=== PATIENT | female | born 1940 | race Caucasian/White ===

== ENCOUNTER 2020-03-31 13:12 | Outpatient (CLI) | payer MEDICARE, OTHER, SELFPAY ==
--- NOTE | 2020-03-31 17:21 | ONC CON_ITS ---
Dr. Benito New Patient Note Patient: Millicent Angel Unit #: [id number]: 1940 Dicatated By: Maynor Benito M.D.Date of Visit: Mar 31, 2020 Onc MED New Patient/Consult Referring Physician: Dr. Dedrick Person M.D. Chief Complaint: Paget's disease of perianal skin. History of Present Illness: This is an 80-year-old woman who is known to have Paget's disease of the perianal skin. She is followed by Dr. Hook in [place]. She had initially been diagnosed with the Paget's disease in April 2017. Her colonoscopy at that time showed a rectal polyp (tubular adenoma), but there was no evidence of colorectal cancer. She underwent wide excision of the Paget's disease and en bloc resection of the rectal polyp on 06/29/2017. Pathology was consistent with Paget's disease of the perianal skin with involved anterior, posterior, and rectal margins. She was then followed expectantly. She required excision for local recurrence of the Paget's disease in July 2018. By June 2019 she again had evidence of local recurrence. Her repeat colonoscopy on 08/29/2019 showed no evidence for polyps, tumors, or inflammatory changes. She then underwent wide excision of the Paget's disease on 09/12/2019. Pathology on excisions from the left posterior perianal area and left anterior perianal area both showed extramammary Paget's disease with positive margins, including the dentate margin. An additional anterior midline biopsy also was positive for extramammary Paget's disease with positive peripheral margins. As of her follow-up visit with Dr. Hook in November 2019 there was no evidence for further recurrence. She has been feeling pretty good generally. Her main complaint is that she has peripheral neuropathy affecting her lower extremities. Her neuropathy pain has been well controlled on Lyrica. However, following her surgery in August her pain has worsened, mainly in the left posterior hip area radiating down the back of the left leg. The pain also radiates somewhat to the perineal/rectal area. She has had to have her Lyrica dosage increased. She has had pretty good energy, though she sometimes feels worn out. Her ECOG score is 1. She has good appetite. She has no fever or night sweats. She always has sinus drainage. She had been having chest pain and syncope prior to her pacemaker procedure, but since then she has had just occasional palpitations. She sometimes has acid reflux. She also complains that she has to strain to have bowel movements, though she is having them daily. She has not been aware of any blood in the stool. She says her bladder has dropped and she has urinary frequency with urgency and incontinence. She has arthritis pain, tickly had in her hands, and she also has fibromyalgia and trigeminal neuralgia. She has headaches. She is known to have a meningioma involving the right sphenoid wing. She has some numbness in her feet. She is sleeping okay with clonazepam. Past Medical History: Her medical history includes degenerative arthritis, fibromyalgia, hyperlipidemia, hypertension, peripheral neuropathy, and trigeminal neuralgia. She has a history of 3rd degree heart block, and she has known meningioma involving the right sphenoid wing. Past Surgical History: She underwent excision of perianal Paget's disease in May 2017, in July 2018, and in August 2019, and she underwent colonoscopy in 2016 and in 2019. Her other surgical/procedural history includes bilateral cataract excisions, breast biopsy x 3 for benign disease, hysterectomy without oophorectomy, and pacemaker placement. Medications: Cetirizine HCl 1 Tablet (of 10 mg) Oral daily, clonazePAM 1 Tablet (of 0.5 mg) Oral at bedtime, Flonase 1 Mansfield(s) (of 50 mcg/act) Suspension Nasal PRN, FLUoxetine HCl 1 Capsule (of 20 mg) Oral daily, Indomethacin 1 Capsule (of 20 mg) Oral b.i.d., Losartan Potassium 1 Tablet (of 50 mg) Oral daily, Multivitamin 1 Tablet Oral daily, Pregabalin 1 Capsule (of 150 mg) Oral daily, Simvastatin 1 Tablet (of 10 mg) Oral daily Allergies: Sulfa Antibiotics Social History: Ms. Angel is and she is retired. She had smoked for 15 years, but not heavy, and she quit in 1984. She does not drink alcohol. Family History: Father with heart disease at age 90. Mother with congestive heart failure at age 83. She has 1 living sister. One sister of diphtheria at age 7 and another sister shortly after . Review Of Symptoms: Constitutional - She has generally been feeling okay. Her energy is low and she feels worn out. She is able to do all her housework. Her appetite is good and weight is stable. No fever, night sweats, or hot flashes. ECOG score is 1, Eyes - She wears glasses. She had had bilateral cataract surgery, ENMT - No hearing loss. She has some tinnitus. She has chronic sinus congestion/drainage. No mouth sores. No sore throat or difficulty swallowing. She has chronic hoarseness, Hematologic/Lymphatic - She bruises easily, Respiratory - No shortness of breath. No cough. No pleuritic pain or hemoptysis, Cardiovascular - She was having chest pain prior to her pacemaker. She still has occasional palpitations, Gastrointestinal - No nausea or vomiting. She has occasional acid reflux depending on what she eats. No diarrhea. She has some constipation. She is taking Metamucil daily. No blood in the stool or black stools, Genitourinary (F) - No dysuria or hematuria. She has urinary frequency both day and night. She has urgency and occasional incontinence, Musculoskeletal - She has joint pain in her fingers. She is taking indomethacin, Integumentary - She has Paget's disease. No other skin issues, Neurologic - No headache or dizziness. She has neuropathy in her legs and feet, which has worsened since her last surgery. She complains of a new pain in her left hip near the sciatic area that is similar to neuropathy pain. She is taking Lyrica which had been working well. She has had the dosage increased. She also has trigeminal neuralgia and she has fibromyalgia, Psychiatric - No anxiety or depression. She takes clonazepam for sleep. Vital Signs: Performed on Mar 31, 2020 14:02: 5, 26.52, 1.67 sq.m, 62.00 in, 98 %, 73 /min, 18 /min, 120/92 mm(hg), 98.3 F (LOW), and 145.0 lbs (HIGH). Physical Examination: Constitutional - She appears to be in good general health., Eyes - Sclerae nonicteric. Conjunctivae clear, ENMT - No lesions noted in the oral cavity, Hematologic/Lymphatic - No cervical, clavicular, or axillary adenopathy, Respiratory - Lungs are clear with good air movement bilaterally, Cardiovascular - Heart rhythm is regular. There is no murmur, gallop, or rub noted. There is no carotid bruit noted, Abdomen - Soft and non-tender. Liver and spleen are not enlarged. There is no abdominal mass or ascites noted and there is no inguinal adenopathy, Genitalia/Groin/Buttock (F) - There is currently no visible evidence for local recurrence of Paget's disease in the perianal area, Back/Spine - No spine or CVA tenderness noted, Extremities - No edema. Pedal pulses are palpable bilaterally, Integumentary - No rashes. No suspicious skin lesions noted, Neurologic - No focal neurologic deficits noted. Impression: 1. Patient with Paget's disease involving the perianal skin, for which she initially underwent excision in May 2017. 2. She had subsequent excisions for recurrences in July 2018 and August 2019. Her pathology showed involved peripheral margins, including the dentate margin. 3. She has had no evidence of associated colorectal neoplasm by colonoscopy in April 2017 and in July 2019. Her other medical illnesses include: 4. Hypertension. 5. Hyperlipidemia. 6. Peripheral neuropathy. 7. Trigeminal neuralgia. 8. Fibromyalgia. 9. Degenerative arthritis. 10. She has known meningioma of the right sphenoid wing. 11. She underwent placement of permanent pacemaker for third-degree heart block. Plan: Patient currently has no evidence for further recurrence of the Paget's disease and she has had no evidence of underlying colorectal neoplasm. We discussed the fact that the best treatment option is to continue surgical resection as long as it is technically feasible. She potentially could be treated with radiation if or when it is no longer resectable. We discussed the fact that we do not have any other effective treatment options and that it is really best for her to continue her regular surveillance with Dr. Hook. I can see her again as needed. Signed By: Maynor Benito M.D. <<Signature on File>>
== END 2020-03-31 13:13 | disposition home or self-care (01) ==
LOC: ONCMED 13:16
PROVIDERS: PCP Family Medicine; Referring Provider Family Medicine; Visit Provider Internal Medicine Medical Oncology
DX: C21.0 Malignant neoplasm of anus, unspecified (principal); I10 Essential (primary) hypertension; E78.5 Hyperlipidemia, unspecified; G62.9 Polyneuropathy, unspecified; G50.0 Trigeminal neuralgia; M79.7 Fibromyalgia; M19.90 Unspecified osteoarthritis, unspecified site; D32.9 Benign neoplasm of meninges, unspecified; I44.2 Atrioventricular block, complete; Z95.0 Presence of cardiac pacemaker
CPT/HCPCS: 99203

== ENCOUNTER 2020-04-21 12:09 | Outpatient (CLI) | payer MEDICARE, OTHER, SELFPAY ==
--- NOTE | 2020-04-21 12:18 | XRR_ITS ---
PROCEDURE INFORMATION: Exam: XR Left Hip with Pelvis when Performed Exam date and time: 04/21/2020 12:36 PM Age: 80 years old Clinical indication: Left hip pain TECHNIQUE: Imaging protocol: XR Left hip with pelvis when performed. Views: 2 or 3 views. COMPARISON: CT abdomen pelvis w con* [id number] 10/14/2013 2:59 PM FINDINGS: Bones/joints: No fracture. No dislocation. No joint space narrowing. Soft tissues: No acute soft tissue abnormality. XR/XR hip LT 2-3V wo/w pel* [id number] IMPRESSION: No acute osseous abnormality.
== END 2020-04-21 12:10 | disposition home or self-care (01) ==
LOC: RAD 12:14
PROVIDERS: PCP Family Medicine; Visit Provider Family Medicine
DX: M25.552 Pain in left hip (principal)
CPT/HCPCS: 73502

== ENCOUNTER → 2020-05-01 15:11 | Outpatient (BNVA) | payer MEDICARE, OTHER, SELFPAY | PROVIDERS: PCP Family Medicine; Visit Provider Family Medicine | DX: Z11.59 Encounter for screening for other viral diseases (principal) | CPT/HCPCS: 87635 ==

== ENCOUNTER 2020-06-04 12:12 | Outpatient (CLI) | payer MEDICARE, OTHER, SELFPAY ==
--- NOTE | 2020-06-04 12:20 | CT_ITS ---
WS: [id number] CT scan of the abdomen and pelvis with Oral and IV contrast. Additional two-dimensional coronal and s agittal reconstruction was performed. 06/04/2020 Clinical Data: ABDOMINAL PAIN, LEFT UPPER QUADRANT Comparison: CT abdomen and pelvis, 10/14/2013. DLP: 1128.[address] scans at [facility] use at least one of these dose optimization techniques: automat ed exposure control; mA and/or kV adjustment per patient size (includes targeted exams where dose is matched to clinical indication); or iterative reconstruction. Findings: The lower lungs show no nodules, masses or effusions. Pacemaker wires are in the heart. There is a sm all hiatal hernia. The liver, gallbladder, spleen, adrenal glands and pancreas are normal. There is a low-density cyst i n the dome of the liver unchanged. The kidneys show equal bilateral contrast excretion with no cyst or masses. No hydronephrosis or michelle l calculi are seen. The abdominal aorta is normal in size. No appendicitis or diverticulitis is seen. Extensive sigmoid diverticula are present. Oral contrast i s in the stomach, small bowel and colon and there is no bowel dilatation. No abscess, adenopathy, ascites, mass, obstruction or free air is seen. The bladder is unremarkable. The uterus is absent. No inguinal hernia is seen. Degenerative change of the lower thoracic and the lumbar vertebral bodies is seen. CT/CT abdomen pelvis w con* [id number] Impression: Negative for acute intra-abdominal or pelvic abnormalities.
[2020-06-04] MEDS: iohexol 300 mg/mL 50 mL Btl PO (12:42)
[2020-06-04 14:02] LABS: Blood Urea Nitrogen 13 mg/dL (8-23)
[2020-06-04] MEDS: iohexol 300 mg/mL 100 mL Btl IV (14:15)
== END 2020-06-04 12:13 | disposition home or self-care (01) ==
LOC: RADWPI 12:15
PROVIDERS: PCP Family Medicine; Visit Provider Family Medicine
DX: R10.12 Left upper quadrant pain (principal)
CPT/HCPCS: 74177; 82565; 84520; Q9967

== ENCOUNTER → 2020-07-22 09:23 | Outpatient (BNVA) | payer MEDICARE, OTHER, SELFPAY | PROVIDERS: PCP Family Medicine; Visit Provider Specialist | DX: M70.62 Trochanteric bursitis, left hip (principal); I10 Essential (primary) hypertension | CPT/HCPCS: 73502 ==

== ENCOUNTER 2020-08-03 12:28 | Outpatient (RCR) | payer MEDICARE, OTHER, SELFPAY | END 2020-08-30 23:59 | disposition home or self-care (01) | LOC: SPT 12:28 | PROVIDERS: PCP Family Medicine; Referring Provider Specialist; Visit Provider Specialist | DX: M70.62 Trochanteric bursitis, left hip (principal) | CPT/HCPCS: 97110; 97161 ==

== ENCOUNTER 2020-08-31 06:00 | Outpatient (RCR) | payer MEDICARE, OTHER, SELFPAY | END 2020-09-27 23:59 | disposition home or self-care (01) | LOC: SPT 06:00 | PROVIDERS: PCP Family Medicine; Referring Provider Specialist; Visit Provider Specialist | DX: M70.62 Trochanteric bursitis, left hip (principal) | CPT/HCPCS: 97110 ==

== ENCOUNTER → 2020-09-03 15:24 | Outpatient (BNVA) | payer MEDICARE, OTHER, SELFPAY | PROVIDERS: PCP Family Medicine; Visit Provider Orthopaedic Surgery | DX: M43.16 Spondylolisthesis, lumbar region (principal); M47.896 Other spondylosis, lumbar region; M47.897 Other spondylosis, lumbosacral region | CPT/HCPCS: 72110 ==

== ENCOUNTER 2020-09-28 06:00 | Outpatient (RCR) | payer MEDICARE, OTHER, SELFPAY | END 2020-10-21 11:07 | disposition home or self-care (01) | LOC: SPT 06:00 | PROVIDERS: PCP Family Medicine; Referring Provider Specialist; Visit Provider Specialist | DX: M70.62 Trochanteric bursitis, left hip (principal) | CPT/HCPCS: 97110 ==

== ENCOUNTER 2020-10-12 15:43 | Outpatient (CLI) | payer MEDICARE, OTHER, SELFPAY ==
--- NOTE | 2020-10-13 08:40 | N.ONRAD NP_ITS ---
Radiation Oncology Consultation Patient Name: Millicent Angel Date of : 1940 Date of Service: 10/12/2020 Attending Physician: Sky Caro M.D. Millicent Angel was seen in consultation this afternoon at the request of Maynor Benito M.D. for consideration of radiotherapy for the management of her recurrent extramammary Paget's disease of the perianal skin. She was initially diagnosed in March 2017 after presenting to her general practitioner with anal itching and discomfort. A biopsy demonstrated intraepidermal proliferation of atypical epithelioid cells with a prominent pagetoid growth pattern supporting the diagnosis of extramammary Paget's disease. In May 2017, a wide excision was performed by Jack Hook M.D. with pathology confirming Paget's disease with cephalad margins. Subsequently, disease recurrence has been noted with re-excisions (all pathology reports were requested from the outside hospital and personally reviewed) performed in July 2018 and July 2019. . The patient presents for evaluation regarding definitive radiotherapy in the management of recurrent extramammary (perianal) Paget's disease. I discussed the role of radiotherapy for the management of extramammary Paget???s disease. I also reviewed anecdotal reports utilizing Imiquimod with biopsy-proven complete response noted. The potential toxicities of perianal radiotherapy were discussed and concern was expressed regarding worsening of the patient's anal stricture from radiation treatment. The uniqueness of this patient's case was discussed with Jack Hook M.D. and Maynor Benito M.D. Signed by: Dr. Sky Caro 10/13/2020 8:38:55 AM
== END 2020-10-12 15:44 | disposition home or self-care (01) ==
LOC: ONCMED 15:45
PROVIDERS: PCP Family Medicine; Visit Provider Internal Medicine Medical Oncology
DX: C44.590 Other specified malignant neoplasm of anal skin (principal)
CPT/HCPCS: 99215

== ENCOUNTER 2020-11-18 08:38 | Outpatient (CLI) | payer MEDICARE, OTHER, SELFPAY ==
--- NOTE | 2020-11-18 08:51 | MM_ITS ---
WS: [id number] BILATERAL SCREENING DIGITAL MAMMOGRAM WITH CAD HISTORY: SCREENING COMPARISON: 04/26/2018, 02/10/2014, 04/21/2017 Bilateral CC and MLO views submitted. Computer aided detection analyzed. Breast composition: There are scattered areas of fibroglandular density. No suspicious masses, microc alcifications or architectural distortion. Asymmetry in the lateral posterior RIGHT breast stable sin ce 2013. There is an asymmetry in the posterior LEFT breast central to the nipple on the MLO projecti on. No change in appearance since 04/26/2018. Benign calcifications and vascular calcifications within each breast. MM/[place] [id number] IMPRESSION: BI-RADS: 2-Benign FOLLOW UP: 1 Year Follow-up
== END 2020-11-18 08:39 | disposition home or self-care (01) ==
LOC: RADSHAW 08:39
PROVIDERS: PCP Family Medicine; Visit Provider Family Medicine
DX: Z12.31 Encounter for screening mammogram for malignant neoplasm of breast (principal)
CPT/HCPCS: 77067

== ENCOUNTER 2021-07-07 12:47 | Outpatient (CLI) | payer MEDICARE, OTHER, SELFPAY ==
--- NOTE | 2021-07-07 12:58 | USCV_ITS ---
Millicent Angel Age: 81 Gender: F : 1940 Exam Date: 07/07/2021 13:09 Ordering Phys: Dedrick Person MD Technologist: ZACARIAS [place]am Location: [facility] [place] Indication: RIGHT LEG PAIN, EDEMA HISTORY: Lower extremity pain. Lower extremity edema. PROCEDURES: Venous duplex imaging was performed in only the right lower extremity. The following venous structures were evaluated: common femoral vein, profunda vein, proximal portion of the greater saphenous vein, superficial femoral vein, and the popliteal vein. In addition, the posterior tibial and peroneal trunk were evaluated. FINDINGS: Normal 2-D Doppler and augmentation and compressibility throughout the lower extremity venous structures. Additional imaging through the proximal calf veins also reveals no thrombus. Limited evaluation of the greater saphenous vein is patent with no thrombus. There appears to be a complex fluid collection on the right medial calf. Patient c/o pain in right calf after more excercise than normal. CONCLUSIONS No evidence of right lower extremity DVT. Complex oblong fluid collection Right medial calf measuring 7.5 x 4.5cm This may represent resolving hematoma or seroma. Prelim given to Dr. Awan nurse LON 07/07/21 Mike Valverde MD (Electronically Signed) Final Date: 07 July 2021 13:58 S
== END 2021-07-07 12:48 | disposition home or self-care (01) ==
LOC: RAD 12:52
PROVIDERS: PCP Family Medicine; Visit Provider Family Medicine
DX: M79.604 Pain in right leg (principal); R60.9 Edema, unspecified
CPT/HCPCS: 93971

== ENCOUNTER → 2022-02-10 09:59 | Outpatient (BNVA) | payer MEDICARE, OTHER, SELFPAY | PROVIDERS: PCP Family Medicine; Visit Provider Specialist | DX: M70.62 Trochanteric bursitis, left hip (principal); M25.552 Pain in left hip; Z71.89 Other specified counseling | CPT/HCPCS: 20610; 73502; 99213 ==

== ENCOUNTER → 2022-05-03 09:15 | Outpatient (BNVA) | payer MEDICARE, OTHER, SELFPAY | PROVIDERS: PCP Family Medicine; Visit Provider Family Medicine | DX: I48.91 Unspecified atrial fibrillation (principal); E78.00 Pure hypercholesterolemia, unspecified; I47.1 Supraventricular tachycardia; I10 Essential (primary) hypertension; Z00.00 Encounter for general adult medical examination without abnormal findings | CPT/HCPCS: 80053; 80061; 85025 ==

== ENCOUNTER → 2022-05-16 10:50 | Outpatient (BNVA) | payer MEDICARE, OTHER, SELFPAY | PROVIDERS: PCP Family Medicine; Visit Provider Internal Medicine Cardiovascular Disease | DX: R07.9 Chest pain, unspecified (principal); I10 Essential (primary) hypertension; I47.1 Supraventricular tachycardia; Z95.0 Presence of cardiac pacemaker; Z87.891 Personal history of nicotine dependence | CPT/HCPCS: 99214 ==

== ENCOUNTER → 2022-05-19 10:17 | Outpatient (BNVA) | payer MEDICARE, OTHER, SELFPAY | PROVIDERS: PCP Family Medicine; Visit Provider Specialist | DX: M70.62 Trochanteric bursitis, left hip (principal) | CPT/HCPCS: 20610; J1100; J2795; J3301 ==

== ENCOUNTER 2022-08-05 12:38 | Outpatient (CLI) | payer MEDICARE, OTHER, SELFPAY ==
--- NOTE | 2022-08-05 12:48 | MM_ITS ---
WS: [id number] BILATERAL 3D TOMOSYNTHESIS DIGITAL SCREENING MAMMOGRAPHY WITH CAD CLINICAL INFORMATION: Z12.39 - Encounter for other screening for malignant neop... HISTORY: Screening mammogram. No current complaints. COMPARISON: 2020 TECHNIQUE: Bilateral CC and MLO views. FINDINGS: Scattered fibroglandular densities bilaterally. No suspicious focal mass, asymmetry, calcifications, or architectural distortion. No evidence of malignancy. Punctate and lucent centered calcifications. Vascular calcification. MM/[place] [id number] IMPRESSION: BI-RADS: 2-Benign FOLLOW UP: 1 Year Follow-up Recommend return to annual screening mammography.
== END 2022-08-05 12:39 | disposition home or self-care (01) ==
LOC: RAD 12:39
PROVIDERS: PCP Family Medicine; Visit Provider Obstetrics & Gynecology
DX: Z12.31 Encounter for screening mammogram for malignant neoplasm of breast (principal)
CPT/HCPCS: 77063; 77067

== ENCOUNTER → 2022-08-22 14:58 | Outpatient (BNVA) | payer MEDICARE, OTHER, SELFPAY | PROVIDERS: PCP Family Medicine; Visit Provider Specialist | DX: M70.62 Trochanteric bursitis, left hip (principal) | CPT/HCPCS: 20610; J1100; J2795; J3301 ==

== ENCOUNTER → 2022-10-05 14:03 | Outpatient (BNVA) | payer MEDICARE, OTHER, SELFPAY | PROVIDERS: PCP Family Medicine; Visit Provider Specialist | DX: S89.91XA Unspecified injury of right lower leg, initial encounter (principal); W01.0XXA Fall on same level from slipping, tripping and stumbling without subsequent striking against object, initial encounter; R29.6 Repeated falls | CPT/HCPCS: 73560; 73565; 99213 ==

== ENCOUNTER → 2022-10-19 11:40 | Outpatient (BNVA) | payer MEDICARE, OTHER, SELFPAY | PROVIDERS: PCP Family Medicine; Visit Provider Family Medicine | DX: I48.91 Unspecified atrial fibrillation (principal); I10 Essential (primary) hypertension; E78.00 Pure hypercholesterolemia, unspecified | CPT/HCPCS: 80053; 80061; 84443; 85025 ==

== ENCOUNTER → 2022-11-24 09:17 | Outpatient (BNVA) | payer MEDICARE, OTHER, SELFPAY | PROVIDERS: PCP Family Medicine; Visit Provider Specialist | DX: M70.62 Trochanteric bursitis, left hip (principal) | CPT/HCPCS: 20610; J1100; J2795; J3301 ==

== ENCOUNTER 2022-12-09 18:32 | Emergency (ER) | payer MEDICARE, OTHER, SELFPAY ==
[2022-12-09 18:51] VITALS: BP 126/72; PULSE 85; RESP 18; TEMP 36.3; O2SAT 95
--- NOTE | 2022-12-09 18:55 | XRR_ITS ---
PROCEDURE INFORMATION: Exam: XR Chest Exam date and time: 12/09/2022 7:01 PM Age: 82 years old Clinical indication: Other: Tachycardia; Prior surgery; Surgery date: 6+ months; Surgery type: Pacer; Additional info: Cp TECHNIQUE: Imaging protocol: Radiologic exam of the chest. Views: 1 view. COMPARISON: CT chest abdpel w/*[id number] 06/07/2021 8:18 AM FINDINGS: Tubes, catheters and devices: Pacer device noted in the left chest wall. Lungs: Unremarkable. No consolidation. Pleural spaces: Unremarkable. No pleural effusion. No pneumothorax. Heart/Mediastinum: Unremarkable. No cardiomegaly. Bones/joints: Unremarkable. XR/XR chest 1V portable [id number] IMPRESSION: No acute findings.
--- NOTE | 2022-12-09 18:57 | ECG_ITS ---
[facility] Test Date: 2022-12-09 Pat Name: Millicent Angel Department: Room: Gender: Female [employer]: : 1940 Requested By: Bob Santiago Order Number: [id number] Garnica MD: Rakesh Tavares M.D. Measurements Intervals [place] Rate: 85 P: 45 OK: 219 QRS: -80 QRSD: 149 T: 85 QT: 403 QTc: 481 Interpretive Statements ELECTRONIC VENTRICULAR PACEMAKER Compared to ECG 05/05/2019 21:04:40 Sinus rhythm no longer present AV block, complete (third-degree) no longer present ST (T wave) deviation no longer present Electronically Signed On 12-09-2022 21:38:04 CDT by Rakesh Tavares M.D. [id number]
[2022-12-09 19:08] LABS: Basophils # 0.1 10^3/uL (0.0-0.1); Basophils % 0.6 %; Eosinophils # 0.1 10^3/uL (0.0-0.8); Eosinophils % 0.9 %; Hematocrit 35.6 % (37.0-47.0); Hemoglobin 11.8 g/dL (11.5-15.3); Lymphocytes # 2.3 10^3/uL (0.8-4.8); Lymphocytes % 23.4 %; Mean Corpuscular HGB Conc 33.1 g/dL (30.0-36.0); Mean Corpuscular Hemoglobin 30.6 pg (28.0-34.0); Mean Corpuscular Volume 92.5 fl (81-99); Mean Platelet Volume 9.5 fL (7.4-10.4); Monocytes # 0.9 10^3/uL (0.2-0.9); Monocytes % 9.4 %; Neutrophils # 6.47 10^3/uL (1.8-7.7); Neutrophils % 65.4 %; Nucleated Red Blood Cells % 0 %; Platelet Count 349 10^3/cmm (130-400); Red Blood Count 3.85 10^6/uL (4.1-5.3); Red Cell Distribution Width 12.8 % (12.1-15.1); White Blood Count 9.9 10^3/uL (4.0-10.0)
--- NOTE | 2022-12-09 19:18 | ED_ITS ---
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 She presents with chest pressure. She noted pressure after changing out some potted plants today. She is short of breath. She became dizzy, and says I would have passed out if I had not sat down . Pressures improved at this point. She still feels tired and short of breath. Heart rate was noted to be 120s by family and EMS. Had improved to 80s by the time EMS arrived here. No cough. No fever. No other new symptoms. The patient notes that she has not been taking her metoprolol, which she is prescribed twice daily due to potential side effects. Onset (ago): hour(s) Location: chest Radiation: non-radiation Severity: moderate Quality: other (Pressure) Pain Consistency: constant Relieving factors: none Exacerbating factors: none Associated symptoms: Reports chest pain, dyspnea, nausea, palpitations and short of breath; Deny confusion, cough, diaphoresis, fevers/chills, headache(s) or vomiting Treatments prior to arrival: none Review of Systems Const: Denies: fever(s) or diaphoresis Eyes: Denies: change in vision ENMT: Denies: throat pain Card: Reports: chest pain and palpitations Resp: Reports: dyspnea GI: Reports: nausea; Denies: vomiting Neuro: Denies: headache(s) or confusion PFS ED PFSH: Medical History Atrial fibrillation Elevated cholesterol Diagnosed in 2011 and has been on and off medication. Managed by PMD HTN (hypertension) SVT/high blood pressure diagnosed in 2019-has pacemaker and is on medication managed by primary care provider and cardiology-Dr. Swanson Meningioma Meningioma identified during evaluation for chronic headaches-followed with neurology Dr. De Los Santos in [place] and states it was stable. She has been cleared and has not seen a neurologist in over 4 years. No pertinent past medical history Denies diabetes, asthma, seizures, DVT/PE PCP: Dr. Person Paget's disease Status post excision surgery and radiation in 2020 done at [place]. SVT (supraventricular tachycardia) Surgical History History of rectal surgery X 3 Patient had perianal excision of Paget's disease done by Dr. Adamson and Dr. Goss in [place] first in May 2017 and then again in July 2018, 2020 S/P cardiac pacemaker procedure 2020 S/P hysterectomy Vaginal, done for prolapse in 1981. She was told there was no cancer. S/P tubal ligation Laparoscopic procedure performed in 1979 Family History Mother Heart disease Hypertension Father Heart disease Daughter Diabetes Sister Hyperlipidemia Other Colon cancer Denies family history of Ovarian cancer Breast cancer Uterine cancer Thyroid condition Stroke Social History Smoking and tobacco status: former smoker Alcohol intake: never Substance/Drug Use: never Physical Exam Const: GENERAL APPEARANCE: anxious (Mildly) and frail appearing (Mildly) HENMT: COMMON NORMALS: normocephalic, atraumatic and Normal external nose present HEAD & SCALP: normocephalic and atraumatic FACE & SINUS: normal facial exam and face symmetric NOSE: Normal external nose present Eye: COMMON NORMALS: Equal, round and reactive pupils present and EOMs intact bilaterally PUPIL: Yes Equal, round and reactive pupils present Neck/C-Spine: GENERAL: Yes trachea midline Chest: CHEST: Yes Symmetrical chest wall rise Resp: COMMON NORMALS: No retractions, No use of accessory muscles and clear to auscultation bilaterally EFFORT & INSPECTION: Yes tachypneic AUSCULTATION: clear to auscultation bilaterally Cardio: COMMON NORMALS: regular rate and regular rhythm RATE: regular rate RHYTHM: regular rhythm GI: COMMON NORMALS: Normal to inspection, nondistended, normoactive bowel sounds present Extremity: COMMON NORMALS: no pedal edema Neuro: JENNIFER COMA SCALE: document GCS findings Jennifer coma scale eye opening: Spontaneous [place] coma scale verbal response: Orientated [place] coma scale motor response: Obey commands [place] coma scale total score: 15 SENSORY EXAM: Yes extremities (intact) Psych: COMMON NORMALS: speech normal SPEECH: Yes normal speech Skin: COMMON NORMALS: no rashes or lesions noted GENERAL SKIN EXAM: no rashes or lesions noted Course Vital Signs: Vital signs: Vital Signs Temperature 97.3 F L 12/09/22 18:51 Pulse Rate 73 05/12/23 22:00 Respiratory Rate 20 H 12/09/22 22:00 Blood Pressure 167/83 12/09/22 22:00 Pulse Oximetry 100 12/09/22 22:00 Oxygen Delivery Me thod Room Air 12/09/22 21:00 MDM - General Adult Medical Decision Making 82-year-old female presenting with chest discomfort that is now resolved. She was tachycardic on EMS arrival. She has not been tachycardic here. Pacemaker is interrogated, and noted some atrial over sensing. [employer] is aware and will adjust at her next appointment on 12/20. No other malfunction as a cause of tachycardia. The patient had quit taking her metoprolol a couple of days prior. This is the most likely cause. Creatinine is 1.2. Bicarbonate is 17. Chest x-ray is negative. CTA of the chest performed due to elevated D-dimer is negative troponin did not elevated 2 hours. EKG does not show significant ST wave changes. With resolution of her pain, she will be allowed discharge. Close outpatient follow-up. She has an appointment on 12/20 with cardiology. She knows to return for any return of symptoms in the meantime. Lab Data 12/09/22 18:10 12/09/22 18:10 Radiology Impressions Chest X-Ray 12/09/22 18:55 IMPRESSION: No acute findings. Chest CTA 12/09/22 20:09 IMPRESSION: No acute infiltrate. No evidence for pulmonary embolism. Laboratory Results WBC 9.9 10^3/uL (4.0-10.0) 12/09/22 18:10 RBC 3.85 10^6/uL (4.1-5.3) L 12/09/22 18:10 Hgb 11.8 g/dL (11.5-15.3) 12/09/22 18:10 Hct 35.6 % (37.0-47.0) L 12/09/22 18:10 MCV 92.5 fl (81-99) 12/09/22 18:10 MCH 30.6 pg (28.0-34.0) 12/09/22 18:10 MCHC 33.1 g/dL (30.0-36.0) 12/09/22 18:10 RDW 12.8 % (12.1-15.1) 12/09/22 18:10 Plt Count 349 10^3/cmm (130-400) 12/09/22 18:10 MPV 9.5 fL (7.4-10.4) 12/09/22 18:10 Neut % (Auto) 65.4 % 12/09/22 18:10 Lymph % (Auto) 23.4 % 12/09/22 18:10 [place] % (Auto) 9.4 % 12/09/22 18:10 Eos % (Auto) 0.9 % 12/09/22 18:10 Baso % (Auto) 0.6 % 12/09/22 18:10 Neut # (Auto) 6.47 10^3/uL (1.8-7.7) 12/09/22 18:10 Lymph # (Auto) 2.3 10^3/uL (0.8-4.8) 12/09/22 18:10 [place] # (Auto) 0.9 10^3/uL (0.2-0.9) 12/09/22 18:10 Eos # (Auto) 0.1 10^3/uL (0.0-0.8) 12/09/22 18:10 Baso # (Auto) 0.1 10^3/uL (0.0-0.1) 12/09/22 18:10 Nucleated RBC % (auto) 0 % 12/09/22 18:10 Nucleated RBCs # 0.0 /100WBC 12/09/22 18:10 D-Dimer 1.24 ug/mIFEU (0-0.59) H 12/09/22 18:10 Sodium 132 mmol/L (136-145) L 12/09/22 18:10 Potassium 4.1 mmol/L (3.5-5.1) 12/09/22 18:10 Chloride 98 mmol/L (98-107) 12/09/22 18:10 Carbon Dioxide 17 mmol/L (22-29) L 12/09/22 18:10 Anion Gap 21.1 (5-19) H 12/09/22 18:10 BUN 22 mg/dL (8-23) 12/09/22 18:10 Creatinine 1.2 mg/dL (0.5-0.9) H 12/09/22 18:10 GFR Calculation Not Reportable 12/09/22 18:10 Glucose 107 mg/dL (65-115) 12/09/22 18:10 Calculated Osmolality 278 mOsm/kg (285-295) L 12/09/22 18:10 Calcium 9.2 mg/dL (8.5-10.5) 12/09/22 18:10 Phosphorus 2.7 mg/dL (2.5-4.5) 12/09/22 18:10 Magnesium 2.0 mg/dL (1.7-2.3) 12/09/22 18:10 Total Bilirubin 0.4 mg/dL (0.15-1.2) 12/09/22 18:10 AST 25 U/L (0-32) 12/09/22 18:10 ALT 24 U/L (0-33) 12/09/22 18:10 Alkaline Phosphatase 80 U/L (35-105) 12/09/22 18:10 Creatine Kinase 92 U/L (26-192) 12/09/22 18:10 Troponin T Baseline 16 ng/L (0-10) H 12/09/22 18:10 Troponin T 120 Minute 14.54 ng/L (0-10) H 12/09/22 20:20 Delta Troponin T -1.46 ABS# (0-10) L 12/09/22 20:20 NT-Pro-B Natriuret Pep 299 pg/mL (0-450) 12/09/22 18:10 Total Protein 6.9 g/dL (6.6-8.7) 12/09/22 18:10 Albumin 4.4 g/dL (3.5-5.2) 12/09/22 18:10 Globulin 2.5 g/dL (1.3-4.6) 12/09/22 18:10 Discharge Plan Discharge Patient Disposition: Home Clinical Impression: Chest pain Condition: Stable Prescriptions: No Action multivitamin Capsule 1 cap PO QAM acetaminophen [Tylenol Arthritis Pain] 650 mg tablet extended release 1,300 mg PO Q12H magnesium oxide 250 mg magnesium tablet 250 mg PO DAILY cetirizine [Zyrtec] 10 mg tablet 10 mg PO DAILY PRN fluticasone propionate [Flonase Allergy Relief] 50 mcg/actuation spray,suspension 2 spray intranasal DAILY Qty: 16 11RF Rx Instructions: administer into each nostril clonazepam 0.5 mg tablet 0.5 mg PO TID PRN (Reason: anxiety) Qty: 90 3RF valsartan 160 mg tablet 160 mg PO BID Qty: 180 4RF simvastatin 10 mg tablet 10 mg PO .HS Qty: 90 3RF metoprolol tartrate 25 mg tablet 25 mg PO BID Qty: 180 3RF indomethacin 25 mg capsule 25 mg PO BID PRN (Reason: pain) Qty: 180 3RF fluoxetine 20 mg capsule See Rx Instructions .ROUTE .COMPLEX Qty: 90 3RF Dose Instruction: TAKE 1 CAPSULE EVERY DAY Rx Instructions: TAKE 1 CAPSULE EVERY DAY omeprazole 20 mg capsule,delayed release(DR/EC) 20 mg PO DAILY Qty: 90 3RF Discharge Orders: Discharge ED (Routine); Ordered 12/09/22 Ordered By: Bob Beltran Referrals: Dedrick Person MD [Primary Care Provider] - Patient Instructions: Chest Pain (ED) Activity Restrictions/Additional Instructions: Return immediately for any return of discomfort, increasing shortness of breath, any other concerning symptoms. Restart your metoprolol at 1 twice a day until you see your concrete pointer. Call and let them know you are seen in the emergency department on Monday. Coding Level of Care Code ED Workforce Specialist for Nati Castillo
[2022-12-09] MEDS: sodium chloride 0.9% 500 ML IV (19:24)
[2022-12-09 19:25] LABS: D Dimer 1.24 ug/mIFEU (0-0.59)
[2022-12-09 19:27] VITALS: BP 135/76; PULSE 70; RESP 18; O2SAT 95
[2022-12-09 19:36] LABS: Troponin(5th) Baseline 16 ng/L (0-10)
[2022-12-09 19:44] LABS: Alanine Aminotransferase 24 U/L (0-33); Albumin Level 4.4 g/dL (3.5-5.2); Alkaline Phosphatase 80 U/L (35-105); Anion Gap 21.1 (5-19); Aspartate Amino Transferase 25 U/L (0-32); Blood Urea Nitrogen 22 mg/dL (8-23); Calcium 9.2 mg/dL (8.5-10.5); Carbon Dioxide 17 mmol/L (22-29); Chloride 98 mmol/L (98-107); Creatine Phosphokinase 92 U/L (26-192); Globulin 2.5 g/dL (1.3-4.6); Glucose 107 mg/dL (65-115); NT Pro B Type Natriuretic Pept 299 pg/mL (0-450); Osmolality Calculated 278 mOsm/kg (285-295); Phosphorus 2.7 mg/dL (2.5-4.5); Potassium 4.1 mmol/L (3.5-5.1); Sodium 132 mmol/L (136-145); Total Bilirubin 0.4 mg/dL (0.15-1.2); Total Protein 6.9 g/dL (6.6-8.7)
--- NOTE | 2022-12-09 20:09 | CTR_ITS ---
PROCEDURE INFORMATION: Exam: CTA Chest With Contrast Exam date and time: 12/09/2022 8:24 PM Age: 82 years old Clinical indication: Pain and abnormal findings; Abnormal diagnostic tests; Elevated d-dimer; Chest pressure; Prior surgery; Surgery date: 6+ months; Surgery type: Pacemaker; Patient HX: Chest discomfort with tachycardia. D dimer of 1.24; Additional info: Chest pain TECHNIQUE: Imaging protocol: Computed tomographic angiography of the chest with contrast. 3D rendering (Not supervised by radiologist): MIP and/or 3D reconstructed images were created by the technologist. Radiation optimization: All CT scans at this facility use at least one of these dose optimization techniques: automated exposure control; mA and/or kV adjustment per patient size (includes targeted exams where dose is matched to clinical indication); or iterative reconstruction. Contrast material: OMNI 350; Contrast volume: 65 ml; Contrast route: INTRAVENOUS (IV); REPORTING DATA: Count of CT and Cardiac NM exams in prior 12 months: This patient has received 0 known CTs and 0 known cardiac nuclear medicine studies in the 12 months prior to the current study. COMPARISON: CT angio chest PE protcl [id number] 11/02/2016 10:01 PM RADIATION DOSE METRICS: Total DLP (mGy-cm): 216.58 FINDINGS: Tubes, catheters and devices: A pacemaker device is present, and its leads are in appropriate position. Pulmonary arteries: There is no evidence of filling defects within the pulmonary arterial circulation to suggest pulmonary embolism. There is no evidence of filling defects within the pulmonary arterial circulation to suggest pulmonary embolism. Aorta: There is no thoracic aortic aneurysm or dissection. Lungs: There is small area of focal scarring and bronchiectasis in the posterior right lung base. There are calcified granulomas in both lungs. No acute infiltrate is identified. Pleural spaces: Unremarkable. No pneumothorax. No pleural effusion. Heart: Unremarkable. No cardiomegaly. No pericardial effusion. Coronary arteries: There is mild atherosclerotic calcification of the coronary arteries. Lymph nodes: There are calcified hilar and mediastinal lymph nodes in keeping with old granulomatous disease. There is no evidence of lymphadenopathy. Diaphragm: There is a small hiatal hernia. Bones/joints: Unremarkable. No acute fracture. Soft tissues: Unremarkable. CT/CT angio chest PE protcl [id number] IMPRESSION: No acute infiltrate. No evidence for pulmonary embolism.
[2022-12-09] MEDS: iohexol 350 mg/mL 500 mL Btl (per mL) IV (20:29)
--- NOTE | 2022-12-09 20:57 | ECG_ITS ---
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 Measurements Intervals [place] Rate: 73 P: 58 VA: 211 QRS: -74 QRSD: 149 T: 83 QT: 453 QTc: 500 Interpretive Statements ELECTRONIC VENTRICULAR PACEMAKER ABNORMAL RHYTHM ECG Compared to ECG 05/05/2019 21:04:40 Sinus rhythm no longer present AV block, complete (third-degree) no longer present ST (T wave) deviation no longer present Electronically Signed On 12-09-2022 21:37:51 CDT by Rakesh Tavares M.D. [id number]
[2022-12-09 21:00] VITALS: BP 140/76; PULSE 74; RESP 19; O2SAT 97
[2022-12-09 21:01] LABS: Troponin 5 2HR 14.54 ng/L (0-10)
[2022-12-09 21:04] LABS: Troponin 5 2HR Delta -1.46 ABS# (0-10)
[2022-12-09 22:00] VITALS: BP 167/83; PULSE 73; RESP 20; O2SAT 100
== END 2022-12-09 22:42 | disposition home or self-care (01) ==
PROVIDERS: Emergency Provider Emergency Medicine; PCP Family Medicine
DX: R07.9 Chest pain, unspecified (principal); Z87.891 Personal history of nicotine dependence; I10 Essential (primary) hypertension; Z95.0 Presence of cardiac pacemaker; I25.2 Old myocardial infarction
CPT/HCPCS: 71045; 71275; 80053; 82550; 83735; 83880; 84100; 84484; 85025; 85378; 93005; 96360; 99285; J7040; Q9967

== ENCOUNTER → 2022-12-27 13:42 | Outpatient (BNVA) | payer MEDICARE, OTHER, SELFPAY | PROVIDERS: PCP Family Medicine; Visit Provider Internal Medicine Cardiovascular Disease | DX: R07.9 Chest pain, unspecified (principal); I47.1 Supraventricular tachycardia; I10 Essential (primary) hypertension; Z95.0 Presence of cardiac pacemaker; Z87.891 Personal history of nicotine dependence | CPT/HCPCS: 99214 ==

== ENCOUNTER 2023-01-12 06:38 | Outpatient (CLI) | payer MEDICARE, OTHER, SELFPAY ==
--- NOTE | 2023-01-12 | ECG_ITS ---
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 Interpretive Statements NAME OF STUDY: LEXISCAN SESTAMIBI STRESS TEST INDICATION: [Chest Pain ] PROCEDURE: At the baseline, the blood pressure was [148/84 mmHg] with a heart rate of [83 bpm]. The electrocardiogram showed [AV paced rhythm. The Lexiscan was infused over a period of 20 seconds. A total of 0.4 milligrams of Lexiscan was infused. The stress phase was continued for a total of 5 minutes. Heart rate at the end of the stress phase was [75 bpm] with a blood pressure [of 128/74 mm Hg]. The EKG at the peak infusion revealed [no changes]. Sestamibi was injected 20 seconds after the Lexiscan infusion. Blood pressure at the end of the recovery phase was [124/72 mm Hg] with a heart rate of [67 beats] per minute. CONCLUSION: 1. Non diagnostic EKG changes with the LexiScan infusion given baseline paced rhythm. 2. No LexiScan induced chest pain or cardiac arrhythmia. 3. Normal blood pressure and heart rate response. 4. Sestamibi/sestamibi perfusion scan pending; see separate report. Electronically Signed On 01-18-2023 15:21:01 CDT by Tri Blanco M.D. [id number]
--- NOTE | 2023-01-12 06:56 | NMCV_ITS ---
NM valentina perf SPECT r/s* [id number] Millicent Angel Age: 82 Gender: F : 1940 Exam Date: 01/12/2023 07:40 Ordering Phys: Dedrick Person MD Technologist: MARTHA Galaviz Exam Location: [facility] Indications: CHEST PAIN STRESS TEST Please see separate stress test report in [facility] for full findings IMAGE PROTOCOL Rest/Stress 1 Lexiscan Day Radiopharmaceutical Dose (mCi) Administration Site Administered by Rest: Tc-99m 10.7 IV MARTHA Coles Sestamibi Stress:Tc-99m 32.6 IV MARTHA Coles Sestamibi Rest: 12-Jan-2023 60 Discovery 630 Stress: 12-Jan-2023 30 Discovery 630 0.4mg Lexiscan. Images obtained in supine and prone position. SPECT RESULTS Technical Quality: Excellent Raw Data Analysis: Normal Image Corrections: No attenuation or motion correction applied Summed Stress Score: 10 Summed Rest Score: 16 Summed Difference Score: 0 PERFUSION FINDINGS There is a large in size, fixed perfusion defect noted in inferior wall. It improves on stress imaging. 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 No area of ischemia seen. FUNCTIONAL RESULTS (calculated via Gated SPECT) Stress Image LV EF (%): 79 Stress EDV (mL):61 TID: 1.03 Stress ESV (mL):13 FUNCTIONAL FINDINGS: There is normal left ventricular systolic function. IMPRESSIONS 1. Large area of decreased radiotracer uptake is seen in inferior wall. This is likely secondary to attenuation artifact versus prior infarct in the RCA territory. No area of ischemia seen. 2. LV systolic function is normal. Rakesh Tavares MD (Electronically Signed) Final Date: 12 January 2023 12:58 S
[2023-01-12 07:15] VITALS: BMI 24.7
[2023-01-12] MEDS: regadenoson 0.4 Mg/5 ml Syringe IVP (08:23)
[2023-01-12 08:50] VITALS: BP 124/72; PULSE 82
== END 2023-01-12 06:39 | disposition home or self-care (01) ==
LOC: CDL 06:39
PROVIDERS: PCP Family Medicine; Visit Provider Internal Medicine Cardiovascular Disease
DX: R07.9 Chest pain, unspecified (principal)
CPT/HCPCS: 36415; 78452; 93017; 96374; A9500; J2785

== ENCOUNTER → 2023-02-23 14:48 | Outpatient (BNVA) | payer MEDICARE, OTHER, SELFPAY | PROVIDERS: PCP Family Medicine; Visit Provider Specialist | DX: M70.62 Trochanteric bursitis, left hip; Z71.89 Other specified counseling | CPT/HCPCS: 20610; J1100; J2795; J3301 ==

== ENCOUNTER → 2023-04-26 16:22 | Outpatient (BNVA) | payer MEDICARE, OTHER, SELFPAY | PROVIDERS: PCP Family Medicine; Visit Provider Internal Medicine Cardiovascular Disease | DX: Z45.010 Encounter for checking and testing of cardiac pacemaker pulse generator [battery] (principal) | CPT/HCPCS: 93296 ==

== ENCOUNTER → 2023-05-09 11:59 | Outpatient (BNVA) | payer MEDICARE, OTHER, SELFPAY | PROVIDERS: PCP Family Medicine; Visit Provider Family Medicine | DX: I48.91 Unspecified atrial fibrillation (principal); I10 Essential (primary) hypertension; R53.83 Other fatigue; E78.00 Pure hypercholesterolemia, unspecified | CPT/HCPCS: 80053; 80061; 84443; 85025; 86140 ==

== ENCOUNTER → 2023-06-29 10:37 | Outpatient (BNVA) | payer MEDICARE, OTHER, SELFPAY | PROVIDERS: PCP Family Medicine; Visit Provider Nurse Practitioner | DX: M70.62 Trochanteric bursitis, left hip (principal); Z71.89 Other specified counseling | CPT/HCPCS: 20610; J1100; J2795; J3301 ==

== ENCOUNTER → 2023-07-06 10:15 | Outpatient (BNVA) | payer MEDICARE, OTHER, SELFPAY | PROVIDERS: PCP Family Medicine; Visit Provider Internal Medicine Cardiovascular Disease | DX: R07.9 Chest pain, unspecified (principal); I10 Essential (primary) hypertension; Z95.0 Presence of cardiac pacemaker; I47.10 Supraventricular tachycardia, unspecified; Z87.891 Personal history of nicotine dependence | CPT/HCPCS: 99214 ==

== ENCOUNTER → 2023-08-10 15:03 | Outpatient (BNVA) | payer MEDICARE, OTHER, SELFPAY | PROVIDERS: PCP Family Medicine; Visit Provider Family Medicine | DX: E87.1 Hypo-osmolality and hyponatremia (principal); I48.91 Unspecified atrial fibrillation; I10 Essential (primary) hypertension | CPT/HCPCS: 80048 ==

== ENCOUNTER → 2023-08-17 15:09 | Outpatient (BNVA) | payer MEDICARE, OTHER, SELFPAY | PROVIDERS: PCP Family Medicine; Visit Provider Family Medicine | DX: E87.1 Hypo-osmolality and hyponatremia (principal) | CPT/HCPCS: 80048 ==

== ENCOUNTER → 2023-08-22 14:11 | Outpatient (BNVA) | payer MEDICARE, OTHER, SELFPAY | PROVIDERS: PCP Family Medicine; Visit Provider Family Medicine | DX: E87.1 Hypo-osmolality and hyponatremia (principal); M70.62 Trochanteric bursitis, left hip | CPT/HCPCS: 80048 ==

== ENCOUNTER → 2023-09-07 12:49 | Outpatient (BNVA) | payer MEDICARE, OTHER, SELFPAY | PROVIDERS: PCP Family Medicine; Visit Provider Family Medicine | DX: E87.1 Hypo-osmolality and hyponatremia (principal); M70.62 Trochanteric bursitis, left hip | CPT/HCPCS: 80048 ==

== ENCOUNTER → 2023-09-25 11:09 | Outpatient (BNVA) | payer MEDICARE, OTHER, SELFPAY | PROVIDERS: PCP Family Medicine; Visit Provider Nurse Practitioner | DX: M70.62 Trochanteric bursitis, left hip; Z71.89 Other specified counseling | CPT/HCPCS: 20610; J1100; J2795; J3301 ==

== ENCOUNTER → 2023-10-05 12:03 | Outpatient (BNVA) | payer MEDICARE, OTHER, SELFPAY | PROVIDERS: PCP Family Medicine; Visit Provider Family Medicine | DX: I10 Essential (primary) hypertension (principal); I48.91 Unspecified atrial fibrillation; E87.1 Hypo-osmolality and hyponatremia | CPT/HCPCS: 80053; 85025 ==

== ENCOUNTER 2023-11-02 12:15 | Outpatient (CLI) | payer MEDICARE, OTHER, SELFPAY ==
--- NOTE | 2023-11-02 12:22 | XR_ITS ---
WS: [id number] Examination: XR lumbar spine 2-3V* [id number] Reason for Exam: back pain Date: November 02, 2023 Comparison: September 03, 2020 Findings: The bone density is diminished. The pedicles are intact There is again noted curvature of the spine with convexity to the left. [place] is at L2. There is limited superior endplate compression of L3. There is grade 1 anterolisthesis at L4-5 again noted. Dominant L5-S1 disc narrowing and degenerative changes present. Mild diffuse anterior lipping is present with prominent lower thoracic degenerative disc disease. Facet arthropathy is identified posteriorly. Impression: There is osteopenia. There is mild superior endplate compression of L3 There is mild scoliosis with degenerative changes dominant at L5-S1 as well as the lower thoracic spi ne..
--- NOTE | 2023-11-02 12:22 | XR_ITS ---
WS: [id number] Examination: XR hip LT 2-3V wo/w pel* [id number] Reason for Exam: hip pain Date: November 02, 2023 Comparison: February 10, 2022 Findings: The bone density is diminished. There is no destruction. There is no displaced fracture or dislocation The joint space is maintained. There are mild hypertrophic changes again noted involving the greater trochanter. Impression: No acute bony abnormalities identified involving the left hip.
== END 2023-11-02 12:16 | disposition home or self-care (01) ==
LOC: RAD 12:16
PROVIDERS: PCP Family Medicine; Visit Provider Family Medicine
DX: M48.062 Spinal stenosis, lumbar region with neurogenic claudication (principal); M25.552 Pain in left hip; M51.37 Other intervertebral disc degeneration, lumbosacral region; M85.88 Other specified disorders of bone density and structure, other site; M41.9 Scoliosis, unspecified
CPT/HCPCS: 72100; 73502

== ENCOUNTER → 2023-11-17 09:54 | Outpatient (BNVA) | payer MEDICARE, OTHER, SELFPAY | PROVIDERS: PCP Family Medicine; Visit Provider Internal Medicine Cardiovascular Disease | DX: I10 Essential (primary) hypertension (principal); Z95.0 Presence of cardiac pacemaker; E78.00 Pure hypercholesterolemia, unspecified; R07.9 Chest pain, unspecified; F41.1 Generalized anxiety disorder; Z87.891 Personal history of nicotine dependence | CPT/HCPCS: 99213 ==

== ENCOUNTER 2023-11-20 13:51 | Emergency (ER) | payer MEDICARE, OTHER, SELFPAY ==
[2023-11-20 13:54] VITALS: BP 153/88; PULSE 70; RESP 18; TEMP 36.4; O2SAT 99; BMI 23.4
--- NOTE | 2023-11-20 14:15 | ECG_ITS ---
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 Measurements Intervals [place] Rate: 64 P: 185 AR: 183 QRS: -74 QRSD: 137 T: 72 QT: 411 QTc: 425 Interpretive Statements ELECTRONIC ATRIAL PACEMAKER ELECTRONIC VENTRICULAR PACEMAKER ABNORMAL RHYTHM ECG Compared to ECG 12/09/2022 20:56:27 No significant changes Electronically Signed On 11-20-2023 15:05:14 CDT by Nash Smith M.D. [id number]
--- NOTE | 2023-11-20 14:23 | ED_ITS ---
HPI - Syncope 2 General: Chief Complaint: Syncope Stated Complaint: syncope Time Seen by Provider: 11/20/23 14:19 Source: patient Mode of arrival: ambulatory History of Present Illness: 83-year-old female presents emergency ro om via EMS after near syncopal episode at the vet after she reserved bad news about her pet. She had just gotten up and walked to the counter to pay a bill she got lightheaded dizzy and passed out, she did not strike her head. MD complaint: loss of consciousness Associated symptoms: Deny abdominal pain, chest pain, fever(s), headache(s), lightheadedness, nausea, short of breath, vertigo or weakness Treatments prior to arrival: none Review of Systems 2 Const: Denies: fever(s) or chills Card: Denies: chest pain or lightheadedness Resp: Denies: dyspnea GI: Denies: abdominal pain or nausea : Denies: dysuria, urinary frequency or urinary urgency Musc: Denies: neck pain or back pain Skin/Breast: Denies: rash Neuro: Denies: headache(s) or vertigo PFSH ED 2 PFSH: Medical History Atrial fibrillation Meningioma Meningioma identified during evaluation for chronic headaches-followed with neurology Dr. De Los Santos in [place] and states it was stable. She has been cleared and has not seen a neurologist in over 4 years. Elevated cholesterol Diagnosed in 2011 and has been on and off medication. Managed by PMD Paget's disease Status post excision surgery and radiation in 2020 done at [facility]. No pertinent past medical history Denies diabetes, asthma, seizures, DVT/PE PCP: Dr. Person SVT (supraventricular tachycardia) HTN (hypertension) SVT/high blood pressure diagnosed in 2019-has pacemaker and is on medication managed by primary care provider and cardiology-Dr. Swanson Surgical History S/P cardiac pacemaker procedure 2019 History of rectal surgery X 3 Patient had perianal excision of Paget's disease done by Dr. Adamson and Dr. Goss in [place] first in May 2017 and then again in July 2018, 2020 S/P hysterectomy Vaginal, done for prolapse in 1981. She was told there was no cancer. S/P tubal ligation Laparoscopic procedure performed in 1979 Family History Mother Heart disease Hypertension Father Heart disease Daughter Diabetes Sister Hyperlipidemia Other Colon cancer Denies family history of Ovarian cancer Breast cancer Uterine cancer Thyroid disease Stroke Social History Smoking and tobacco/nicotine status: former use of tobacco/nicotine Alcohol intake: never Substance/Drug Use: never Physical Exam 2 Const: COMMON NORMALS: no acute distress GENERAL APPEARANCE: cooperative and comfortable ORIENTATION/CONSCIOUSNESS: Yes awake, Yes oriented to person, Yes oriented to place and Yes oriented to time HENMT: COMMON NORMALS: normocephalic, atraumatic and hearing grossly normal bilaterally HEAD & SCALP: normocephalic and atraumatic Resp: COMMON NORMALS: normal respiratory effort, No retractions, No use of accessory muscles and clear to auscultation bilaterally AUSCULTATION: clear to auscultation bilaterally Cardio: COMMON NORMALS: regular rate, regular rhythm and No murmurs present (Cardio) RATE: regular rate RHYTHM: regular rhythm GI: COMMON NORMALS: Soft to palpation and No hepatosplenomegaly present A USCULTATION: Yes normoactive bowel sounds PALPATION: Yes Soft to palpation, No Tenderness to palpation present (GI), No Guarding due to palpation present (GI) and Yes No hepatosplenomegaly present Extremity: COMMON NORMALS: normal to inspection, capillary refill normal, no clubbing, cyanosis or edema, no calf tenderness and no pedal edema Neuro: SENSORIUM/ORIENTATION: Yes oriented to person, Yes oriented to place and Yes oriented to time Skin: COMMON NORMALS: no rashes or lesions noted GENERAL SKIN EXAM: no rashes or lesions noted Course 2 Vital Signs: Vital signs: Vital Signs Temperature 97.6 F 11/20/23 13:54 Pulse Rate 76 11/20/23 18:18 Respiratory Rate 15 11/20/23 18:00 Blood Pressure 150/101 11/20/23 18:18 Pulse Oximetry 100 11/20/23 18:00 Oxygen Delivery Me thod Room Air 11/20/23 13:54 MDM - Syncope Medical Decision Making EKG did not show any acute changes. Cardiac enzymes trending normal. Incidental finding of a cystitis. Patient did have mild hyperkalemia and hyponatremia she tells me she chronically has this. Both improved slightly on when they are rechecked along with her second troponin. She generally feels well would like to go home. She tells me she has had extensive workup for these episodes in the past and have not found anything. Will discharge the patient home start her on cefdinir for her cystitis. Encouraged her to follow-up with her primary care doctor recheck potassium and sodium within the next week. She is not on any potassium supplement. She is on magnesium oxide supplement. Return if she has further problems. Medical Records I reviewed the patient's medical records. Lab Data I reviewed the patient's lab results. 11/20/23 13:37 11/20/23 15:50 Radiology Impressions Chest X-Ray 11/20/23 14:39 IMPRESSION: No acute findings. Laboratory Results WBC 8.15 10^3/uL (3.29-11.43) 11/20/23 13:37 RBC 3.94 10^6/uL (3.85-5.65) 11/20/23 13:37 Hgb 12.60 g/dL (11.27-16.99) 11/20/23 13:37 Hct 36.1 % (36-47) 11/20/23 13:37 MCV 91.6 fl (85-98) 11/20/23 13:37 MCH 32.0 pg (27-33) 11/20/23 13:37 MCHC 34.9 g/dL (30-55) 11/20/23 13:37 RDW 13.1 % (12.1-15.1) 11/20/23 13:37 Plt Count 339 10^3/cmm (157-399) 11/20/23 13:37 MPV 9.1 fL (7.4-10.4) 11/20/23 13:37 Neut % (Auto) 49.4 % 11/20/23 13:37 Lymph % (Auto) 37.4 % 11/20/23 13:37 Williamson % (Auto) 9.6 % 11/20/23 13:37 Eos % (Auto) 2.5 % 11/20/23 13:37 Baso % (Auto) 0.9 % 11/20/23 13:37 Neut # (Auto) 4.03 10^3/uL (1.8-7.7) 11/20/23 13:37 Lymph # (Auto) 3.1 10^3/uL (0.8-4.8) 11/20/23 13:37 Williamson # (Auto) 0.8 10^3/uL (0.2-0.9) 11/20/23 13:37 Eos # (Auto) 0.2 10^3/uL (0.0-0.8) 11/20/23 13:37 Baso # (Auto) 0.1 10^3/uL (0.0-0.1) 11/20/23 13:37 Nucleated RBC % (auto) 0 % 11/20/23 13:37 Nucleated RBCs # 0.0 /100WBC 11/20/23 13:37 Sodium 131 mmol/L (136-145) L 11/20/23 15:50 Potassium 5.2 mmol/L (3.5-5.1) H 11/20/23 15:50 Chloride 102 mmol/L (98-107) 11/20/23 15:50 Carbon Dioxide 21 mmol/L (22-29) L 11/20/23 15:50 Anion Gap 13.2 (5-19) 11/20/23 15:50 BUN 18 mg/dL (8-23) 11/20/23 15:50 Creatinine 0.9 mg/dL (0.5-0.9) 11/20/23 15:50 GFR Calculation Not Reportable 11/20/23 15:50 Glucose 96 mg/dL (65-115) 11/20/23 15:50 Calculated Osmolality 274 mOsm/kg (285-295) L 11/20/23 15:50 Calcium 8.7 mg/dL (8.5-10.5) 11/20/23 15:50 Total Bilirubin 0.3 mg/dL (0.15-1.2) 11/20/23 13:37 AST 32 U/L (0-32) 11/20/23 13:37 ALT 28 U/L (0-33) 11/20/23 13:37 Alkaline Phosphatase 99 U/L (35-105) 11/20/23 13:37 Troponin T Baseline 13 ng/L (0-10) H 11/20/23 13:37 Troponin T 120 Minute 11.15 ng/L (0-10) H 11/20/23 15:50 Delta Troponin T -1.85 ABS# (0-10) L 11/20/23 15:50 Total Protein 7.0 g/dL (6.6-8.7) 11/20/23 13:37 Albumin 4.3 g/dL (3.5-5.2) 11/20/23 13:37 Globulin 2.7 g/dL (1.3-4.6) 11/20/23 13:37 Urine Color Yellow (Yellow) 11/20/23 17:56 Urine Appearance Hazy (CLEAR) A 11/20/23 17:56 Urine pH 6 (5-7) 11/20/23 17:56 Ur Specific Marion 1.005 (1.005-1.030) 11/20/23 17:56 Urine Protein Neg (Negative) 11/20/23 17:56 Urine Glucose (UA) Norm (Normal) 11/20/23 17:56 Urine Ketones Negative (Negative) 11/20/23 17:56 Urine Blood Neg (Negative) 11/20/23 17:56 Urine Nitrate Positive (Negative) H 11/20/23 17:56 Urine Bilirubin Neg (Negative) 11/20/23 17:56 Urine Urobilinogen Norm mg/dL (Negative) 11/20/23 17:56 Ur Leukocyte Esterase 1+ (Negative) H 11/20/23 17:56 Urine RBC None /hpf (0-2) 11/20/23 17:56 Urine WBC 25-40 /hpf (0-5) H 11/20/23 17:56 Ur Squamous Epith Cells 0-4 /hpf (0-5) H 11/20/23 17:56 Amorphous Sediment Not Reportable 11/20/23 17:56 Urine Bacteria 2+ /hpf (NONE) H 11/20/23 17:56 All radiology interpretation(s) finalized by discharge Discharge Plan Discharge Patient Disposition: Home Clinical Impression: Syncope, Cystitis Condition: Stable Prescriptions: New cefdinir 300 mg capsule 300 mg PO BID Qty: 14 0RF No Action multivitamin Capsule 1 cap PO QAM acetaminophen [Tylenol Arthritis Pain] 650 mg tablet extended release 1,300 mg PO Q12H magnesium oxide 250 mg magnesium tablet 250 mg PO BID cetirizine [Zyrtec] 10 mg tablet 10 mg PO DAILY nitroglycerin [Nitrostat] 0.4 mg tablet, sublingual 0.4 mg sublingual Q5M PRN (Reason: chest pain) Qty: 25 1RF Rx Instructions: do not exceed 3 doses per episode indomethacin 25 mg capsule 25 mg PO BID PRN (Reason: pain) Qty: 180 3RF clonazepam 0.5 mg tablet 0.5 mg PO TID PRN (Reason: anxiety) Qty: 90 3RF simvastatin 10 mg tablet 10 mg PO .HS Qty: 90 3RF valsartan 160 mg tablet 160 mg PO BID Qty: 180 4RF fluticasone propionate 50 mcg/actuation spray,suspension See Rx Instructions .ROUTE .COMPLEX Qty: 48 3RF Dose Instruction: USE 2 SPRAYS IN EACH NOSTRIL EVERY DAY Rx Instructions: USE 2 SPRAYS IN EACH NOSTRIL EVERY DAY fluoxetine 20 mg capsule See Rx Instructions .ROUTE .COMPLEX Qty: 90 3RF Dose Instruction: TAKE 1 CAPSULE EVERY DAY Rx Instructions: TAKE 1 CAPSULE EVERY DAY hydrocodone-acetaminophen 5-325 mg tablet 1 tab PO Q8H PRN (Reason: pain) 28 Days Qty: 60 0RF isosorbide mononitrate 30 mg tablet extended release 24 hr 30 mg PO DAILY Qty: 90 11RF famotidine 40 mg tablet 40 mg PO DAILY Qty: 90 3RF Discharge Orders: Discharge ED (Routine); Ordered 11/20/23 Ordered By: Piotr Velasquez Referrals: Dedrick Person MD [Primary Care Provider] - Discharge Diet: Usual diet Discharge Activity: Resume usual activity Patient Instructions: Syncope (ED), Opioid Safety, Pain Management Activity Restrictions/Additional Instructions: Thank you for choosing [facility] for your healthcare needs today. Please realize this is an emergency room and that we are providing you with a medical screening exam and this may not be complete and all inclusive of all the testing and or work up that you may need to determine your ailment or severity of your illness. It is very important that you follow up as instructed or that you return to the Emergency Department should you have concerns or if your condition changes or worsens in any way. Recommend you follow-up with your primary care doctor to recheck your sodium and your potassium later this week. Return if you have any further problems. Coding Level of Care Code ED Certified [employer] for Nati Castillo
[2023-11-20 14:27] LABS: Basophils # 0.1 10^3/uL (0.0-0.1); Basophils % 0.9 %; Eosinophils # 0.2 10^3/uL (0.0-0.8); Eosinophils % 2.5 %; Hematocrit 36.1 % (36-47); Lymphocytes # 3.1 10^3/uL (0.8-4.8); Lymphocytes % 37.4 %; Mean Corpuscular HGB Conc 34.9 g/dL (30-55); Mean Corpuscular Volume 91.6 fl (85-98); Mean Platelet Volume 9.1 fL (7.4-10.4); Monocytes # 0.8 10^3/uL (0.2-0.9); Monocytes % 9.6 %; Neutrophils # 4.03 10^3/uL (1.8-7.7); Neutrophils % 49.4 %; Nucleated Red Blood Cells % 0 %; Platelet Count 339 10^3/cmm (157-399); Red Blood Count 3.94 10^6/uL (3.85-5.65); Red Cell Distribution Width 13.1 % (12.1-15.1); White Blood Count 8.15 10^3/uL (3.29-11.43)
[2023-11-20 14:34] VITALS: BP 148/92; PULSE 61; RESP 22; O2SAT 100
--- NOTE | 2023-11-20 14:39 | CT_ITS ---
WS: [id number] CT HEAD NONCONTRAST HISTORY: Syncope loss consciousness, fall TECHNIQUE: Contiguous axial imaging performed through the brain in 2.5 mm imaging. Bone and soft tiss ue windows. Sagittal and coronal reformats reviewed. All CT scans at [facility] use at least one of these dose optimization techniques: automated exposure control; mA and/or kV adjustment per pa tient size (includes targeted exams where dose is matched to clinical indication); or iterative recon struction. DLP: 1024.28 mGy.cm COMPARISON: 02/17/2018 No acute intracranial hemorrhage, midline shift or mass effect. Moderate symmetric atrophy and small vessel ischemic disease. Mild progression of small vessel ischem ic disease since the prior study. Ventricles: Normal size with no hydrocephalus. No inferior displacement of the cerebellar tonsils. Paranasal sinuses: As visualized are clear. Mastoid air cells: Well pneumatized. Calvarium and scalp: Skull is intact with no soft tissue edema or swelling. IMPRESSION: 1. No acute intracranial hemorrhage or edema. 2. Moderate atrophy and small vessel ischemic disease. Mild progression of atrophy and ischemic dise ase since 02/17/2018.
--- NOTE | 2023-11-20 14:39 | XRR_ITS ---
PROCEDURE INFORMATION: Exam: XR Chest Exam date and time: 11/20/2023 2:42 PM Age: 83 years old Clinical indication: Cough and dyspnea; Prior surgery; Surgery date: 6+ months; Surgery type: Pacer; Patient HX: HX of pagets disease; Additional info: Dyspnea/cough TECHNIQUE: Imaging protocol: Radiologic exam of the chest. Views: 1 view. COMPARISON: CT angio chest PE protcl [id number] 12/09/2022 8:24 PM FINDINGS: Tubes, catheters and devices: Two lead pacer device noted in the left chest wall. Lungs: Unremarkable. No consolidation. Pleural spaces: Unremarkable. No pleural effusion. No pneumothorax. Heart/Mediastinum: Unremarkable. No cardiomegaly. Bones/joints: Unremarkable. XR/XR chest 1V portable [id number] IMPRESSION: No acute findings.
[2023-11-20 14:42] LABS: Alanine Aminotransferase 28 U/L (0-33); Albumin Level 4.3 g/dL (3.5-5.2); Alkaline Phosphatase 99 U/L (35-105); Anion Gap 18.3 (5-19); Aspartate Amino Transferase 32 U/L (0-32); Blood Urea Nitrogen 18 mg/dL (8-23); Carbon Dioxide 20 mmol/L (22-29); Chloride 96 mmol/L (98-107); Creatinine Clr Calc Pharmacy 31.3078; Globulin 2.7 g/dL (1.3-4.6); Glucose 111 mg/dL (65-115); Osmolality Calculated 271 mOsm/kg (285-295); Potassium 5.3 mmol/L (3.5-5.1); Sodium 129 mmol/L (136-145); Total Bilirubin 0.3 mg/dL (0.15-1.2)
[2023-11-20 14:46] LABS: Troponin(5th) Baseline 13 ng/L (0-10)
[2023-11-20] MEDS: sodium chloride 0.9% 1,000 ML 999 ML IV (15:07)
[2023-11-20 16:23] LABS: Anion Gap 13.2 (5-19); Blood Urea Nitrogen 18 mg/dL (8-23); Calcium 8.7 mg/dL (8.5-10.5); Carbon Dioxide 21 mmol/L (22-29); Chloride 102 mmol/L (98-107); Glucose 96 mg/dL (65-115); Osmolality Calculated 274 mOsm/kg (285-295); Potassium 5.2 mmol/L (3.5-5.1); Sodium 131 mmol/L (136-145)
[2023-11-20 16:24] LABS: Troponin 5 2HR 11.15 ng/L (0-10)
[2023-11-20 16:26] LABS: Troponin 5 2HR Delta -1.85 ABS# (0-10)
--- NOTE | 2023-11-20 16:47 | ECG_ITS ---
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 Measurements Intervals [place] Rate: 66 P: 61 AR: 195 QRS: -75 QRSD: 153 T: 83 QT: 463 QTc: 485 Interpretive Statements ELECTRONIC VENTRICULAR PACEMAKER ABNORMAL RHYTHM ECG Compared to ECG 11/20/2023 14:01:03 Atrial-paced complex(es) or rhythm no longer present Electronically Signed On 11-21-2023 21:44:17 CDT by Ricky Marshall M.D. [id number]
[2023-11-20 17:00] VITALS: BP 149/87; PULSE 86; RESP 15; O2SAT 96
[2023-11-20 18:00] VITALS: BP 155/90; PULSE 86; RESP 15; O2SAT 100
[2023-11-20 18:18] VITALS: BP 137/104; BP 150/101; BP 179/100; PULSE 76; PULSE 78; PULSE 79
[2023-11-20 18:21] LABS: Add Urine Culture? Yes; Bacteria Urine 2+ /hpf; Bilirubin Urine Neg (Negative); Blood Urine Neg (Negative); Glucose Urine UA Norm (Normal); Ketones Urine Negative (Negative); Leukocyte Esterase Urine 1+ (Negative); Nitrate Urine Positive (Negative); Protein Urine Neg (Negative); Specific Gravity, Urine 1.005 (1.005-1.030); Squamous Epithelial Cell Urine 0-4 /hpf (0-5); Urine Appearance Hazy (CLEAR); Urine Color Yellow (Yellow); Urobilinogen Urine Norm (Negative); WBC Urine 25-40 /hpf (0-5); pH Urine 6 (5-7)
== END 2023-11-20 18:37 | disposition home or self-care (01) ==
PROVIDERS: Emergency Medicine; Emergency Provider Family Medicine; PCP Family Medicine
DX: R55 Syncope and collapse (principal); N30.90 Cystitis, unspecified without hematuria; Z87.891 Personal history of nicotine dependence; Z95.0 Presence of cardiac pacemaker; I10 Essential (primary) hypertension
CPT/HCPCS: 36415; 70450; 71045; 80048; 80053; 81001; 84484; 85025; 87077; 87086; 87186; 93005; 96360; 96361; 99285; J7030

== ENCOUNTER → 2023-12-04 12:50 | Outpatient (BNVA) | payer MEDICARE, OTHER, SELFPAY | PROVIDERS: PCP Family Medicine; Visit Provider Family Medicine | DX: N39.0 Urinary tract infection, site not specified (principal) | CPT/HCPCS: 81000; 87086 ==

== ENCOUNTER → 2023-12-07 14:46 | Outpatient (BNVA) | payer MEDICARE, OTHER, SELFPAY | PROVIDERS: PCP Family Medicine; Visit Provider Nurse Practitioner Family | DX: I10 Essential (primary) hypertension (principal); R55 Syncope and collapse; Z95.0 Presence of cardiac pacemaker; Z87.891 Personal history of nicotine dependence; I47.10 Supraventricular tachycardia, unspecified | CPT/HCPCS: 99214 ==

== ENCOUNTER 2023-12-20 12:38 | Outpatient (CLI) | payer MEDICARE, OTHER, SELFPAY ==
--- NOTE | 2023-12-20 13:30 | USCV_ITS ---
Millicent Angel Age: 83 Gender: F : 1940 Exam Date: 12/20/2023 13:28 Ordering Phys: Aurea Langley Technologist: CT Exam Location: [facility] [place]_ Indication: syncope BP: 136 / 75 HR: 70 Rhythm: Sinus Technical Quality: Adequate MEASUREMENTS (Male / Female) Normal Values 2D ECHO LVOT Diameter 2.0 cm LV Ejection Fraction MOD 2C 66.6 % LV Ejection Fraction 2C AL 65.7 % LA Diameter 3.4 cm RA Systolic Volume 4C AL 21.6 ml RA Systolic Volume 4C MOD 20.5 ml LA Sys Volume AL 25.2 cm cubed LA Sys Volume Index AL 16.3 cm cubed/m squared Aorta at Sinotubular Diameter 2.7 cm IVC Diameter 1.1 cm M-MODE LA Ao Ratio MM 1.3 AV Cusp Separation MM 1.4 cm DOPPLER AV Peak Velocity 167.0 cm/s LVOT Peak Velocity 76.0 cm/s AV Area Cont Eq vti 1.8 cm squared AV Area Cont Eq pk 1.4 cm squared MV Peak Velocity 161.0 cm/s MV Area PHT 2.7 cm squared Mitral E to A Ratio 0.5 TR Peak Velocity 133.0 cm/s TR Peak Gradient 7.1 mmHg TV Peak E Velocity 53.0 cm/s Right Atrial Pressure 3.0 mmHg Pulmonary Artery Systolic Pressu 10.1 mmHg PV Peak Velocity 94.5 cm/s FINDINGS Left Ventricle Left ventricle is normal size. LV systolic function is normal with EF of 55-60%. No significant regional wall motion abnormalities are seen. Grade 1 diastolic dysfunction Right Ventricle Normal in size and function Right Atrium Normal in size. Echogenic structure seen in right atrium. Left Atrium Normal in size Mitral Valve Mild to moderate mitral annular calcification. Mild mitral regurgitation Aortic Valve Structurally normal aortic valve. Mild aortic regurgitation. No significant stenosis. Tricuspid Valve Mild tricuspid regurgitation. Insufficient TR jet to evaluate RVSP. Pulmonic Valve Not well-visualized Pericardium Normal Aorta Normal in size IVC Appears to be normal CONCLUSIONS LV systolic function is normal with EF 55-60 %. Grade 1 Diastolic Function. Echogenic Structure Seen in Right Atrium. It may represent eustachian valve. Further assessment with SEEMA Mild aortic regurgitation Mild tricuspid regurgitation. Rakesh Tavares MD (Electronically Signed) Final Date: 03 January 2024 19:42 S
== END 2023-12-20 12:39 | disposition home or self-care (01) ==
LOC: RAD 12:38
PROVIDERS: PCP Family Medicine; Visit Provider Nurse Practitioner Family
DX: I47.10 Supraventricular tachycardia, unspecified (principal); I10 Essential (primary) hypertension; R55 Syncope and collapse
CPT/HCPCS: 93306

== ENCOUNTER 2024-01-31 09:47 | Outpatient (CLI) | payer MEDICARE, OTHER, SELFPAY ==
--- NOTE | 2024-01-31 09:51 | XR_ITS ---
WS: [id number] XR foot LT 2V [id number] REASON FOR EXAM: foot fracture FINDINGS: Healing fracture in the proximal metadiaphysis of the third metatarsal. Additional healing since the previous examination. Fracture fragments remain in good position and alignment unchanged compared to 12/18/2023. XR/XR foot LT 2V [id number] IMPRESSION: Stable healing left foot fracture.
== END 2024-01-31 09:48 | disposition home or self-care (01) ==
LOC: RAD 09:50
PROVIDERS: PCP Family Medicine; Visit Provider Family Medicine
DX: S92.902A Unspecified fracture of left foot, initial encounter for closed fracture (principal); X58.XXXA Exposure to other specified factors, initial encounter
CPT/HCPCS: 73620

== ENCOUNTER 2024-02-18 09:42 | Inpatient (IN) | payer MEDICARE, OTHER, SELFPAY ==
[2024-02-18] VITALS (12 sets, daily range): BP systolic 100–125; BP diastolic 62–83; PULSE 64–85; RESP 15–18; TEMP 36.5–36.7; O2SAT 94–99
--- NOTE | 2024-02-18 09:46 | XRR_ITS ---
PROCEDURE INFORMATION: Exam: XR Left Hip Exam date and time: 02/18/2024 9:58 AM Age: 84 years old Clinical indication: Injury or trauma; Fall; Blunt trauma (contusions or hematomas); Left; Hip; Additional info: Fall, left hip pain. TECHNIQUE: Imaging protocol: Radiologic exam of the left hip. Views: 2 or 3 views hip with pelvis when performed. COMPARISON: CR XR hip LT 2-3V wo/w pel* [id number] 11/02/2023 12:26 PM FINDINGS: Bones/joints: There is a cortical irregularity along the superior edge of the left femoral neck concerning for an occult fracture. Further evaluation with cross-sectional imaging is recommended. Diffuse osteopenia. Left SI chronic degenerative changes. 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 Soft tissues: Unremarkable. XR/XR hip LT 2-3V wo/w pel* [id number] IMPRESSION: There is a cortical irregularity along the superior edge of the left femoral neck concerning for an occult fracture. Further evaluation with cross-sectional imaging is recommended.
--- NOTE | 2024-02-18 10:15 | ED_ITS ---
HPI - Extremity Problem 2 General: Chief complaint: Extremity Injury, Lower Stated complaint: LEFT HIP PAIN S/P FALL Time Seen by Provider: 02/18/24 09:43 History of Present Illness: 84-year-old female with a history of hyp ertension and pacemaker placement secondary to bradycardia who presents to the emergency room after having a fall last night. She says her dog knocked her over. She is having pain in her left hip. She did not hit her head. She is not on any blood thinners. No other injuries other than a skin tear on her left elbow. PFSH ED 2 PFSH: Medical History Atrial fibrillation Meningioma Meningioma identified during evaluation for chronic headaches-followed with neurology Dr. De Los Santos in [place] and states it was stable. She has been cleared and has not seen a neurologist in over 4 years. Elevated cholesterol Diagnosed in 2011 and has been on and off medication. Managed by PMD Paget's disease Status post excision surgery and radiation in 2020 done at [place]. No pertinent past medical history Denies diabetes, asthma, seizures, DVT/PE PCP: Dr. Person SVT (supraventricular tachycardia) HTN (hypertension) SVT/high blood pressure diagnosed in 2019-has pacemaker and is on medication managed by primary care provider and cardiology-Dr. Swanson Surgical History S/P cardiac pacemaker procedure 2019 History of rectal surgery X 3 Patient had perianal excision of Paget's disease done by Dr. Adamson and Dr. Goss in [place] first in May 2017 and then again in July 2018, 2020 S/P hysterectomy Vaginal, done for prolapse in 1981. She was told there was no cancer. S/P tubal ligation Laparoscopic procedure performed in 1979 Family History Mother Heart disease Hypertension Father Heart disease Daughter Diabetes Sister Hyperlipidemia Other Colon cancer Denies family history of Ovarian cancer Breast cancer Uterine cancer Thyroid disease Stroke Social History Smoking and tobacco/nicotine status: former use of tobacco/nicotine Alcohol intake: never Substance/Drug Use: never Physical Exam 2 Narrative: EXAM NARRATIVE: General: Alert, no acute distress. Skin: Warm, dry. Head: Normocephalic, atraumatic. Neck: Supple, trachea midline. Eye: Extraocular movements are intact. Ears, nose, mouth and throat: mucosa moist. Cardiovascular: Regular, Normal peripheral perfusion. Respiratory: Lungs are clear to auscultation, respirations are non-labored, breath sounds are equal, Symmetrical chest wall expansion. Gastrointestinal: Soft, Nontender, Non distended Musculoskeletal: No shortening or rotation of the left leg. However she does have considerable pain in her left hip area with movement of her left leg. Neurovascularly intact. Neurological: Alert and oriented, No focal neurological deficit observed. Psychiatric: Cooperative, appropriate mood & affect. Course 2 Vital Signs: Vital signs: Vital Signs Temperature 97.7 F 02/18/24 09:42 Pulse Rate 85 02/18/24 09:42 Respiratory Rate 18 02/18/24 10:09 Blood Pressure 119/67 02/18/24 10:09 Pulse Oximetry 99 02/18/24 09:42 Oxygen Delivery Me thod Room Air 02/18/24 09:42 MDM - Extremity (Nontraumatic) Medical Decision Making Medical decision making: Differential diagnosis including but not limited to and based on the above HPI, review of systems and physical exam: Concern for a hip fracture or pelvic fracture so a hip and pelvis x-ray were ordered. This appeared to have a fracture so a CT scan was ordered per orthopedics. Presurgical workup was initiated as well. Orders placed to evaluate differential diagnosis based on the above differential, HPI and physical exam X-ray of the left hip and pelvis: No obvious pelvic fractures. Cortical defect of the left femoral head which appears different than the previous x-ray and I believe is a fracture. This was reviewed and interpreted by myself the emergency room physician. I also reviewed the radiology report. Consultation: I discussed the patient with Dr. Shirley who reviewed the films and agrees this looks to be a fracture. He recommends a CT scan of the left pelvis for presurgical evaluation. And to confirm fracture. He recommends n.p.o. after midnight and he will consult on the patient. Lab Review: Laboratory results were reviewed and interpreted by myself the emergency room physician. No leukocytosis. No anemia. No renal failure. BUN/creatinine are 15 and 0.9. Sodium is slightly low at 130. Glucose is a little bit elevated at 160. EKG: Time: 10:47 AM. Rate 74. Normal sinus rhythm, No ST-T changes, no ectopy, paced rhythm, this was reviewed and interpreted by myself the emergency room physician at 10:[address] of the pelvis without contrast: Patient does have an acute femoral neck fracture. This was reviewed and interpreted by myself the emergency room physician. I also reviewed the radiology report. Chest x-ray: No acute process. Pacemaker in place. No cardiomegaly. No infiltrate. No pneumothorax. This was reviewed and interpreted by myself the ER physician. Consultation: I spoke with Dr. Cisneros with the hospitalist service who agrees to admission. I reviewed the patient's medical record. Reexamination: Patient remained stable. No increased work of breathing. No altered mental status. Continues to have pain in her left hip with any kind of movement. Assessment and plan: Acute fracture of the femoral neck of the left hip -I discussed the patient with the hospitalist on-call who is admitting the patient. - Discussed findings and plan with patient. Answered any questions. - All laboratory values were reviewed and interpreted personally by myself, the ER physician - All imaging was reviewed and interpreted personally by myself, the ER physician. - Evaluation and treatment of this problem were appropriate in the emergency setting Lab Data 02/18/24 10:31 02/18/24 10:31 Radiology Impressions Hip/Pelvis X-Ray 02/18/24 09:46 IMPRESSION: There is a cortical irregularity along the superior edge of the left femoral neck concerning for an occult fracture. Further evaluation with cross-sectional imaging is recommended. Chest X-Ray 02/18/24 10:21 IMPRESSION: No acute findings. Pelvis CT 02/18/24 10:21 IMPRESSION: Acute left femoral neck fracture Laboratory Results WBC 7.77 10^3/uL (3.29-11.43) 02/18/24 10:31 RBC 3.96 10^6/uL (3.85-5.65) 02/18/24 10:31 Hgb 12.20 g/dL (11.27-16.99) 02/18/24 10:31 Hct 37.2 % (36-47) 02/18/24 10:31 MCV 93.9 fl (85-98) 02/18/24 10:31 MCH 30.8 pg (27-33) 02/18/24 10:31 MCHC 32.8 g/dL (30-55) 02/18/24 10:31 RDW 12.7 % (12.1-15.1) 02/18/24 10:31 Plt Count 340 10^3/cmm (157-399) 02/18/24 10:31 MPV 8.5 fL (7.4-10.4) 02/18/24 10:31 Neut % (Auto) 79.4 % 02/18/24 10:31 Lymph % (Auto) 10.7 % 02/18/24 10:31 Lamar % (Auto) 6.8 % 02/18/24 10:31 Eos % (Auto) 2.3 % 02/18/24 10:31 Baso % (Auto) 0.5 % 02/18/24 10:31 Neut # (Auto) 6.17 10^3/uL (1.8-7.7) 02/18/24 10:31 Lymph # (Auto) 0.8 10^3/uL (0.8-4.8) 02/18/24 10:31 Lamar # (Auto) 0.5 10^3/uL (0.2-0.9) 02/18/24 10:31 Eos # (Auto) 0.2 10^3/uL (0.0-0.8) 02/18/24 10:31 Baso # (Auto) 0.0 10^3/uL (0.0-0.1) 02/18/24 10:31 Nucleated RBC % (auto) 0 % 02/18/24 10:31 Nucleated RBCs # 0.0 /100WBC 02/18/24 10:31 PT 12.70 SECONDS (12.1-14.9) 02/18/24 10:31 INR 0.93 (0.8-1.2) 02/18/24 10:31 APTT 31.5 SECONDS (23.9-36.7) 02/18/24 10:31 Sodium 130 mmol/L (136-145) L 02/18/24 10:31 Potassium 4.8 mmol/L (3.5-5.1) 02/18/24 10:31 Chloride 96 mmol/L (98-107) L 02/18/24 10:31 Carbon Dioxide 23 mmol/L (22-29) 02/18/24 10:31 Anion Gap 15.8 (5-19) 02/18/24 10:31 BUN 15 mg/dL (8-23) 02/18/24 10:31 Creatinine 0.9 mg/dL (0.5-0.9) 02/18/24 10:31 GFR Calculation Not Reportable 02/18/24 10:31 Glucose 160 mg/dL (65-115) H 02/18/24 10:31 Calculated Osmolality 274 mOsm/kg (285-295) L 02/18/24 10:31 Calcium 9.5 mg/dL (8.5-10.5) 02/18/24 10:31 Total Bilirubin 0.4 mg/dL (0.15-1.2) 02/18/24 10:31 AST 27 U/L (0-32) 02/18/24 10:31 ALT 23 U/L (0-33) 02/18/24 10:31 Alkaline Phosphatase 123 U/L (35-105) H 02/18/24 10:31 Total Protein 7.4 g/dL (6.6-8.7) 02/18/24 10:31 Albumin 4.3 g/dL (3.5-5.2) 02/18/24 10:31 Globulin 3.1 g/dL (1.3-4.6) 02/18/24 10:31 All radiology interpretation(s) finalized by discharge Discharge Plan Discharge Patient Disposition: Admitted As Inpatient Clinical Impression: Hip fracture Qualifiers: Encounter type: initial encounter Fracture type: closed Laterality: left Q ualified Code(s): S72.002A - Fracture of unspecified part of neck of left femur, initial encounter for closed fracture Condition: Stable Coding Level of Care Code ED Retail Agent for Nati Castillo
--- NOTE | 2024-02-18 10:21 | ECG_ITS ---
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 Measurements Intervals [place] Rate: 74 P: 58 WA: 200 QRS: -82 QRSD: 146 T: 83 QT: 422 QTc: 470 Interpretive Statements ELECTRONIC VENTRICULAR PACEMAKER ABNORMAL RHYTHM ECG Compared to ECG 11/20/2023 16:47:36 No significant changes Electronically Signed On 02-18-2024 15:28:40 CDT by Nash Smith M.D. [email or web address]
--- NOTE | 2024-02-18 10:21 | CTR_ITS ---
PROCEDURE INFORMATION: Exam: CT Pelvis Without Contrast; Skeletal Exam date and time: 02/18/2024 10:34 AM Age: 84 years old Clinical indication: Injury or trauma; Fall; Blunt trauma (contusions or hematomas); Left; Hip; Additional info: Left hip fracture. Eval for ortho TECHNIQUE: Imaging protocol: Computed tomography of the pelvis without contrast. Exam focused on the skeleton. Radiation optimization: All CT scans at this facility use at least one of these dose optimization techniques: automated exposure control; mA and/or kV adjustment per patient size (includes targeted exams where dose is matched to clinical indication); or iterative reconstruction. COMPARISON: CT chest abdpel w/*[id number] 06/07/2021 8:18 AM RADIATION DOSE METRICS: Total DLP (mGy-cm): 263.31 FINDINGS: Bones/joints: The bony structures demonstrate diffuse osteopenia. There is an acute transverse impacted fracture involving the proximal left femoral neck. There is minimal displacement. No other acute fracture noted. Soft tissues: Unremarkable. CT/CT pelvis con [id number] IMPRESSION: Acute left femoral neck fracture
--- NOTE | 2024-02-18 10:21 | XRR_ITS ---
PROCEDURE INFORMATION: Exam: XR Chest Exam date and time: 02/18/2024 10:38 AM Age: 84 years old Clinical indication: Injury or trauma; Fall; Blunt trauma (contusions or hematomas); Prior surgery; Surgery date: 6+ months; Surgery type: Pacer; Additional info: Presurgical workup TECHNIQUE: Imaging protocol: Radiologic exam of the chest. Views: 1 view. COMPARISON: CR XR chest 1V portable [id number] 11/20/2023 2:42 PM FINDINGS: Tubes, catheters and devices: Cardiac pacemaker on the left with leads in satisfactory position. Lungs: Unremarkable. No consolidation or mass. Pleural spaces: Unremarkable. No pleural effusion. No pneumothorax. Heart/Mediastinum: Unremarkable. No cardiomegaly. Bones/joints: Unremarkable. XR/XR chest 1V portable [id number] IMPRESSION: No acute findings.
[2024-02-18 10:37] LABS: Basophils % 0.5 %; Eosinophils # 0.2 10^3/uL (0.0-0.8); Eosinophils % 2.3 %; Hematocrit 37.2 % (36-47); Lymphocytes # 0.8 10^3/uL (0.8-4.8); Lymphocytes % 10.7 %; Mean Corpuscular HGB Conc 32.8 g/dL (30-55); Mean Corpuscular Hemoglobin 30.8 pg (27-33); Mean Corpuscular Volume 93.9 fl (85-98); Mean Platelet Volume 8.5 fL (7.4-10.4); Monocytes # 0.5 10^3/uL (0.2-0.9); Monocytes % 6.8 %; Neutrophils # 6.17 10^3/uL (1.8-7.7); Neutrophils % 79.4 %; Nucleated Red Blood Cells % 0 %; Platelet Count 340 10^3/cmm (157-399); Red Blood Count 3.96 10^6/uL (3.85-5.65); Red Cell Distribution Width 12.7 % (12.1-15.1); White Blood Count 7.77 10^3/uL (3.29-11.43)
[2024-02-18 10:48] LABS: INR 0.93 (0.8-1.2)
[2024-02-18 10:49] LABS: Partial Thromboplastin Time 31.5 SECONDS (23.9-36.7)
[2024-02-18 10:57] LABS: Alanine Aminotransferase 23 U/L (0-33); Albumin Level 4.3 g/dL (3.5-5.2); Alkaline Phosphatase 123 U/L (35-105); Anion Gap 15.8 (5-19); Aspartate Amino Transferase 27 U/L (0-32); Blood Urea Nitrogen 15 mg/dL (8-23); Calcium 9.5 mg/dL (8.5-10.5); Carbon Dioxide 23 mmol/L (22-29); Chloride 96 mmol/L (98-107); Globulin 3.1 g/dL (1.3-4.6); Glucose 160 mg/dL (65-115); Osmolality Calculated 274 mOsm/kg (285-295); Potassium 4.8 mmol/L (3.5-5.1); Sodium 130 mmol/L (136-145); Total Bilirubin 0.4 mg/dL (0.15-1.2); Total Protein 7.4 g/dL (6.6-8.7)
--- NOTE | 2024-02-18 11:23 | USR_ITS ---
PROCEDURE INFORMATION: Exam: US Duplex Bilateral Extracranial Arteries; Complete; Carotid Arteries Exam date and time: 02/18/2024 2:11 PM Age: 84 years old Clinical indication: Syncope and collapse TECHNIQUE: Imaging protocol: Real-time duplex ultrasound scan of the bilateral extracranial arteries combining castellanos scale, color Doppler and spectral waveform analysis with image documentation. Complete exam. Exam focused on the carotid arteries. COMPARISON: CT head wo con* [id number] 11/20/2023 3:10 PM FINDINGS: Right common carotid artery: Unremarkable. No occlusion or stenosis. Waveforms are normal. Right internal carotid artery: Unremarkable. No occlusion or stenosis. Waveforms are normal. Right ICA/CCA ratio: Within normal limits. Right external carotid artery: No stenosis in the origin. Right vertebral artery: Unremarkable. Antegrade flow. Left common carotid artery: Unremarkable. No occlusion or stenosis. Waveforms are normal. Left internal carotid artery: Unremarkable. No occlusion or stenosis. Waveforms are normal. Left ICA/CCA ratio: Within normal limits. Left external carotid artery: No stenosis in the origin. Left vertebral artery: Unremarkable. Antegrade flow. US/CV carotid duplex BI* [id number] IMPRESSION: No carotid arterial stenosis. REFERENCES: SRU CRITERIA. The degree of internal carotid artery stenosis is based on criteria defined by the Society of Radiologists in Ultrasound (SRU). Normal is no stenosis. Mild is less than 50% stenosis. Moderate is 50-69% stenosis. Severe is greater than 69% stenosis to near occlusion. Near occlusion is a markedly narrowed lumen. Total occlusion is no detectable patent lumen.
--- NOTE | 2024-02-18 11:23 | ECG_ITS ---
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 Measurements Intervals [place] Rate: 69 P: 51 MT: 200 QRS: -82 QRSD: 148 T: 80 QT: 439 QTc: 470 Interpretive Statements ELECTRONIC VENTRICULAR PACEMAKER ABNORMAL RHYTHM ECG Compared to ECG 02/18/2024 10:47:31 No significant changes Electronically Signed On 02-18-2024 15:28:54 CDT by Nash Smith M.D. [email or web address]
--- NOTE | 2024-02-18 11:23 | USCV_ITS ---
Millicent Angel Age: 84 Gender: F : 1940 Exam Date: 02/18/2024 13:52 Ordering Phys: Bruce Cisneros MD Technologist: Danny Almeida [place] [facility] [place]: syncope BP: 125 / 73 HR: Rhythm: Sinus Technical Quality: Suboptimal MEASUREMENTS (Male / Female) Normal Values 2D ECHO LV Diastolic Diameter PLAX 3.3 cm 4.2 - 5.9 / 3.9 - 5.3 cm IVS Diastolic Thickness 1.2 cm 0.6 - 1.0 / 0.6 - 0.9 cm IVS Systolic Thickness 1.8 cm LVPW Diastolic Thickness 1.7 cm 0.6 - 1.0 / 0.6 - 0.9 cm LVPW Systolic Thickness 1.5 cm LVOT Diameter 2.0 cm LV Ejection Fraction 2D Teich 70.7 % LV Ejection Fraction MOD 4C 63.7 % LV Ejection Fraction MOD 2C 67.5 % LV Ejection Fraction 2C AL 68.1 % Aorta at Sinotubular Diameter 2.7 cm IVC Diameter 1.1 cm M-MODE LA Ao Ratio MM 1.0 AV Cusp Separation MM 0.9 cm FINDINGS Left Ventricle Two-dimensional examination only. No M-mode or Doppler. Normal left ventricular size, systolic function and wall thickness, with no regional wall motion abnormalities. Right Ventricle Normal right ventricular size and systolic function. Right Atrium The right atrium is normal in size. Left Atrium The left atrium is normal in size. Mitral Valve Structurally normal mitral valve. Moderate mitral annular calcification. Aortic Valve Structurally normal trileaflet aortic valve. Moderate aortic valve calcification. Tricuspid Valve Structurally normal tricuspid valve. Pulmonic Valve Pulmonic valve not well visualized. Pericardium Normal pericardium without effusion. Aorta Aorta not well visualized. IVC Inferior vena cava not visualized. CONCLUSIONS Two-dimensional examination only. No M-mode or Doppler. Normal left ventricular size, systolic function and wall thickness, with no regional wall motion abnormalities. Structurally normal mitral valve. Moderate mitral annular calcification. Structurally normal trileaflet aortic valve. Moderate aortic valve calcification. Previous study was done 2 months ago. No change.[email or web address] Dr. Nash Smith MD (Electronically Signed) Final Date: 19 February 2024 07:42 S
--- NOTE | 2024-02-18 11:24 | PM.HP ---
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 Patient tells me that she has been having issues with passing out, she tells me that she has had extensive testing without any etiology identified. She tells me that she has fallen in the last month, she had a third metatarsal proximal fracture, placed in a boot, she just came out of the boot. This morning, she was sitting in a chair, when she had her let her dog out, she got out of the chair, walked a few feet, and fell,. Denies any preceding lightheadedness, dizziness, chest pain, palpitations, shortness of breath, strokelike symptoms no facial droop no slurring words no focal weakness. She is not sure if she passed out but tells me that this frequently happens. Currently has complaints in her left hip, found to have a left hip fracture, orthopedic service has been consulted by ER, hospitalist team was called for medical management, she denies being on any blood thinners Review of Systems Const: Denies: fever(s) Eyes: Denies: change in vision Card: Reports: syncope; Denies: chest pain Resp: Denies: dyspnea GI: Denies: abdominal pain : Denies: flank pain Musc: Reports: joint pain Neuro: Reports: weakness in extremities; Denies: headache(s), lack of coordination, dizziness, vertigo, confusion, Slurred speech present or difficulty communicating thoughts Medications/Allergies Home Medications Medication Instructions Recorded Confirmed Last Taken Type multivitamin 1 cap PO QAM 07/30/19 01/31/24 Unknown History acetaminophen 650 mg 1,300 mg PO Q12H 08/11/21 01/31/24 Unknown History tablet,extended release (Tylenol Arthritis Pain) cetirizine 10 mg tablet (Zyrtec) 10 mg PO DAILY 12/27/22 01/31/24 Unknown History magnesium oxide 250 mg PO BID 12/27/22 01/31/24 Unknown History nitroglycerin 0.4 mg sublingual 0.4 mg sublingual Q5M PRN chest 12/27/22 01/31/24 Unknown Rx tablet (Nitrostat) pain #25 tabs simvastatin 10 mg tablet 10 mg PO .HS #90 tabs 07/21/23 01/31/24 Unknown Rx valsartan 160 mg tablet 160 mg PO BID #180 tabs 08/08/23 01/31/24 Unknown Rx fluticasone propionate 50 See Rx Instructions .Route 08/10/23 01/31/24 Unknown Rx mcg/actuation nasal .COMPLEX #48 grams spray,suspension fluoxetine 20 mg capsule See Rx Instructions .Route 09/27/23 01/31/24 Unknown Rx .COMPLEX #90 caps famotidine 40 mg tablet 40 mg PO DAILY #90 tabs 11/15/23 01/31/24 Unknown Rx isosorbide mononitrate 30 mg 30 mg PO DAILY #90 tabs 11/15/23 01/31/24 Unknown Rx tablet,extended release 24 hr clonazepam 0.5 mg tablet 0.5 mg PO TID PRN anxiety #90 tabs 12/05/23 01/31/24 Unknown Rx hydrocodone 5 mg-acetaminophen 325 1 tab PO Q8H PRN pain 4 weeks #60 12/29/23 01/31/24 Unknown Rx mg tablet tabs indomethacin 25 mg capsule See Rx Instructions .Route 02/08/24 Unknown Rx .COMPLEX #180 caps Allergies Allergy/AdvReac Type Severity Reaction Status Date / Time gabapentin Allergy Intermediate diarrhea Verified 12/07/23 14:53 pregabalin [From Lyrica] Allergy Intermediate swelling Verified 12/07/23 14:53 metoprolol AdvReac Intermediate bitter Verified 12/07/23 14:53 taste promethazine [From Phenergan] AdvReac disoriented Verified 12/07/23 14:53 Sulfa (Sulfonamide AdvReac abdominal Verified 12/07/23 14:53 Antibiotics) pain PFSH Acute PFSH: Medical History Atrial fibrillation Meningioma Meningioma identified during evaluation for chronic headaches-followed with neurology Dr. De Los Santos in [place] and states it was stable. She has been cleared and has not seen a neurologist in over 4 years. Elevated cholesterol Diagnosed in 2011 and has been on and off medication. Managed by PMD Paget's disease Status post excision surgery and radiation in 2020 done at [place]. No pertinent past medical history Denies diabetes, asthma, seizures, DVT/PE PCP: Dr. Person SVT (supraventricular tachycardia) HTN (hypertension) SVT/high blood pressure diagnosed in 2019-has pacemaker and is on medication managed by primary care provider and cardiology-Dr. Swanson Surgical History S/P cardiac pacemaker procedure 2019 History of rectal surgery X 3 Patient had perianal excision of Paget's disease done by Dr. Adamson and Dr. Goss in [place] first in May 2017 and then again in July 2018, 2020 S/P hysterectomy Vaginal, done for prolapse in 1981. She was told there was no cancer. S/P tubal ligation Laparoscopic procedure performed in 1979 Family History Mother Heart disease Hypertension Father Heart disease Daughter Diabetes Sister Hyperlipidemia Other Colon cancer Denies family history of Ovarian cancer Breast cancer Uterine cancer Thyroid disease Stroke Social History Smoking and tobacco/nicotine status: former use of tobacco/nicotine Alcohol intake: never Substance/Drug Use: never Vitals/I&O/Wt Last Vital Signs Temp 97.7 F 02/18/24 09:42 Pulse 85 02/18/24 09:42 Resp 18 02/18/24 10:09 BP 119/67 02/18/24 10:09 Pulse Ox 99 02/18/24 09:42 O2 Del Method Room Air 02/18/24 09:42 Physical Exam Const: COMMON NORMALS: no acute distress and patient oriented x3 HENMT: COMMON NORMALS: normocephalic HEAD & SCALP: normocephalic Eye: COMMON NORMALS: Equal, round and reactive pupils present and EOMs intact bilaterally Neck/C-Spine: COMMON NORMALS: no JVD Resp: COMMON NORMALS: normal respiratory effort, No retractions, No use of accessory muscles and clear to auscultation bilaterally AUSCULTATION: clear to auscultation bilaterally Cardio: COMMON NORMALS: regular rate, regular rhythm, S1 normal heart sound present and S2 normal heart sound present RATE: regular rate RHYTHM: regular rhythm HEART SOUNDS: S1 normal heart sound present and S2 normal heart sound present GI: COMMON NORMALS: Normal to inspection, nondistended, normoactive bowel sounds present, Soft to palpation and non-tender Extremity: COMMON NORMALS: no calf tenderness and no pedal edema Neuro: COMMON NORMALS: patient oriented x3 and CN's II-XII intact bilaterally Psych: COMMON NORMALS: mental status grossly normal Data 02/18/24 10:31 02/18/24 10:31 A&P Assessment and plan (1) Syncope: Qualifiers: Syncope type: unspecified Qualified Code(s): R55 - Syncope and collapse (2) Hip fracture: Qualifiers: Encounter type: initial encounter Fracture type: closed Laterality: left Qualified Code(s): S72.002A - Fracture of unspecified part of neck of left femur, initial encounter for closed fracture Plan Syncopal episode ? Patient reports that she has had extensive workup for these recurrent syncopal episodes ? Her last fall was about a month ago in which she had a third metatarsal fracture requiring a walking boot ? Plan ? Has a pacemaker in place, will interrogate pacemaker ? Cardiac echo Carotid artery ultrasound ? CT head ? Serial troponins, serial EKGs, telemetry monitoring ? No chest pain complaints ? Obtain a urinalysis ? Once more stable, will do orthostatic vitals ? Continue to monitor closely Left hip fracture ? Cardiac diet, n.p.o. over midnight ? SCDs and Lovenox for DVT prophylaxis, morphine for pain control ? Orthopedic service has been consulted History of third-degree AV block, with pacemaker placement History of atrial fibrillation, not on anticoagulation, not on rate control therapy, telemetry monitoring, EKG Lovenox for DVT prophylaxis, SCDs, Protonix for GI prophylaxis CODE STATUS, patient does not want to be intubated, she is DNI, we also talked about intubation for even short period of time she does not want to be intubated, she is okay with CPR, okay with defibrillation, okay with drugs per ACLS, okay with ICU admission Looked at prior medical records, looked at prior transplant nurse practitioner note, looked at last pacemaker check, spoke to ER physician Attestations Medical Necessity Statement*: Patient requires hospitalization, inpatient, greater than 2 midnights, for syncope, fall Diagnoses Syncope, unspecified syncope type R55 Syncope type: unspecified Hip fracture S72.002A Encounter type: initial encounter Fracture type: closed Laterality: left
[2024-02-18 11:53] LABS: Lactic Sepsis W/Reflex 1.7 mmol/L (0.5-2.2)
[2024-02-18 11:54] LABS: Troponin(5th) Baseline 15 ng/L (0-10)
[2024-02-18 11:58] LABS: NT Pro B Type Natriuretic Pept 172 pg/mL (0-450)
[2024-02-18 12:09] LABS: C Reactive Protein 17.3 mg/L (0.0-4.9)
[2024-02-18 13:18] LABS: Chol HDL Ratio 2.76 mg/dL (0.0-4.40); Cholesterol 182 mg/dL (0-200); HDL Cholesterol 66 mg/dL (60-100); LDL Cholesterol Calculated 85 mg/dL (50-129); LDL HDL Ratio 1.29 RATIO (0.00-3.22); Thyroid Stimulating Hormone 1.64 uIU/mL (0.27-4.20); Triglycerides 157 mg/dL (0-150)
--- NOTE | 2024-02-18 13:20 | ECG_ITS ---
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 Measurements Intervals [place] Rate: 72 P: -40 VA: 177 QRS: -76 QRSD: 141 T: 84 QT: 414 QTc: 455 Interpretive Statements ELECTRONIC ATRIAL PACEMAKER ELECTRONIC VENTRICULAR PACEMAKER ABNORMAL RHYTHM ECG Compared to ECG 02/18/2024 11:38:53 No significant changes Electronically Signed On 02-18-2024 15:29:35 CDT by Nash Smith M.D. [id number]
[2024-02-18 13:22] LABS: Estmated Average Glucose 123; Hemoglobin A1C 5.9 % (4.0-6.0)
[2024-02-18] MEDS: sodium chloride 0.9% 1,000 ML 75 ML IV (13:54)
[2024-02-18] MEDS: enoxaparin 40 mg/0.4 mL Syringe SUBCUT (13:54)
[2024-02-18] MEDS: pantoprazole 40 mg SDV IVP (13:54)
[2024-02-18 13:55] LABS: Troponin 5 2HR 12.04 ng/L (0-10)
[2024-02-18 14:12] LABS: Troponin 5 2HR Delta -2.96 ABS# (0-10)
[2024-02-18 15:06] LABS: Add Urine Microscopic? NO; Charge for UA Resulting for Rev
[2024-02-18 15:12] LABS: Bilirubin Urine Neg (Negative); Blood Urine Neg (Negative); Glucose Urine UA Norm (Normal); Ketones Urine Negative (Negative); Leukocyte Esterase Urine Negative (Negative); Nitrate Urine Negative (Negative); Protein Urine Neg (Negative); Urine Appearance Clear (CLEAR); Urine Color Yellow (Yellow); Urobilinogen Urine Norm (Negative); pH Urine 6 (5-7)
[2024-02-18 17:19] LABS: Troponin 5 6HR 12.54 ng/L (0-10); Troponin 5 6HR Delta -2.46 ng/L (0-12)
[2024-02-18] MEDS: CLONazepam 0.5 mg Tablet PO ×2 (17:57→23:08)
[2024-02-18] MEDS: morphine 4 mg/mL SDV 1 mL 2 MG IVP (20:36)
[2024-02-18] MEDS: atorvastatin 40 mg Tablet 20 MG PO (20:37)
[2024-02-18] MEDS: HYDROmorphone 1 mg/mL INJ 1 mL 0.2 MG IVP (22:33)
[2024-02-19] VITALS (22 sets, daily range): BP systolic 108–142; BP diastolic 60–90; PULSE 61–102; RESP 12–20; TEMP 36.4–37.1; O2SAT 90–100
[2024-02-19] MEDS: sodium chloride 0.9% 1,000 ML 75 ML IV (04:18)
[2024-02-19 04:48] LABS: Basophils # 0.1 10^3/uL (0.0-0.1); Basophils % 0.7 %; Eosinophils # 0.3 10^3/uL (0.0-0.8); Eosinophils % 4.1 %; Hematocrit 33.1 % (36-47); Lymphocytes # 1.1 10^3/uL (0.8-4.8); Lymphocytes % 15.5 %; Mean Corpuscular HGB Conc 32.9 g/dL (30-55); Mean Corpuscular Hemoglobin 30.9 pg (27-33); Mean Corpuscular Volume 93.8 fl (85-98); Mean Platelet Volume 9.1 fL (7.4-10.4); Monocytes # 0.7 10^3/uL (0.2-0.9); Monocytes % 10.5 %; Neutrophils # 4.84 10^3/uL (1.8-7.7); Neutrophils % 68.9 %; Nucleated Red Blood Cells % 0 %; Platelet Count 273 10^3/cmm (157-399); Red Blood Count 3.53 10^6/uL (3.85-5.65); White Blood Count 7.03 10^3/uL (3.29-11.43)
[2024-02-19 05:07] LABS: Anion Gap 15.8 (5-19); Blood Urea Nitrogen 13 mg/dL (8-23); Calcium 8.7 mg/dL (8.5-10.5); Carbon Dioxide 22 mmol/L (22-29); Chloride 101 mmol/L (98-107); Creatinine Clr Calc Pharmacy 36.7942; Glucose 120 mg/dL (65-115); Osmolality Calculated 279 mOsm/kg (285-295); Potassium 4.8 mmol/L (3.5-5.1); Sodium 134 mmol/L (136-145)
--- NOTE | 2024-02-19 07:30 | P.CONIM_ITS ---
Providers/Reason For Consult 2 Consulting Physician/Specialty*: Taco Shirley DO/orthopedic surgery Reason for Consult*: Left valgus impacted femoral neck fracture Requesting Physician: Dr. Hobbs Attending Physician: Bruce Cisneros MD Primary Care Provider: Dedrick Person MD History of Present Illness History of Present Illness Millicent Angel is a 84 year old female sustained a ground-level fall yesterday while walking her dog she just recently had a boot removed as she was being treated for a foot fracture she was walking her dog and then had a ground-level fall landing onto her left hip. Brought to the emergency department found to have a left hip femoral neck fracture. Patient was admitted by hospitalist, orthopedics consulted patient denies being on any blood thinners denies any loss of consciousness chest pain or shortness of breath. Review of Systems 2 General: Reports: 10 or more systems reviewed and unremarkable except in HPI and below Medications/Allergies Home Medications Medication Instructions Recorded Confirmed Last Taken Type multivitamin 1 cap PO QAM 07/30/19 02/18/24 1 Day Ago History ~02/17/24 acetaminophen 650 mg 1,300 mg PO Q12H 08/11/21 02/18/24 Unknown History tablet,extended release (Tylenol Arthritis Pain) cetirizine 10 mg tablet (Zyrtec) 10 mg PO DAILY 12/27/22 02/18/24 1 Day Ago History ~02/17/24 magnesium oxide 250 mg PO BID 12/27/22 02/18/24 Unknown History nitroglycerin 0.4 mg sublingual 0.4 mg sublingual Q5M PRN chest 12/27/22 02/18/24 Unknown Rx tablet (Nitrostat) pain #25 tabs simvastatin 10 mg tablet 10 mg PO .HS #90 tabs 07/21/23 02/18/24 1 Day Ago Rx ~02/17/24 valsartan 160 mg tablet 160 mg PO BID #180 tabs 08/08/23 02/18/24 1 Day Ago Rx ~02/17/24 fluticasone propionate 50 See Rx Instructions .Route 08/10/23 02/18/24 1 Day Ago Rx mcg/actuation nasal .COMPLEX #48 grams ~02/17/24 spray,suspension fluoxetine 20 mg capsule See Rx Instructions .Route 09/27/23 02/18/24 Unknown Rx .COMPLEX #90 caps famotidine 40 mg tablet 40 mg PO DAILY #90 tabs 11/15/23 02/18/24 1 Day Ago Rx ~02/17/24 isosorbide mononitrate 30 mg 30 mg PO DAILY #90 tabs 11/15/23 02/18/24 1 Day Ago Rx tablet,extended release 24 hr ~02/17/24 clonazepam 0.5 mg tablet 0.5 mg PO TID PRN anxiety #90 tabs 12/05/23 02/18/24 1 Day Ago Rx ~02/17/24 hydrocodone 5 mg-acetaminophen 325 1 tab PO Q8H PRN pain 4 weeks #60 12/29/23 02/18/24 1 Week Ago Rx mg tablet tabs ~02/11/24 indomethacin 25 mg capsule See Rx Instructions .Route 02/08/24 02/18/24 1 Day Ago Rx .COMPLEX #180 caps ~02/17/24 Allergies Allergy/AdvReac Type Severity Reaction Status Date / Time gabapentin Allergy Intermediate diarrhea Verified 02/18/24 21:18 pregabalin [From Lyrica] Allergy Intermediate swelling Verified 02/18/24 21:18 metoprolol AdvReac Intermediate bitter Verified 02/18/24 21:18 taste promethazine [From Phenergan] AdvReac disoriented Verified 02/18/24 21:18 Sulfa (Sulfonamide AdvReac abdominal Verified 02/18/24 21:18 Antibiotics) pain Current Medications Generic Name Dose Route Start Last Admin Trade Name Freq PRN Reason Stop Dose Admin Atorvastatin Calcium 20 mg 02/18/24 21:00 02/18/24 20:37 Atorvastatin 40 Mg Tablet PO 20 mg BEDTIME REBECA Administration Clonazepam 0.5 mg 02/18/24 12:50 02/18/24 23:08 Clonazepam 0.5 Mg Tablet PO 0.5 mg TID PRN Administration anxiety Enoxaparin Sodium 40 mg 02/18/24 12:50 02/18/24 13:54 Enoxaparin 40 Mg/0.4 Ml Syringe SUBCUT 40 mg Q24H REBECA Administration Hydromorphone HCl 0.2 mg 02/18/24 22:09 02/18/24 22:33 Hydromorphone 1 Mg/Ml Inj 1 Ml IVP 0.2 mg Q4H PRN Administration SEVERE PAIN Sodium Chloride 1,000 mls @ 75 mls/hr 02/18/24 12:50 02/19/24 04:18 Sodium Chloride 0.9% IV 75 mls/hr .[id number] REBECA Administration Losartan Potassium 50 mg 02/18/24 18:00 02/18/24 17:07 Losartan 50 Mg Tablet PO Not Given BID REBECA Morphine Sulfate 2 mg 02/18/24 12:50 02/18/24 20:36 Morphine 4 Mg/Ml Sdv 1 Ml IVP 2 mg Q4H PRN Administration SEVERE PAIN Non-Formulary Medication 250 mg 02/18/24 18:00 02/18/24 17:07 Magnesium Oxide PO Not Given BID REBECA Pantoprazole Sodium 40 mg 02/18/24 12:50 02/18/24 13:54 Pantoprazole 40 Mg Sdv IVP 40 mg Q24H REBECA Administration PFSH Acute 2 PFSH: Medical History Atrial fibrillation Meningioma Meningioma identified during evaluation for chronic headaches-followed with neurology Dr. De Los Santos in [place] and states it was stable. She has been cleared and has not seen a neurologist in over 4 years. Elevated cholesterol Diagnosed in 2011 and has been on and off medication. 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 No pertinent past medical history Denies diabetes, asthma, seizures, DVT/PE PCP: Dr. Person SVT (supraventricular tachycardia) HTN (hypertension) SVT/high blood pressure diagnosed in 2019-has pacemaker and is on medication managed by primary care provider and cardiology-Dr. Swanson Surgical History S/P cardiac pacemaker procedure 2019 History of rectal surgery X 3 Patient had perianal excision of Paget's disease done by Dr. Adamson and Dr. Goss in [place] first in May 2017 and then again in July 2018, 2020 S/P hysterectomy Vaginal, done for prolapse in 1981. She was told there was no cancer. S/P tubal ligation Laparoscopic procedure performed in 1979 Family History Mother Heart disease Hypertension Father Heart disease Daughter Diabetes Sister Hyperlipidemia Other Colon cancer Denies family history of Ovarian cancer Breast cancer Uterine cancer Thyroid disease Stroke Social History Smoking and tobacco/nicotine status: former use of tobacco/nicotine Alcohol intake: never Substance/Drug Use: never Vitals/I&O/Wt Last Vital Signs Temp 98.7 F 02/19/24 04:00 Pulse 75 02/19/24 05:30 Resp 15 02/19/24 04:00 BP 136/71 02/19/24 04:00 Pulse Ox 92 02/19/24 04:00 O2 Del Method Room Air 02/19/24 04:00 02/18/24 02/19/24 02/19/24 22:59 06:59 14:59 Intake Total 720 / 720 1000 / 1720 Output Total 400 / 400 625 / 1025 Balance 320 / 320 375 / 695 Weight last 48 hrs Weight 118 lb Physical Exam 2 Narrative: Left hip examination: Examination of the left hip demonstrates patient left lower extremity is not shortened or externally rotated clinically appears to be in comparable alignment she does have pain on severe logroll for positive logroll examination but is able to wiggle the toes plantarflex and dorsiflex ankle sensations intact light touch distally to left lower extremity. She is able to slightly lift her heel off of the bed to perform a straight leg raise but pain Supracaine at the groin she is unable to perform a full [place] examination due to pain. She has negative pelvic compression test tenderness palpation at the left hip at the groin. Secondary survey examination unremarkable for any pain or tenderness to palpation to bilateral upper extremity joints as well as the right lower extremity joints. She does have a small abrasion over the lateral aspect of the left elbow which has been using was taken off inspected. She has no lumbar tenderness palpation (or secondary survey examinations unremarkable. Data 02/19/24 04:10 02/19/24 04:10 Xray Ortho: My impression: X-rays of the left hip reviewed and personally interpreted by myself demonstrating a left hip valgus impacted femoral neck fracture CT of the pelvis reviewed in person interpreted by myself demonstrating a nondisplaced valgus impacted left hip femoral neck fracture A&P Assessment and plan (1) Fracture of femoral neck, left: Plan N.p.o. since midnight Hospitalist is primary CT scan reviewed X-rays reviewed Labs reviewed Plan for OR today for left hip CRPP MDM: Patient is an 84-year-old female sustained a ground-level fall has a valgus impacted femoral neck fracture. She has no clinical deformity or malalignment, CT scan confirms aligned cortices that I feel that this patient could be a good candidate for a left hip CRPP we talked about treatment options detail as far as doing nothing and operative intervention either a CRPP versus left hip hemiarthroplasty. I talked about this with the patient as well as her daughter and through shared decision making we elected proceed with left hip CRPP for a less invasive treatment option as well as given her fracture pattern is amenable to this. We detailed the ins and outs procedure risk benefits complication alternatives with surgery risk of surgery include not limited to make a better make it worse injury to nerves vessels or tendons, malunion, nonunion, hardware failure and possible further surgery. Understanding risk of surgery should they elect to proceed with surgical intervention all questions have been answered at this time we will get her added on surgery schedule today for left hip femoral neck CRPP. All questions answered. Coding Level of Care Code Acute Code for Chg Fwd Diagnoses Fracture of femoral neck, left S72.002A Time Spent (min) 45
--- NOTE | 2024-02-19 07:41 | ANES.PREANE2 ---
Pre-Anesthetic Assessment Height/Weight: Height 1.55 m Weight 53.524 kg Temp Pulse Resp BP Pulse Ox O2 Del Method 98.7 F 75 15 136/71 92 Room Air 02/19/24 04:00 02/19/24 05:30 02/19/24 04:00 02/19/24 04:00 02/19/24 04:00 02/19/24 04:00 Operation Date: 02/19/24 09:35 Proposed Procedures p Hip Screw(Left) - Taco Fern, DO Familial anesthetic complications: none Was Beta Eber taken within 24 hours: N/A Was Clonidine taken within 24 hours: N/A Last intake: Intake Last Liquid Date 02/18/24 Last Liquid Time 23:59 Last Solid Date 02/18/24 Last Solid Time 18:00 Social No alcohol and No tobacco Exam alert, oriented x 3, clear to auscultation bilaterally and regular rate & rhythm Airway Mallampati: Class II CV/HEM Atrial Fibrillation, Arrythmia (SVT, a fib, 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 Grade 1 Diastolic Function. Echogenic Structure Seen in Right Atrium. It may represent eustachian valve. Further assessment with SEEMA Mild aortic regurgitation Mild tricuspid regurgitation. Musc/skel paget's disease Neuropsych meningioma Anesthetic Plan ASA status: 4 Anesthesia: General Risk of > 500 ml blood loss (7ml/kg in children): No Medications/Allergies Home Medications Medication Instructions Recorded Confirmed Last Taken Type multivitamin 1 cap PO QAM 07/30/19 02/18/24 1 Day Ago History ~02/17/24 acetaminophen 650 mg 1,300 mg PO Q12H 08/11/21 02/18/24 Unknown History tablet,extended release (Tylenol Arthritis Pain) cetirizine 10 mg tablet (Zyrtec) 10 mg PO DAILY 12/27/22 02/18/24 1 Day Ago History ~02/17/24 magnesium oxide 250 mg PO BID 12/27/22 02/18/24 Unknown History nitroglycerin 0.4 mg sublingual 0.4 mg sublingual Q5M PRN chest 12/27/22 02/18/24 Unknown Rx tablet (Nitrostat) pain #25 tabs simvastatin 10 mg tablet 10 mg PO .HS #90 tabs 07/21/23 02/18/24 1 Day Ago Rx ~02/17/24 valsartan 160 mg tablet 160 mg PO BID #180 tabs 08/08/23 02/18/24 1 Day Ago Rx ~02/17/24 fluticasone propionate 50 See Rx Instructions .Route 08/10/23 02/18/24 1 Day Ago Rx mcg/actuation nasal .COMPLEX #48 grams ~02/17/24 spray,suspension fluoxetine 20 mg capsule See Rx Instructions .Route 09/27/23 02/18/24 Unknown Rx .COMPLEX #90 caps famotidine 40 mg tablet 40 mg PO DAILY #90 tabs 11/15/23 02/18/24 1 Day Ago Rx ~02/17/24 isosorbide mononitrate 30 mg 30 mg PO DAILY #90 tabs 11/15/23 02/18/24 1 Day Ago Rx tablet,extended release 24 hr ~02/17/24 clonazepam 0.5 mg tablet 0.5 mg PO TID PRN anxiety #90 tabs 12/05/23 02/18/24 1 Day Ago Rx ~02/17/24 hydrocodone 5 mg-acetaminophen 325 1 tab PO Q8H PRN pain 4 weeks #60 12/29/23 02/18/24 1 Week Ago Rx mg tablet tabs ~02/11/24 indomethacin 25 mg capsule See Rx Instructions .Route 02/08/24 02/18/24 1 Day Ago Rx .COMPLEX #180 caps ~02/17/24 Allergies Allergy/AdvReac Type Severity Reaction Status Date / Time gabapentin Allergy Intermediate diarrhea Verified 02/18/24 21:18 pregabalin [From Lyrica] Allergy Intermediate swelling Verified 02/18/24 21:18 metoprolol AdvReac Intermediate bitter Verified 02/18/24 21:18 taste promethazine [From Phenergan] AdvReac disoriented Verified 02/18/24 21:18 Sulfa (Sulfonamide AdvReac abdominal Verified 02/18/24 21:18 Antibiotics) pain Current Medications Generic Name Dose Route Start Last Admin Trade Name Freq PRN Reason Stop Dose Admin Atorvastatin Calcium 20 mg 02/18/24 21:00 02/18/24 20:37 Atorvastatin 40 Mg Tablet PO 20 mg BEDTIME REBECA Administration Clonazepam 0.5 mg 02/18/24 12:50 02/18/24 23:08 Clonazepam 0.5 Mg Tablet PO 0.5 mg TID PRN Administration anxiety Enoxaparin Sodium 40 mg 02/18/24 12:50 02/18/24 13:54 Enoxaparin 40 Mg/0.4 Ml Syringe SUBCUT 40 mg Q24H REBECA Administration Hydromorphone HCl 0.2 mg 02/18/24 22:09 02/18/24 22:33 Hydromorphone 1 Mg/Ml Inj 1 Ml IVP 0.2 mg Q4H PRN Administration SEVERE PAIN Sodium Chloride 1,000 mls @ 75 mls/hr 02/18/24 12:50 02/19/24 04:18 Sodium Chloride 0.9% IV 75 mls/hr .[id number] REBECA Administration Losartan Potassium 50 mg 02/18/24 18:00 02/18/24 17:07 Losartan 50 Mg Tablet PO Not Given BID REBECA Morphine Sulfate 2 mg 02/18/24 12:50 02/18/24 20:36 Morphine 4 Mg/Ml Sdv 1 Ml IVP 2 mg Q4H PRN Administration SEVERE PAIN Non-Formulary Medication 250 mg 02/18/24 18:00 02/18/24 17:07 Magnesium Oxide PO Not Given BID REBECA Pantoprazole Sodium 40 mg 02/18/24 12:50 02/18/24 13:54 Pantoprazole 40 Mg Sdv IVP 40 mg Q24H REBECA Administration PFSH Anesthesia Medical History Atrial fibrillation Meningioma Meningioma identified during evaluation for chronic headaches-followed with neurology Dr. De Los Santos in [place] and states it was stable. She has been cleared and has not seen a neurologist in over 4 years. Elevated cholesterol Diagnosed in 2011 and has been on and off medication. 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 No pertinent past medical history Denies diabetes, asthma, seizures, DVT/PE PCP: Dr. Person SVT (supraventricular tachycardia) HTN (hypertension) SVT/high blood pressure diagnosed in 2019-has pacemaker and is on medication managed by primary care provider and cardiology-Dr. Swanson Surgical History S/P cardiac pacemaker procedure 2019 History of rectal surgery X 3 Patient had perianal excision of Paget's disease done by Dr. Adamson and Dr. Goss in [place] first in May 2017 and then again in July 2018, 2020 S/P hysterectomy Vaginal, done for prolapse in 1981. She was told there was no cancer. S/P tubal ligation Laparoscopic procedure performed in 1979 Family History Mother Heart disease Hypertension Father Heart disease Daughter Diabetes Sister Hyperlipidemia Other Colon cancer Denies family history of Ovarian cancer Breast cancer Uterine cancer Thyroid disease Stroke Social History Smoking and tobacco/nicotine status: former use of tobacco/nicotine Alcohol intake: never Substance/Drug Use: never Data Anesthesia 02/19/24 04:10 02/19/24 04:10 Short CBC 02/18/24 02/19/24 Range/Units 10:31 04:10 WBC 7.77 7.03 (3.29-11.43) 10^3/uL Hgb 12.20 10.90 L (11.27-16.99) g/dL Hct 37.2 33.1 L (36-47) % MCV 93.9 93.8 (85-98) fl Plt Count 340 273 (157-399) 10^3/cmm Neut % (Auto) 79.4 68.9 % Neut # (Auto) 6.17 4.84 (1.8-7.7) 10^3/uL BMP 02/18/24 02/19/24 10:31 04:10 Sodium 130 L 134 L Potassium 4.8 4.8 Chloride 96 L 101 Carbon Dioxide 23 22 BUN 15 13 Creatinine 0.9 0.9 Glucose 160 H 120 H Calcium 9.5 8.7 Cardiac Enzymes 02/18/24 02/18/24 02/18/24 Range/Units 10:31 13:10 16:45 Troponin T Baseline 15 H (0-10) ng/L Troponin T 120 Minute 12.04 H (0-10) ng/L Delta Troponin T -2.96 L (0-10) ABS# Troponin T Hi Sens 6Hr 12.54 H (0-10) ng/L Troponin T Hi Sens 6Hr Delta -2.46 L (0-12) ng/L NT-Pro-B Natriuret Pep 172 (0-450) pg/mL Liver Function 02/18/24 Range/Units 10:31 Total Bilirubin 0.4 (0.15-1.2) mg/dL AST 27 (0-32) U/L ALT 23 (0-33) U/L Alkaline Phosphatase 123 H (35-105) U/L Albumin 4.3 (3.5-5.2) g/dL Urine 02/18/24 Range/Units 14:54 Urine Color Yellow (Yellow) Urine Appearance Clear (CLEAR) Urine pH 6 (5-7) Ur Specific [place] 1.010 (1.005-1.030) Urine Protein Neg (Negative) Urine Glucose (UA) Norm (Normal) Urine Ketones Negative (Negative) Urine Nitrate Negative (Negative) Urine Bilirubin Neg (Negative) Ur Leukocyte Esterase Negative (Negative) Coags 02/18/24 10:31 PT 12.70 INR 0.93 APTT 31.5 C-Reactive Protein 17.3 H Cardiac Studies: Echocardiogram 12/20/23 Sestamibi Stress Test (Cardiology) 01/12/23
--- NOTE | 2024-02-19 07:44 | W.PM.OPSUD ---
Surgery/Procedure H&P Update DATE OF PROCEDURE: February 19, 2024 DATE H&P PERFORMED: 02/19/24 H&P UPDATE INFORMATION: I have reviewed H&P completed within last 30 days, I have examined patient prior to procedure and No changes to prior documentation PREOP DIAGNOSIS: Left hip valgus impacted femoral neck fracture PRIMARY INDICATION FOR PROCEDURE: Left hip valgus impacted femoral neck fracture PLANNED PROCEDURE: Operation Date: 02/19/24 09:35 Proposed Procedures p Hip Screw(Left) - Taco Shirley DO
[2024-02-19] MEDS: lactated ringers 500 ML IV (07:56)
[2024-02-19] MEDS: acetaminophen 1,000 MG/100 ML PIGGYBACK 400 MG IV (08:03)
[2024-02-19] MEDS: ketorolac 30 mg/mL INJ IVP (08:08)
[2024-02-19] MEDS: sodium chloride 0.9% 1,000 ML 30 ML IV ×2 (09:13→11:51)
[2024-02-19] MEDS: ceFAZolin 2,000 MG in sodium chloride 0.9% (plus) 50 ML 100 MG IV ×2 (09:29→17:21)
[2024-02-19] MEDS: tranexamic acid 1,000 MG/100 ML PREMIX 600 MG IV ×2 (10:11→17:21)
--- NOTE | 2024-02-19 10:28 | PM.OP ---
Operative Report Date of procedure: February 19, 2024 Surgeon: Taco Shirley DO [employer] Person: Jack Shirley PA-C: PA was necessary for assistance in this case with leg positioning as well as assistance in implantation wound closure and dressing application. Procedure: Preoperative diagnosis: Left hip valgus impacted femoral neck fracture post-op diagnosis: Same Procedure done: [Left ]?femoral neck closed reduction and percutaneous pinning Implants: 6.5 mm x [80?]?mm ?fully threaded?cannulated screw with 2 washers 6.5 mm x [80 ]?mm partially-threaded cannulated screw 6.5 mm x [75 ]?mm partially-threaded cannulated screw with washer [ 3]?washers Surgeon: Taco Shirley DO Anesthesia: General Estimated blood loss: [20 ] mL IV fluids: [see anesthesia record ] mL Urine output: [see anesthesia record ]? Complications: None Findings: See operative report narrative Condition: stable Disposition: floor Brief History: Patient is a [84 ]-year-old [ female]who sustained a ground-level fall had a valgus impaced left femoral neck in?emergency department. Patient?admitted by hospitalist team medically optimized, orthopedics was consulted For treatment recommendations.?Patient has been medically optimized.? We talked about treatment options given this after CT scan demonstrated an intact anterior cortex in good alignment I feel this would be amendable for closed reduction and percutaneous pinning fixation.? We talked about this in detail as far as risk benefits complication alternatives of surgery understands even potential for possible hardware failure and further surgery.? Understand risk of surgery pt and family agree to proceed with surgical intervention all questions answered. Procedure: Patient seen and evaluated?in the preoperative holding area.? Consent was reviewed and signed with patient.? Operative extremity was marked.? Patient was then seen evaluated by anesthesia once cleared for surgery patient was taken back to the operative suite.? Patient was transported onto the Allen bed after undergoing general anesthetic.? Once properly anesthetized she was then placed onto the Allen bed placed in traction boots.? All bony prominences well-padded patient was appropriate secured to the bed.? Final timeout was performed.? Patient received appropriate preoperative antibiotics as well as preoperative TXA. Prior to prepping and draping, the fractured?hip?was then inspected this was found to be on the traction table to be in excellent alignment position amenable for close reduction percutaneous pinning.? At this point time the [ ]hip?was then prepped and draped in standard orthopedic fashion. I started off with small percutaneous incision after marking the center center position of the femoral neck I started with my inferior and central calcar wire.? Guidepin was then advanced along the inferior border of the neck and advanced to appropriate position into the femoral head across the fracture site.? This was confirmed in multiple orthogonal images to be in appropriate position.? Next I plan for a inverted triangle configuration as result I then subsequently placed next my superior and anterior guidepin in appropriate position and then in parallel fashion placed my posterior and superior guidepin in appropriate position.? This was confirmed to have an excellent inverted triangle positioning on AP and lateral.? I then advanced the wires to appropriate length and then subsequently measured.? I then utilized the cannulated drill bit, Drilled, measured and then subsequently advanced the fully-threaded 6.5 mm x [80 ]?mm cannulated screw with 2 washers and advanced this with excellent fixation on the inferior and central calcar screw. ? Next attention turned to the?superior and anterior?pin,?I then subsequently used the cannulated drill bit And subsequently drilled,?measured and placed a partially-threaded 6.5 mm x [80 ]?mm partially-threaded cannulated screw and had excellent fixation.?? Lastly we did the?Superior and posterior pin,?utilized the cannulated drill bit and subsequently drilled, measured and placed a partially-threaded 6.5 mm x [75 ]?mm partially-threaded cannulated screw with washer.? All 3 screws had excellent fixation and were advanced appropriate depth. At the end the procedure I backed the wires out to have appropriate visualization of the tips of the screws.? I then unlocked the traction boot and took the?hip?through range of motion with live fluoroscopic imaging utilizing approach and withdrawal technique and no screws penetrated the joint and fracture site was stable.? This completed the procedure. Guidepins were then subsequently removed wound was then thoroughly irrigated and closed with brandi for the small percutaneous sites.? This was then covered with Silverlon dressing.? Patient was then awake from anesthesia and taken to PACU in stable condition.? Patient tolerated procedure without any issues Disposition: Patient taken to PACU in stable condition recovering well.? Will be weightbearing as tolerated?postoperatively.? Dressing on in place will be changed as needed.? DVT prophylaxis.? Pain control.? PT/OT.? Postoperative TXA. Postoperative antibiotics.?Patient will return to the floor.? Internal medicine on board as primary.?
[2024-02-19] MEDS: lidocaine 2% INJ 20 mL INJECTION (10:31)
[2024-02-19] MEDS: ROPivacaine 0.5% SDV 30 mL 150 MG INJECTION (10:31)
--- NOTE | 2024-02-19 10:31 | XR_ITS ---
WS: [id number] HIP WITH PELVIS LEFT TECHNIQUE: 3 views of the left hip with pelvis CLINICAL INFORMATION: left hip crpp FINDINGS: Recent postoperative changes cannulated screw fixation across the LEFT femur. 3 fixation screws. Oste openia. Pelvic phleboliths. Hardware appears in good position. XR/XR hip LT 2-3V wo/w pel* [id number] IMPRESSION: Unremarkable for postoperative purposes
--- NOTE | 2024-02-19 10:46 | W.PM.BPON ---
Date of Procedure: [February 19, 2024] Surgeon: [Dr. Shirley DO] Blunger Machine Operator(s): [Jack Shirley PA-C] Procedure(s) performed: [Left hip closed reduction percutaneous pinning] Findings of the procedure(s): [Left hip femoral neck fracture] Estimated blood loss: [20 mL] Specimen(s) removed: [n/a] Post-operative diagnosis: [Left hip femoral neck fracture]
--- NOTE | 2024-02-19 10:48 | PM.PACU ---
PACU note Narrative: Patient is a 84-year-old female that just underwent a left hip CRPP. Pt transferred to PACU in stable condition. Dressing is dry. Patient is awake and alert. Patient is able to wiggle toes and can plantarflex and dorsiflex foot. Patient is able to perform straight leg raise but does have some pain with movement. Sensation to foot intact. Distal pulses are palpable toes are warm and well-perfused. Cap refill is normal and under 2 seconds. Pain is controlled. Exam: awake Disposition: admitted
--- NOTE | 2024-02-19 11:10 | ANE.PACU2 ---
Inpatient post-anesthesia follow up: Airway intact: Yes Vital signs: Temperature 97.5 F Pulse Rate 95 Respiratory Rate 18 Blood Pressure 121/71 Pulse Oximetry 94 Oxygen Delivery Me thod Room Air Oxygen Flow Rate 6 Fraction of Inspir ed Oxygen Hydration adequate: Yes Nausea and vomiting: No Pain level: 1 Mental status: Baseline
[2024-02-19] MEDS: HYDROmorphone 1 mg/mL INJ 1 mL 0.2 MG IVP (11:49)
[2024-02-19] MEDS: enoxaparin 40 mg/0.4 mL Syringe SUBCUT (13:40)
[2024-02-19] MEDS: chlorhexidine gluconate 0.12% Btl 473 mL 30 ML MUCOUS MEM ×3 (13:40→21:24)
[2024-02-19] MEDS: pantoprazole 40 mg SDV IVP (13:40)
--- NOTE | 2024-02-19 14:36 | P.PN_ITS ---
Subjective 2 Subjective: patient was seen postoperatively, denies fever, denies chest pain, denies shortness of breath Vitals/I&O/Wt Last Vital Signs Temp 97.5 F L 02/19/24 12:30 Pulse 89 02/19/24 13:52 Resp 18 02/19/24 13:52 BP 121/71 02/19/24 12:30 Pulse Ox 94 02/19/24 13:52 O2 Del Method Room Air 02/19/24 13:52 O2 Flow Rate 6 02/19/24 10:55 02/18/24 02/19/24 02/19/24 22:59 06:59 14:59 Intake Total 720 / 720 1000 / 1720 1989 Output Total 400 / 400 625 / 1025 1020 / 1020 Balance 320 / 320 375 / 695 970 / 970 Weight last 48 hrs Weight 53.524 kg Physical Exam 2 Const: COMMON NORMALS: no acute distress and patient oriented x3 Resp: COMMON NORMALS: normal respiratory effort, No retractions, No use of accessory muscles and clear to auscultation bilaterally AUSCULTATION: clear to auscultation bilaterally Cardio: COMMON NORMALS: regular rate, regular rhythm, S1 normal heart sound present and S2 normal heart sound present RATE: regular rate RHYTHM: r egular rhythm HEART SOUNDS: S1 normal heart sound present and S2 normal heart sound present GI: COMMON NORMALS: Normal to inspection, nondistended, normoactive bowel sounds present and non-tender Extremity: COMMON NORMALS: no pedal edema Neuro: COMMON NORMALS: patient oriented x3 Psych: COMMON NORMALS: mental status grossly normal Data 02/19/24 04:10 02/19/24 04:10 A&P Assessment and plan (1) Syncope: Qualifiers: Syncope type: unspecified Qualified Code(s): R55 - Syncope and collapse (2) Hip fracture: Qualifiers: Encounter type: initial encounter Fracture type: closed Laterality: l eft Qualified Code(s): S72.002A - Fracture of unspecified part of neck of left femur, initial encounter for closed fracture Plan Syncopal episode ? Patient reports that she has had extensive workup for these recurrent syncopal episodes ? Her last fall was about a month ago in which she had a third metatarsal fracture requiring a walking boot ? Plan ? Has a pacemaker in place, will interrogate pacemaker ? Cardiac echo WNL Carotid artery ultrasound WNL ? CT head patient refuses ct head ? Serial troponins, serial EKGs, telemetry monitoring ? No chest pain complaints ? Obtain a urinalysis, WNL ? Once more stable, will do orthostatic vitals ? Continue to monitor closely Left hip fracture -s/p surgical intervention ? Cardiac diet, n.p.o. over midnight ? SCDs and Lovenox for DVT prophylaxis, morphine for pain control ? Orthopedic service has been consulted History of third-degree AV block, with pacemaker placement History of atrial fibrillation, not on anticoagulation, not on rate control therapy, telemetry monitoring, EKG Lovenox for DVT prophylaxis, SCDs, Protonix for GI prophylaxis CODE STATUS, patient does not want to be intubated, she is DNI, we also talked about intubation for even short period of time she does not want to be intubated, she is okay with CPR, okay with defibrillation, okay with drugs per ACLS, okay with ICU admission Attestations 2 Medical Necessity Statement*: patient requires hospitalization for syncopal episode, L hip fracture Diagnoses Syncope, unspecified syncope type R55 Syncope type: unspecified Hip fracture S72.002A Encounter type: initial encounter Fracture type: closed Laterality: left
[2024-02-19] MEDS: sennosides-docusate Tablet 2 TAB PO (17:17)
[2024-02-19] MEDS: calcium carb-vit d 600mg/400unit 1 Tablet 1 EACH PO (17:17)
[2024-02-19] MEDS: losartan 50 mg Tablet PO (17:18)
[2024-02-19] MEDS: iron polysaccharide complex 150 mg Capsule PO (17:18)
[2024-02-19] MEDS: acetaminophen 500 mg Tablet 1000 MG PO (17:19)
[2024-02-19] MEDS: mupirocin oint 22 gm 1 APPLIC NASAL (17:28)
--- NOTE | 2024-02-19 18:23 | PC.NURSE ---
notified surgery department this am of transexamic acid remaining on the SEP. At this time of this note this has not been administered in the SEP so I will non-admin the medication.
[2024-02-19] MEDS: atorvastatin 40 mg Tablet 20 MG PO (21:23)
[2024-02-19] MEDS: oxyCODONE 5 mg IR Tab/Cap PO (21:24)
[2024-02-19] MEDS: CLONazepam 0.5 mg Tablet PO (21:24)
[2024-02-20] VITALS (16 sets, daily range): BP systolic 146–208; BP diastolic 76–94; PULSE 64–99; RESP 16–20; TEMP 36.3–36.9; O2SAT 94–97
[2024-02-20] MEDS: acetaminophen 500 mg Tablet 1000 MG PO ×3 (00:33→15:05)
[2024-02-20] MEDS: ceFAZolin 2,000 MG in sodium chloride 0.9% (plus) 50 ML 100 MG IV ×2 (00:34→08:53)
[2024-02-20 06:04] LABS: Basophils % 0.1 %; Eosinophils % 0.1 %; Hematocrit 32.8 % (36-47); Lymphocytes % 10.5 %; Mean Corpuscular HGB Conc 33.2 g/dL (30-55); Mean Corpuscular Hemoglobin 30.9 pg (27-33); Mean Corpuscular Volume 92.9 fl (85-98); Mean Platelet Volume 9.2 fL (7.4-10.4); Monocytes # 0.8 10^3/uL (0.2-0.9); Monocytes % 8.2 %; Neutrophils # 7.83 10^3/uL (1.8-7.7); Neutrophils % 80.3 %; Nucleated Red Blood Cells % 0 %; Platelet Count 292 10^3/cmm (157-399); Red Blood Count 3.53 10^6/uL (3.85-5.65); Red Cell Distribution Width 12.7 % (12.1-15.1); White Blood Count 9.75 10^3/uL (3.29-11.43)
[2024-02-20 06:24] LABS: Anion Gap 14.9 (5-19); Blood Urea Nitrogen 12 mg/dL (8-23); Calcium 8.6 mg/dL (8.5-10.5); Carbon Dioxide 20 mmol/L (22-29); Chloride 99 mmol/L (98-107); Creatinine Clr Calc Pharmacy 41.3935; Glucose 125 mg/dL (65-115); Osmolality Calculated 269 mOsm/kg (285-295); Potassium 4.9 mmol/L (3.5-5.1); Sodium 129 mmol/L (136-145)
[2024-02-20] MEDS: oxyCODONE 5 mg IR Tab/Cap PO ×2 (08:54→15:12)
[2024-02-20] MEDS: multivitamin therapeutic Tablet 1 TAB PO (08:56)
[2024-02-20] MEDS: iron polysaccharide complex 150 mg Capsule PO ×2 (08:56→17:12)
[2024-02-20] MEDS: sennosides-docusate Tablet 2 TAB PO ×2 (08:57→17:12)
[2024-02-20] MEDS: calcium carb-vit d 600mg/400unit 1 Tablet 1 EACH PO ×2 (08:57→17:12)
[2024-02-20] MEDS: ketorolac 30 mg/mL INJ 15 MG IVP (08:57)
[2024-02-20] MEDS: losartan 50 mg Tablet PO ×2 (08:58→17:12)
[2024-02-20] MEDS: mupirocin oint 22 gm 1 APPLIC NASAL ×2 (08:58→17:13)
[2024-02-20] MEDS: chlorhexidine gluconate 0.12% Btl 473 mL 30 ML MUCOUS MEM ×3 (08:58→17:13)
--- NOTE | 2024-02-20 09:09 | PC.CHAP ---
Pastoral Care Encounter/Spiritual Assessment Type of Contact [] Declined terrazzo helper visit [] Patient/Family/Request visit [] Outpatient visit [] Follow-up visit [] Physician referral [] Code/Alert [x] Routine visit [] Staff referral [] Actively dying [] Patient sleeping [] Family support [] [] Out of room [] Palliative care [] [] Receiving care in room [] Pre-surgical visit [] Trauma [] Long length of stay [] ICU visit [] Other: Relational/Emotional Strength [x] Patient feels connected with others/family/visitors/staff [] Distress [] Loneliness/isolation [] Abandonment Spirituality of Patient [x] Person of Ida [] Attends Temple of their Ida [x] Believes in Prayer [] Reads Bible or Mormon materials [] There are Spiritual issues to be addressed Irrigator Gravity Flow Interventions [x] Prayer [x] Active listening [] Non-anxious presence [x] Spiritual/emotional support [] Crisis/trauma care [] Spiritual counseling [] Bereavement support [] Provided bereavement packet [] Provided Bible/devotional materials [] Provided toy/stuffed animal, coloring book to patient or family member [] Provided Communion [] Anointing/[place] [] Salvation [x] Completed spiritual assessment [] Other: Impact on Illness or Injury [] Angry [] Fearful [] Anxious [] Often cries [] Exhaustion [] Unable to work [] Unable to attend druze [] Unable to walk/stand [] Unable to read [] Unable to drive [] Unable to eat/drink [] Unable to sleep [] Unable to be with family [] Patient intubated [] Other: Summary Time spent with patient 5 min
--- NOTE | 2024-02-20 11:59 | PM.PN ---
Subjective Subjective: Patient seen and examined this morning she is up in her chair at bedside. Pain controlled medications. Will work with therapy today. Vitals/I&O/Wt Last Vital Signs Temp 97.5 F L 02/20/24 11:49 Pulse 99 02/20/24 11:49 Resp 20 H 02/20/24 11:49 BP 148/81 02/20/24 11:49 Pulse Ox 96 02/20/24 11:49 O2 Del Method Room Air 02/20/24 08:48 O2 Flow Rate 6 02/19/24 10:55 02/19/24 02/20/24 02/20/24 22:59 06:59 14:59 Intake Total 1510 / 3500 50 / 3550 50 / 50 Output Total 450 / 2170 700 / 2870 Balance 1060 / 1330 -650 / 680 50 / 50 Weight last 48 hrs Weight 118 lb Physical Exam Narrative: Patient seen and examined examination of the left hip demonstrates dressings on in place clean dry and intact. She is able to tolerate smooth hip range of motion with no pain or discomfort. She is able to wiggle toes plantarflex and dorsiflex ankle sensations intact to light touch distally. Distal pulses palpable. Data 02/21/24 05:30 02/21/24 05:30 Xray Ortho: Radiologist's impression: Patient: Millicent Angel Unit #: [id number] : 1940 Age/Sex: 84 / F ADM Date: 02/18/24 Loc: [facility] Room/Bed: [facility] Attending Dr: Bruce Cisneros MD Ordering Provider/Ordering MD: Taco Shirley Date of Service: 02/19/24 Procedure(s): XR hip LT 2-3V wo/w pel* [id number] Accession Number(s): [id number] Report Number: [id number] WS: [id number] HIP WITH PELVIS LEFT TECHNIQUE: 3 views of the left hip with pelvis CLINICAL INFORMATION: left hip crpp FINDINGS: Recent postoperative changes cannulated screw fixation across the LEFT femur. 3 fixation screws. Osteopenia. Pelvic phleboliths. Hardware appears in good position. XR/XR hip LT 2-3V wo/w pel* [id number] IMPRESSION: Unremarkable for postoperative purposes A&P Assessment and plan (1) Fracture of femoral neck, left: Qualifiers: Encounter type: subsequent encounter Fracture type: closed Fracture healing: with routine healing Qualified Code(s): S72.002D - Fracture of unspecified part of neck of left femur, subsequent encounter for closed fracture with routine healing Plan Resume regular diet Partial weightbearing 30 to 50% PT/OT Pain control DVT prophylaxis Internal medicine on board as primary Postoperative antibiotics and TXA X-rays reviewed Labs reviewed Orthopedics will continue to follow Dressing change as needed Attestations Medical Necessity Statement*: Ongoing care status post left hip closed reduction percutaneous pinning Coding Level of Care Code Acute Code for Chg Fwd Diagnoses Closed fracture of neck of left femur with routine healing, subsequent encounter S72.002D Encounter type: subsequent encounter Fracture type: closed Fracture healing: with routine healing Time Spent (min) 15
[2024-02-20] MEDS: enoxaparin 40 mg/0.4 mL Syringe SUBCUT (12:09)
[2024-02-20] MEDS: pantoprazole 40 mg SDV IVP (12:10)
[2024-02-20 12:43] LABS: Anion Gap 16.1 (5-19); Blood Urea Nitrogen 14 mg/dL (8-23); Carbon Dioxide 21 mmol/L (22-29); Chloride 101 mmol/L (98-107); Chol HDL Ratio 2.48 mg/dL (0.0-4.40); Cholesterol 151 mg/dL (0-200); Creatinine Clr Calc Pharmacy 41.3935; Glucose 154 mg/dL (65-115); HDL Cholesterol 61 mg/dL (60-100); LDL Cholesterol Calculated 69 mg/dL (50-129); LDL HDL Ratio 1.13 RATIO (0.00-3.22); Osmolality Calculated 282 mOsm/kg (285-295); Potassium 4.1 mmol/L (3.5-5.1); Sodium 134 mmol/L (136-145); Triglycerides 106 mg/dL (0-150)
[2024-02-20 14:03] LABS: Cortisol Random 0.87 ug/dL (2.47-19.5)
--- NOTE | 2024-02-20 14:25 | P.PN_ITS ---
Subjective 2 Subjective: - Patient was seen this morning she is a lert to person, to place, not to time she follows commands, nursing staff report intermittent episodes of confusion ? We discussed potentially patient is acute on chronic hyponatremia as a cause of her recurrent falls, sodium is 129, she tells me that she has had it for many years, she has had hyponatremia since she had a colonoscopy, denies any diarrhea ? Potentially fluoxetine could be playing a role, will do a further workup for her hyponatremia Vitals/I&O/Wt Last Vital Signs Temp 97.5 F L 02/20/24 11:49 Pulse 99 02/20/24 11:49 Resp 20 H 02/20/24 11:49 BP 148/81 02/20/24 11:49 Pulse Ox 96 02/20/24 11:49 O2 Del Method Room Air 02/20/24 08:48 O2 Flow Rate 6 02/19/24 10:55 02/19/24 02/20/24 02/20/24 22:59 06:59 14:59 Intake Total 1510 / 3500 50 / 3550 170 / 170 Output Total 450 / 2170 700 / 2870 Balance 1060 / 1330 -650 / 680 170 / 170 Physical Exam 2 Const: COMMON NORMALS: no acute distress and patient oriented x3 Resp: COMMON NORMALS: normal respiratory effort, No retractions, No use of accessory muscles and clear to auscultation bilaterally AUSCULTATION: clear to auscultation bilaterally Cardio: COMMON NORMALS: regular rate, regular rhythm, S1 normal heart sound present and S2 normal heart sound present RATE: regular rate RHYTHM: r egular rhythm HEART SOUNDS: S1 normal heart sound present and S2 normal heart sound present GI: COMMON NORMALS: Normal to inspection, nondistended, normoactive bowel sounds present and non-tender Extremity: COMMON NORMALS: no calf tenderness and no pedal edema Neuro: COMMON NORMALS: patient oriented x3 Data 02/20/24 05:19 02/20/24 11:38 A&P Assessment and plan (1) Syncope: Qualifiers: Syncope type: unspecified Qualified Code(s): R55 - Syncope and collapse (2) Hip fracture: Qualifiers: Encounter type: initial encounter Fracture type: closed Laterality: l eft Qualified Code(s): S72.002A - Fracture of unspecified part of neck of left femur, initial encounter for closed fracture Plan Syncopal episode ? Potentially related to acute on chronic hyponatremia ? Her last fall was about a month ago in which she had a third metatarsal fracture requiring a walking boot ? Plan ? Has a pacemaker in place, will interrogate pacemaker ? Cardiac echo WNL Carotid artery ultrasound WNL ? CT head patient refuses ct head ? Serial troponins, serial EKGs, telemetry monitoring ? No chest pain complaints ? Obtain a urinalysis, WNL ? will do orthostatic vitals ? Continue to monitor closely Acute on chronic hyponatremia, 129, stop fluoxetine, check TSH, cortisol level, cosyntropin stimulation test Left hip fracture -s/p surgical intervention ? Cardiac diet, ? SCDs and Lovenox for DVT prophylaxis, morphine for pain control ? Orthopedic service has been consulted History of third-degree AV block, with pacemaker placement History of atrial fibrillation, not on anticoagulation, not on rate control therapy, telemetry monitoring, EKG Lovenox for DVT prophylaxis, SCDs, Protonix for GI prophylaxis CODE STATUS, patient does not want to be intubated, she is DNI, we also talked about intubation for even short period of time she does not want to be intubated, she is okay with CPR, okay with defibrillation, okay with drugs per ACLS, okay with ICU admission Plan for today, hyponatremia, serum sodium 129 hold fluoxetine, recheck serum sodium in the afternoon, check TSH, cortisol, cosyntropin stimulation test orthostatic vitals Attestations 2 Medical Necessity Statement*: Patient requires hospitalization for hyponatremia Diagnoses Syncope, unspecified syncope type R55 Syncope type: unspecified Hip fracture S72.002A Encounter type: initial encounter Fracture type: closed Laterality: left
[2024-02-20 14:54] LABS: Cosyntropin Baseline 0.87 mcg/dL
[2024-02-20] MEDS: polyethylene glycol 3350 Pkt 17 gm PO (15:05)
[2024-02-20] MEDS: cosyntropin 0.25 mg SDV IVP (16:04)
--- NOTE | 2024-02-20 20:19 | ECG_ITS ---
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 Measurements Intervals [place] Rate: 66 P: 39 HI: 160 QRS: -71 QRSD: 151 T: 62 QT: 419 QTc: 439 Interpretive Statements ELECTRONIC VENTRICULAR PACEMAKER Compared to ECG 02/18/2024 14:53:01 Atrial-paced complex(es) or rhythm no longer present Electronically Signed On 02-21-2024 10:34:23 CDT by Rakesh Tavares M.D. [id number]
--- NOTE | 2024-02-20 20:20 | CTR_ITS ---
PROCEDURE INFORMATION: Exam: CT Abdomen And Pelvis Without Contrast Exam date and time: 02/20/2024 9:34 PM Age: 84 years old Clinical indication: Vomiting; Additional info: New chest/abd pain TECHNIQUE: Imaging protocol: Computed tomography of the abdomen and pelvis without contrast. Radiation optimization: All CT scans at this facility use at least one of these dose optimization techniques: automated exposure control; mA and/or kV adjustment per patient size (includes targeted exams where dose is matched to clinical indication); or iterative reconstruction. COMPARISON: CT pelvis wo con [id number] 02/18/2024 10:34 AM RADIATION DOSE METRICS: Total DLP (mGy-cm): 640 FINDINGS: Tubes, catheters and devices: Pacemaker leads within the right atrium and right ventricle. Coronary arteries: Severe coronary artery calcifications. Diaphragm: Small hiatal hernia. Liver: Normal. No mass. Gallbladder and biliary ducts: Normal. No calcified stones. No ductal dilation. Pancreas: Normal. No ductal dilation. Spleen: Small calcified granulomas. Adrenal glands: Normal. No mass. Kidneys and ureters: Normal. No hydronephrosis. Stomach and bowel: Severe diverticulosis of the sigmoid colon. There is surrounding wall thickening and pericolonic inflammatory changes, concerning for diverticulitis. There are also pericolonic inflammatory changes involving the transverse and descending colon. Large colonic stool burden. Appendix: No evidence of appendicitis. Intraperitoneal space: Unremarkable. No free air. No significant fluid collection. Vasculature: Moderate atherosclerotic calcifications. Lymph nodes: Calcified mediastinal lymph node inferiorly adjacent to left atrium. Otherwise no lymphadenopathy. Urinary bladder: Unremarkable as visualized. Reproductive: Unremarkable as visualized. Bones/joints: Hardware within the proximal left femur without evidence of hardware failure. Severe degenerative changes of the lumbar spine with intervertebral disc space narrowing most pronounced at L1-L2 and L5-S1. Endplate irregularity of L2-L3 with vacuum disc phenomenon and endplate sclerosis. 3 mm anterolisthesis of L4 on L5. Soft tissues: Small amount of gas within the soft tissues of the left abdominal wall and left buttocks. CT/CT abdomen pelvis wo con [id number] IMPRESSION: 1. Severe diverticulosis of the sigmoid colon. There is surrounding wall thickening and pericolonic inflammatory changes, concerning for diverticulitis. There are also pericolonic inflammatory changes involving the transverse and descending colon concerning for colitis. Large colonic stool burden. 2. Small amount of gas within the soft tissues of the left abdominal wall and left buttocks. Clinical correlation recommended. 3. Small hiatal hernia.
[2024-02-20] MEDS: ondansetron 2 mg/ML SDV 2 mL 4 MG IVP (20:29)
[2024-02-20] MEDS: lidocaine 2% viscous 15 ML, aluminum-mag hydrox-simethicon 30 ML, sucralfate oral liq 1 GM PO (21:18)
[2024-02-20] MEDS: hyDRALAzine 20 mg/mL INJ 1 mL 5 MG IVP (21:20)
[2024-02-20 21:21] LABS: Troponin T (5th) Once 25 ng/L (0-10)
[2024-02-20] MEDS: morphine 4 mg/mL SDV 1 mL 2 MG IVP (21:49)
[2024-02-20 22:03] LABS: Glucose Point of Care 228 mg/dL (70-110)
[2024-02-20 22:36] LABS: Cosyntropin 1 Hour 19.22 mcg/dL
[2024-02-20] MEDS: lactulose oral liq 20 gm/30 mL UDC 10 GM PO (22:43)
[2024-02-20] MEDS: piperacillin-tazobactam 3.375 GM in sodium chloride 0.9% (plus) 50 ML IV (22:44)
[2024-02-21] VITALS (10 sets, daily range): BP systolic 97–137; BP diastolic 59–82; PULSE 62–94; RESP 16–20; TEMP 36.3–37.2; O2SAT 92–99
[2024-02-21] MEDS: acetaminophen 500 mg Tablet 1000 MG PO ×2 (00:37→08:20)
[2024-02-21] MEDS: ondansetron 2 mg/ML SDV 2 mL 4 MG IVP (03:07)
[2024-02-21 05:45] LABS: Basophils % 0.3 %; Lymphocytes # 0.4 10^3/uL (0.8-4.8); Mean Corpuscular HGB Conc 31.3 g/dL (30-55); Mean Corpuscular Hemoglobin 31.7 pg (27-33); Mean Corpuscular Volume 101.5 fl (85-98); Mean Platelet Volume 9.9 fL (7.4-10.4); Monocytes # 1.6 10^3/uL (0.2-0.9); Monocytes % 10.7 %; Neutrophils # 12.41 10^3/uL (1.8-7.7); Neutrophils % 85.5 %; Nucleated Red Blood Cells % 0 %; Platelet Count 215 10^3/cmm (157-399); Red Blood Count 3.94 10^6/uL (3.85-5.65); Red Cell Distribution Width 13.2 % (12.1-15.1)
[2024-02-21 06:02] LABS: Blood Urea Nitrogen 21 mg/dL (8-23); Calcium 9.3 mg/dL (8.5-10.5); Carbon Dioxide 17 mmol/L (22-29); Chloride 101 mmol/L (98-107); Creatinine Clr Calc Pharmacy 36.3943; Glucose 127 mg/dL (65-115); Osmolality Calculated 279 mOsm/kg (285-295); Sodium 132 mmol/L (136-145)
[2024-02-21 06:09] LABS: Anion Gap 18.8 (5-19); Potassium 4.8 mmol/L (3.5-5.1)
[2024-02-21] MEDS: piperacillin-tazobactam 3.375 GM in sodium chloride 0.9% (plus) 50 ML IV ×2 (06:19→16:52)
[2024-02-21 07:09] LABS: Troponin T (5th) Once 435 ng/L (0-10)
--- NOTE | 2024-02-21 08:14 | P.CONIM_ITS ---
Providers/Reason For Consult 2 Consulting Physician/Specialty*: EDWARD Marshall MD/cardiology Reason for Consult*: Patient with chest pain and elevated troponin T Requesting Physician: Dr. Cisneros Attending Physician: Bruce Cisneros MD Primary Care Provider: Dedrick Person MD History of Present Illness History of Present Illness Millicent Angel is a 84 year old female who was admitted to the hospital initially with left hip femoral neck fracture, sustained after a fall. She underwent close reduction and percutaneous pinning on the . She was having symptoms of possible diverticulitis and was getting colon prep yesterday. Last night, she started having heaviness/tightness in the chest. She had a moderately severe pain radiating across the chest. She had associated nausea and diaphoresis. Her symptoms gradually started subsiding with medication for nausea. She had a baseline troponin T of 25. Apparently 2-hour troponin was not performed. Repeat troponin this morning was found to be in the 400 range. She has some chest heaviness/tightness intermittently. She also has a pleuritic type of pain-getting worse with a deep inspiration. She has no fever or chills. Her temperature is around 99 this morning. Her white cell count was found to be elevated at 14.5 thousand. This patient has history of recurrent episodes of passing out spells/syncope. She had a permanent pacemaker plantation for complete heart block. Her pacemaker function was found to be appropriate. She also is noted to have SVT. She also has a history of chronic chest pains. She had a at least 2 stress tests in the past, the most recent one was in December of last year. She was found to have some areas of fixed defect in the distribution of the right coronary artery. No significant reversible defects were noted. She has been having episodes of chest pains. However she never had the pain that bad as last night. She had a recent fracture of the metatarsal bone of the left foot for which she was placed on a cast and was taken off recently. She has no previous history of coronary coronary disease, myocardial infarction or congestive heart failure. Patient has a history of Paget's disease. History of high blood pressure and? History of dyslipidemia. History of SVT and questionable history of atrial fibrillation. Neurology following CVA. Remote history of smoking abuse. No alcohol abuse or any substance abuse. Review of Systems 2 Narrative: CONSTITUTIONAL: No fever or chills. EYES: No blurring of vision or other visual disturbances lately. ENT: No hoarseness of voice, auditory disturbances or sore throat. CARDIOVASCULAR: As mentioned above. RESPIRATORY: No significant cough. GASTROINTESTINAL: History of diverticulitis and rectal surgery GENITOURINARY: No dysuria or hematuria. INTEGUMENTARY: No skin rashes or history of skin cancer. NEURO: No transient ischemic attacks or amaurosis. PSYCHIATRIC: No history of psychosis or major depression. HEMATOLOGIC: No bleeding disorders or significant anemia. ENDOCRINE: No history of polyuria or polydipsia. MUSCULOSKELETAL: Multiple bone fractures as mentioned above ALLERGY/IMMUNOLOGY: As mentioned above. Medications/Allergies Home Medications Medication Instructions Recorded Confirmed Last Taken Type multivitamin 1 cap PO QAM 07/30/19 02/18/24 1 Day Ago History ~02/17/24 acetaminophen 650 mg 1,300 mg PO Q12H 08/11/21 02/18/24 Unknown History tablet,extended release (Tylenol Arthritis Pain) cetirizine 10 mg tablet (Zyrtec) 10 mg PO DAILY 12/27/22 02/18/24 1 Day Ago History ~02/17/24 magnesium oxide 250 mg PO BID 12/27/22 02/18/24 Unknown History nitroglycerin 0.4 mg sublingual 0.4 mg sublingual Q5M PRN chest 12/27/22 02/18/24 Unknown Rx tablet (Nitrostat) pain #25 tabs simvastatin 10 mg tablet 10 mg PO .HS #90 tabs 07/21/23 02/18/24 1 Day Ago Rx ~02/17/24 valsartan 160 mg tablet 160 mg PO BID #180 tabs 08/08/23 02/18/24 1 Day Ago Rx ~02/17/24 fluticasone propionate 50 See Rx Instructions .Route 08/10/23 02/18/24 1 Day Ago Rx mcg/actuation nasal .COMPLEX #48 grams ~02/17/24 spray,suspension fluoxetine 20 mg capsule See Rx Instructions .Route 09/27/23 02/18/24 Unknown Rx .COMPLEX #90 caps famotidine 40 mg tablet 40 mg PO DAILY #90 tabs 11/15/23 02/18/24 1 Day Ago Rx ~02/17/24 isosorbide mononitrate 30 mg 30 mg PO DAILY #90 tabs 11/15/23 02/18/24 1 Day Ago Rx tablet,extended release 24 hr ~02/17/24 clonazepam 0.5 mg tablet 0.5 mg PO TID PRN anxiety #90 tabs 12/05/23 02/18/24 1 Day Ago Rx ~02/17/24 hydrocodone 5 mg-acetaminophen 325 1 tab PO Q8H PRN pain 4 weeks #60 12/29/23 02/18/24 1 Week Ago Rx mg tablet tabs ~02/11/24 indomethacin 25 mg capsule See Rx Instructions .Route 02/08/24 02/18/24 1 Day Ago Rx .COMPLEX #180 caps ~02/17/24 Allergies Allergy/AdvReac Type Severity Reaction Status Date / Time gabapentin Allergy Intermediate diarrhea Verified 02/18/24 21:18 pregabalin [From Lyrica] Allergy Intermediate swelling Verified 02/18/24 21:18 metoprolol AdvReac Intermediate bitter Verified 02/18/24 21:18 taste promethazine [From Phenergan] AdvReac disoriented Verified 02/18/24 21:18 Sulfa (Sulfonamide AdvReac abdominal Verified 02/18/24 21:18 Antibiotics) pain Current Medications Generic Name Dose Route Start Last Admin Trade Name Freq PRN Reason Stop Dose Admin Acetaminophen 1,000 mg 02/19/24 16:00 02/21/24 00:37 Acetaminophen 500 Mg Tablet PO 1,000 mg Q8H REBECA Administration Atorvastatin Calcium 20 mg 02/18/24 21:00 02/20/24 20:29 Atorvastatin 40 Mg Tablet PO Not Given BEDTIME REBECA Calcium Carbonate 1 each 02/19/24 18:00 02/20/24 17:12 Calcium Carb-Vit D 600mg/400unit 1 Tablet PO 1 each BID REBECA Administration Chlorhexidine Gluconate 30 ml 02/19/24 13:00 02/20/24 20:29 Chlorhexidine Gluconate 0.12% Btl 473 Ml MUCOUS MEM Not Given QID REBECA Clonazepam 0.5 mg 02/18/24 12:50 02/19/24 21:24 Clonazepam 0.5 Mg Tablet PO 0.5 mg TID PRN Administration anxiety Piperacillin Sod/Tazobactam 50 mls @ 12.5 mls/hr 02/20/24 23:00 02/21/24 06:19 Sod 3.375 gm/ Sodium Chloride IV 12.5 mls/hr Q8H REBECA Administration Losartan Potassium 50 mg 02/18/24 18:00 02/20/24 17:12 Losartan 50 Mg Tablet PO 50 mg BID REBECA Administration Morphine Sulfate 2 mg 02/18/24 12:50 02/20/24 21:49 Morphine 4 Mg/Ml Sdv 1 Ml IVP 2 mg Q4H PRN Administration SEVERE PAIN Multivitamins Therapeutic 1 tab 02/20/24 09:00 02/20/24 08:56 Multivitamin Therapeutic Tablet PO 1 tab DAILY REBECA Administration Mupirocin 1 applic 02/19/24 18:00 02/20/24 17:13 Mupirocin Oint 22 Gm NASAL 02/24/24 17:59 1 applic BID REBECA Administration Protocol Non-Formulary Medication 250 mg 02/18/24 18:00 02/20/24 17:13 Magnesium Oxide PO Not Given BID REBECA Ondansetron HCl 4 mg 02/18/24 12:50 02/21/24 03:07 Ondansetron 2 Mg/Ml Sdv 2 Ml IVP 4 mg Q8H PRN Administration vomiting, or N/V if npo Oxycodone HCl 5 mg 02/19/24 11:30 02/20/24 15:12 Oxycodone 5 Mg Ir Tab/Cap PO 5 mg Q6H PRN Administration Mod to severe pain , 2nd line Pantoprazole Sodium 40 mg 02/18/24 12:50 02/20/24 12:10 Pantoprazole 40 Mg Sdv IVP 40 mg Q24H REBECA Administration Polysaccharide Iron Complex 150 mg 02/19/24 18:00 02/20/24 17:12 Iron Polysaccharide Complex 150 Mg Capsule PO 150 mg BIDWM REBECA Administration Senna/Docusate Sodium 2 tab 02/19/24 18:00 02/20/24 17:12 Sennosides-Docusate Tablet PO 2 tab BID REBECA Administration PFSH Acute 2 PFSH: Medical History Atrial fibrillation Meningioma Meningioma identified during evaluation for chronic headaches-followed with neurology Dr. De Los Santos in [place] and states it was stable. She has been cleared and has not seen a neurologist in over 4 years. Elevated cholesterol Diagnosed in 2011 and has been on and off medication. Managed by PMD Paget's disease Status post excision surgery and radiation in 2020 done at [facility]. No pertinent past medical history Denies diabetes, asthma, seizures, DVT/PE PCP: Dr. Person SVT (supraventricular tachycardia) HTN (hypertension) SVT/high blood pressure diagnosed in 2019-has pacemaker and is on medication managed by primary care provider and cardiology-Dr. Swanson Surgical History S/P cardiac pacemaker procedure 2019 History of rectal surgery X 3 Patient had perianal excision of Paget's disease done by Dr. Adamson and Dr. Goss in [place] first in May 2017 and then again in July 2018, 2020 S/P hysterectomy Vaginal, done for prolapse in 1981. She was told there was no cancer. S/P tubal ligation Laparoscopic procedure performed in 1979 Family History Mother Heart disease Hypertension Father Heart disease Daughter Diabetes Sister Hyperlipidemia Other Colon cancer Denies family history of Ovarian cancer Breast cancer Uterine cancer Thyroid disease Stroke Social History Smoking and tobacco/nicotine status: unknown if used tobacco/nicotine Alcohol intake: never Substance/Drug Use: never Vitals/I&O/Wt Last Vital Signs Temp 99 F 02/21/24 08:00 Pulse 91 02/21/24 08:00 Resp 16 02/21/24 08:00 BP 112/59 02/21/24 08:00 Pulse Ox 92 02/21/24 08:00 O2 Del Method Room Air 02/20/24 19:29 O2 Flow Rate 6 02/19/24 10:55 02/20/24 02/21/24 02/21/24 22:59 06:59 14:59 Intake Total 1022.5 / 1192.5 250 / 1442.5 Output Total 300 / 300 Balance 722.5 / 892.5 250 / 1142.5 Weight last 48 hrs Weight 115 lb Physical Exam 2 Narrative: GENERAL: The patient is alert and oriented times three. Not in any acute distress. HEENT: No significant pallor, icterus or lymphadenopathy.Oral cavity: There are no mucous membrane lesions. NECK: Trachea appears to be central. No masses noted. No JVD or thyromegaly appreciated. RESPIRATORY: Chest is symmetrical. No intercostals muscle retraction or any accessory muscle activation. There is no chest wall tenderness. Breath sounds are heard bilaterally. No rales or rhonchi heard. No evidence of any consolidation. BREASTS: Deferred. HEART: The heart sounds are normal. No S3 or S4. Short systolic murmur in the left renal border. No diastolic murmurs. No pericardial rub ABDOMEN: No vessel pulsations or distention. No tenderness. No organomegaly appreciated. Bowel sounds are normally heard. : Deferred. RECTAL: Deferred. LYMPHATIC: No lymphadenopathy noted in the neck. EXTREMITIES: No edema or cyanosis. No clubbing. MUSCULOSKELETAL: No acute joint deformities or swelling SKIN: There are no significant rashes or ecchymosis NEUROPSYCHIATRIC: The patient is alert and oriented x3. Appears to be in a good mood. No tremors or rigidity noted. Data 02/21/24 05:30 02/21/24 05:30 Other Labs: Laboratory Last Values WBC 14.50 10^3/uL (3.29-11.43) H 02/21/24 05:30 RBC 3.94 10^6/uL (3.85-5.65) 02/21/24 05:30 Hgb 12.50 g/dL (11.27-16.99) 02/21/24 05:30 Hct 40.0 % (36-47) 02/21/24 05:30 MCV 101.5 fl (85-98) H 02/21/24 05:30 MCH 31.7 pg (27-33) 02/21/24 05:30 MCHC 31.3 g/dL (30-55) D 02/21/24 05:30 RDW 13.2 % (12.1-15.1) 02/21/24 05:30 Plt Count 215 10^3/cmm (157-399) 02/21/24 05:30 MPV 9.9 fL (7.4-10.4) 02/21/24 05:30 Neut % (Auto) 85.5 % 02/21/24 05:30 Lymph % (Auto) 3.0 % 02/21/24 05:30 [place] % (Auto) 10.7 % 02/21/24 05:30 Eos % (Auto) 0.0 % 02/21/24 05:30 Baso % (Auto) 0.3 % 02/21/24 05:30 Neut # (Auto) 12.41 10^3/uL (1.8-7.7) H 02/21/24 05:30 Lymph # (Auto) 0.4 10^3/uL (0.8-4.8) L 02/21/24 05:30 [place] # (Auto) 1.6 10^3/uL (0.2-0.9) H 02/21/24 05:30 Eos # (Auto) 0.0 10^3/uL (0.0-0.8) 02/21/24 05:30 Baso # (Auto) 0.0 10^3/uL (0.0-0.1) 02/21/24 05:30 Nucleated RBC % (auto) 0 % 02/21/24 05:30 Nucleated RBCs # 0.0 /100WBC 02/21/24 05:30 PT 12.70 SECONDS (12.1-14.9) 02/18/24 10:31 INR 0.93 (0.8-1.2) 02/18/24 10:31 APTT 31.5 SECONDS (23.9-36.7) 02/18/24 10:31 Sodium 132 mmol/L (136-145) L 02/21/24 05:30 Potassium 4.8 mmol/L (3.5-5.1) 02/21/24 05:30 Chloride 101 mmol/L (98-107) 02/21/24 05:30 Carbon Dioxide 17 mmol/L (22-29) L 02/21/24 05:30 Anion Gap 18.8 (5-19) 02/21/24 05:30 BUN 21 mg/dL (8-23) 02/21/24 05:30 Creatinine 0.9 mg/dL (0.5-0.9) 02/21/24 05:30 GFR Calculation Not Reportable 02/21/24 05:30 Glucose 127 mg/dL (65-115) H 02/21/24 05:30 POC Glucose 228 mg/dL (70-110) H 02/20/24 21:50 Estimat Average Glucose 123 02/18/24 10:31 Hemoglobin A1c 5.9 % (4.0-6.0) 02/18/24 10:31 Calculated Osmolality 279 mOsm/kg (285-295) L 02/21/24 05:30 Lactic Acid 1.7 mmol/L (0.5-2.2) 02/18/24 10:31 Calcium 9.3 mg/dL (8.5-10.5) 02/21/24 05:30 Magnesium 2.0 mg/dL (1.7-2.3) 02/18/24 10:31 Total Bilirubin 0.4 mg/dL (0.15-1.2) 02/18/24 10:31 AST 27 U/L (0-32) 02/18/24 10:31 ALT 23 U/L (0-33) 02/18/24 10:31 Alkaline Phosphatase 123 U/L (35-105) H 02/18/24 10:31 Troponin T 5th Gen ng/L 435 ng/L (0-10) H* 02/21/24 05:30 Troponin T Baseline 15 ng/L (0-10) H 02/18/24 10:31 Troponin T 120 Minute 12.04 ng/L (0-10) H 02/18/24 13:10 Delta Troponin T -2.96 ABS# (0-10) L 02/18/24 13:10 Troponin T Hi Sens 6Hr 12.54 ng/L (0-10) H 02/18/24 16:45 Troponin T Hi Sens 6Hr Delta -2.46 ng/L (0-12) L 02/18/24 16:45 C-Reactive Protein 17.3 mg/L (0.0-4.9) H 02/18/24 10:31 NT-Pro-B Natriuret Pep 172 pg/mL (0-450) 02/18/24 10:31 Total Protein 7.4 g/dL (6.6-8.7) 02/18/24 10:31 Albumin 4.3 g/dL (3.5-5.2) 02/18/24 10:31 Globulin 3.1 g/dL (1.3-4.6) 02/18/24 10:31 Triglycerides 106 mg/dL (0-150) 02/20/24 11:38 Cholesterol 151 mg/dL (0-200) 02/20/24 11:38 LDL Cholesterol, Calc 69 mg/dL (50-129) 02/20/24 11:38 HDL Cholesterol 61 mg/dL (60-100) 02/20/24 11:38 LDL/HDL Ratio 1.13 RATIO (0.00-3.22) 02/20/24 11:38 Cholesterol/HDL Ratio 2.48 mg/dL (0.0-4.40) 02/20/24 11:38 Procalcitonin 0.10 ng/mL (0-0.5) 02/18/24 10:31 TSH 1.64 uIU/mL (0.27-4.20) 02/18/24 10:31 Random Cortisol 0.87 ug/dL (2.47-19.5) L 02/20/24 11:38 Cortisol Response 02/20/24 11:38 Urine Color Yellow (Yellow) 02/18/24 14:54 Urine Appearance Clear (CLEAR) 02/18/24 14:54 Urine pH 6 (5-7) 02/18/24 14:54 Ur Specific [place] 1.010 (1.005-1.030) 02/18/24 14:54 Urine Protein Neg (Negative) 02/18/24 14:54 Urine Glucose (UA) Norm (Normal) 02/18/24 14:54 Urine Ketones Negative (Negative) 02/18/24 14:54 Urine Blood Neg (Negative) 02/18/24 14:54 Urine Nitrate Negative (Negative) 02/18/24 14:54 Urine Bilirubin Neg (Negative) 02/18/24 14:54 Urine Urobilinogen Norm mg/dL (Negative) 02/18/24 14:54 Ur Leukocyte Esterase Negative (Negative) 02/18/24 14:54 Blood Type O Positive 02/19/24 07:55 Rho(D) Type Rh positive 02/19/24 07:55 Antibody Screen Negative 02/19/24 07:55 Other data: EKG from today A sensed, V paced rhythm ST elevation and T inversions in leads V3 to V6. Nonspecific ST-T changes in the other leads. Compared to the previous EKG from 02/18/2024, the ST elevation in T inversion appear to be new 01/12/23 Procedure(s) NM val[place] perf SPECT r/s* [id number] CONCLUSION:: 1. Non diagnostic EKG changes with the LexiScan infusion given baseline paced rhythm. 2. No LexiScan induced chest pain or cardiac arrhythmia. 3. Normal blood pressure and heart rate response. 4. Sestamibi/sestamibi perfusion scan pending; see separate report. Imaging: IMPRESSIONS 1. Large area of decreased radiotracer uptake is seen in inferior wall. This is likely secondary to attenuation artifact versus prior infarct in the RCA territory. No area of ischemia seen. 2. LV systolic function is normal. 12/09/22 EKG Interpretive Statements ELECTRONIC VENTRICULAR PACEMAKER ABNORMAL RHYTHM ECG Compared to ECG 05/05/2019 21:04:40 Sinus rhythm no longer present AV block, complete (third-degree) no longer present ST (T wave) deviation no longer present Date of Service: 12/09/22 Procedure(s): CT angio chest PE protcl [id number] IMPRESSION: No acute infiltrate. No evidence for pulmonary embolism. 05/06/19 - US Echocardiogram* [id number] CONCLUSIONS 1. Normal left ventricular cavity size. Normal left ventricular systolic function. Left ventricular ejection fraction is estimated at 65 %. No regional wall motion abnormalities. 2. Normal right ventricular size and systolic function. 3. Mildly increased left atrial size. 4. Trace to mild tricuspid valve regurgitation. 5. Pulmonary artery pressure estimated at 21 mmHg. Tri Blanco MD (Electronically Signed) A&P Assessment and plan (1) Acute myocardial infarction: The EKG changes is suggesting a recent anterior wall NM. Is very possible that she had the myocardial event last evening. Patient was started on heparin. I may start her on Plavix, beta-boris, aspirin and nitrates. A limited 2D echocardiogram will be helpful to evaluate LV function and rule out renal pathology. Patient may require an early cardiac catheterization to further evaluate her coronary status and decide on further management Qualifiers: Myocardial infarction type: ST elevation myocardial infarction Involved coronary artery: LAD coronary artery Qualified Code(s): I21.02 - ST elevation (STEMI) myocardial infarction involving left anterior descending coronary artery (2) HTN (hypertension): Currently normotensive. May continue on the current measures. Qualifiers: Hypertension type: essential hypertension Qualified Code(s): I10 - Essential (primary) hypertension (3) Pacemaker: Patient had deep pulmonary implantation for complete heart block. Pacemaker function was found to be appropriate. (4) SVT (supraventricular tachycardia): Has not had a recurrence of his SVT recently. (5) Elevated cholesterol: I may start her on Lipitor 40 mg p.o. now and daily (6) Fracture of femoral neck, left: Status post closed reduction and percutaneous pinning. Qualifiers: Fracture type: closed Fracture healing: with routine healing Encounter type: subsequent encounter Qualified Code(s): S72.002D - Fracture of unspecified part of neck of left femur, subsequent encounter for closed fracture with routine healing (7) Elevated white blood cell count: Possibly an acute phase reactant. No signs of infection otherwise. Qualifiers: Leukocytosis type: unspecified Qualified Code(s): D72.829 - Elevated white blood cell count, unspecified Plan Patient requires an early cardiac catheterization. Limited 2D echocardiogram as soon as possible. Plavix 300 mg p.o. now followed by 75 mg p.o. daily Metoprolol 12.5 mg p.o. twice daily Lipitor 40 mg p.o. daily Continue other medications Based on the clinical progress, further recommendations will be made Thank for the opportunity to evaluate this patient and make these recommendations Patient's current status was discussed with the family Consult Attestations 2 Medical Necessity Statement: Patient requires continued hospital stay for close monitoring and further management Coding Level of Care Code [address] elevation myocardial infarction (STEMI) involving left anterior descending (LAD) coronary artery I21.02 Myocardial infarction type: ST elevation myocardial infarction Involved coronary artery: LAD coronary artery Essential hypertension I10 Hypertension type: essential hypertension Pacemaker Z95.0 SVT (supraventricular tachycardia) I47.1 Elevated cholesterol E78.00 Closed fracture of neck of left femur with routine healing, subsequent encounter S72.002D Fracture type: closed Fracture healing: with routine healing Encounter type: subsequent encounter Leukocytosis, unspecified type D72.829 Leukocytosis type: unspecified
[2024-02-21] MEDS: heparin 5,000 unit/mL INJ 1 mL IV (08:15)
[2024-02-21] MEDS: heparin drip 25,000 UNIT/500 ML PREMIX 15 UNIT IV (08:15)
[2024-02-21] MEDS: aspirin 81 mg Chew Tablet PO (08:19)
[2024-02-21] MEDS: sennosides-docusate Tablet 2 TAB PO (08:20)
[2024-02-21] MEDS: iron polysaccharide complex 150 mg Capsule PO (08:20)
[2024-02-21] MEDS: multivitamin therapeutic Tablet 1 TAB PO (08:22)
[2024-02-21] MEDS: calcium carb-vit d 600mg/400unit 1 Tablet 1 EACH PO ×2 (08:22→16:52)
[2024-02-21] MEDS: losartan 50 mg Tablet PO ×2 (08:22→16:52)
[2024-02-21] MEDS: mupirocin oint 22 gm 1 APPLIC NASAL (08:23)
[2024-02-21] MEDS: chlorhexidine gluconate 0.12% Btl 473 mL 30 ML MUCOUS MEM ×2 (08:23→21:15)
--- NOTE | 2024-02-21 08:43 | ECG_ITS ---
[facility] Test Date: 2024-02-21 Pat Name: Millicent Angel Department: Room: 262 Gender: Female Change Over: : 1940 Requested By: Bruce Cisneros Order Number: [id number] Nahun MD: Rakesh Tavares M.D. Measurements Intervals [place] Rate: 89 P: 49 NH: 195 QRS: -76 QRSD: 149 T: 59 QT: 444 QTc: 543 Interpretive Statements ELECTRONIC VENTRICULAR PACEMAKER Compared to ECG 02/20/2024 20:25:37 No significant changes Electronically Signed On 02-21-2024 10:33:17 CDT by Rakesh Tavares M.D. [id number]
--- NOTE | 2024-02-21 09:15 | PC.SOCIAL ---
IMM Update pg 2 of IMM Updated and reviewed w/ patient and family. Copy provided and copy dated, initialed and placed in chart.
[2024-02-21] MEDS: carvedilol 3.125 mg Tablet PO ×2 (09:40→16:52)
[2024-02-21] MEDS: sodium chloride 0.9% 1,000 ML 75 ML IV ×2 (09:41→23:38)
--- NOTE | 2024-02-21 09:42 | USCV_ITS ---
Millicent Angel Age: 84 Gender: F : 1940 Exam Date: 02/21/2024 10:12 Ordering Phys: Ricky Marshall MD ([email or web address]) Technologist: Exam Location: [facility] [place] Indication: nstemi BP: / HR: Rhythm: Sinus Technical Quality: Adequate MEASUREMENTS (Male / Female) Normal Values 2D ECHO LV Diastolic Diameter PLAX 4.2 cm 4.2 - 5.9 / 3.9 - 5.3 cm IVS Diastolic Thickness 0.9 cm 0.6 - 1.0 / 0.6 - 0.9 cm IVS Systolic Thickness 1.7 cm LVPW Diastolic Thickness 1.0 cm 0.6 - 1.0 / 0.6 - 0.9 cm LVPW Systolic Thickness 1.4 cm LVOT Diameter 2.0 cm LV Ejection Fraction 2D Teich 65.0 % LV Ejection Fraction MOD 4C 56.6 % LV Ejection Fraction MOD 2C 35.5 % LV Ejection Fraction 2C AL 36.0 % LA Diameter 3.1 cm Aorta at Sinotubular Diameter 2.9 cm M-MODE LA Ao Ratio MM 1.1 AV Cusp Separation MM 1.6 cm FINDINGS Left Ventricle Right Ventricle Right Atrium Left Atrium Mitral Valve Aortic Valve Tricuspid Valve Pulmonic Valve Pericardium Aorta IVC CONCLUSIONS This is a limited echocardiogram performed to assess LV systolic function. LV systolic function is moderately reduced with EF of 35 to 40%. Severe hypokinesis of apical, mid to apical anterolateral, anterior and inferolateral torrez Compared to prior echocardiogram from 02/18/2024, LV systolic function has decreased significantly. Rakesh Tavares MD (Electronically Signed) Final Date: 21 February 2024 17:58 S
[2024-02-21 10:09] LABS: SARS Covid-2 Antigen negative (Negative)
--- NOTE | 2024-02-21 10:09 | PC.OT ---
HOLD PER NURSING DUE TO CARDIAC ISSUES/ CATH TODAY AND TRANSFER TO CSU; HOLD OT TREATMENT TODAY.
[2024-02-21] MEDS: clopidogrel 300 mg Tablet PO (10:19)
[2024-02-21] MEDS: atorvastatin 40 mg Tablet 80 MG PO (10:19)
--- NOTE | 2024-02-21 10:26 | W.PM.OPSUD ---
Surgery/Procedure H&P Update DATE OF PROCEDURE: February 21, 2024 DATE H&P PERFORMED: 02/21/24 H&P UPDATE INFORMATION: I have reviewed H&P completed within last 30 days, I have examined patient prior to procedure and No changes to prior documentation PREOP DIAGNOSIS: NSTEMI PRIMARY INDICATION FOR PROCEDURE: NSTEMI PLANNED PROCEDURE: Left heart cath with possible percutaneous coronary intervention PATIENT REASSESSED PRIOR TO SEDATION, WITH NO CHANGE NOTED: Yes PHYSICAL EXAM: alert, oriented x 3, clear to auscultation bilaterally and regular rate & rhythm OTHER PERTINENT EXAM FINDINGS: Moderate sedation AIRWAY EVAL/ANESTHESIA PLAN: normal airway, ASA III, Local Anesthesia, Risks, benefits & alternatives of sedation and/or procedure discussed and Patient agrees to continue as planned ADDITIONAL INFORMATION: Moderate sedation
--- NOTE | 2024-02-21 10:30 | XACV_ITS ---
Exam Room: [facility] Ht: 155 cm Wt: 52 kg BSA: 1.50 m2 Gender: Female : 1940 Any Known Allergies: Other Exam Priority: Routine Indication(s): - Non-ST elevation WI Procedure(s): Procedure Description: Diagnostic procedure Procedure Description: PCI procedure Procedure Description: Coronary IVUS Procedure Description: Drug Eluting Coronary Stent Procedure Description: Miscellaneous Procedure Description: ACT Procedure Description: Coronary Angiography Rolando KATZ; Diagnostic Cath Status: Urgent Diagnostic Findings * Left Main has mild to moderate luminal irregularities. * Left Anterior Descending has no significant disease. * Circumflex has no significant disease. * Mid Right Coronary Artery: Severe 80% stenosis, ZULEYKA: 3 flow. * Proximal Right Coronary Artery: obstructive 70% stenosis, ZULEYKA: 3 flow. * Coronary angiography shows right dominance. PCI Status: Urgent PCI Indication: NSTE - ACS Interventional Findings * Mid Right Coronary Artery: 80% stenosis treated with a AB TREK 2.50X15 RX BALLOON, and MARCIANO Wallace NICOLE 3.0X26 IFRAH. 0% residual stenosis, ZULEYKA: 3 flow. * Procedure detail: We engaged RCA with JR4 guide catheter. IV heparin was administered to maintain anticoagulation. 0.014 run-through guidewire was used to cross the stenosis and was placed in the distal vessel. We predilated the mid RCA stenosis with 2.5 x 15 mm semicompliant balloon. This was followed by placement of 3.0 x 26 mm resolute Nicole drug-eluting stent. At this time proximal section of the vessel showed significant stenosis. We placed an overlapping stent from proximal to mid RCA. This was 3.0 x 38 mm resolute Ludell drug-eluting stent. We postdilated the stents after IVUS with 3.5 x 20 mm NC balloon. At this time final angiogram was performed that showed excellent stent expansion, no residual stenosis and ZULEYKA-3 flow. Guidewire and guide catheter were removed. Patient left the Roller Maker in a stable condition.. * Proximal Right Coronary Artery: 70% stenosis treated with a MDT R NICOLE 3.0X38 IFRAH, and MDT NC EUPHORA RX 3.03I53SW BALLOON. 0% residual stenosis, ZULEYKA: 3 flow. Conclusions 1. Severe proximal/mid RCA stenosis s/p PCI with 2 stents. 2. Proximal Right Coronary Artery was treated with a Drug Eluting Stent, and Balloon. 3. Mid Right Coronary Artery was treated with a Balloon, and Drug Eluting Stent. Recommendations * Dual antiplatelet therapy with aspirin and plavix for atleast 1 year. * High intensity statin therapy. * Outpatient cardiology follow up in 4 weeks. Interventional RX Recommendation: PCI w/o planned CABG Diagnostic RX Recommendation: PCI w/o planned CABG Anticoagulation: Heparin Pressures Phase:Rest AO : 92 / 58 ( 70 ) @ 12:17:00 PM 82 / 65 ( 74 ) @ 12:19:00 PM 77 / 46 ( 61 ) @ 12:56:00 PM 93 / 69 ( 82 ) @ 12:57:00 PM 66 / 43 ( 54 ) @ 1:00:00 PM Clinical Evaluation EBL: 5mL-10mL Procedural Details Procedure Consent Obtained. Admit Source: In Patient. Current Diagnosis : NSTEMI. Pre-Procedure Time Out. Identified patient by full name and date of as verbalized by the patient/guarantor. Does the consent match the physician's order: Yes. Accurate & Complete Informed Consent: Yes. Inpatient/Outpatient History & Physical on Chart: Yes. If H&P is completed, is and addenduem needed: No; If yes, is the addendum complete: N/A. Visualize and Verify Site with Patient/Guarantor: N/A. Relevant Radiology Images available: N/A. The risks, benefits, and alternatives of sedation and/or procedure were discussed by physician. The patient agrees to continue. Procedure started. [facility] Clinical Fraility Score: 5: Mildly Frail. Roller Maker Indications: NONSTEMI. Chest Pain Symptom Assessment: Typical Angina Symptoms. Cardiovascular Instability: No. Correct patient, site and procedure confirmed by cath team. Current diagnosis: NSTEMI. PERRLA. Strong, equal hand aircraft life support fitter bilaterally. Lungs clear x 5 lobes. IV Site on Arrival: 20 gauge in the right anticubital. IV Site on Arrival: 20 gauge in the left anticubital. IV Fluids: 0.9% NaCl at KVO. 0 mL infused prior to medical laboratory technical officer. Pre Procedural Pulses: bilateral dorsalis pedis was Doppled. Pre Procedural Pulses: bilateral posterior tibial was Doppled. Pre Procedural Pulses: bilateral radial was 2+. Oxygen started at 3liters/min via nasal canula. Critical Troponin I results called. Result 372. Read back to Dr Tavares. No new orders. right groin was prepped with chloroprep then draped in the usual sterile fashion. right radial was prepped with chloroprep then draped in the usual sterile fashion. Physician notified. Baseline sample Acquired. HR: 78 BPM. Baseline sample Acquired. HR: 76 BPM. Family updated by MD prior to the start of the procedure. Equipment: 5F - Radial. Cardiac Cath Pack. ACIST Manifold Kit Model BT 2000. Heparinized Saline (2 units/mL), 1000 mL bag. Physician arrived. Physician scrubbed in. Immediate Pre-Procedure Time Out. Correct Patient: Yes; Correct Procedure: Yes; Correct Site: Yes; Correct Patient Position: Yes; Correct Supplies: Yes; Dried Flammable Prep: Yes; Blood Products Available: N/A;. Lidocaine 1% infiltrated to the right radial. Arterial access obtained. Patient received Plavix 300 mg by floor staff just prior to arrival. Heparin drip was shut off prior to arrival at 1050. A 5 armenian TIG catheter in over wire. Multiple views taken of left coronary artery. Catheter redirected to the RCA. Multiple views taken of right coronary artery. Catheter removed over the wire. 6 armenian JR 4 SH guide catheter was inserted over the wire. ACT drawn. Results 249 seconds. Therapeutic limits - pre-heparin administration 90-150 seconds and monitoring heparin during a vascular procedure >250 seconds. Guide seated in the RCA. Runthrough guidewire was advanced through the guide catheter to lesion in the mid RCA. Guidewire advanced across lesion. Inflation number : 1 A AB TREK 2.50X15 RX BALLOON was prepped and advanced across the Mid RCA , then inflated to 8 SYLVIA for 0:16 seconds. Inflation number: 2 The AB TREK 2.50X15 RX BALLOON was reinflated across the Mid RCA, to 8 SYLVIA for 0:17 seconds. Balloon out. Results checked. Inflation Number : 3 A MDT R NICOLE 3.0X26 IFRAH -Lot Number# [id number] was prepped and advanced across the Mid RCA. The stent was deployed at 12 SYLVIA for 0:25 seconds. Exp: 11/24/25. Results checked. Stent balloon out over wire. Inflation Number : 1 A MDT R NICOLE 3.0X38 IFRAH -Lot Number# [id number] was prepped and advanced across the Prox RCA. The stent was deployed at 12 SYLVIA for 0:32 seconds. EXP 04-26-26. Results checked. Stent balloon out over wire. IVUS catheter inserted. IVUS performed of the RCA. IVUS catheter out. Results checked. Inflation number : 2 A MDT NC EUPHORA RX 3.39E17XA BALLOON was prepped and advanced across the Prox RCA , then inflated to 12 SYLVIA for 0:14 seconds. Inflation number: 3 The MDT NC EUPHORA RX 3.99I95KW BALLOON was reinflated across the Prox RCA, to 16 SYLVIA for 0:21 seconds. Inflation number: 4 The MDT NC EUPHORA RX 3.90D84AO BALLOON was reinflated across the Prox RCA, to 14 SYLVIA for 0:10 seconds. Results checked. Inflation number: 5 The MDT NC EUPHORA RX 3.26H13KJ BALLOON was reinflated across the Prox RCA, to 14 SYLVIA for 0:10 seconds. Balloon out. Results checked. Wire out. ACT drawn. Results 354 seconds. Therapeutic limits - pre-heparin administration 90-150 seconds and monitoring heparin during a vascular procedure >250 seconds. Guide Catheter out. Physician review of films. Physician scrubbed out. Vital chart was stopped. TR band placed. Hemostasis obtained. Post Procedure: Pulses reassessed and unchanged. PERRLA. Strong, equal hand aircraft life support fitter bilaterally. No VTE prophylaxis required. Medication waste: Lidocaine 18 ml Nitro 49.5 mg Heparin 1500 units Fentanyl- 75 mcg. Total IV fluids: 310 mL. Fluoro: 13:05. Contrast type used: Omnipaque 300 mgI/mL, 500 mL bottle. [id number]. Post-op diagnosis: Severe Mid RCA stenosis; Status post ifrah x2. Complications: None. Estimated blood loss: 5mL-10mL. Responsiveness - Normal response to verbal stimuli; alert and oriented, PERRLA. Airway - Unaffected, no intervention required; spontaneous ventilation. Circulation: W/N/L, pulses unchanged. Nausea/Vomiting: No. Procedure completed. Patient transferred by bed to 1st floor. Access Site Site: Right Radial artery Sheath Size: 6 Fr Hemostasis Success: Unsuccessful Procedure Medications Start: 11:10 AM Stop: 11:10 AM Medication: Versed 1 mg and Fentanyl 25 mcg Amount: 1 Route: I.V. Start: 11:15 AM Stop: 11:15 AM Medication: Nitrogylcerin Amount: 200 mcg Route: I.A. Start: 11:16 AM Stop: 11:16 AM Medication: Heparin Amount: 2500 units Route: I.V. Start: 11:22 AM Stop: 11: AM Medication: 0.9% Saline Amount: 250 ml Route: I.V. bolus Start: 11:31 AM Stop: 11:31 AM Medication: Heparin Amount: 1000 units Route: I.V. Start: 11:32 AM Stop: 11:32 AM Medication: Versed Amount: 0.5 mg Route: I.V. Start: 11:40 AM Stop: 11:40 AM Medication: Nitrogylcerin Amount: 100 mcg Route: I.A. Start: 11:43 AM Stop: 11:43 AM Medication: Heparin Amount: 1000 units Route: I.V. Start: 11:44 AM Stop: 11:44 AM Medication: Versed Amount: 0.5 mg Route: I.V. Start: 11:45 AM Stop: 11:45 AM Medication: Zofran (ondansetron) Amount: 4 mg Route: I.V. Start: 11:59 AM Stop: 11:59 AM Medication: Nitrogylcerin Amount: 200 mcg Route: I.A. Start: 12:09 PM Stop: 12:09 PM Medication: Plavix Amount: 300 mg Route: P.O. I, the attending physician, have reviewed and verified all procedure medications. Yes, all medications given per verbal order History/Risk Factors Hypertension: Yes Dyslipidemia: Yes Peripheral Arterial Disease (PAD): No Obesity: No Renal Disease: No Tobacco Use: Former Prior Interventions PCI: No CABG: No Valve Surgery: No Report Signatures Finalized by Rakesh Tavares MD on 03/04/2024 01:56 PM
[2024-02-21 11:02] LABS: Troponin(5th) Baseline 372 ng/L (0-10)
--- NOTE | 2024-02-21 12:40 | PC.NURSE ---
Patient arrived to CSU from chemistry laboratory technician at 1230.
--- NOTE | 2024-02-21 12:49 | P.PN_ITS ---
Subjective 2 Subjective: Patient was seen and examined afternoon. Overnight she had chest pain and elevated troponins cardiology was consulted. Patient was found to have anterior wall AR and was taken to the Senior Accounting Clerk today. She is now recovering and in CSU. She is alert and responsive and daughters at bedside. Currently complaining of pain in the hip. Vitals/I&O/Wt Last Vital Signs Temp 99 F 02/21/24 08:00 Pulse 74 02/21/24 12:38 Resp 16 02/21/24 12:38 BP 124/67 02/21/24 12:38 Pulse Ox 92 02/21/24 08:00 O2 Del Method Room Air 02/21/24 12:38 O2 Flow Rate 6 02/19/24 10:55 02/20/24 02/21/24 02/21/24 22:59 06:59 14:59 Intake Total 1022.5 / 1192.5 250 / 1442.5 50 / 50 Output Total 300 / 300 Balance 722.5 / 892.5 250 / 1142.5 50 / 50 Weight last 48 hrs Weight 115 lb Physical Exam 2 Narrative: Patient seen and examined examination of the left hip demonstrates dressings on in place clean dry and intact. She is able to tolerate smooth hip range of motion with no pain or discomfort. She is able to wiggle toes plantarflex and dorsiflex ankle sensations intact to light touch distally. Distal pulses palpable. Data 02/21/24 05:30 02/21/24 05:30 A&P Assessment and plan (1) Fracture of femoral neck, left: Qualifiers: Encounter type: subsequent encounter Fracture type: closed Fracture healing: with routine healing Qualified Code(s): S72.002D - Fracture of unspecified part of neck of left femur, subsequent encounter for closed fracture with routine healing Plan Resume regular diet Partial weightbearing 30 to 50% PT/OT Pain control DVT prophylaxis Internal medicine on board as primary Labs reviewed Dressing change as needed Cardiology had been consulted and patient underwent cardiac catheterization due to acute AR overnight Orthopedics will continue to follow Attestations 2 Medical Necessity Statement*: Status post right hip CRPP and patient required cardiac catheterization due to acute anterior wall AR overnight and had catheterization this morning Coding Level of Care Code Acute Code for Chg Fwd Diagnoses Closed fracture of neck of left femur with routine healing, subsequent encounter S72.002D Encounter type: subsequent encounter Fracture type: closed Fracture healing: with routine healing Time Spent (min) 20
--- NOTE | 2024-02-21 12:56 | PC.NURSE ---
Dr. Tavares is notified that patient is still having 7/10 chest pain. He ordered sublingual nitro and EKG.
[2024-02-21] MEDS: nitroglycerin 0.4 mg sublingual Tablet (13:04)
--- NOTE | 2024-02-21 13:07 | ECG_ITS ---
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 Measurements Intervals [place] Rate: 77 P: 39 DE: 168 QRS: -75 QRSD: 140 T: -73 QT: 494 QTc: 560 Interpretive Statements ELECTRONIC VENTRICULAR PACEMAKER Compared to ECG 02/21/2024 08:43:20 No significant changes Electronically Signed On 02-21-2024 15:58:09 CDT by Rakesh Tavares M.D. https://[email or web address] Materialsscott regional hospitalPhonethics Mobile Mediaohio[email or web address]/store/NU/[id number] f
[2024-02-21] MEDS: pantoprazole 40 mg SDV IVP ×2 (13:12→16:51)
[2024-02-21 14:11] LABS: Troponin 5 2HR Delta -100.4 ABS# (0-10)
[2024-02-21 14:13] LABS: Troponin 5 2HR 271.6 ng/L (0-10)
[2024-02-21 14:50] LABS: Basophils % 0.3 %; Hematocrit 32.7 % (36-47); Lymphocytes # 1.5 10^3/uL (0.8-4.8); Lymphocytes % 9.5 %; Mean Corpuscular HGB Conc 34.6 g/dL (30-55); Mean Corpuscular Hemoglobin 31.9 pg (27-33); Mean Corpuscular Volume 92.4 fl (85-98); Mean Platelet Volume 9.7 fL (7.4-10.4); Monocytes # 1.9 10^3/uL (0.2-0.9); Monocytes % 12.5 %; Neutrophils # 11.85 10^3/uL (1.8-7.7); Neutrophils % 77.2 %; Nucleated Red Blood Cells % 0 %; Platelet Count 306 10^3/cmm (157-399); Red Blood Count 3.54 10^6/uL (3.85-5.65); Red Cell Distribution Width 13.2 % (12.1-15.1); White Blood Count 15.32 10^3/uL (3.29-11.43)
--- NOTE | 2024-02-21 15:06 | ECG_ITS ---
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 Measurements Intervals [place] Rate: 76 P: 58 NC: 193 QRS: -77 QRSD: 147 T: 245 QT: 486 QTc: 547 Interpretive Statements ELECTRONIC VENTRICULAR PACEMAKER Compared to ECG 02/21/2024 13:07:23 No significant changes Electronically Signed On 02-21-2024 17:18:34 CDT by Rakesh Tavares M.D. [id number]
--- NOTE | 2024-02-21 15:26 | P.PN_ITS ---
Subjective 2 Subjective: - Patient was examined multiple times th roughout the morning -I was paged by nurses or in the morning about patient's elevated troponin, I instructed nursing staff to get an EKG, started on aspirin 81 mg, started on a heparin drip, and keep her n.p.o. -Early in the morning she was seen, she currently denies any chest pain, does report indigestion, no nausea, no vomiting, no lightheadedness, dizziness -Family members are at bedside ? Went over her CODE STATUS again without members at bedside she does not want to be intubated, however is okay with CPR, okay with resuscitation efforts such as defibrillation, drugs per ACLS, advise family that currently her status is critical, prognosis guarded She tells me that last night about 10 PM she developed chest pain with epigastric discomfort with nausea -Her initial troponin was 25, now at ove r 400, EKG this morning showing subtle ST elevations in inferior leads, however difficult to interpret as she has a paced rhythm, -Spoke to cardiology, plan on cardiac ca theterization she was loaded with 300 mg of Plavix, 80 of atorvastatin, Coreg, plan on coronary intervention ? I had a detailed discussion with patient's family, her CT of her abdomen does show diverticulitis on clinical examination however she had a large bowel movement this morning, no bloody or black stools reported, and on examination she has good bowel sounds in all 4 quadrants no guarding, no rebound, rigidity, no significant tenderness on both left lower and right lower quadrant. And her abdominal pain seems more in the epigastrium than in the left lower quadrant. Nonetheless she is on Zosyn, will keep her n.p.o., IV fluids. ? Spoke to nursing staff, will move her down to CSU I spoke to Dr. Tavares, she is going for cardiac cath, echocardiogram showed hypokinesia at the apex of the heart, diminished ejection fraction ? After her cardiac catheterization procedure, she is seen in the room with her family members, she was complaining of chest pain, after cardiac cath she had 2 stents placed, EKG seen by cardiology no acute interventions, will continue to monitor in CsU closely ? Patient had a complaint of black tarry stool, monitor, repeat CBC, Hemoccult stool, Protonix, Carafate, hemoglobin stable 11.3 Vitals/I&O/Wt Last Vital Signs Temp 99 F 02/21/24 08:00 Pulse 74 02/21/24 12:38 Resp 16 02/21/24 12:38 BP 124/67 02/21/24 12:38 Pulse Ox 92 02/21/24 08:00 O2 Del Method Room Air 02/21/24 12:38 O2 Flow Rate 6 02/19/24 10:55 02/21/24 02/21/24 02/21/24 06:59 14:59 22:59 Intake Total 250 / 1442.5 50 / 50 Balance 250 / 1142.5 50 / 50 Weight last 48 hrs Weight 52.163 kg Physical Exam 2 Const: COMMON NORMALS: no acute distress ORIENTATION/CONSCIOUSNESS: Yes awake, Yes oriented to person and Yes oriented to place HENMT: COMMON NORMALS: normocephalic HEAD & SCALP: normocephalic Neck/C-Spine: COMMON NORMALS: no JVD Resp: COMMON NORMALS: normal respiratory effort, No retractions, No use of accessory muscles and clear to auscultation bilaterally AUSCULTATION: clear to auscultation bilaterally Cardio: COMMON NORMALS: no JVD, regular rate, regular rhythm, S1 normal heart sound present and S2 normal heart sound present RATE: regular rate RHYTHM: regular rhythm HEART SOUNDS: S1 normal heart sound present and S2 normal heart sound present GI: COMMON NORMALS: Normal to inspection, nondistended, normoactive bowel sounds present and non-tender Extremity: COMMON NORMALS: no pedal edema Neuro: SENSORIUM/ORIENTATION: Yes oriented to person and Yes oriented to place Psych: COMMON NORMALS: mental status grossly normal Data 02/21/24 05:30 02/21/24 05:30 Micro: Microbiology 02/21/24 13:00 Occult Blood (FIT) - Final Stool A&P Assessment and plan (1) Syncope: Qualifiers: Syncope type: unspecified Qualified Code(s): R55 - Syncope and collapse (2) Hip fracture: Qualifiers: Encounter type: initial encounter Fracture type: closed Laterality: l eft Qualified Code(s): S72.002A - Fracture of unspecified part of neck of left femur, initial encounter for closed fracture (3) Hyponatremia: (4) Chest pain: (5) Anemia: (6) Diverticulitis: Plan Syncopal episode ? Potentially related to acute on chronic hyponatremia ? Her last fall was about a month ago in which she had a third metatarsal fracture requiring a walking boot ? Plan ? Has a pacemaker in place, will interrogate pacemaker ? Cardiac echo WNL Carotid artery ultrasound WNL ? CT head patient refuses ct head ? Serial troponins, serial EKGs, telemetry monitoring ? No chest pain complaints ? Obtain a urinalysis, WNL ? will do orthostatic vitals ? Continue to monitor closely Acute on chronic hyponatremia, 134, stop fluoxetine, Left hip fracture -s/p surgical intervention ? Cardiac diet, ? SCDs and Lovenox for DVT prophylaxis, morphine for pain control ? Orthopedic service has been consulted History of third-degree AV block, with pacemaker placement History of atrial fibrillation, not on anticoagulation, not on rate control therapy, telemetry monitoring, EKG Chest pain -Status post cardiac stenting x 2 ? Aspirin 81 mg -Plavix 75 mg -Coreg 3.125 twice daily -80 mg atorvastatin ? Monitor for chest pain ? Cardiac echo Hemoccult positive stools His anemia His Protonix 40 mg IV twice daily His Carafate 1 g every 6 hours Monitor hemoglobin every 6 hours ? Monitor for concerns for GI bleed Diverticulitis ? Continue IV fluids -Continue Zosyn -Clear liquids Lovenox for DVT prophylaxis, SCDs, Protonix for GI prophylaxis CODE STATUS, patient does not want to be intubated, she is DNI, we also talked about intubation for even short period of time she does not want to be intubated, she is okay with CPR, okay with defibrillation, okay with drugs per ACLS, okay with ICU admission. - Patient was examined multiple times throughout the morning -I was paged by nurses or in the morning about patient's elevated troponin, I instructed nursing staff to get an EKG, started on aspirin 81 mg, started on a heparin drip, and keep her n.p.o. -Early in the morning she was seen, she currently denies any chest pain, does report indigestion, no nausea, no vomiting, no lightheadedness, dizziness -Family members are at bedside ? Went over her CODE STATUS again without members at bedside she does not want to be intubated, however is okay with CPR, okay with resuscitation efforts such as defibrillation, drugs per ACLS, advise family that currently her status is critical, prognosis guarded She tells me that last night about 10 PM she developed chest pain with epigastric discomfort with nausea -Her initial troponin was 25, now at over 400, EKG this morning showing subtle ST elevations in inferior leads, however difficult to interpret as she has a paced rhythm, -Spoke to cardiology, plan on cardiac catheterization she was loaded with 300 mg of Plavix, 80 of atorvastatin, Coreg, plan on coronary intervention ? I had a detailed discussion with patient's family, her CT of her abdomen does show diverticulitis on clinical examination however she had a large bowel movement this morning, no bloody or black stools reported, and on examination she has good bowel sounds in all 4 quadrants no guarding, no rebound, rigidity, no significant tenderness on both left lower and right lower quadrant. And her abdominal pain seems more in the epigastrium than in the left lower quadrant. Nonetheless she is on Zosyn, will keep her n.p.o., IV fluids. ? Spoke to nursing staff, will move her down to CSU I spoke to Dr. Tavares, she is going for cardiac cath, echocardiogram showed hypokinesia at the apex of the heart, diminished ejection fraction ? After her cardiac catheterization procedure, she is seen in the room with her family members, she was complaining of chest pain, after cardiac cath she had 2 stents placed, EKG seen by cardiology no acute interventions, will continue to monitor in CsU closely ? Patient had a complaint of black tarry stool, monitor, repeat CBC, Hemoccult stool, Protonix, Carafate, hemoglobin stable 11.3 Attestations 2 Medical Necessity Statement*: Patient requires hospitalization for chest pain requiring cardiac stenting, concerns for Hemoccult positive stool, GI bleed, diverticulitis Coding Level of Care Code Critical Care >/= 30 minutes Critical care time (in minutes): 45 The high probability of a clinically significant, sudden or life threatening deterioration, as referenced in this documentation, required my full and direct attention, intervention and personal management. The critical care time shown is in addition to time spent performing any reported separately billable procedures and includes the following: [x] Data and vital sign review and interpretation [x ] Patient assessment, examination and intervention [x] Medication orders and management [x] Patient/Family updates as able [x] Care Coordination and Documentation. Diagnoses Syncope, unspecified syncope type R55 Syncope type: unspecified Hip fracture S72.002A Encounter type: initial encounter Fracture type: closed Laterality: left Hyponatremia E87.1 Chest pain R07.9 Anemia D64.9 Diverticulitis K57.92
[2024-02-21 15:30] LABS: Partial Thromboplastin Time 93.2 SECONDS (23.9-36.7); Troponin 5 6HR Delta -104.2 ng/L (0-12)
[2024-02-21 15:31] LABS: Troponin 5 6HR 267.8 ng/L (0-10)
[2024-02-21 16:14] LABS: Osmolality Serum 277 mOsm/kg (278-305)
[2024-02-21] MEDS: sucralfate 1 gm/10 mL Oral Liq UDC PO ×2 (16:51→23:40)
--- NOTE | 2024-02-21 17:22 | PM.MISC ---
Miscellaneous Note Purpose of Documentation: Brief procedure note Note: Patient has severe mid RCA stenosis s/p PCI with 2 stents Continue aspirin and plavix for atleast 1 year
--- NOTE | 2024-02-21 19:10 | PC.NURSE ---
Right wrist site benign, no hematoma noted. TR band has been removed and bandaide in place which is dry and intact. Patient has no complaints at this time.
[2024-02-21 20:16] LABS: Hematocrit 30.8 % (36-47)
[2024-02-22] VITALS (13 sets, daily range): BP systolic 109–135; BP diastolic 60–90; PULSE 74–96; RESP 12–24; TEMP 36.4–36.9; O2SAT 91–97
[2024-02-22] MEDS: piperacillin-tazobactam 3.375 GM in sodium chloride 0.9% (plus) 50 ML IV ×4 (01:32→17:27)
[2024-02-22] MEDS: acetaminophen 325 mg Tablet 650 MG PO (01:32)
[2024-02-22 04:16] LABS: Basophils % 0.4 %; Eosinophils # 0.1 10^3/uL (0.0-0.8); Eosinophils % 1.2 %; Hematocrit 29.5 % (36-47); Lymphocytes # 1.7 10^3/uL (0.8-4.8); Lymphocytes % 15.4 %; Mean Corpuscular HGB Conc 33.9 g/dL (30-55); Mean Corpuscular Hemoglobin 31.3 pg (27-33); Mean Corpuscular Volume 92.5 fl (85-98); Mean Platelet Volume 9.4 fL (7.4-10.4); Monocytes # 1.4 10^3/uL (0.2-0.9); Monocytes % 12.8 %; Neutrophils % 69.9 %; Nucleated Red Blood Cells % 0 %; Platelet Count 269 10^3/cmm (157-399); Red Blood Count 3.19 10^6/uL (3.85-5.65); Red Cell Distribution Width 13.3 % (12.1-15.1); White Blood Count 11.15 10^3/uL (3.29-11.43)
[2024-02-22 04:31] LABS: Anion Gap 14.8 (5-19); Blood Urea Nitrogen 15 mg/dL (8-23); Calcium 7.9 mg/dL (8.5-10.5); Carbon Dioxide 19 mmol/L (22-29); Chloride 98 mmol/L (98-107); Creatinine Clr Calc Pharmacy 40.9436; Glucose 113 mg/dL (65-115); Osmolality Calculated 268 mOsm/kg (285-295); Potassium 3.8 mmol/L (3.5-5.1); Sodium 128 mmol/L (136-145)
[2024-02-22] MEDS: sucralfate 1 gm/10 mL Oral Liq UDC PO ×3 (05:17→17:26)
[2024-02-22] MEDS: pantoprazole 40 mg SDV IVP ×2 (05:17→17:25)
[2024-02-22 08:08] LABS: Hematocrit 31.9 % (36-47)
[2024-02-22 08:34] LABS: Osmolality Urine 342 mOsm/kg (50-1200)
--- NOTE | 2024-02-22 09:41 | PM.PN ---
Subjective Subjective: Patient is s/p cardiac catheterization. Status post PCI of the RCA lesion. Currently seems to be stable. Medications: Medication Review Details: Current Medications Acetaminophen (Acetaminophen 325 Mg Tablet) 650 mg PO Q6H PRN PRN Reason: Mild/Mod Pain Or Temp >/= 101 Last Admin: 02/22/24 01:32 Dose: 650 mg Aspirin (Aspirin 81 Mg Ec Tablet) 81 mg PO DAILY [facility] Atorvastatin Calcium (Atorvastatin 40 Mg Tablet) 80 mg PO BEDTIME [facility] Calcium Carbonate (Calcium Carb-Vit D 600mg/400unit 1 Tablet) 1 each PO BID [facility] Last Admin: 02/21/24 16:52 Dose: 1 each Carvedilol (Carvedilol 3.125 Mg Tablet) 3.125 mg PO BID [facility] Last Admin: 02/21/24 16:52 Dose: 3.125 mg Chlorhexidine Gluconate (Chlorhexidine Gluconate 0.12% Btl 473 Ml) 30 ml MUCOUS MEM QID [facility] Last Admin: 02/21/24 21:15 Dose: 30 ml Clonazepam (Clonazepam 0.5 Mg Tablet) 0.5 mg PO TID PRN PRN Reason: anxiety Last Admin: 02/19/24 21:24 Dose: 0.5 mg Clopidogrel Bisulfate (Clopidogrel 75 Mg Tablet) 75 mg PO DAILY [facility] Piperacillin Sod/Tazobactam (Sod 3.375 gm/ Sodium Chloride) 50 mls @ 12.5 mls/hr IV Q8H [facility] Last Infusion: 02/22/24 05:44 Dose: Infused Losartan Potassium (Losartan 50 Mg Tablet) 50 mg PO BID [facility] Last Admin: 02/21/24 16:52 Dose: 50 mg Morphine Sulfate (Morphine 4 Mg/Ml Sdv 1 Ml) 2 mg IVP Q4H PRN PRN Reason: SEVERE PAIN Last Admin: 02/20/24 21:49 Dose: 2 mg Multivitamins Therapeutic (Multivitamin Therapeutic Tablet) 1 tab PO DAILY [facility] Last Admin: 02/21/24 08:22 Dose: 1 tab Mupirocin (Mupirocin Oint 22 Gm) 1 applic NASAL BID [facility]; Protocol Stop: 02/24/24 17:59 Last Admin: 02/21/24 16:28 Dose: Not Given Naloxone HCl (Naloxone 0.4 Mg/Ml Sdv) 0.1 mg IVP Q2M PRN PRN Reason: OPIATERV Nitroglycerin (Nitroglycerin 0.4 Mg Sublingual Tablet) 0.4 mg SUBLINGUAL Q5M PRN PRN Reason: CHEST PAIN Non-Formulary Medication (Magnesium Oxide) 250 mg PO BID [facility] Last Admin: 02/21/24 16:28 Dose: Not Given Ondansetron HCl (Ondansetron 2 Mg/Ml Sdv 2 Ml) 4 mg IVP Q8H PRN PRN Reason: vomiting, or N/V if npo Last Admin: 02/21/24 03:07 Dose: 4 mg Oxycodone HCl (Oxycodone 5 Mg Ir Tab/Cap) 5 mg PO Q6H PRN PRN Reason: Mod to severe pain , 2nd line Last Admin: 02/20/24 15:12 Dose: 5 mg Pantoprazole Sodium (Pantoprazole 40 Mg Sdv) 40 mg IVP Q12H [facility] Last Admin: 02/22/24 05:17 Dose: 40 mg Polysaccharide Iron Complex (Iron Polysaccharide Complex 150 Mg Capsule) 150 mg PO BIDWM [facility] Last Admin: 02/21/24 08:20 Dose: 150 mg Senna/Docusate Sodium (Sennosides-Docusate Tablet) 2 tab PO BID [facility] Last Admin: 02/22/24 07:03 Dose: Not Given Sucralfate (Sucralfate 1 Gm/10 Ml Oral Liq Udc) 1 gm PO Q6H [facility] Last Admin: 02/22/24 05:17 Dose: 1 gm Vitals/I&O/Wt Last Vital Signs Temp 97.8 F 02/22/24 07:31 Pulse 74 02/22/24 07:31 Resp 18 02/22/24 07:31 BP 130/69 02/22/24 07:31 Pulse Ox 96 02/22/24 07:31 O2 Del Method Room Air 02/22/24 07:31 O2 Flow Rate 6 02/19/24 10:55 02/21/24 02/22/24 02/22/24 22:59 06:59 14:59 Intake Total 460.5 / 510.5 1170 / 1680.5 Output Total 200 / 200 Balance 460.5 / 510.5 970 / 1480.5 Weight last 48 hrs Weight 97 lb 1.6 oz Weight 115 lb Physical Exam Narrative: GENERAL: The patient is alert and oriented times three. Not in any acute distress. HEENT: No significant pallor, icterus or lymphadenopathy.Oral cavity: There are no mucous membrane lesions. NECK: Trachea appears to be central. No masses noted. No JVD or thyromegaly appreciated. RESPIRATORY: Chest is symmetrical. No intercostals muscle retraction or any accessory muscle activation. There is no chest wall tenderness. Breath sounds are heard bilaterally. No rales or rhonchi heard. No evidence of any consolidation. BREASTS: Deferred. HEART: The heart sounds are normal. No S3 or S4. Short systolic murmur in the left renal border. No diastolic murmurs. No pericardial rub ABDOMEN: No vessel pulsations or distention. No tenderness. No organomegaly appreciated. Bowel sounds are normally heard. : Deferred. RECTAL: Deferred. LYMPHATIC: No lymphadenopathy noted in the neck. EXTREMITIES: No edema or cyanosis. No clubbing. MUSCULOSKELETAL: No acute joint deformities or swelling SKIN: There are no significant rashes or ecchymosis NEUROPSYCHIATRIC: The patient is alert and oriented x3. Appears to be in a good mood. No tremors or rigidity noted. Data 02/22/24 20:56 02/22/24 12:45 Other Labs: Laboratory Last Values WBC 11.15 10^3/uL (3.29-11.43) 02/22/24 03:20 RBC 3.19 10^6/uL (3.85-5.65) L 02/22/24 03:20 Hgb 9.80 g/dL (11.27-16.99) L 02/22/24 20:56 Hct 29.2 % (36-47) L 02/22/24 20:56 MCV 92.5 fl (85-98) 02/22/24 03:20 MCH 31.3 pg (27-33) 02/22/24 03:20 MCHC 33.9 g/dL (30-55) 02/22/24 03:20 RDW 13.3 % (12.1-15.1) 02/22/24 03:20 Plt Count 269 10^3/cmm (157-399) 02/22/24 03:20 MPV 9.4 fL (7.4-10.4) 02/22/24 03:20 Neut % (Auto) 69.9 % 02/22/24 03:20 Lymph % (Auto) 15.4 % 02/22/24 03:20 [place] % (Auto) 12.8 % 02/22/24 03:20 Eos % (Auto) 1.2 % 02/22/24 03:20 Baso % (Auto) 0.4 % 02/22/24 03:20 Neut # (Auto) 7.80 10^3/uL (1.8-7.7) H 02/22/24 03:20 Lymph # (Auto) 1.7 10^3/uL (0.8-4.8) 02/22/24 03:20 [place] # (Auto) 1.4 10^3/uL (0.2-0.9) H 02/22/24 03:20 Eos # (Auto) 0.1 10^3/uL (0.0-0.8) 02/22/24 03:20 Baso # (Auto) 0.0 10^3/uL (0.0-0.1) 02/22/24 03:20 Nucleated RBC % (auto) 0 % 02/22/24 03:20 Nucleated RBCs # 0.0 /100WBC 02/22/24 03:20 PT 12.70 SECONDS (12.1-14.9) 02/18/24 10:31 INR 0.93 (0.8-1.2) 02/18/24 10:31 APTT 93.2 SECONDS (23.9-36.7) H 02/21/24 14:50 Sodium 130 mmol/L (136-145) L 02/22/24 12:45 Potassium 3.8 mmol/L (3.5-5.1) 02/22/24 03:20 Chloride 98 mmol/L (98-107) 02/22/24 03:20 Carbon Dioxide 19 mmol/L (22-29) L 02/22/24 03:20 Anion Gap 14.8 (5-19) 02/22/24 03:20 BUN 15 mg/dL (8-23) 02/22/24 03:20 Creatinine 0.8 mg/dL (0.5-0.9) 02/22/24 03:20 GFR Calculation Not Reportable 02/22/24 03:20 Glucose 113 mg/dL (65-115) 02/22/24 03:20 POC Glucose 228 mg/dL (70-110) H 02/20/24 21:50 Estimat Average Glucose 123 02/18/24 10:31 Hemoglobin A1c 5.9 % (4.0-6.0) 02/18/24 10:31 Serum Osmolality 277 mOsm/kg (278-305) L 02/20/24 11:38 Calculated Osmolality 268 mOsm/kg (285-295) L 02/22/24 03:20 Lactic Acid 1.7 mmol/L (0.5-2.2) 02/18/24 10:31 Calcium 7.9 mg/dL (8.5-10.5) L 02/22/24 03:20 Magnesium 2.0 mg/dL (1.7-2.3) 02/18/24 10:31 Total Bilirubin 0.4 mg/dL (0.15-1.2) 02/18/24 10:31 AST 27 U/L (0-32) 02/18/24 10:31 ALT 23 U/L (0-33) 02/18/24 10:31 Alkaline Phosphatase 123 U/L (35-105) H 02/18/24 10:31 Troponin T 5th Gen ng/L 435 ng/L (0-10) H* 02/21/24 05:30 Troponin T Baseline 372 ng/L (0-10) H* 02/21/24 10:28 Troponin T 120 Minute 271.6 ng/L (0-10) H 02/21/24 13:15 Delta Troponin T -100.4 ABS# (0-10) L 02/21/24 13:15 Troponin T Hi Sens 6Hr 267.8 ng/L (0-10) H 02/21/24 14:50 Troponin T Hi Sens 6Hr Delta -104.2 ng/L (0-12) L 02/21/24 14:50 C-Reactive Protein 17.3 mg/L (0.0-4.9) H 02/18/24 10:31 NT-Pro-B Natriuret Pep 172 pg/mL (0-450) 02/18/24 10:31 Total Protein 7.4 g/dL (6.6-8.7) 02/18/24 10:31 Albumin 4.3 g/dL (3.5-5.2) 02/18/24 10:31 Globulin 3.1 g/dL (1.3-4.6) 02/18/24 10:31 Triglycerides 106 mg/dL (0-150) 02/20/24 11:38 Cholesterol 151 mg/dL (0-200) 02/20/24 11:38 LDL Cholesterol, Calc 69 mg/dL (50-129) 02/20/24 11:38 HDL Cholesterol 61 mg/dL (60-100) 02/20/24 11:38 LDL/HDL Ratio 1.13 RATIO (0.00-3.22) 02/20/24 11:38 Cholesterol/HDL Ratio 2.48 mg/dL (0.0-4.40) 02/20/24 11:38 Procalcitonin 0.10 ng/mL (0-0.5) 02/18/24 10:31 TSH 1.64 uIU/mL (0.27-4.20) 02/18/24 10:31 Random Cortisol 0.87 ug/dL (2.47-19.5) L 02/20/24 11:38 Cortisol Response 02/20/24 11:38 Urine Color Yellow (Yellow) 02/18/24 14:54 Urine Appearance Clear (CLEAR) 02/18/24 14:54 Urine pH 6 (5-7) 02/18/24 14:54 Ur Specific [place] 1.010 (1.005-1.030) 02/18/24 14:54 Urine Protein Neg (Negative) 02/18/24 14:54 Urine Glucose (UA) Norm (Normal) 02/18/24 14:54 Urine Ketones Negative (Negative) 02/18/24 14:54 Urine Blood Neg (Negative) 02/18/24 14:54 Urine Nitrate Negative (Negative) 02/18/24 14:54 Urine Bilirubin Neg (Negative) 02/18/24 14:54 Urine Urobilinogen Norm mg/dL (Negative) 02/18/24 14:54 Ur Leukocyte Esterase Negative (Negative) 02/18/24 14:54 Urine Osmolality 342 mOsm/kg (50-1200) 02/20/24 16:20 SARS-CoV-2 Ag (Rapid) negative (Negative) 02/21/24 08:20 Blood Type O Positive 02/19/24 07:55 Rho(D) Type Rh positive 02/19/24 07:55 Antibody Screen Negative 02/19/24 07:55 Micro: Microbiology 02/21/24 13:00 Occult Blood (FIT) - Final Stool A&P Assessment and plan (1) Acute myocardial infarction: Patient status post cardiac catheterization followed by PCI. May continue the current medication. Continue on the Plavix and aspirin Qualifiers: Involved coronary artery: LAD coronary artery Myocardial infarction type: ST elevation myocardial infarction Qualified Code(s): I21.02 - ST elevation (STEMI) myocardial infarction involving left anterior descending coronary artery (2) HTN (hypertension): Currently normotensive. May continue on the current measures. Qualifiers: Hypertension type: essential hypertension Qualified Code(s): I10 - Essential (primary) hypertension (3) Pacemaker: Patient status post permanent pacemaker implantation for complete heart block. Pacemaker function found to be appropriate. Continue on the current monitoring schedule (4) SVT (supraventricular tachycardia): Has not had a recurrence of his SVT recently. May continue on the current medications (5) Elevated cholesterol: I may start her on Lipitor 40 mg p.o. now and daily. Further follow-up evaluationsas per the primary care (6) Fracture of femoral neck, left: Status post closed reduction and percutaneous pinning. Qualifiers: Encounter type: subsequent encounter Fracture healing: with routine healing Fracture type: closed Qualified Code(s): S72.002D - Fracture of unspecified part of neck of left femur, subsequent encounter for closed fracture with routine healing (7) Elevated white blood cell count: White cell count is back to normal Qualifiers: Leukocytosis type: unspecified Qualified Code(s): D72.829 - Elevated white blood cell count, unspecified Plan Patient may continue on the current medications. Need to be seen back in the [facility] in 1 to 2 weeks. Appointment with me in the office in 1 month Attestations Medical Necessity Statement*: Disposition as per the primary Coding Level of Care Code [address] elevation myocardial infarction (STEMI) involving left anterior descending (LAD) coronary artery I21.02 Involved coronary artery: LAD coronary artery Myocardial infarction type: ST elevation myocardial infarction Essential hypertension I10 Hypertension type: essential hypertension Pacemaker Z95.0 SVT (supraventricular tachycardia) I47.1 Elevated cholesterol E78.00 Closed fracture of neck of left femur with routine healing, subsequent encounter S72.002D Encounter type: subsequent encounter Fracture healing: with routine healing Fracture type: closed Leukocytosis, unspecified type D72.829 Leukocytosis type: unspecified
[2024-02-22] MEDS: calcium carb-vit d 600mg/400unit 1 Tablet 1 EACH PO ×2 (10:49→17:25)
[2024-02-22] MEDS: multivitamin therapeutic Tablet 1 TAB PO (10:49)
[2024-02-22] MEDS: sennosides-docusate Tablet 2 TAB PO ×2 (10:49→17:25)
[2024-02-22] MEDS: clopidogrel 75 mg Tablet PO (10:49)
[2024-02-22] MEDS: losartan 50 mg Tablet PO ×2 (10:50→17:25)
[2024-02-22] MEDS: carvedilol 3.125 mg Tablet PO ×2 (10:50→17:25)
[2024-02-22] MEDS: aspirin 81 mg EC Tablet PO (10:50)
[2024-02-22] MEDS: chlorhexidine gluconate 0.12% Btl 473 mL 30 ML MUCOUS MEM ×2 (10:53→21:16)
[2024-02-22 13:00] LABS: Hematocrit 38.7 % (36-47)
--- NOTE | 2024-02-22 13:01 | P.PN_ITS ---
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, she tells me that she is always constipated there is potentially radiation-induced damage to the rectum, causing her to have chronic constipation, she denies any black tarry stools, no lightheadedness, dizziness, normotensive, Vitals/I&O/Wt Last Vital Signs Temp 98.2 F 02/22/24 12:00 Pulse 94 02/22/24 12:00 Resp 12 02/22/24 12:00 BP 130/69 02/22/24 12:00 Pulse Ox 91 02/22/24 11:40 O2 Del Method Room Air 02/22/24 11:40 O2 Flow Rate 6 02/19/24 10:55 02/21/24 02/22/24 02/22/24 22:59 06:59 14:59 Intake Total 460.5 / 510.5 1170 / 1680.5 120 / 120 Output Total 200 / 200 720 / 720 Balance 460.5 / 510.5 970 / 1480.5 -600 / -600 Weight last 48 hrs Weight 44.044 kg Weight 52.163 kg Physical Exam 2 Const: COMMON NORMALS: no acute distress and patient oriented x3 Resp: COMMON NORMALS: normal respiratory effort, No retractions, No use of accessory muscles and clear to auscultation bilaterally AUSCULTATION: clear to auscultation bilaterally Cardio: COMMON NORMALS: regular rate, regular rhythm, S1 normal heart sound present and S2 normal heart sound present RATE: regular rate RHYTHM: r egular rhythm HEART SOUNDS: S1 normal heart sound present and S2 normal heart sound present GI: COMMON NORMALS: Normal to inspection, nondistended, normoactive bowel sounds present and non-tender Extremity: COMMON NORMALS: no pedal edema Neuro: COMMON NORMALS: patient oriented x3 Psych: COMMON NORMALS: mental status grossly normal Data 02/22/24 12:45 02/22/24 03:20 Micro: Microbiology 02/21/24 13:00 Occult Blood (FIT) - Final Stool A&P Assessment and plan (1) Syncope: Qualifiers: Syncope type: unspecified Qualified Code(s): R55 - Syncope and collapse (2) Hip fracture: Qualifiers: Encounter type: initial encounter Fracture type: closed Laterality: l eft Qualified Code(s): S72.002A - Fracture of unspecified part of neck of left femur, initial encounter for closed fracture (3) Hyponatremia: (4) Chest pain: (5) Anemia: (6) Diverticulitis: Plan Syncopal episode ? Potentially related to acute on chronic hyponatremia ? Her last fall was about a month ago in which she had a third metatarsal fracture requiring a walking boot ? Plan ? Has a pacemaker in place, will interrogate pacemaker ? Cardiac echo WNL Carotid artery ultrasound WNL ? CT head patient refuses ct head ? Serial troponins, serial EKGs, telemetry monitoring ? No chest pain complaints ? Obtain a urinalysis, WNL ? will do orthostatic vitals ? Continue to monitor closely Acute on chronic hyponatremia, 134, stop fluoxetine, Left hip fracture -s/p surgical intervention ? Cardiac diet, ? SCDs and Lovenox for DVT prophylaxis, morphine for pain control ? Orthopedic service has been consulted History of third-degree AV block, with pacemaker placement History of atrial fibrillation, not on anticoagulation, not on rate control therapy, telemetry monitoring, EKG Chest pain -Status post cardiac stenting x 2 ? Aspirin 81 mg -Plavix 75 mg -Coreg 3.125 twice daily -80 mg atorvastatin ? Monitor for chest pain ? Cardiac echo CONCLUSIONS This is a limited echocardiogram performed to assess LV systolic function. LV systolic function is moderately reduced with EF of 35 to 40%. Severe hypokinesis of apical, mid to apical anterolateral, anterior and inferolateral torrez Compared to prior echocardiogram from 02/18/2024, LV systolic function has decreased significantly. Hemoccult positive stools His anemia His Protonix 40 mg IV twice daily His Carafate 1 g every 6 hours Monitor hemoglobin every 6 hours ? Monitor for concerns for GI bleed, possible old lower diverticular bleed possible related to hemorrhoid/anal fissure, severe constipation ? No hemodynamic instability, no profuse bleeding, just scant bright red blood per rectum will monitor closely as patient is on aspirin and Plavix hold off on Lovenox monitor for 24 hours Diverticulitis ? Continue IV fluids -Continue Zosyn -Clear liquids Lovenox for DVT prophylaxis, SCDs, Protonix for GI prophylaxis CODE STATUS, patient does not want to be intubated, she is DNI, we also talked about intubation for even short period of time she does not want to be intubated, she is okay with CPR, okay with defibrillation, okay with drugs per ACLS, okay with ICU admission. -Patient requires hospitalization due to concerns for bright red blood per rectum, recently cardiac stenting with aspirin and Plavix on board, holding off the Lovenox, need to watch hemoglobin here as inpatient, monitor for symptomatology she also has developed hyponatremia, fluoxetine has been held but serum sodium is down to 128, TSH within normal limits cortisol on the lower end but cosyntropin stimulation test was within normal limits Attestations 2 Medical Necessity Statement*: Patient requires hospitalization for anemia, bright red blood per rectum, hyponatremia Diagnoses Syncope, unspecified syncope type R55 Syncope type: unspecified Hip fracture S72.002A Encounter type: initial encounter Fracture type: closed Laterality: left Hyponatremia E87.1 Chest pain R07.9 Anemia D64.9 Diverticulitis K57.92
[2024-02-22 13:16] LABS: Sodium 130 mmol/L (136-145)
--- NOTE | 2024-02-22 15:07 | P.PN_ITS ---
Subjective 2 Subjective: Patient seen and examined this afternoon she is recovering well from a cardiac procedure yesterday. This point in time she is able to actively lift and range her left lower extremity without pain or discomfort. Continue to work with PT/OT. Patient stable from orthopedic standpoint Vitals/I&O/Wt Last Vital Signs Temp 98.2 F 02/22/24 12:00 Pulse 94 02/22/24 12:00 Resp 12 02/22/24 12:00 BP 130/69 02/22/24 12:00 Pulse Ox 91 02/22/24 11:40 O2 Del Method Room Air 02/22/24 11:40 O2 Flow Rate 6 02/19/24 10:55 02/22/24 02/22/24 02/22/24 06:59 14:59 22:59 Intake Total 1170 / 1680.5 120 / 120 Output Total 200 / 200 720 / 720 Balance 970 / 1480.5 -600 / -600 Weight last 48 hrs Weight 97 lb 1.6 oz Weight 115 lb Physical Exam 2 Narrative: Patient seen and examined examination of the left hip demonstrates dressings on in place clean dry and intact. She is able to tolerate smooth hip range of motion with no pain or discomfort. She is able to wiggle toes plantarflex and dorsiflex ankle sensations intact to light touch distally. Distal pulses palpable. Patient is able to perform a straight leg raise as well as to internal and externally rotate herself without pain or discomfort in the left hip. Data 02/22/24 12:45 02/22/24 12:45 Micro: Microbiology 02/21/24 13:00 Occult Blood (FIT) - Final Stool A&P Assessment and plan (1) Fracture of femoral neck, left: Qualifiers: Encounter type: subsequent encounter Fracture type: closed Fracture healing: with routine healing Qualified Code(s): S72.002D - Fracture of unspecified part of neck of left femur, subsequent encounter for closed fracture with routine healing Plan Resume regular diet Partial weightbearing 30 to 50% PT/OT Pain control DVT prophylaxis Internal medicine on board as primary Labs reviewed Dressing change as needed Cardiology on board Patient stable for discharge from orthopedic standpoint. No further orthopedic surgical intervention required at this time patient is recovering well. Orthopedic surgery team will sign off and follow peripherally if there is any questions pertaining to patient's care for further contact orthopedics on-call. Patient will follow-up in the orthopedic office in 2 weeks will receive appropriate discharge instructions as well as postoperative pain medication DVT prophylaxis. Patient understands agrees to current plan. Questions answered. Attestations 2 Medical Necessity Statement*: Ongoing care status post left hip CRPP and recent cardiac catheterization Coding Level of Care Code Acute Code for Chg Fwd Diagnoses Closed fracture of neck of left femur with routine healing, subsequent encounter S72.002D Encounter type: subsequent encounter Fracture type: closed Fracture healing: with routine healing Time Spent (min) 15
[2024-02-22 21:05] LABS: Hematocrit 29.2 % (36-47)
[2024-02-22] MEDS: atorvastatin 40 mg Tablet 80 MG PO (21:16)
[2024-02-22] MEDS: CLONazepam 0.5 mg Tablet PO (21:16)
[2024-02-23] VITALS (10 sets, daily range): BP systolic 113–132; BP diastolic 67–76; PULSE 62–78; RESP 16–20; TEMP 36.6–36.8; O2SAT 94–100
[2024-02-23] MEDS: sucralfate 1 gm/10 mL Oral Liq UDC PO ×5 (00:44→23:40)
[2024-02-23] MEDS: piperacillin-tazobactam 3.375 GM in sodium chloride 0.9% (plus) 50 ML IV ×3 (03:05→23:41)
[2024-02-23] MEDS: acetaminophen 325 mg Tablet 650 MG PO (04:05)
[2024-02-23] MEDS: pantoprazole 40 mg SDV IVP ×2 (06:20→17:52)
[2024-02-23] MEDS: clopidogrel 75 mg Tablet PO (08:30)
[2024-02-23] MEDS: calcium carb-vit d 600mg/400unit 1 Tablet 1 EACH PO ×2 (08:30→17:51)
[2024-02-23] MEDS: carvedilol 3.125 mg Tablet PO ×2 (08:30→17:52)
[2024-02-23] MEDS: aspirin 81 mg EC Tablet PO (08:30)
[2024-02-23] MEDS: losartan 50 mg Tablet PO ×2 (08:31→17:52)
[2024-02-23] MEDS: multivitamin therapeutic Tablet 1 TAB PO (08:31)
--- NOTE | 2024-02-23 08:47 | PC.SOCIAL ---
IMM Update Pg. 2 of IMM updated; copy provided to patient at bedside.
[2024-02-23 08:58] LABS: Neutrophils % 69.3 %; Nucleated Red Blood Cells % 0 %; Platelet Count 286 10^3/cmm (157-399)
[2024-02-23 09:07] LABS: Basophils # 0.1 10^3/uL (0.0-0.1); Basophils % 0.6 %; Eosinophils # 0.4 10^3/uL (0.0-0.8); Eosinophils % 3.8 %; Hematocrit 32.2 % (36-47); Lymphocytes # 1.5 10^3/uL (0.8-4.8); Lymphocytes % 16.4 %; Mean Corpuscular HGB Conc 31.4 g/dL (30-55); Mean Corpuscular Hemoglobin 30.4 pg (27-33); Mean Platelet Volume 9.2 fL (7.4-10.4); Monocytes # 0.9 10^3/uL (0.2-0.9); Monocytes % 9.7 %; Neutrophils # 6.45 10^3/uL (1.8-7.7); Red Blood Count 3.32 10^6/uL (3.85-5.65); Red Cell Distribution Width 13.4 % (12.1-15.1); White Blood Count 9.31 10^3/uL (3.29-11.43)
[2024-02-23 09:10] LABS: Blood Urea Nitrogen 10 mg/dL (8-23); Calcium 8.4 mg/dL (8.5-10.5); Carbon Dioxide 19 mmol/L (22-29); Chloride 103 mmol/L (98-107); Creatinine Clr Calc Pharmacy 38.6495; Glucose 109 mg/dL (65-115); Osmolality Calculated 274 mOsm/kg (285-295); Sodium 132 mmol/L (136-145)
[2024-02-23 09:18] LABS: Anion Gap 13.8 (5-19); Potassium 3.8 mmol/L (3.5-5.1)
--- NOTE | 2024-02-23 09:39 | PM.PN ---
Subjective Subjective: Patient is complaining of abdominal pain. Hemoglobin stable. Features of possible acute diverticulitis. No chest pain. Hemodynamically stable. No arrhythmias on the monitor. Medications: Medication Review Details: Current Medications Acetaminophen (Acetaminophen 325 Mg Tablet) 650 mg PO Q6H PRN PRN Reason: Mild/Mod Pain Or Temp >/= 101 Last Admin: 02/23/24 04:05 Dose: 650 mg Amoxicillin/Clavulanate Potassium (Amoxicillin-Clav 875-125 Mg Tablet) 1 tab PO BID [facility]; Protocol Aspirin (Aspirin 81 Mg Ec Tablet) 81 mg PO DAILY [facility] Last Admin: 02/23/24 08:30 Dose: 81 mg Atorvastatin Calcium (Atorvastatin 40 Mg Tablet) 80 mg PO BEDTIME [facility] Last Admin: 02/22/24 21:16 Dose: 80 mg Calcium Carbonate (Calcium Carb-Vit D 600mg/400unit 1 Tablet) 1 each PO BID [facility] Last Admin: 02/23/24 08:30 Dose: 1 each Carvedilol (Carvedilol 3.125 Mg Tablet) 3.125 mg PO BID [facility] Last Admin: 02/23/24 08:30 Dose: 3.125 mg Chlorhexidine Gluconate (Chlorhexidine Gluconate 0.12% Btl 473 Ml) 30 ml MUCOUS MEM QID [facility] Last Admin: 02/23/24 08:31 Dose: Not Given Clonazepam (Clonazepam 0.5 Mg Tablet) 0.5 mg PO TID PRN PRN Reason: anxiety Last Admin: 02/22/24 21:16 Dose: 0.5 mg Clopidogrel Bisulfate (Clopidogrel 75 Mg Tablet) 75 mg PO DAILY [facility] Last Admin: 02/23/24 08:30 Dose: 75 mg Losartan Potassium (Losartan 50 Mg Tablet) 50 mg PO BID [facility] Last Admin: 02/23/24 08:31 Dose: 50 mg Morphine Sulfate (Morphine 4 Mg/Ml Sdv 1 Ml) 2 mg IVP Q4H PRN PRN Reason: SEVERE PAIN Last Admin: 02/20/24 21:49 Dose: 2 mg Multivitamins Therapeutic (Multivitamin Therapeutic Tablet) 1 tab PO DAILY [facility] Last Admin: 02/23/24 08:31 Dose: 1 tab Mupirocin (Mupirocin Oint 22 Gm) 1 applic NASAL BID [facility]; Protocol Stop: 02/24/24 17:59 Last Admin: 02/23/24 08:31 Dose: Not Given Naloxone HCl (Naloxone 0.4 Mg/Ml Sdv) 0.1 mg IVP Q2M PRN PRN Reason: OPIATERV Nitroglycerin (Nitroglycerin 0.4 Mg Sublingual Tablet) 0.4 mg SUBLINGUAL Q5M PRN PRN Reason: CHEST PAIN Non-Formulary Medication (Magnesium Oxide) 250 mg PO BID [facility] Last Admin: 02/23/24 08:31 Dose: Not Given Ondansetron HCl (Ondansetron 2 Mg/Ml Sdv 2 Ml) 4 mg IVP Q8H PRN PRN Reason: vomiting, or N/V if npo Last Admin: 02/21/24 03:07 Dose: 4 mg Oxycodone HCl (Oxycodone 5 Mg Ir Tab/Cap) 5 mg PO Q6H PRN PRN Reason: Mod to severe pain , 2nd line Last Admin: 02/20/24 15:12 Dose: 5 mg Pantoprazole Sodium (Pantoprazole 40 Mg Sdv) 40 mg IVP Q12H [facility] Last Admin: 02/23/24 06:20 Dose: 40 mg Polysaccharide Iron Complex (Iron Polysaccharide Complex 150 Mg Capsule) 150 mg PO BIDWM [facility] Last Admin: 02/21/24 08:20 Dose: 150 mg Senna/Docusate Sodium (Sennosides-Docusate Tablet) 2 tab PO BID [facility] Last Admin: 02/23/24 08:32 Dose: Not Given Sucralfate (Sucralfate 1 Gm/10 Ml Oral Liq Udc) 1 gm PO Q6H [facility] Last Admin: 02/23/24 06:20 Dose: 1 gm Vitals/I&O/Wt Last Vital Signs Temp 97.8 F 02/23/24 07:11 Pulse 72 02/23/24 07:11 Resp 17 02/23/24 07:11 BP 113/67 02/23/24 07:11 Pulse Ox 94 02/23/24 07:11 O2 Del Method Room Air 02/23/24 07:11 O2 Flow Rate 6 02/19/24 10:55 02/22/24 02/23/24 02/23/24 22:59 06:59 14:59 Intake Total 50.208 / 220.208 600 / 820.208 170 / 170 Balance 50.208 / -499.792 600 / 100.208 170 / 170 Weight last 48 hrs Weight 99 lb 11.2 oz Weight 97 lb 1.6 oz Physical Exam Narrative: GENERAL: The patient is alert and oriented times three. Not in any acute distress. HEENT: No significant pallor, icterus or lymphadenopathy.Oral cavity: There are no mucous membrane lesions. NECK: Trachea appears to be central. No masses noted. No JVD or thyromegaly appreciated. RESPIRATORY: Chest is symmetrical. No intercostals muscle retraction or any accessory muscle activation. There is no chest wall tenderness. Breath sounds are heard bilaterally. No rales or rhonchi heard. No evidence of any consolidation. BREASTS: Deferred. HEART: The heart sounds are normal. No S3 or S4. Short systolic murmur in the left renal border. No diastolic murmurs. No pericardial rub ABDOMEN: No vessel pulsations or distention. Diffuse tenderness in the lower abdomen. No organomegaly appreciated. Bowel sounds are normally heard. : Deferred. RECTAL: Deferred. LYMPHATIC: No lymphadenopathy noted in the neck. EXTREMITIES: No edema or cyanosis. No clubbing. MUSCULOSKELETAL: No acute joint deformities or swelling SKIN: There are no significant rashes or ecchymosis NEUROPSYCHIATRIC: The patient is alert and oriented x3. Appears to be in a good mood. No tremors or rigidity noted. Data 02/23/24 08:40 02/23/24 08:40 Other Labs: Laboratory Last Values WBC 9.31 10^3/uL (3.29-11.43) 02/23/24 08:40 RBC 3.32 10^6/uL (3.85-5.65) L 02/23/24 08:40 Hgb 10.10 g/dL (11.27-16.99) L 02/23/24 08:40 Hct 32.2 % (36-47) L 02/23/24 08:40 MCV 97.0 fl (85-98) 02/23/24 08:40 MCH 30.4 pg (27-33) 02/23/24 08:40 MCHC 31.4 g/dL (30-55) D 02/23/24 08:40 RDW 13.4 % (12.1-15.1) 02/23/24 08:40 Plt Count 286 10^3/cmm (157-399) 02/23/24 08:40 MPV 9.2 fL (7.4-10.4) 02/23/24 08:40 Neut % (Auto) 69.3 % 02/23/24 08:40 Lymph % (Auto) 16.4 % 02/23/24 08:40 [place] % (Auto) 9.7 % 02/23/24 08:40 Eos % (Auto) 3.8 % 02/23/24 08:40 Baso % (Auto) 0.6 % 02/23/24 08:40 Neut # (Auto) 6.45 10^3/uL (1.8-7.7) 02/23/24 08:40 Lymph # (Auto) 1.5 10^3/uL (0.8-4.8) 02/23/24 08:40 [place] # (Auto) 0.9 10^3/uL (0.2-0.9) 02/23/24 08:40 Eos # (Auto) 0.4 10^3/uL (0.0-0.8) 02/23/24 08:40 Baso # (Auto) 0.1 10^3/uL (0.0-0.1) 02/23/24 08:40 Nucleated RBC % (auto) 0 % 02/23/24 08:40 Nucleated RBCs # 0.0 /100WBC 02/23/24 08:40 PT 12.70 SECONDS (12.1-14.9) 02/18/24 10:31 INR 0.93 (0.8-1.2) 02/18/24 10:31 APTT 93.2 SECONDS (23.9-36.7) H 02/21/24 14:50 Sodium 132 mmol/L (136-145) L 02/23/24 08:40 Potassium 3.8 mmol/L (3.5-5.1) 02/23/24 08:40 Chloride 103 mmol/L (98-107) 02/23/24 08:40 Carbon Dioxide 19 mmol/L (22-29) L 02/23/24 08:40 Anion Gap 13.8 (5-19) 02/23/24 08:40 BUN 10 mg/dL (8-23) 02/23/24 08:40 Creatinine 0.8 mg/dL (0.5-0.9) 02/23/24 08:40 GFR Calculation Not Reportable 02/23/24 08:40 Glucose 109 mg/dL (65-115) 02/23/24 08:40 POC Glucose 228 mg/dL (70-110) H 02/20/24 21:50 Estimat Average Glucose 123 02/18/24 10:31 Hemoglobin A1c 5.9 % (4.0-6.0) 02/18/24 10:31 Serum Osmolality 277 mOsm/kg (278-305) L 02/20/24 11:38 Calculated Osmolality 274 mOsm/kg (285-295) L 02/23/24 08:40 Lactic Acid 1.7 mmol/L (0.5-2.2) 02/18/24 10:31 Calcium 8.4 mg/dL (8.5-10.5) L 02/23/24 08:40 Magnesium 2.0 mg/dL (1.7-2.3) 02/18/24 10:31 Total Bilirubin 0.4 mg/dL (0.15-1.2) 02/18/24 10:31 AST 27 U/L (0-32) 02/18/24 10:31 ALT 23 U/L (0-33) 02/18/24 10:31 Alkaline Phosphatase 123 U/L (35-105) H 02/18/24 10:31 Troponin T 5th Gen ng/L 435 ng/L (0-10) H* 02/21/24 05:30 Troponin T Baseline 372 ng/L (0-10) H* 02/21/24 10:28 Troponin T 120 Minute 271.6 ng/L (0-10) H 02/21/24 13:15 Delta Troponin T -100.4 ABS# (0-10) L 02/21/24 13:15 Troponin T Hi Sens 6Hr 267.8 ng/L (0-10) H 02/21/24 14:50 Troponin T Hi Sens 6Hr Delta -104.2 ng/L (0-12) L 02/21/24 14:50 C-Reactive Protein 17.3 mg/L (0.0-4.9) H 02/18/24 10:31 NT-Pro-B Natriuret Pep 172 pg/mL (0-450) 02/18/24 10:31 Total Protein 7.4 g/dL (6.6-8.7) 02/18/24 10:31 Albumin 4.3 g/dL (3.5-5.2) 02/18/24 10:31 Globulin 3.1 g/dL (1.3-4.6) 02/18/24 10:31 Triglycerides 106 mg/dL (0-150) 02/20/24 11:38 Cholesterol 151 mg/dL (0-200) 02/20/24 11:38 LDL Cholesterol, Calc 69 mg/dL (50-129) 02/20/24 11:38 HDL Cholesterol 61 mg/dL (60-100) 02/20/24 11:38 LDL/HDL Ratio 1.13 RATIO (0.00-3.22) 02/20/24 11:38 Cholesterol/HDL Ratio 2.48 mg/dL (0.0-4.40) 02/20/24 11:38 Procalcitonin 0.10 ng/mL (0-0.5) 02/18/24 10:31 TSH 1.64 uIU/mL (0.27-4.20) 02/18/24 10:31 Random Cortisol 0.87 ug/dL (2.47-19.5) L 02/20/24 11:38 Cortisol Response 02/20/24 11:38 Urine Color Yellow (Yellow) 02/18/24 14:54 Urine Appearance Clear (CLEAR) 02/18/24 14:54 Urine pH 6 (5-7) 02/18/24 14:54 Ur Specific [place] 1.010 (1.005-1.030) 02/18/24 14:54 Urine Protein Neg (Negative) 02/18/24 14:54 Urine Glucose (UA) Norm (Normal) 02/18/24 14:54 Urine Ketones Negative (Negative) 02/18/24 14:54 Urine Blood Neg (Negative) 02/18/24 14:54 Urine Nitrate Negative (Negative) 02/18/24 14:54 Urine Bilirubin Neg (Negative) 02/18/24 14:54 Urine Urobilinogen Norm mg/dL (Negative) 02/18/24 14:54 Ur Leukocyte Esterase Negative (Negative) 02/18/24 14:54 Urine Osmolality 342 mOsm/kg (50-1200) 02/20/24 16:20 SARS-CoV-2 Ag (Rapid) negative (Negative) 02/21/24 08:20 Blood Type O Positive 02/19/24 07:55 Rho(D) Type Rh positive 02/19/24 07:55 Antibody Screen Negative 02/19/24 07:55 A&P Assessment and plan (1) Acute myocardial infarction: Patient status post cardiac catheterization followed by PCI. May continue the current medication. Continue on the Plavix and aspirin Qualifiers: Myocardial infarction type: ST elevation myocardial infarction Involved coronary artery: LAD coronary artery Qualified Code(s): I21.02 - ST elevation (STEMI) myocardial infarction involving left anterior descending coronary artery (2) HTN (hypertension): Currently normotensive. May continue on the current measures. Qualifiers: Hypertension type: essential hypertension Qualified Code(s): I10 - Essential (primary) hypertension (3) Pacemaker: Patient status post permanent pacemaker implantation for complete heart block. Pacemaker function found to be appropriate. Continue on the current monitoring schedule (4) SVT (supraventricular tachycardia): Has not had a recurrence of his SVT recently. May continue on the current medications (5) Elevated cholesterol: I may start her on Lipitor 40 mg p.o. now and daily. Further follow-up evaluationsas per the primary care (6) Fracture of femoral neck, left: Status post closed reduction and percutaneous pinning. Seems stable. Getting physical therapy. Qualifiers: Encounter type: subsequent encounter Fracture type: closed Fracture healing: with routine healing Qualified Code(s): S72.002D - Fracture of unspecified part of neck of left femur, subsequent encounter for closed fracture with routine healing (7) Elevated white blood cell count: White cell count is back to normal. Possibly related to diverticulitis. He is on antibiotic. Qualifiers: Leukocytosis type: unspecified Qualified Code(s): D72.829 - Elevated white blood cell count, unspecified Plan Management of diverticulitis as per the primary Patient may continue on the current medications. Need to be seen back in the [facility] in 1 to 2 weeks. Appointment with me in the office in couple of months Attestations Medical Necessity Statement*: Disposition as per the primary Coding Level of Care Code [address] elevation myocardial infarction (STEMI) involving left anterior descending (LAD) coronary artery I21.02 Myocardial infarction type: ST elevation myocardial infarction Involved coronary artery: LAD coronary artery Essential hypertension I10 Hypertension type: essential hypertension Pacemaker Z95.0 SVT (supraventricular tachycardia) I47.1 Elevated cholesterol E78.00 Closed fracture of neck of left femur with routine healing, subsequent encounter S72.002D Encounter type: subsequent encounter Fracture type: closed Fracture healing: with routine healing Leukocytosis, unspecified type D72.829 Leukocytosis type: unspecified
[2024-02-23 11:50] LABS: C Reactive Protein 179.3 mg/L (0.0-4.9)
[2024-02-23 11:56] LABS: Procalcitonin 1.67 ng/mL (0-0.5)
[2024-02-23 12:17] LABS: Ferritin 206 ng/mL (15-150); Iron 27 ug/dL (37-145)
--- NOTE | 2024-02-23 13:41 | P.PN_ITS ---
Subjective 2 Subjective: - Patient was seen this morning -She is sitting up in a chair, family me mbers at bedside -Overnight she did report liquidy stools , she is not sure if he had any blood, does report abdominal pain, abdominal bloating, feels nauseous, -Afebrile overnight, normotensive, no ch est pain -She is alert to person, to place, not t o time she follows commands -Family is concerned about her persisten t abdominal pain, her bloating, concern for bloody stools -She had 1 reported episode of black tar ry stools over 72 hours ago, since then she has had bowel movements which are liquid stools, some with blood, Hemoccult stool was positive, but denies any paola bloody stools, no hematochezia -She is on aspirin and Plavix -White blood cell count 9.31, however CR P and Pro-Khris are elevated -Will repeat CT scan with IV contrast, t o look for diverticular abscess, given diverticulitis, initially had plans to switch her to Augmentin and advance her diet however for now we will keep her on clear liquids, continue Zosyn add IV fluids, -General surgery consulted, plans for EG D tomorrow Vitals/I&O/Wt Last Vital Signs Temp 97.8 F 02/23/24 10:58 Pulse 67 02/23/24 10:58 Resp 16 02/23/24 10:58 BP 128/67 02/23/24 10:58 Pulse Ox 100 02/23/24 10:58 O2 Del Method Room Air 02/23/24 10:58 O2 Flow Rate 6 02/19/24 10:55 02/22/24 02/23/24 02/23/24 22:59 06:59 14:59 Intake Total 50.208 / 220.208 600 / 820.208 170 / 170 Balance 50.208 / -499.792 600 / 100.208 170 / 170 Weight last 48 hrs Weight 45.223 kg Weight 44.044 kg Physical Exam 2 Const: COMMON NORMALS: no acute distress and patient oriented x3 Resp: COMMON NORMALS: normal respiratory effort, No retractions, No use of accessory muscles and clear to auscultation bilaterally AUSCULTATION: clear to auscultation bilaterally Cardio: COMMON NORMALS: regular rate, regular rhythm, S1 normal heart sound present and S2 normal heart sound present RATE: regular rate RHYTHM: r egular rhythm HEART SOUNDS: S1 normal heart sound present and S2 normal heart sound present GI: OTHER: Abdomen soft, slightly distended, good bowel sounds in all 4 quadrants, no guarding, no rebound, rigidity, does have diffuse tenderness although minimal, Extremity: COMMON NORMALS: no pedal edema Neuro: COMMON NORMALS: patient oriented x3 Psych: COMMON NORMALS: mental status grossly normal Data 02/23/24 08:40 02/23/24 08:40 A&P Assessment and plan (1) Syncope: Qualifiers: Syncope type: unspecified Qualified Code(s): R55 - Syncope and collapse (2) Hip fracture: Qualifiers: Encounter type: initial encounter Fracture type: closed Laterality: l eft Qualified Code(s): S72.002A - Fracture of unspecified part of neck of left femur, initial encounter for closed fracture (3) Hyponatremia: (4) Chest pain: (5) Anemia: (6) Diverticulitis: Plan Syncopal episode ? Potentially related to acute on chronic hyponatremia ? Her last fall was about a month ago in which she had a third metatarsal fracture requiring a walking boot ? Plan ? Has a pacemaker in place, will interrogate pacemaker ? Cardiac echo WNL Carotid artery ultrasound WNL ? CT head patient refuses ct head ? Serial troponins, serial EKGs, telemetry monitoring ? No chest pain complaints ? Obtain a urinalysis, WNL ? will do orthostatic vitals ? Continue to monitor closely Acute on chronic hyponatremia, 132, stop fluoxetine, Left hip fracture -s/p surgical intervention ? Cardiac diet, ? SCDs and Lovenox for DVT prophylaxis, morphine for pain control ? Orthopedic service has been consulted History of third-degree AV block, with pacemaker placement History of atrial fibrillation, not on anticoagulation, not on rate control therapy, telemetry monitoring, EKG Chest pain -Status post cardiac stenting x 2 ? Aspirin 81 mg -Plavix 75 mg -Coreg 3.125 twice daily -80 mg atorvastatin ? Monitor for chest pain ? Cardiac echo CONCLUSIONS This is a limited echocardiogram performed to assess LV systolic function. LV systolic function is moderately reduced with EF of 35 to 40%. Severe hypokinesis of apical, mid to apical anterolateral, anterior and inferolateral torrez Compared to prior echocardiogram from 02/18/2024, LV systolic function has decreased significantly. Hemoccult positive stools His anemia His Protonix 40 mg IV twice daily His Carafate 1 g every 6 hours Monitor hemoglobin every 6 hours ? Monitor for concerns for GI bleed, possible old lower diverticular bleed possible related to hemorrhoid/anal fissure, severe constipation ? No hemodynamic instability, no profuse bleeding, just scant bright red blood per rectum will monitor closely as patient is on aspirin and Plavix hold off on Lovenox monitor for 24 hours Diverticulitis ? Continue IV fluids -Continue Zosyn -Clear liquids Lovenox for DVT prophylaxis, SCDs, Protonix for GI prophylaxis CODE STATUS, patient does not want to be intubated, she is DNI, we also talked about intubation for even short period of time she does not want to be intubated, she is okay with CPR, okay with defibrillation, okay with drugs per ACLS, okay with ICU admission. - Patient was seen this morning -She is sitting up in a chair, family members at bedside -Overnight she did report liquidy stools, she is not sure if he had any blood, does report abdominal pain, abdominal bloating, feels nauseous, -Afebrile overnight, normotensive, no chest pain -She is alert to person, to place, not to time she follows commands -Family is concerned about her persistent abdominal pain, her bloating, concern for bloody stools -She had 1 reported episode of black tarry stools over 72 hours ago, since then she has had bowel movements which are liquid stools, some with blood, Hemoccult stool was positive, but denies any paola bloody stools, no hematochezia -She is on aspirin and Plavix -White blood cell count 9.31, however CRP and Pro-Khris are elevated -Will repeat CT scan with IV contrast, to look for diverticular abscess, given diverticulitis, initially had plans to switch her to Augmentin and advance her diet however for now we will keep her on clear liquids, continue Zosyn add IV fluids, -General surgery consulted, plans for EGD tomorrow Attestations 2 Medical Necessity Statement*: Patient requires hospitalization for concerns for persistent abdominal pain, with history of diverticulitis, concerns for possible diverticular abscess due to persistent abdominal pain elevated ESR, CRP Diagnoses Syncope, unspecified syncope type R55 Syncope type: unspecified Hip fracture S72.002A Encounter type: initial encounter Fracture type: closed Laterality: left Hyponatremia E87.1 Chest pain R07.9 Anemia D64.9 Diverticulitis K57.92
--- NOTE | 2024-02-23 13:43 | PM.CONSULT ---
Providers/Reason For Consult Consulting Physician/Specialty*: Dr. Anoop Adams, DO/General surgery Reason for Consult*: Diverticulitis Melena Attending Physician: Bruce Cisneros MD Primary Care Provider: Dedrick Person MD History of Present Illness History of Present Illness Millicent Angel is a 84 year old female who was originally in the hospital for a hip fracture. She underwent orthopedic repair and then postoperatively she developed chest pain and epigastric pain. She has been seen by cardiology. Her epigastric pain is sharp, burning and constant and radiates to her back. Palpation makes pain worse. Nothing makes pain better. She then developed melena. She has a history of diverticulitis in the distant past. As part of workup for her abdominal pain she had a CT of the abdomen pelvis which shows diverticulitis of her descending colon. She denies any nausea, emesis and/or diarrhea. She does report that she has some issues with constipation. She has a history of treated anal Paget's disease and reports that she has a somewhat stenosed anus and constipation issues related to this. CT also showed high fecal burden. General surgery was consulted because of the melena and diverticulitis. Review of Systems General: Reports: 10 or more systems reviewed and unremarkable except in HPI and below Medications/Allergies Home Medications Medication Instructions Recorded Confirmed Last Taken Type multivitamin 1 cap PO QAM 07/30/19 02/18/24 1 Day Ago History ~02/17/24 cetirizine 10 mg tablet (Zyrtec) 10 mg PO DAILY 12/27/22 02/18/24 1 Day Ago History ~02/17/24 magnesium oxide 250 mg PO BID 12/27/22 02/18/24 Unknown History nitroglycerin 0.4 mg sublingual 0.4 mg sublingual Q5M PRN chest 12/27/22 02/18/24 Unknown Rx tablet (Nitrostat) pain #25 tabs fluoxetine 20 mg capsule See Rx Instructions .Route 09/27/23 02/18/24 Unknown Rx .COMPLEX #90 caps isosorbide mononitrate 30 mg 30 mg PO DAILY #90 tabs 11/15/23 02/18/24 1 Day Ago Rx tablet,extended release 24 hr ~02/17/24 clonazepam 0.5 mg tablet 0.5 mg PO TID PRN anxiety #90 tabs 12/05/23 02/18/24 1 Day Ago Rx ~02/17/24 ondansetron 4 mg disintegrating 4 mg PO Q8H PRN nausea and 02/19/24 Unknown Rx tablet vomiting 3 days #9 tabs amoxicillin 875 mg-potassium 1 tab PO BID 12 days #24 tabs 02/23/24 Unknown Rx clavulanate 125 mg tablet aspirin 81 mg tablet,delayed 81 mg PO DAILY 30 days #30 tabs 02/23/24 Unknown Rx release atorvastatin 40 mg tablet 80 mg (2 x 40 mg) PO BEDTIME 30 02/23/24 Unknown Rx days #30 tabs carvedilol 3.125 mg tablet 3.125 mg PO BID 30 days #60 tabs 02/23/24 Unknown Rx clopidogrel 75 mg tablet 75 mg PO DAILY 30 days #60 tabs 02/23/24 Unknown Rx hydrocodone 5 mg-acetaminophen 325 1 tab PO Q6H PRN pain 7 days #28 02/23/24 Unknown Rx mg tablet tabs hydrocodone 5 mg-acetaminophen 325 1 tab PO Q6H PRN pain 7 days #28 02/23/24 Unknown Rx mg tablet tabs losartan 50 mg tablet 50 mg PO BID 30 days #60 tabs 02/23/24 Unknown Rx multivitamin with folic acid 400 1 tab PO DAILY 30 days #30 tabs 02/23/24 Unknown Rx mcg tablet (Thera) pantoprazole 40 mg tablet,delayed 40 mg PO BID 30 days #60 tabs 02/23/24 Unknown Rx release (Protonix) sucralfate 100 mg/mL oral 1 g (10 mL) PO Q12H 30 days #600 mL 02/23/24 Unknown Rx suspension Allergies Allergy/AdvReac Type Severity Reaction Status Date / Time gabapentin Allergy Intermediate diarrhea Verified 02/18/24 21:18 pregabalin [From Lyrica] Allergy Intermediate swelling Verified 02/18/24 21:18 metoprolol AdvReac Intermediate bitter Verified 02/18/24 21:18 taste promethazine [From Phenergan] AdvReac disoriented Verified 02/18/24 21:18 Sulfa (Sulfonamide AdvReac abdominal Verified 02/18/24 21:18 Antibiotics) pain Current Medications Generic Name Dose Route Start Last Admin Trade Name Freq PRN Reason Stop Dose Admin Acetaminophen 650 mg 02/18/24 12:50 02/23/24 04:05 Acetaminophen 325 Mg Tablet PO 650 mg Q6H PRN Administration Mild/Mod Pain Or Temp >/= 101 Aspirin 81 mg 02/22/24 09:00 02/23/24 08:30 Aspirin 81 Mg Ec Tablet PO 81 mg DAILY REBECA Administration Atorvastatin Calcium 80 mg 02/22/24 21:00 02/23/24 20:26 Atorvastatin 40 Mg Tablet PO 80 mg BEDTIME REBECA Administration Calcium Carbonate 1 each 02/19/24 18:00 02/23/24 17:51 Calcium Carb-Vit D 600mg/400unit 1 Tablet PO 1 each BID REBECA Administration Carvedilol 3.125 mg 02/21/24 09:10 02/23/24 17:52 Carvedilol 3.125 Mg Tablet PO 3.125 mg BID REBECA Administration Chlorhexidine Gluconate 30 ml 02/19/24 13:00 02/23/24 20:25 Chlorhexidine Gluconate 0.12% Btl 473 Ml MUCOUS MEM 30 ml QID REBECA Administration Clonazepam 0.5 mg 02/18/24 12:50 02/23/24 20:29 Clonazepam 0.5 Mg Tablet PO 0.5 mg TID PRN Administration anxiety Clopidogrel Bisulfate 75 mg 02/22/24 09:00 02/23/24 08:30 Clopidogrel 75 Mg Tablet PO 75 mg DAILY REBECA Administration Piperacillin Sod/Tazobactam 50 mls @ 12.5 mls/hr 02/23/24 16:00 02/23/24 20:23 Sod 3.375 gm/ Sodium Chloride IV Infused Q8H REBECA Infusion Protocol Sodium Chloride 1,000 mls @ 50 mls/hr 02/23/24 14:00 02/23/24 16:03 Sodium Chloride 0.9% IV 50 mls/hr .Q20H REBECA Administration Losartan Potassium 50 mg 02/18/24 18:00 02/23/24 17:52 Losartan 50 Mg Tablet PO 50 mg BID REBECA Administration Morphine Sulfate 2 mg 02/18/24 12:50 02/20/24 21:49 Morphine 4 Mg/Ml Sdv 1 Ml IVP 2 mg Q4H PRN Administration SEVERE PAIN Multivitamins Therapeutic 1 tab 02/20/24 09:00 02/23/24 08:31 Multivitamin Therapeutic Tablet PO 1 tab DAILY REBECA Administration Mupirocin 1 applic 02/19/24 18:00 02/23/24 17:52 Mupirocin Oint 22 Gm NASAL 02/24/24 17:59 Not Given BID [facility] Protocol Non-Formulary Medication 250 mg 02/18/24 18:00 02/23/24 17:30 Magnesium Oxide PO Not Given BID REBECA Ondansetron HCl 4 mg 02/18/24 12:50 02/21/24 03:07 Ondansetron 2 Mg/Ml Sdv 2 Ml IVP 4 mg Q8H PRN Administration vomiting, or N/V if npo Oxycodone HCl 5 mg 02/19/24 11:30 02/20/24 15:12 Oxycodone 5 Mg Ir Tab/Cap PO 5 mg Q6H PRN Administration Mod to severe pain , 2nd line Pantoprazole Sodium 40 mg 02/21/24 18:00 02/23/24 17:52 Pantoprazole 40 Mg Sdv IVP 40 mg Q12H REBECA Administration Polysaccharide Iron Complex 150 mg 02/19/24 18:00 02/21/24 08:20 Iron Polysaccharide Complex 150 Mg Capsule PO 150 mg BIDWM REBECA Administration Senna/Docusate Sodium 2 tab 02/19/24 18:00 02/23/24 17:52 Sennosides-Docusate Tablet PO 2 tab BID REBECA Administration Sucralfate 1 gm 02/21/24 18:00 02/23/24 17:52 Sucralfate 1 Gm/10 Ml Oral Liq Udc PO 1 gm Q6H REBECA Administration PFSH Acute PFSH: Medical History Atrial fibrillation Meningioma Meningioma identified during evaluation for chronic headaches-followed with neurology Dr. De Los Santos in [place] and states it was stable. She has been cleared and has not seen a neurologist in over 4 years. Elevated cholesterol Diagnosed in 2011 and has been on and off medication. Managed by PMD Paget's disease Status post excision surgery and radiation in 2020 done at [place]. No pertinent past medical history Denies diabetes, asthma, seizures, DVT/PE PCP: Dr. Person SVT (supraventricular tachycardia) HTN (hypertension) Surgical History S/P cardiac pacemaker procedure 2020 History of rectal surgery X 3 Patient had perianal excision of Paget's disease done by Dr. Adamson and Dr. Goss in [place] first in May 2017 and then again in July 2018, 2020 S/P hysterectomy Vaginal, done for prolapse in 1981. She was told there was no cancer. S/P tubal ligation Laparoscopic procedure performed in 1979 Family History Mother Heart disease Hypertension Father Heart disease Daughter Diabetes Sister Hyperlipidemia Other Colon cancer Denies family history of Ovarian cancer Breast cancer Uterine cancer Thyroid disease Stroke Social History Smoking and tobacco/nicotine status: unknown if used tobacco/nicotine Alcohol intake: never Substance/Drug Use: never Vitals/I&O/Wt Last Vital Signs Temp 98.1 F 02/23/24 20:00 Pulse 62 02/23/24 21:27 Resp 19 H 02/23/24 20:00 BP 127/73 02/23/24 20:00 Pulse Ox 95 02/23/24 20:00 O2 Del Method Room Air 02/23/24 20:00 O2 Flow Rate 6 02/19/24 10:55 02/23/24 02/23/24 02/23/24 06:59 14:59 22:59 Intake Total 600 / 820.208 170 / 170 450 / 620 Output Total 300 / 300 Balance 600 / 100.208 170 / 170 150 / 320 Weight last 48 hrs Weight 99 lb 11.2 oz Weight 97 lb 1.6 oz Physical Exam Narrative: General : Patient is well developed , no acute distress, oriented x3 Head : Normal cephalic, a-traumatic. Ears : Pinnae and external canal are normal. Hearing is normal. Eyes : PERRLA, Sclera and injection are normal. No conjunctival discharge. Nose : Mucous membranes are without erythema. Throat : buccal mucosa is normal, gums are without significant recession or hypertrophy. Lungs : Equal chest rise bilaterally, no use of accessory muscles, trachea is midline. Cor : Rate and rhythm are normal. Abdomen : Soft, ND, tender over the epigastrium, no g/r/m Extremities : No edema, no cyanosis or clubbing, dorsalis pedis pulses are present bilaterally, non-tender to palpation of calves. Upper extremities are normal bilaterally. Back : non-tender to palpation, no CVA tenderness. Neuro : CN II - XII intact, Upper and lower extremities have equal and full strength Urinary Catheter Management: Bernard: Cath Placed During This Visit: yes Urinary Catheter Date of Insertion: 02/23/24 Urinary Catheter Time of Insertion: 15:30 Data 02/23/24 08:40 02/23/24 08:40 A&P Assessment and plan (1) Epigastric pain: (2) Melena: (3) Anemia: (4) Diverticulitis: (5) Acute non-ST elevation myocardial infarction (NSTEMI): (6) Constipation: Plan Recommend Zosyn to treat the diverticulitis. 14-day course of antibiotics to be completed with Augmentin at home N.p.o. after midnight Tomorrow for EGD The risks and benefits of the procedure, including bleeding, infection, intestinal perforation requiring surgery, missed lesion were explained to the patient. The patient is understanding of the risks and wishes to proceed. Will start her on a bowel regimen after endoscopy with daily MiraLAX Medical management per hospitalist Coding Level of Care Code 57063 Diagnoses Epigastric pain R10.13 Melena K92.1 Anemia D64.9 Diverticulitis K57.92 Acute non-ST elevation myocardial infarction (NSTEMI) I21.4 Constipation K59.00
--- NOTE | 2024-02-23 13:45 | CT_ITS ---
WS: [id number] CT ABDOMEN AND PELVIS WITH CONTRAST HISTORY: abdominal pain TECHNIQUE: Imaging performed of the abdomen and pelvis with IV contrast. Single phase imaging of the abdomen. Coronal and sagittal reformats are submitted. All CT scans at [facility] use at [address] one of these dose optimization techniques: automated exposure control; mA and/or kV adjustment per patient size (includes targeted exams where dose is matched to clinical indication); or iterative re construction. IV CONTRAST: Omnipaque 350; 100 mL IV. Oral contrast: No DLP: 394.36 mGy.cm COMPARISON: 02/20/2024 Lower thorax: Chronic changes at the lung bases. No pneumonia. Heart is normal size. No hiatal hernia . Liver/biliary system: Normal size liver. Very slight prominence of the bile ducts centrally similar t o 06/07/2021. Gallbladder: Normal. No gallstones or wall thickening. No pericholecystic fluid. Pancreas: Normal size pancreas. Mild pancreatic duct dilatation. There is a tiny low-attenuation lesi on contiguous with the pancreatic duct measuring 2.8 mm in the tail. Most likely an IPMN. Spleen: Normal size spleen. No mass or infarct. Adrenal glands: Normal. Right kidney: Normal. Left kidney: Too small to characterize cortical hypodensities. No obstruction. Aorta: Mild atherosclerosis with no aneurysm. Small amount of plaque origin of the celiac axis and SM A. Lymphadenopathy: None. Free fluid: None. GI tract: Stomach is nondistended. No small bowel obstruction. The extent of fluid and fecal material throughout the colon has significantly improved since 02/20/2024. Numerous diverticula in the sigmoid colon. No acute diverticulitis. Abdominal wall: Fat containing umbilical hernia. Pelvis: Urinary bladder is markedly distended which is new since the prior study. No intraluminal justus ling defect. Bones: Rotary scoliosis with degenerative changes throughout the lumbar spine. Prior ORIF LEFT hip. CT/CT abdomen pelvis w con* [id number] IMPRESSION: 1. Significant improvement in the previously described diffuse constipation an d fluid in the colon. 2. Sigmoid diverticulosis without acute diverticulitis. 3. Urinary bladder is markedly distended. Please ensure the patient is able to void. 4. No free air. 5. No renal obstruction.
[2024-02-23] MEDS: iohexol 350 mg/mL 500 mL Btl (per mL) IV (14:49)
[2024-02-23 15:28] LABS: Add Urine Microscopic? NO; Charge for UA Resulting for Rev
[2024-02-23 15:57] LABS: Bilirubin Urine Neg (Negative); Blood Urine Neg (Negative); Glucose Urine UA Norm (Normal); Ketones Urine Negative (Negative); Leukocyte Esterase Urine Negative (Negative); Nitrate Urine Negative (Negative); Protein Urine Neg (Negative); Specific Gravity, Urine 1.005 (1.005-1.030); Urine Appearance Clear (CLEAR); Urine Color Yellow (Yellow); Urobilinogen Urine Norm (Negative); pH Urine 6.5 (5-7)
[2024-02-23] MEDS: sodium chloride 0.9% 1,000 ML 50 ML IV (16:03)
--- NOTE | 2024-02-23 17:27 | ECG_ITS ---
[facility] Test Date: 2024-02-23 Pat Name: Millicent Angel Department: Room: 108 Gender: Female Facing Baster: : [id number] Requested By: Bruce Cisneros Order Number: [id number] Nahun MD: Ricky Marshall M.D. Measurements Intervals [place] Rate: 67 P: 53 FL: 194 QRS: -78 QRSD: 130 T: 127 QT: 464 QTc: 492 Interpretive Statements ELECTRONIC ATRIAL PACEMAKER ELECTRONIC VENTRICULAR PACEMAKER ABNORMAL RHYTHM ECG INTERPRETATION BASED ON A DEFAULT AGE OF 40 YEARS Compared to ECG 02/21/2024 15:58:18 No significant changes Electronically Signed On 02-23-2024 20:00:34 CDT by Ricky Marshall M.D. [email or web address]
[2024-02-23] MEDS: sennosides-docusate Tablet 2 TAB PO (17:52)
[2024-02-23] MEDS: chlorhexidine gluconate 0.12% Btl 473 mL 30 ML MUCOUS MEM (20:25)
[2024-02-23] MEDS: atorvastatin 40 mg Tablet 80 MG PO (20:26)
[2024-02-23] MEDS: CLONazepam 0.5 mg Tablet PO (20:29)
[2024-02-24] VITALS (13 sets, daily range): BP systolic 108–149; BP diastolic 57–82; PULSE 63–92; RESP 18–28; TEMP 36.1–36.8; O2SAT 95–100
[2024-02-24] MEDS: oxyCODONE 5 mg IR Tab/Cap PO (00:16)
[2024-02-24 05:23] LABS: Basophils # 0.1 10^3/uL (0.0-0.1); Basophils % 0.7 %; Eosinophils # 0.4 10^3/uL (0.0-0.8); Hematocrit 27.7 % (36-47); Lymphocytes # 1.6 10^3/uL (0.8-4.8); Lymphocytes % 21.3 %; Mean Corpuscular HGB Conc 32.1 g/dL (30-55); Mean Corpuscular Hemoglobin 30.4 pg (27-33); Mean Corpuscular Volume 94.5 fl (85-98); Mean Platelet Volume 9.6 fL (7.4-10.4); Monocytes # 0.8 10^3/uL (0.2-0.9); Monocytes % 10.4 %; Neutrophils # 4.46 10^3/uL (1.8-7.7); Neutrophils % 61.3 %; Nucleated Red Blood Cells % 0 %; Platelet Count 291 10^3/cmm (157-399); Red Blood Count 2.93 10^6/uL (3.85-5.65); Red Cell Distribution Width 13.3 % (12.1-15.1); White Blood Count 7.28 10^3/uL (3.29-11.43)
[2024-02-24] MEDS: pantoprazole 40 mg SDV IVP (05:41)
[2024-02-24 05:48] LABS: Alanine Aminotransferase 11 U/L (0-33); Albumin Level 2.9 g/dL (3.5-5.2); Alkaline Phosphatase 83 U/L (35-105); Anion Gap 13.3 (5-19); Aspartate Amino Transferase 20 U/L (0-32); Blood Urea Nitrogen 8 mg/dL (8-23); C Reactive Protein 86.5 mg/L (0.0-4.9); Calcium 8.4 mg/dL (8.5-10.5); Carbon Dioxide 22 mmol/L (22-29); Chloride 102 mmol/L (98-107); Creatinine Clr Calc Pharmacy 40.0442; Globulin 2.5 g/dL (1.3-4.6); Glucose 89 mg/dL (65-115); Magnesium 1.9 mg/dL (1.7-2.3); Osmolality Calculated 276 mOsm/kg (285-295); Phosphorus 3.2 mg/dL (2.5-4.5); Potassium 3.3 mmol/L (3.5-5.1); Sodium 134 mmol/L (136-145); Total Bilirubin 0.3 mg/dL (0.15-1.2); Total Protein 5.4 g/dL (6.6-8.7)
[2024-02-24 05:50] LABS: Procalcitonin 1.24 ng/mL (0-0.5)
--- NOTE | 2024-02-24 07:50 | ANES.PAUD2 ---
Pre-Anesthetic Update Pre-Anesthetic Assessment: Date of Surgery/Procedure: 02/24/24 Preop Diagnosis: NSTEMI Proposed Procedure: Operation Date: 02/19/24 09:35 Proposed Procedures p Hip Screw(Left) - Taco Shirley DO Operation Date: 02/21/24 10:45 Proposed Procedures p Cardiac Catheterization(Not Applicable) - Rakesh Tavares M.D Operation Date: 02/24/24 08:00 Proposed Procedures p EGD(Not Applicable) - Anoop Adams, DO Any changes to Pre-Anesthetic Assessment?: Yes Changes from Pre-Anesthetic Assessment: [place] with stents placed Last Intake: Intake Last Liquid Date 02/23/24 Last Liquid Time 23:59 Last Solid Date 02/23/24 Last Solid Time 12:00 Labs Last 48hrs: Short CBC 02/22/24 02/22/24 02/23/24 Range/Units 12:45 20:56 08:40 WBC 9.31 (3.29-11.43) 10^ 3/uL Hgb 12.80 9.80 L 10.10 L (11.27-16.99) g/ dL Hct 38.7 29.2 L 32.2 L (36-47) % MCV 97.0 (85-98) fl Plt Count 286 (157-399) 10^3/c mm Neut % (Auto) 69.3 % Neut # (Auto) 6.45 (1.8-7.7) 10^3/u L 02/24/24 Range/Units 04:29 WBC 7.28 (3.29-11.43) 10^ 3/uL Hgb 8.90 L (11.27-16.99) g/ dL Hct 27.7 L (36-47) % MCV 94.5 (85-98) fl Plt Count 291 (157-399) 10^3/c mm Neut % (Auto) 61.3 % Neut # (Auto) 4.46 (1.8-7.7) 10^3/u L BMP 02/22/24 02/23/24 02/24/24 12:45 08:40 04:29 Sodium 130 L 132 L 134 L Potassium 3.8 3.3 L Chloride 103 102 Carbon Dioxide 19 L 22 BUN 10 8 Creatinine 0.8 0.8 Glucose 109 89 Calcium 8.4 L 8.4 L Liver Function 02/24/24 Range/Units 04:29 Total Bilirubin 0.3 (0.15-1.2) mg/dL AST 20 (0-32) U/L ALT 11 (0-33) U/L Alkaline Phosphata se 83 (35-105) U/L Albumin 2.9 L (3.5-5.2) g/dL Urine 02/23/24 Range/Units 15:18 Urine Color Yellow (Yellow) Urine Appearance Clear (CLEAR) Urine pH 6.5 (5-7) Ur Specific Gravit y 1.005 (1.005-1.030) Urine Protein Neg (Negative) Urine Glucose (UA) Norm (Normal) Urine Ketones Negative (Negative) Urine Nitrate Negative (Negative) Urine Bilirubin Neg (Negative) Ur Leukocyte Diane ase Negative (Negative) Coags 02/23/24 02/24/24 08:40 04:29 C-Reactive Protein 179.3 H 86.5 H Vitals: Temperature 97.0 F L 02/24/24 08:22 Temperature Source Temporal Artery S can 02/24/24 08:22 Pulse Rate 68 02/24/24 08:35 Pulse Rhythm Regular 02/21/24 20:00 Pulse Strength 3+ Normal 02/24/24 05:27 Respiratory Rate 20 H 02/24/24 08:35 Respiratory Effort Spontaneous, Non- Labored 02/23/24 20:00 Respiratory Depth Normal 02/23/24 20:00 Respiratory Patter n Normal 02/19/24 21:24 Blood Pressure 149/79 02/24/24 08:35 Blood Pressure Judith n 102 02/24/24 08:35 Blood Pressure Pos ition Semi Fowlers 02/23/24 04:00 Pulse Oximetry 95 02/24/24 08:35 Oxygen Delivery Me thod Room Air 02/24/24 08:35 Oxygen Flow Rate 3 02/24/24 08:22 Sepsis Recent Feve r Within 48 Hours No 02/18/24 09:42 Exam: Pre-Anes Outpt Exam: alert, oriented x 3, clear to auscultation bilaterally and regular rate & rhythm Cardiac Studies: Echocardiogram 12/20/23 Echocardiogram Limited Views 02/21/24 Sestamibi Stress Test (Cardiology) 01/12/23
--- NOTE | 2024-02-24 07:59 | W.PM.OPSUD ---
Surgery/Procedure H&P Update DATE OF PROCEDURE: February 24, 2024 DATE H&P PERFORMED: 02/23/24 H&P UPDATE INFORMATION: I have reviewed H&P completed within last 30 days, I have examined patient prior to procedure and No changes to prior documentation PREOP DIAGNOSIS: NSTEMI PLANNED PROCEDURE: Operation Date: 02/19/24 09:35 Proposed Procedures p Hip Screw(Left) - Taco Shirley DO Operation Date: 02/21/24 10:45 Proposed Procedures p Cardiac Catheterization(Not Applicable) - Rakesh Tavares M.D Operation Date: 02/24/24 08:00 Proposed Procedures p EGD(Not Applicable) - Anoop Adams DO
--- NOTE | 2024-02-24 08:09 | PC.NURSE ---
off unit to gi lab for egd family is aware and informed. they're at waiting area.
[2024-02-24] MEDS: EPINEPHrine 1 mg/mL INJ XX (08:16)
--- NOTE | 2024-02-24 08:35 | ANE.PACU2 ---
Inpatient post-anesthesia follow up: Airway intact: Yes Vital signs: Temperature 98.2 F Pulse Rate [Orthos tatic 92 Standing] Pulse Rate [Orthos tatic 73 Sitting] Pulse Rate [Orthos tatic Lying] 75 Pulse Rate 70 Respiratory Rate 28 Blood Pressure [Or thostatic 110/74 Standing] Blood Pressure [Or thostatic 116/64 Sitting] Blood Pressure [Or thostatic 128/57 Lying] Blood Pressure [Le ft Arm] 124/67 Blood Pressure 149/75 Pulse Oximetry 97 Oxygen Delivery Me thod Room Air Oxygen Flow Rate 3 Fraction of Inspir ed Oxygen Hydration adequate: Yes Nausea and vomiting: No Pain level: 1 Mental status: Baseline
[2024-02-24] MEDS: magnesium oxide 400 mg tablet 200 MG PO (09:52)
[2024-02-24] MEDS: piperacillin-tazobactam 3.375 GM in sodium chloride 0.9% (plus) 50 ML IV (09:52)
[2024-02-24] MEDS: clopidogrel 75 mg Tablet PO (09:52)
[2024-02-24] MEDS: calcium carb-vit d 600mg/400unit 1 Tablet 1 EACH PO (09:52)
[2024-02-24] MEDS: iron polysaccharide complex 150 mg Capsule PO (09:54)
[2024-02-24] MEDS: aspirin 81 mg EC Tablet PO (09:54)
[2024-02-24] MEDS: multivitamin therapeutic Tablet 1 TAB PO (09:54)
[2024-02-24] MEDS: losartan 50 mg Tablet PO (09:54)
[2024-02-24] MEDS: carvedilol 3.125 mg Tablet PO (09:54)
[2024-02-24] MEDS: potassium chloride ER 20 mEq Tablet 40 MEQ PO (12:30)
[2024-02-24] MEDS: sucralfate 1 gm/10 mL Oral Liq UDC PO (12:30)
--- NOTE | 2024-02-24 12:41 | PC.NURSE ---
transportation request per dgtr/sister at bedside, stated they are not comfortable taking the pt in their private vehicle, would like the patient to get transported via ambulance.
--- NOTE | 2024-02-24 12:58 | PC.NURSE ---
[employer] Network Engineer came down to get the stat cbc as ordered. But was she was unsuccessful minutes ago. new diesel dinkey engineer came down and got the blood drawn.
[2024-02-24 13:36] LABS: Basophils # 0.1 10^3/uL (0.0-0.1); Basophils % 0.5 %; Eosinophils # 0.3 10^3/uL (0.0-0.8); Eosinophils % 3.4 %; Hematocrit 30.7 % (36-47); Lymphocytes # 1.4 10^3/uL (0.8-4.8); Lymphocytes % 15.5 %; Mean Corpuscular HGB Conc 32.9 g/dL (30-55); Mean Corpuscular Hemoglobin 31.5 pg (27-33); Mean Corpuscular Volume 95.6 fl (85-98); Mean Platelet Volume 9.4 fL (7.4-10.4); Monocytes # 0.8 10^3/uL (0.2-0.9); Monocytes % 8.3 %; Neutrophils # 6.64 10^3/uL (1.8-7.7); Neutrophils % 72.1 %; Nucleated Red Blood Cells % 0 %; Platelet Count 327 10^3/cmm (157-399); Red Blood Count 3.21 10^6/uL (3.85-5.65); Red Cell Distribution Width 13.3 % (12.1-15.1); White Blood Count 9.21 10^3/uL (3.29-11.43)
--- NOTE | 2024-02-24 13:54 | PM.DCS ---
Discharge Providers Date of Admission: 02/18/24 11:03 Date of Discharge: February 24, 2024 Attending Provider at Admission: Bruce Cisneros MD Attending Provider at Discharge: Bruce Cisneros MD Primary Care Provider: Dedrick Person MD Diagnoses at Discharge Discharge Diagnosis (1) Epigastric pain: Status: Acute (2) Melena: Status: Acute (3) Anemia: Status: Acute (4) Diverticulitis: Status: Acute (5) Acute non-ST elevation myocardial infarction (NSTEMI): Status: Acute (6) Constipation: Status: Acute Reason for Visit Reason for Visit: LEFT HIP PAIN S/P FALL Hospital Course Hospital Course Millicent Angel is a 84 year old female history of 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 Patient tells me that she has been having issues with passing out, she tells me that she has had extensive testing without any etiology identified. She tells me that she has fallen in the last month, she had a third metatarsal proximal fracture, placed in a boot, she just came out of the boot. This morning, she was sitting in a chair, when she had her let her dog out, she got out of the chair, walked a few feet, and fell,. Denies any preceding lightheadedness, dizziness, chest pain, palpitations, shortness of breath, strokelike symptoms no facial droop no slurring words no focal weakness. She is not sure if she passed out but tells me that this frequently happens. Currently has complaints in her left hip, found to have a left hip fracture, orthopedic service has been consulted by ER, hospitalist team was called for medical management, she denies being on any blood thinners Patient had a prolonged hospital course, please look at my last progress note for further detail Patient was admitted to [facility] for left hip fracture status post surgical intervention, clinically improved after surgical intervention discharged to care home facility, for DVT prophylaxis she will be discharged on aspirin 81 mg in addition to Plavix. In terms of adding on anticoagulant therapy, given her acute anemia, esophagitis/gastritis, Hemoccult positive stools, decision was made to not discharge her on any further anticoagulant therapy. Discussed with her the risk and benefits of anticoagulant therapy, she voiced understanding, all questions answered, shared decision making, agreed to hold off on anticoagulant therapy. Monitor for signs of DVT and PE if so come back to the hospital For her syncopal episode, likely related to acute on chronic anemia likely secondary to fluoxetine which has been held, continue to discontinue on discharge Acute on chronic hyponatremia, as above, sodium on discharge 134 During the hospitalization patient had complaints of chest pain, was found to have an NSTEMI, EF 35 to 40%, cardiology was consulted, underwent cardiac stenting x 2, managed on aspirin, Plavix, statin, Coreg. Will be discharged with a close follow-up with primary care provider and cardiology as outpatient. In terms of her aspirin and Plavix, she does have gastritis under EGD and esophagitis, and anemia, Hemoccult positive stools, certainly this is a difficult situation as patient needs antiplatelet therapy given her recent cardiac stenting but she is developing anemia, with Hemoccult positive stools. Nonetheless I discharged on Protonix, Carafate, monitor hemoglobin at senior living, transfuse hemoglobin is greater than 8, if she has any recurrent bloody black stools to go to emergency room For her Hemoccult positive stools, underwent EGD which showed evidence of severe esophagitis, mild gastritis without active bleeding, possible esophageal stricture at the GE junction. Will be discharged on Protonix 40 twice daily, Carafate, as patient is on aspirin and Plavix as above, follow-up with general surgery as outpatient. Will have senior living monitor CBC, hemoglobin on discharge 10.10 Patient's hospitalization was complicated with lower abdominal pain, bloating, findings of diverticulitis, managed on IV antibiotics, IV fluids, pain control bowel rest. Overall patient clinically improved, discharged on Augmentin, instructions on a GI soft diet, slowly advance diet follow-up with general surgery in 2 to 4 weeks. She will likely need a colonoscopy in 4 weeks, Physical Exam Const: COMMON NORMALS: no acute distress and patient oriented x3 Resp: COMMON NORMALS: normal respiratory effort, No retractions, No use of accessory muscles and clear to auscultation bilaterally AUSCULTATION: clear to auscultation bilaterally Cardio: COMMON NORMALS: regular rate, regular rhythm, S1 normal heart sound present and S2 normal heart sound present RATE: regular rate RHYTHM: regular rhythm HEART SOUNDS: S1 normal heart sound present and S2 normal heart sound present GI: COMMON NORMALS: Normal to inspection, nondistended, normoactive bowel sounds present and non-tender Extremity: COMMON NORMALS: no pedal edema Neuro: COMMON NORMALS: patient oriented x3 Psych: COMMON NORMALS: mental status grossly normal Urinary Catheter Management: Bernard: Cath Placed During This Visit: yes, but has since been removed by the nurse Reason for Continuing Indwelling Catheter: Decision to DC Catheter Urinary Catheter Date of Insertion: 02/23/24 Urinary Catheter Time of Insertion: 15:30 Date Urinary Catheter Removed: 02/24/24 Time Urinary Catheter Discontinued: 11:09 Discharge Data Studies Completed and Pending Completed Studies During Hospitalization Category Date Time Status CT abdomen pelvis w con* [id number] Stat Cat Scan 02/23/24 13:[address] abdomen pelvis wo con [id number] Stat Cat Scan 02/20/24 20:[address] pelvis wo con [id number] Stat Cat Scan 02/18/24 10:21 Completed XR chest 1V portable [id number] Stat Exams 02/18/24 10:21 Completed XR hip LT 2-3V wo/w pel* [id number] Routine Exams 02/19/24 10:31 Completed XR hip LT 2-3V wo/w pel* [id number] Stat Exams 02/18/24 09:46 Completed CV carotid duplex BI* [id number] Stat Ultrasound 02/18/24 11:23 Completed CV. echo limited [id number] Routine Ultrasound 02/21/24 09:42 Completed CV. echo limited [id number] Stat Ultrasound 02/18/24 11:23 Completed Pending at discharge Category Date Time Status STAFF DEVELOPMENT COORDINATOR request for service Routine Exams 02/21/24 10:30 Taken C Reactive Protein AM LABS Lab 02/25/24 04:00 Ordered C Reactive Protein AM LABS Lab 02/26/24 04:00 Ordered Complete Blood Count w/Auto AM LABS Lab 02/25/24 04:00 Ordered Complete Blood Count w/Auto AM LABS Lab 02/26/24 04:00 Ordered Comprehensive Metabolic Panel AM LABS Lab 02/25/24 04:00 Ordered Comprehensive Metabolic Panel AM LABS Lab 02/26/24 04:00 Ordered Magnesium AM LABS Lab 02/25/24 04:00 Ordered Magnesium AM LABS Lab 02/26/24 04:00 Ordered Phosphorus AM LABS Lab 02/25/24 04:00 Ordered Phosphorus AM LABS Lab 02/26/24 04:00 Ordered Procalcitonin AM LABS Lab 02/25/24 04:00 Ordered Procalcitonin AM LABS Lab 02/26/24 04:00 Ordered Pathology: Surgical [PTH] Routine Pth 02/24/24 08:20 Ordered Radiology Impressions Chest X-Ray 02/18/24 10:21 IMPRESSION: No acute findings. Pelvis CT 02/18/24 10:21 IMPRESSION: Acute left femoral neck fracture Carotid Doppler Study 02/18/24 11:23 IMPRESSION: No carotid arterial stenosis. REFERENCES: SRU CRITERIA. The degree of internal carotid artery stenosis is based on criteria defined by the Society of Radiologists in Ultrasound (SRU). Normal is no stenosis. Mild is less than 50% stenosis. Moderate is 50-69% stenosis. Severe is greater than 69% stenosis to near occlusion. Near occlusion is a markedly narrowed lumen. Total occlusion is no detectable patent lumen. Hip/Pelvis X-Ray 02/19/24 10:31 IMPRESSION: Unremarkable for postoperative purposes Abdomen/Pelvis CT 02/23/24 13:45 IMPRESSION: 1. Significant improvement in the previously described diffuse constipation and fluid in the colon. 2. Sigmoid diverticulosis without acute diverticulitis. 3. Urinary bladder is markedly distended. Please ensure the patient is able to void. 4. No free air. 5. No renal obstruction. Laboratory Results WBC 9.21 10^3/uL (3.29-11.43) 02/24/24 13:07 RBC 3.21 10^6/uL (3.85-5.65) L 02/24/24 13:07 Hgb 10.10 g/dL (11.27-16.99) L 02/24/24 13:07 Hct 30.7 % (36-47) L 02/24/24 13:07 MCV 95.6 fl (85-98) 02/24/24 13:07 MCH 31.5 pg (27-33) 02/24/24 13:07 MCHC 32.9 g/dL (30-55) 02/24/24 13:07 RDW 13.3 % (12.1-15.1) 02/24/24 13:07 Plt Count 327 10^3/cmm (157-399) 02/24/24 13:07 MPV 9.4 fL (7.4-10.4) 02/24/24 13:07 Neut % (Auto) 72.1 % 02/24/24 13:07 Lymph % (Auto) 15.5 % 02/24/24 13:07 Titus % (Auto) 8.3 % 02/24/24 13:07 Eos % (Auto) 3.4 % 02/24/24 13:07 Baso % (Auto) 0.5 % 02/24/24 13:07 Neut # (Auto) 6.64 10^3/uL (1.8-7.7) 02/24/24 13:07 Lymph # (Auto) 1.4 10^3/uL (0.8-4.8) 02/24/24 13:07 Titus # (Auto) 0.8 10^3/uL (0.2-0.9) 02/24/24 13:07 Eos # (Auto) 0.3 10^3/uL (0.0-0.8) 02/24/24 13:07 Baso # (Auto) 0.1 10^3/uL (0.0-0.1) 02/24/24 13:07 Nucleated RBC % (auto) 0 % 02/24/24 13:07 Nucleated RBCs # 0.0 /100WBC 02/24/24 13:07 PT 12.70 SECONDS (12.1-14.9) 02/18/24 10:31 INR 0.93 (0.8-1.2) 02/18/24 10:31 APTT 93.2 SECONDS (23.9-36.7) H 02/21/24 14:50 Sodium 134 mmol/L (136-145) L 02/24/24 04:29 Potassium 3.3 mmol/L (3.5-5.1) L 02/24/24 04:29 Chloride 102 mmol/L (98-107) 02/24/24 04:29 Carbon Dioxide 22 mmol/L (22-29) 02/24/24 04:29 Anion Gap 13.3 (5-19) 02/24/24 04:29 BUN 8 mg/dL (8-23) 02/24/24 04:29 Creatinine 0.8 mg/dL (0.5-0.9) 02/24/24 04:29 GFR Calculation Not Reportable 02/24/24 04:29 Glucose 89 mg/dL (65-115) 02/24/24 04:29 POC Glucose 228 mg/dL (70-110) H 02/20/24 21:50 Estimat Average Glucose 123 02/18/24 10:31 Hemoglobin A1c 5.9 % (4.0-6.0) 02/18/24 10:31 Serum Osmolality 277 mOsm/kg (278-305) L 02/20/24 11:38 Calculated Osmolality 276 mOsm/kg (285-295) L 02/24/24 04:29 Lactic Acid 1.7 mmol/L (0.5-2.2) 02/18/24 10:31 Calcium 8.4 mg/dL (8.5-10.5) L 02/24/24 04:29 Phosphorus 3.2 mg/dL (2.5-4.5) 02/24/24 04:29 Magnesium 1.9 mg/dL (1.7-2.3) 02/24/24 04:29 Iron 27 ug/dL (37-145) L 02/23/24 08:40 Ferritin 206 ng/mL (15-150) H 02/23/24 08:40 Total Bilirubin 0.3 mg/dL (0.15-1.2) 02/24/24 04:29 AST 20 U/L (0-32) 02/24/24 04:29 ALT 11 U/L (0-33) 02/24/24 04:29 Alkaline Phosphatase 83 U/L (35-105) 02/24/24 04:29 Troponin T 5th Gen ng/L 435 ng/L (0-10) H* 02/21/24 05:30 Troponin T Baseline 372 ng/L (0-10) H* 02/21/24 10:28 Troponin T 120 Minute 271.6 ng/L (0-10) H 02/21/24 13:15 Delta Troponin T -100.4 ABS# (0-10) L 02/21/24 13:15 Troponin T Hi Sens 6Hr 267.8 ng/L (0-10) H 02/21/24 14:50 Troponin T Hi Sens 6Hr Delta -104.2 ng/L (0-12) L 02/21/24 14:50 C-Reactive Protein 86.5 mg/L (0.0-4.9) H 02/24/24 04:29 NT-Pro-B Natriuret Pep 172 pg/mL (0-450) 02/18/24 10:31 Total Protein 5.4 g/dL (6.6-8.7) L 02/24/24 04:29 Albumin 2.9 g/dL (3.5-5.2) L 02/24/24 04:29 Globulin 2.5 g/dL (1.3-4.6) 02/24/24 04:29 Triglycerides 106 mg/dL (0-150) 02/20/24 11:38 Cholesterol 151 mg/dL (0-200) 02/20/24 11:38 LDL Cholesterol, Calc 69 mg/dL (50-129) 02/20/24 11:38 HDL Cholesterol 61 mg/dL (60-100) 02/20/24 11:38 LDL/HDL Ratio 1.13 RATIO (0.00-3.22) 02/20/24 11:38 Cholesterol/HDL Ratio 2.48 mg/dL (0.0-4.40) 02/20/24 11:38 Procalcitonin 1.24 ng/mL (0-0.5) H 02/24/24 04:29 TSH 1.64 uIU/mL (0.27-4.20) 02/18/24 10:31 Random Cortisol 0.87 ug/dL (2.47-19.5) L 02/20/24 11:38 Cortisol Response 02/20/24 11:38 Urine Color Yellow (Yellow) 02/23/24 15:18 Urine Appearance Clear (CLEAR) 02/23/24 15:18 Urine pH 6.5 (5-7) 02/23/24 15:18 Ur Specific [place] 1.005 (1.005-1.030) 02/23/24 15:18 Urine Protein Neg (Negative) 02/23/24 15:18 Urine Glucose (UA) Norm (Normal) 02/23/24 15:18 Urine Ketones Negative (Negative) 02/23/24 15:18 Urine Blood Neg (Negative) 02/23/24 15:18 Urine Nitrate Negative (Negative) 02/23/24 15:18 Urine Bilirubin Neg (Negative) 02/23/24 15:18 Urine Urobilinogen Norm mg/dL (Negative) 02/23/24 15:18 Ur Leukocyte Esterase Negative (Negative) 02/23/24 15:18 Urine Osmolality 342 mOsm/kg (50-1200) 02/20/24 16:20 SARS-CoV-2 Ag (Rapid) negative (Negative) 02/21/24 08:20 Blood Type O Positive 02/19/24 07:55 Rho(D) Type Rh positive 02/19/24 07:55 Antibody Screen Negative 02/19/24 07:55 Vitals Last Vital Signs Temp 97.8 F 02/24/24 12:00 Pulse 70 02/24/24 12:00 Resp 19 H 02/24/24 12:00 BP 129/73 02/24/24 12:00 Pulse Ox 97 02/24/24 08:47 O2 Del Method Room Air 02/24/24 08:47 O2 Flow Rate 3 02/24/24 08:22 Discharge Plan Discharge Patient Disposition: Xfer SNF Condition: Stable Prescriptions: New ondansetron 4 mg tablet,disintegrating 4 mg PO Q8H PRN (Reason: nausea and vomiting) 3 Days Qty: 9 0RF losartan 50 mg Tablet 50 mg PO BID 30 Days Qty: 60 0RF aspirin 81 mg Tablet,Delayed Release (Dr/Ec) 81 mg PO DAILY 30 Days Qty: 30 0RF amoxicillin-pot clavulanate 875-125 mg Tablet 1 tab PO BID 12 Days Qty: 24 0RF atorvastatin 40 mg Tablet 80 mg PO BEDTIME 30 Days Qty: 30 0RF clopidogrel 75 mg Tablet 75 mg PO DAILY 30 Days Qty: 60 0RF carvedilol 3.125 mg Tablet 3.125 mg PO BID 30 Days Qty: 60 0RF sucralfate 100 mg/mL Suspension 1 g PO Q12H 30 Days Qty: 600 0RF Thera 400 mcg Tablet 1 tab PO DAILY 30 Days Qty: 30 0RF Protonix 40 mg tablet,delayed release (DR/EC) 40 mg PO BID 30 Days Qty: 60 0RF hydrocodone-acetaminophen 5-325 mg tablet 1 tab PO Q6H PRN (Reason: pain) 7 Days Qty: 28 0RF Continued multivitamin Capsule 1 cap PO QAM magnesium oxide 250 mg magnesium tablet 250 mg PO BID cetirizine [Zyrtec] 10 mg tablet 10 mg PO DAILY nitroglycerin [Nitrostat] 0.4 mg tablet, sublingual 0.4 mg sublingual Q5M PRN (Reason: chest pain) Qty: 25 1RF Rx Instructions: do not exceed 3 doses per episode isosorbide mononitrate 30 mg tablet extended release 24 hr 30 mg PO DAILY Qty: 90 11RF clonazepam 0.5 mg tablet 0.5 mg PO TID PRN (Reason: anxiety) Qty: 90 3RF Changed hydrocodone-acetaminophen 5-325 mg tablet 1 tab PO Q6H PRN (Reason: pain) 7 Days Qty: 28 0RF Discontinued acetaminophen [Tylenol Arthritis Pain] 650 mg tablet extended release 1,300 mg PO Q12H simvastatin 10 mg tablet 10 mg PO .HS Qty: 90 3RF valsartan 160 mg tablet 160 mg PO BID Qty: 180 4RF fluticasone propionate 50 mcg/actuation spray,suspension See Rx Instructions .ROUTE .COMPLEX Qty: 48 3RF Dose Instruction: USE 2 SPRAYS IN EACH NOSTRIL EVERY DAY Rx Instructions: USE 2 SPRAYS IN EACH NOSTRIL EVERY DAY fluoxetine 20 mg capsule See Rx Instructions .ROUTE .COMPLEX Qty: 90 3RF Dose Instruction: TAKE 1 CAPSULE EVERY DAY Rx Instructions: TAKE 1 CAPSULE EVERY DAY famotidine 40 mg tablet 40 mg PO DAILY Qty: 90 3RF indomethacin 25 mg capsule See Rx Instructions .ROUTE .COMPLEX Qty: 180 3RF Dose Instruction: TAKE 1 CAPSULE TWICE DAILY NEEDED FOR PAIN Rx Instructions: TAKE 1 CAPSULE TWICE DAILY NEEDED FOR PAIN Discharge Orders: Discharge Order (Routine); Ordered 02/24/24 Ordered By: Bruce Cisneros Referrals: Anoop Adams DO [Physician] - 2 weeks (Please call Dr. Adams's Office on Monday or Monday at [phone] to schedule a follow up appointment. You can also call them with any questions or concerns. Thank you.) Ricky Marshall MD [Physician] - 1-3 days (Dr. Marshall's Office has your information and will be calling you to schedule a follow up appointment. You can also give them a call to schedule or if you have any questions or concerns. Thank you.) Taco Shirley DO [Physician] - 03/04/24 2:00 pm Dedrick Person MD [Primary Care Provider] - 02/27/24 1:00 pm Discharge Diet: Advance as tolerated Discharge Activity: Limit activity as instructed and Use walker/crutches as instructed Patient Instructions: Sucralfate (By mouth) (Carafate), Hydrocodone/Acetaminophen (By mouth) (Vicodin, Haigler), Aspirin (By mouth) (Nithin Extra Strength, Nithin Aspirin Children's,..., Amoxicillin/Clavulanate Potassium (By mouth) (Augmentin, Augmentin..., Multivitamins, Adult Formula (By mouth) (Daily Multiple Vitamins,..., Ondansetron (By injection) (Zofran, BD Simplist Ondansetron,..., Losartan (By mouth) (Cozaar), Atorvastatin (By mouth) (Lipitor, Atorvaliq), Carvedilol (By mouth) (Coreg, Coreg CR, Hypertenevide-12.5), Clopidogrel (By mouth) (Plavix), Coronary Angioplasty (DC), Acute Wound Care (DC), Coronary Angioplasty (DC), GI Discharge Instructions, Post Anesthesia Care, Post Angiogram Home Care Instructions Activity Restrictions/Additional Instructions: Orthopedic discharge instructions: Partial weightbearing?30 to 50% weightbearing on left leg. No full weightbearing yet Ice as needed for pain and swelling Encourage knee and hip range of motion as tolerated PT/OT Take pain medication as prescribed Take antinausea medication as needed Supplement with Citracal vitamin D for bone health and healing Take Colace as needed for constipation Leave dressing on and in place for 7 days. After this they may be removed you may shower/rinse incisions with warm soapy water, pat dry redress with a dry dressing. Okay to sponge bath/shower with dressing as they should be waterproof however if they do get saturated or wet please take these off dry the incision and redressed with a new dry sterile bandage. Follow-up in the orthopedic office with Dr. Shirley in 2 weeks for repeat x-rays and incision check/staple removal Contact the office for any questions or concerns (i.e. increasing redness and drainage around the incision, fevers, or chills, or severe worsening in pain/change in symptoms Take pantoprazole 40 mg twice daily for 3 months Monitor for bloody black stools if so please go to the emergency room, hemoglobin discharge 10.10 Continue to discontinue fluoxetine due to hyponatremia serum sodium on discharge 134 ? If any chest pain please come back to the emergency room ? Please continue aspirin, Plavix Discharge Attestations Time Spent in Discharge Care*: greater than 30 min Quality Metrics Clinical Quality Measures [ Acute Myocardial Infaction { Clinical Trial Participant: No; Contraindication to aspirin: None; Aspirin prescribed; Contraindication to statin: None; Statin prescribed; Contraindication to PCI: None; PCI performed;}. No reported AMI, CVA or VTE this stay] Coding Level of Care Code 19518 Total time (in minutes) for Discharge: 45 Diagnoses Epigastric pain R10.13 Melena K92.1 Anemia D64.9 Diverticulitis K57.92 Acute non-ST elevation myocardial infarction (NSTEMI) I21.4 Constipation K59.00
--- NOTE | 2024-02-24 14:34 | PC.NURSE ---
report called to [facility].
--- NOTE | 2024-02-24 15:26 | PC.NURSE ---
car tender called for transportation informed dgtr brandon that ambulance and ready transport won't be able to transport to snf. able to get a car tender for a transportation but pt has to pay 8$. they are okay w/plan to meet the patient and dgtr at 3:30 pm in [facility] for the ride payment. discharge packet sent with pt.
--- NOTE | 2024-02-24 15:28 | PC.NURSE ---
fax discharge packet and report called to snf again to verify her discharge diet. called snf and told them pt needs to be on mechanical gi soft for 2 weeks.
== END 2024-02-24 15:26 | disposition skilled nursing facility (03) | DRG 480 ==
LOC: ER 12:02 → MEDSURG 12:29 → CSU 02-21 09:32
PROVIDERS: Internal Medicine; Student in an Organized Health Care Education/Training Program; Surgery; Admitting Provider Family Medicine; Emergency Provider Emergency Medicine; PCP Family Medicine; Visit Provider Family Medicine
PROC: 0QS734Z Reposition Left Upper Femur with Internal Fixation Device, Percutaneous Approach (ICD-10-PCS; CPT 27236; principal; 2024-02-19 09:35)
PROC: 027035Z Dilation of Coronary Artery, One Artery with Two Drug-eluting Intraluminal Devices, Percutaneous Approach (ICD-10-PCS; principal; 2024-02-21 10:45)
PROC: 027035Z Dilation of Coronary Artery, One Artery with Two Drug-eluting Intraluminal Devices, Percutaneous Approach (ICD-10-PCS; 2024-02-21 10:45)
PROC: 0DJ08ZZ Inspection of Upper Intestinal Tract, Via Natural or Artificial Opening Endoscopic (ICD-10-PCS; CPT 43235; principal; 2024-02-24 08:00)
DX: S72.002A Fracture of unspecified part of neck of left femur, initial encounter for closed fracture (principal); I21.02 ST elevation (STEMI) myocardial infarction involving left anterior descending coronary artery; E87.1 Hypo-osmolality and hyponatremia; K57.32 Diverticulitis of large intestine without perforation or abscess without bleeding; I44.2 Atrioventricular block, complete; I47.10 Supraventricular tachycardia, unspecified; R55 Syncope and collapse; I10 Essential (primary) hypertension; I25.10 Atherosclerotic heart disease of native coronary artery without angina pectoris; R19.5 Other fecal abnormalities; D64.9 Anemia, unspecified; K59.00 Constipation, unspecified; K20.90 Esophagitis, unspecified without bleeding; K29.70 Gastritis, unspecified, without bleeding; E78.00 Pure hypercholesterolemia, unspecified; D32.9 Benign neoplasm of meninges, unspecified; W18.30XA Fall on same level, unspecified, initial encounter; Z91.81 History of falling; Y93.K1 Activity, walking an animal; Z95.0 Presence of cardiac pacemaker; Z87.891 Personal history of nicotine dependence; Z92.3 Personal history of irradiation
CPT/HCPCS: 36415; 36416; 43239; 51702; 71045; 72192; 73502; 74176; 74177; 76000; 80048; 80053; 80061; 81003; 82274; 82533; 82728; 82962; 83036; 83540; 83605; 83735; 83880; 83930; 83935; 84100; 84145; 84295; 84443; 84484; 85014; 85018; 85025; 85347; 85610; 85730; 86140; 86850; 86900; 87426; 88305; 92978; 93005; 93308; 93454; 93880; 94664; 96365; 96367; 96372; 96374; 96375; 96376; 97110; 97116; 97161; 97166; 97530; 97535; 99152; 99153; 99285; C1713; C1725; C1753; C1769; C1874; C1887; C1894; C9600; J0131; J0171; J0360; J0690; J0834; J1100; J1170; J1644; J1650; J1885; J2250; J2270; J2371; J2405; J2470; J2543; J2704; J2795; J3010; J3490; J7030; J7120; Q9967

== ENCOUNTER → 2024-03-04 13:51 | Outpatient (BNVA) | payer MEDICARE, OTHER, SELFPAY | PROVIDERS: PCP Family Medicine; Visit Provider Physician Assistant | DX: S72.002D Fracture of unspecified part of neck of left femur, subsequent encounter for closed fracture with routine healing (principal); Z98.890 Other specified postprocedural states; X58.XXXD Exposure to other specified factors, subsequent encounter | CPT/HCPCS: 73502; 99024 ==

== ENCOUNTER → 2024-03-08 09:23 | Outpatient (BNVA) | payer MEDICARE, OTHER, SELFPAY | PROVIDERS: PCP Family Medicine; Visit Provider Nurse Practitioner Family | DX: I25.10 Atherosclerotic heart disease of native coronary artery without angina pectoris (principal); I10 Essential (primary) hypertension | CPT/HCPCS: 99213 ==

== ENCOUNTER → 2024-03-18 13:40 | Outpatient (BNVA) | payer MEDICARE, OTHER, SELFPAY | PROVIDERS: PCP Family Medicine; Visit Provider Surgery | DX: K20.90 Esophagitis, unspecified without bleeding (principal); K59.04 Chronic idiopathic constipation; K57.92 Diverticulitis of intestine, part unspecified, without perforation or abscess without bleeding | CPT/HCPCS: 99204 ==

== ENCOUNTER 2024-03-23 10:56 | Inpatient (IN) | payer MEDICARE, OTHER, SELFPAY ==
[2024-03-23] VITALS (21 sets, daily range): BP systolic 105–164; BP diastolic 64–93; PULSE 62–88; RESP 14–21; TEMP 36.5–36.7; O2SAT 93–98; BMI 21.4; BMI 23.0
--- NOTE | 2024-03-23 11:13 | ECG_ITS ---
[facility] Test Date: 2024-03-23 Pat Name: Millicent Angel Department: Room: Gender: Female Mandrel Press Hand: : 1940 Requested By: Keyla Morgan Order Number: [id number] Nahun MD: Ricky Marshall M.D. Measurements Intervals [place] Rate: 65 P: 46 LA: 195 QRS: -66 QRSD: 144 T: 88 QT: 441 QTc: 461 Interpretive Statements ELECTRONIC VENTRICULAR PACEMAKER ABNORMAL RHYTHM ECG Compared to ECG 02/23/2024 16:41:11 Atrial-paced complex(es) or rhythm no longer present Electronically Signed On 03-23-2024 18:47:39 CDT by Ricky Marshall M.D. [email or web address]
[2024-03-23 11:19] LABS: Basophils # 0.1 10^3/uL (0.0-0.1); Eosinophils # 0.3 10^3/uL (0.0-0.8); Eosinophils % 5.3 %; Hematocrit 35.8 % (36-47); Lymphocytes # 1.5 10^3/uL (0.8-4.8); Lymphocytes % 25.2 %; Mean Corpuscular HGB Conc 32.4 g/dL (30-55); Mean Corpuscular Hemoglobin 30.9 pg (27-33); Mean Corpuscular Volume 95.2 fl (85-98); Mean Platelet Volume 9.4 fL (7.4-10.4); Monocytes # 0.5 10^3/uL (0.2-0.9); Monocytes % 8.2 %; Neutrophils # 3.65 10^3/uL (1.8-7.7); Neutrophils % 60.1 %; Nucleated Red Blood Cells % 0 %; Platelet Count 308 10^3/cmm (157-399); Red Blood Count 3.76 10^6/uL (3.85-5.65); Red Cell Distribution Width 13.3 % (12.1-15.1); White Blood Count 6.07 10^3/uL (3.29-11.43)
[2024-03-23 11:34] LABS: D Dimer 2.47 ug/mLFEU (0-0.59)
[2024-03-23 11:40] LABS: Alanine Aminotransferase 17 U/L (0-33); Albumin Level 4.2 g/dL (3.5-5.2); Alkaline Phosphatase 117 U/L (35-105); Anion Gap 18.2 (5-19); Aspartate Amino Transferase 23 U/L (0-32); Blood Urea Nitrogen 13 mg/dL (8-23); Calcium 9.8 mg/dL (8.5-10.5); Carbon Dioxide 20 mmol/L (22-29); Chloride 100 mmol/L (98-107); Glucose 129 mg/dL (65-115); Osmolality Calculated 280 mOsm/kg (285-295); Potassium 4.2 mmol/L (3.5-5.1); Sodium 134 mmol/L (136-145); Total Bilirubin 0.5 mg/dL (0.15-1.2); Total Protein 7.2 g/dL (6.6-8.7); Troponin(5th) Baseline 18 ng/L (0-10)
[2024-03-23 11:41] LABS: Creatinine Clr Calc Pharmacy 31.2428; Lactic Sepsis W/Reflex 1.8 mmol/L (0.5-2.2)
--- NOTE | 2024-03-23 11:43 | CTR_ITS ---
PROCEDURE INFORMATION: Exam: CTA Chest With Contrast Exam date and time: 03/23/2024 12:14 PM Age: 84 years old Clinical indication: Abnormal findings; Abnormal diagnostic tests; Elevated d-dimer; Prior surgery; Surgery date: 6+ months; Surgery type: Pacer; Additional info: Syncope, elevated ddimer TECHNIQUE: Imaging protocol: Computed tomographic angiography of the chest with contrast. Exam focused on the arteries. 3D rendering (Not supervised by radiologist): MIP and/or 3D reconstructed images were created by the technologist. Radiation optimization: All CT scans at this facility use at least one of these dose optimization techniques: automated exposure control; mA and/or kV adjustment per patient size (includes targeted exams where dose is matched to clinical indication); or iterative reconstruction. Contrast material: OMNI 350; Contrast volume: 65 ml; Contrast route: INTRAVENOUS (IV); COMPARISON: CT angio chest PE protcl [id number] 12/09/2022 8:24 PM RADIATION DOSE METRICS: Total DLP (mGy-cm): 207.45 FINDINGS: Tubes, catheters and devices: Left-sided pacemaker/AICD noted. Pulmonary arteries: Normal. No pulmonary emboli. Aorta: Scattered atherosclerotic calcifications noted. Coronary artery calcifications noted. No aortic aneurysm. No aortic dissection. Lungs: Minimal emphysematous changes. Minimal nonspecific peripheral reticulations, progression compared to previous study. No honeycombing or traction bronchiectasis. Pleural spaces: No pneumothorax. No pleural effusion. Heart: No pericardial effusion. Lymph nodes: Nonenlarged pretracheal, lower paratracheal and subcarinal lymph nodes again noted. No enlarged lymph nodes. Bones/joints: Spondylotic changes in lower thoracic spine is similar to previous study. No acute fracture. Soft tissues: Benign calcified granulomas in the spleen. Gastric mucosal thickening noted. CT/CT angio chest PE protcl [id number] IMPRESSION: 1. No evidence of pulmonary embolism, aortic aneurysm or dissection. 2. Emphysematous changes. Nonspecific subpleural/peripheral minimal reticulations in bilateral lungs, minimal progression compared to previous study. Developing fibrosis possible. No focal infiltrate. 3. Apparent gastric mucosal thickening throughout. Gastritis suspected. Neoplasm not excluded. Endoscopic will be helpful.
[2024-03-23 12:07] LABS: Bilirubin Urine Negative (Negative); Blood Urine Trace (Negative); Glucose Urine UA Negative (Normal); Ketones Urine Negative (Negative); Leukocyte Esterase Urine 2+ (Negative); Nitrate Urine Negative (Negative); Protein Urine Negative (Negative); Urine Appearance Clear (CLEAR); Urine Color Yellow (Yellow); Urobilinogen Urine 0.2 mg/dL (Negative); pH Urine 6.5 (5-7)
--- NOTE | 2024-03-23 12:09 | XRR_ITS ---
PROCEDURE INFORMATION: Exam: XR Left Hip Exam date and time: 03/23/2024 12:14 PM Age: 84 years old Clinical indication: Left hip; Prior surgery; Surgery date: 1-6 months; Surgery type: Lt hip cannulated screw fixation; Patient HX: Lt hip pain; Lt hip FX with screw cannulated screw fixation x 6 weeks ago-no new injury TECHNIQUE: Imaging protocol: Radiologic exam of the left hip. Views: 2 or 3 views hip with pelvis when performed. COMPARISON: CR XR hip LT 2-3V wo/w pel* [id number] 03/04/2024 2:15 PM FINDINGS: Bones/joints: Cannulated screws in left femoral neck and head similar to previous study. No acute fracture or dislocation identified. Soft tissues: Vascular calcifications. Contrast in ureters noted. XR/XR hip LT 2-3V wo/w pel* [id number] IMPRESSION: No acute fracture or dislocation identified. Fixation hardware in left femoral neck and head noted.
--- NOTE | 2024-03-23 12:09 | XRR_ITS ---
PROCEDURE INFORMATION: Exam: XR Chest Exam date and time: 03/23/2024 12:14 PM Age: 84 years old Clinical indication: Shortness of breath; Prior surgery; Surgery date: 6+ months; Surgery type: Pacemaker; Patient HX: Syncope; Fall; Lt hip pain; Lt hip FX with screw cannulated screw fixation x 6 weeks ago-no new injury TECHNIQUE: Imaging protocol: Radiologic exam of the chest. Views: 1 view. COMPARISON: CR (CHEST, ) 02/18/2024 10:38 AM FINDINGS: Tubes, catheters and devices: Left-sided pacemaker noted. Lungs: Unremarkable. No consolidation. Pleural spaces: Unremarkable. No pleural effusion. No pneumothorax. Heart/Mediastinum: Stable. Bones/joints: Minimal scoliotic curvature and spondylotic changes of the spine, similar to previous study. XR/XR chest 1V portable [id number] IMPRESSION: No acute findings.
--- NOTE | 2024-03-23 12:09 | W.ED.SYNCOPE ---
HPI - Syncope General: Chief Complaint: Syncope Stated Complaint: syncope Time Seen by Provider: 03/23/24 11:01 History of Present Illness: 84-year-old female with a history of coronary artery disease, pacemaker placement and a recent hip fracture who presents to the emergency room by ambulance after having a syncopal episode. Shortly after surgery she had an CA and had stents placed. She is on Plavix. She came home yesterday and apparently had a fall but did not seek medical attention. She has some scrapes and abrasions and bruising but no focal pain. This morning she was sitting at the kitchen table eating breakfast and says she vaguely remembers feeling like she was going to pass out and when her daughter got there she was passed out at the kitchen table. She awoke before EMS arrived. Her only complaints at this point are some low abdominal pain. No altered mental status. No focal motor deficits. Daughter is concerned and wants her admitted to the hospital so she can [facility]. Related Data Home Medications Medication Instructions Recorded Confirmed multivitamin 1 cap PO QAM 07/30/19 03/18/24 cetirizine 10 mg tablet (Zyrtec) 10 mg PO DAILY 12/27/22 03/18/24 magnesium oxide 250 mg PO BID 12/27/22 03/18/24 Previous Rx's Medication Instructions Recorded nitroglycerin 0.4 mg sublingual 0.4 mg sublingual Q5M PRN chest 12/27/22 tablet (Nitrostat) pain #25 tabs isosorbide mononitrate 30 mg 30 mg PO DAILY #90 tabs 11/15/23 tablet,extended release 24 hr clonazepam 0.5 mg tablet 0.5 mg PO TID PRN anxiety #90 tabs 12/05/23 aspirin 81 mg tablet,delayed 81 mg PO DAILY 30 days #30 tabs 02/23/24 release atorvastatin 40 mg tablet 80 mg (2 x 40 mg) PO BEDTIME 30 02/23/24 days #30 tabs carvedilol 3.125 mg tablet 3.125 mg PO BID 30 days #60 tabs 02/23/24 clopidogrel 75 mg tablet 75 mg PO DAILY 30 days #60 tabs 02/23/24 hydrocodone 5 mg-acetaminophen 325 1 tab PO Q6H PRN pain 7 days #28 02/23/24 mg tablet tabs multivitamin with folic acid 400 1 tab PO DAILY 30 days #30 tabs 02/23/24 mcg tablet (Thera) sucralfate 100 mg/mL oral 1 g (10 mL) PO Q12H 30 days #600 mL 02/23/24 suspension losartan 50 mg tablet 50 mg PO DAILY #90 tabs 03/08/24 linaclotide 72 mcg capsule 72 mcg PO DAILY #30 caps 03/18/24 (Linzess) pantoprazole 40 mg tablet,delayed 40 mg PO BID 30 days #60 tabs 03/18/24 release (Protonix) Allergies Allergy/AdvReac Type Severity Reaction Status Date / Time gabapentin Allergy Intermediate diarrhea Verified 03/18/24 14:05 pregabalin [From Lyrica] Allergy Intermediate swelling Verified 03/18/24 14:05 metoprolol AdvReac Intermediate bitter Verified 03/18/24 14:05 taste promethazine [From Phenergan] AdvReac disoriented Verified 03/18/24 14:05 Sulfa (Sulfonamide AdvReac abdominal Verified 03/18/24 14:05 Antibiotics) pain Review of Systems Narrative: Constitutional symptoms: Negative except as documented in HPI. Skin symptoms: Negative except as documented in HPI. Eye symptoms: Negative except as documented in HPI. ENMT symptoms: Negative except as documented in HPI. Respiratory symptoms: Negative except as documented in HPI. Cardiovascular symptoms: Negative except as documented in HPI. Gastrointestinal symptoms: Negative except as documented in HPI. Genitourinary symptoms: Negative except as documented in HPI. Musculoskeletal symptoms: Negative except as documented in HPI. Neurologic symptoms: Negative except as documented in HPI. Psychiatric symptoms: Negative except as documented in HPI. Endocrine symptoms: Negative except as documented in HPI. PFSH ED PFSH: Medical History Atrial fibrillation Meningioma Meningioma identified during evaluation for chronic headaches-followed with neurology Dr. De Los Santos in [place] and states it was stable. She has been cleared and has not seen a neurologist in over 4 years. Elevated cholesterol Diagnosed in 2011 and has been on and off medication. Managed by PMD Paget's disease Status post excision surgery and radiation in 2020 done at [facility]. No pertinent past medical history Denies diabetes, asthma, seizures, DVT/PE PCP: Dr. Person SVT (supraventricular tachycardia) HTN (hypertension) Surgical History S/P cardiac pacemaker procedure 2019 History of rectal surgery X 3 Patient had perianal excision of Paget's disease done by Dr. Adamson and Dr. Goss in [place] first in May 2017 and then again in July 2018, 2020 S/P hysterectomy Vaginal, done for prolapse in 1981. She was told there was no cancer. S/P tubal ligation Laparoscopic procedure performed in 1979 Family History Mother Heart disease Hypertension Father Heart disease Daughter Diabetes Sister Hyperlipidemia Other Colon cancer Denies family history of Ovarian cancer Breast cancer Uterine cancer Thyroid disease Stroke Social History Smoking and tobacco/nicotine status: never used tobacco/nicotine Alcohol intake: never Substance/Drug Use: never Physical Exam Narrative: EXAM NARRATIVE: General: Alert, no acute distress. Skin: Warm, dry. Head: Normocephalic, atraumatic. Neck: Supple, trachea midline. Eye: Extraocular movements are intact. Ears, nose, mouth and throat: mucosa moist. Cardiovascular: Regular, Normal peripheral perfusion. Respiratory: Lungs are clear to auscultation, respirations are non-labored, breath sounds are equal, Symmetrical chest wall expansion. Gastrointestinal: Soft, some mild suprapubic tenderness to palpation, Non distended Musculoskeletal: Normal ROM, no deformity. Neurological: Alert and oriented, No focal neurological deficit observed. Psychiatric: Cooperative, appropriate mood & affect. Course Vital Signs: Vital signs: Vital Signs Temperature 98.1 F 03/23/24 11:03 Pulse Rate 62 03/23/24 13:00 Respiratory Rate 16 03/23/24 13:00 Blood Pressure 151/76 03/23/24 13:00 Pulse Oximetry 97 03/23/24 13:00 Oxygen Delivery Me thod Room Air 03/23/24 13:00 MDM - Syncope Medical Decision Making Medical decision making: Differential diagnosis including but not limited to and based on the above HPI, review of systems and physical exam in this patient with syncope: Vasovagal, orthostatics hypotension, cardiac dysrhythmia, myocardial infarction, infection and hypotension, Orders placed to evaluate differential diagnosis based on the above differential, HPI and physical exam EKG: Time 1113. Rate 65. Normal sinus rhythm, No ST-T changes, no ectopy, paced rhythm, this was reviewed and interpreted by myself the emergency room physician at 11:15 AM. Repeat EKG: Time 1304. Rate 64. Normal sinus rhythm, No ST-T changes, no ectopy, paced rhythm, this was reviewed and interpreted by myself the emergency room physician at 1305. No changes from EKG taken previously today. Lab Review: Laboratory results were reviewed and interpreted by myself the emergency room physician. No leukocytosis. No anemia. BUN and creatinine are 13 and 1. Glucose is mildly elevated at 129. D-dimer is elevated at 2.7 and so a CTA of the chest was ordered. Liver enzymes are normal. First troponin is 18. Chest x-ray: No acute process. No infiltrate. No pneumothorax. This was reviewed and interpreted by myself the ER physician. Pacemaker is in place. X-ray of the left hip and pelvis: No acute fractures. Fixation is in place. This was reviewed and interpreted by myself the emergency room physician. I also reviewed the radiology report. CTA of the chest with PE protocol: No PE. No other acute processes. This was reviewed and interpreted by myself the emergency room physician. I also reviewed the radiology report. I reviewed the patient's medical record. Reexamination: Patient remained stable. No increased work of breathing. No altered mental status. No focal motor deficits. Patient still does complain of some suprapubic pain. Consultation: I have the pacemaker interrogated. There has been no arrhythmias. Battery is functional. I spoke with financial services representative for the pacemaker. Consultation: I spoke with Dr. López who is on-call for the hospitalist who agrees to admission. Assessment and plan: Urinary tract infection Hypotension Possible sepsis Syncope Fall -1.5 L normal saline bolus. Fluid volumes based on body weight. -Broad-spectrum antibiotics were administered. Cefepime was given. -Sepsis quality measures. -Lactic acid with a reflex was ordered. -Blood cultures were ordered. -I discussed the patient with the hospitalist on-call who is admitting the patient. - Discussed findings and plan with patient. Answered any questions. - All laboratory values were reviewed and interpreted personally by myself, the ER physician - All imaging was reviewed and interpreted personally by myself, the ER physician. - Evaluation and treatment of this problem were appropriate in the emergency setting Lab Data 03/23/24 10:43 03/23/24 10:43 Radiology Impressions Chest CTA 03/23/24 11:43 IMPRESSION: 1. No evidence of pulmonary embolism, aortic aneurysm or dissection. 2. Emphysematous changes. Nonspecific subpleural/peripheral minimal reticulations in bilateral lungs, minimal progression compared to previous study. Developing fibrosis possible. No focal infiltrate. 3. Apparent gastric mucosal thickening throughout. Gastritis suspected. Neoplasm not excluded. Endoscopic will be helpful. Chest X-Ray 03/23/24 12:09 IMPRESSION: No acute findings. Hip/Pelvis X-Ray 03/23/24 12:09 IMPRESSION: No acute fracture or dislocation identified. Fixation hardware in left femoral neck and head noted. Laboratory Results WBC 6.07 10^3/uL (3.29-11.43) 03/23/24 10:43 RBC 3.76 10^6/uL (3.85-5.65) L 03/23/24 10:43 Hgb 11.60 g/dL (11.27-16.99) 03/23/24 10:43 Hct 35.8 % (36-47) L 03/23/24 10:43 MCV 95.2 fl (85-98) 03/23/24 10:43 MCH 30.9 pg (27-33) 03/23/24 10:43 MCHC 32.4 g/dL (30-55) 03/23/24 10:43 RDW 13.3 % (12.1-15.1) 03/23/24 10:43 Plt Count 308 10^3/cmm (157-399) 03/23/24 10:43 MPV 9.4 fL (7.4-10.4) 03/23/24 10:43 Neut % (Auto) 60.1 % 03/23/24 10:43 Lymph % (Auto) 25.2 % 03/23/24 10:43 [place] % (Auto) 8.2 % 03/23/24 10:43 Eos % (Auto) 5.3 % 03/23/24 10:43 Baso % (Auto) 1.0 % 03/23/24 10:43 Neut # (Auto) 3.65 10^3/uL (1.8-7.7) 03/23/24 10:43 Lymph # (Auto) 1.5 10^3/uL (0.8-4.8) 03/23/24 10:43 [place] # (Auto) 0.5 10^3/uL (0.2-0.9) 03/23/24 10:43 Eos # (Auto) 0.3 10^3/uL (0.0-0.8) 03/23/24 10:43 Baso # (Auto) 0.1 10^3/uL (0.0-0.1) 03/23/24 10:43 Nucleated RBC % (auto) 0 % 03/23/24 10:43 Nucleated RBCs # 0.0 /100WBC 03/23/24 10:43 D-Dimer 2.47 ug/mLFEU (0-0.59) H 03/23/24 10:43 Sodium 134 mmol/L (136-145) L 03/23/24 10:43 Potassium 4.2 mmol/L (3.5-5.1) 03/23/24 10:43 Chloride 100 mmol/L (98-107) 03/23/24 10:43 Carbon Dioxide 20 mmol/L (22-29) L 03/23/24 10:43 Anion Gap 18.2 (5-19) 03/23/24 10:43 BUN 13 mg/dL (8-23) 03/23/24 10:43 Creatinine 1.0 mg/dL (0.5-0.9) H 03/23/24 10:43 GFR Calculation Not Reportable 03/23/24 10:43 Glucose 129 mg/dL (65-115) H 03/23/24 10:43 Calculated Osmolality 280 mOsm/kg (285-295) L 03/23/24 10:43 Lactic Acid 1.8 mmol/L (0.5-2.2) 03/23/24 10:43 Calcium 9.8 mg/dL (8.5-10.5) 03/23/24 10:43 Total Bilirubin 0.5 mg/dL (0.15-1.2) 03/23/24 10:43 AST 23 U/L (0-32) 03/23/24 10:43 ALT 17 U/L (0-33) 03/23/24 10:43 Alkaline Phosphatase 117 U/L (35-105) H 03/23/24 10:43 Troponin T Baseline 18 ng/L (0-10) H 03/23/24 10:43 Troponin T 120 Minute 12.78 ng/L (0-10) H 03/23/24 12:42 Delta Troponin T -5.22 ABS# (0-10) L 03/23/24 12:42 C-Reactive Protein 3.0 mg/L (0.0-4.9) 03/23/24 10:43 Total Protein 7.2 g/dL (6.6-8.7) 03/23/24 10:43 Albumin 4.2 g/dL (3.5-5.2) 03/23/24 10:43 Globulin 3.0 g/dL (1.3-4.6) 03/23/24 10:43 Urine Color Yellow (Yellow) 03/23/24 11:52 Urine Appearance Clear (CLEAR) 03/23/24 11:52 Urine pH 6.5 (5-7) 03/23/24 11:52 Ur Specific [place] 1.010 (1.005-1.030) 03/23/24 11:52 Urine Protein Negative (Negative) 03/23/24 11:52 Urine Glucose (UA) Negative (Normal) 03/23/24 11:52 Urine Ketones Negative (Negative) 03/23/24 11:52 Urine Blood Trace (Negative) A 03/23/24 11:52 Urine Nitrate Negative (Negative) 03/23/24 11:52 Urine Bilirubin Negative (Negative) 03/23/24 11:52 Urine Urobilinogen 0.2 mg/dL (Negative) 03/23/24 11:52 Ur Leukocyte Esterase 2+ (Negative) A 03/23/24 11:52 Urine RBC 0-2 /hpf (0-2) 03/23/24 11:52 Urine WBC 51-100 /hpf (0-5) H 03/23/24 11:52 Ur Squamous Epith Cells 0-5 /hpf (0-5) 03/23/24 11:52 Amorphous Sediment Not Reportable 03/23/24 11:52 Urine Bacteria 4+ /hpf (NONE) H 03/23/24 11:52 Hyaline Casts 2.87 /lpf 03/23/24 11:52 SARS-CoV-2 Ag (Rapid) Negative (Negative) 03/23/24 11:29 All radiology interpretation(s) finalized by discharge Discharge Plan Discharge Patient Disposition: Placed in Observation Clinical Impression: Urinary tract infection, Syncope, Sepsis, Hypotension, Coronary artery disease Coding Level of Care Code ED Property Insurance Inspector for Nati Castillo
[2024-03-23 12:12] LABS: Bacteria Urine 4+ /hpf; Hyaline Casts Urine 2.87 /lpf; RBC Urine 0-2 /hpf (0-2); Squamous Epithelial Cell Urine 0-5 /hpf (0-5); WBC Urine 51-100 /hpf (0-5)
[2024-03-23] MEDS: iohexol 350 mg/mL 500 mL Btl (per mL) IV (12:16)
[2024-03-23 12:18] LABS: Add Urine Culture? Yes
[2024-03-23 12:29] LABS: SARS Covid-2 Antigen Negative (Negative)
[2024-03-23 13:04] LABS: Troponin 5 2HR 12.78 ng/L (0-10)
--- NOTE | 2024-03-23 13:04 | ECG_ITS ---
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 Measurements Intervals [place] Rate: 64 P: 52 HI: 200 QRS: -75 QRSD: 154 T: 123 QT: 476 QTc: 494 Interpretive Statements ELECTRONIC VENTRICULAR PACEMAKER ABNORMAL RHYTHM ECG Compared to ECG 03/23/2024 11:13:45 No significant changes Electronically Signed On 03-23-2024 18:52:39 CDT by Ricky Marshall M.D. [id number]
[2024-03-23 13:16] LABS: Troponin 5 2HR Delta -5.22 ABS# (0-10)
[2024-03-23] MEDS: sodium chloride 0.9% 1,000 ML 999 ML IV (13:32)
[2024-03-23] MEDS: sodium chloride 0.9% 500 ML 999 ML IV (13:32)
[2024-03-23] MEDS: cefepime 2,000 MG in sodium chloride 0.9% (plus) 50 ML 100 MG IV (13:34)
--- NOTE | 2024-03-23 15:36 | P.HP_ITS ---
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 Patient tells that since getting home from the hospital she has been overall doing well, but notices that intermittently she feels as if she gets confused more easily, she tells me that at times she feels that her mind is just not right, no facial droop, no slurring of her words, no focal weakness, no recurrent falls, no shortness of breath, no chest pain, she tells me that today she was having lunch, when she got up from the table and passed out, she does not remember the event well, but no reported seizure-like episodes, no preceding chest pain or palpitations, she currently denies any neck pain, no headache, no blurry vision, no nausea, no vomiting, no chest pain, no hip pain, no back pain Review of Systems 2 Const: Denies: fever(s) Card: Denies: chest pain Resp: Denies: dyspnea GI: Denies: abdominal pain : Denies: flank pain Musc: Denies: back pain Neuro: Denies: headache(s) Medications/Allergies Home Medications Medication Instructions Recorded Confirmed Last Taken Type multivitamin 1 cap PO QAM 07/30/19 03/18/24 1 Day Ago History ~02/17/24 cetirizine 10 mg tablet (Zyrtec) 10 mg PO DAILY 12/27/22 03/18/24 1 Day Ago History ~02/17/24 magnesium oxide 250 mg PO BID 12/27/22 03/18/24 Unknown History nitroglycerin 0.4 mg sublingual 0.4 mg sublingual Q5M PRN chest 12/27/22 03/18/24 Unknown Rx tablet (Nitrostat) pain #25 tabs isosorbide mononitrate 30 mg 30 mg PO DAILY #90 tabs 11/15/23 03/18/24 1 Day Ago Rx tablet,extended release 24 hr ~02/17/24 clonazepam 0.5 mg tablet 0.5 mg PO TID PRN anxiety #90 tabs 12/05/23 03/18/24 1 Day Ago Rx ~02/17/24 aspirin 81 mg tablet,delayed 81 mg PO DAILY 30 days #30 tabs 02/23/24 03/18/24 Unknown Rx release atorvastatin 40 mg tablet 80 mg (2 x 40 mg) PO BEDTIME 30 02/23/24 03/18/24 Unknown Rx days #30 tabs carvedilol 3.125 mg tablet 3.125 mg PO BID 30 days #60 tabs 02/23/24 03/18/24 Unknown Rx clopidogrel 75 mg tablet 75 mg PO DAILY 30 days #60 tabs 02/23/24 03/18/24 Unknown Rx hydrocodone 5 mg-acetaminophen 325 1 tab PO Q6H PRN pain 7 days #28 02/23/24 03/18/24 Unknown Rx mg tablet tabs multivitamin with folic acid 400 1 tab PO DAILY 30 days #30 tabs 02/23/24 03/18/24 Unknown Rx mcg tablet (Thera) sucralfate 100 mg/mL oral 1 g (10 mL) PO Q12H 30 days #600 mL 02/23/24 03/18/24 Unknown Rx suspension losartan 50 mg tablet 50 mg PO DAILY #90 tabs 03/08/24 03/18/24 Unknown Rx linaclotide 72 mcg capsule 72 mcg PO DAILY #30 caps 03/18/24 03/18/24 Unknown Rx (Linzess) pantoprazole 40 mg tablet,delayed 40 mg PO BID 30 days #60 tabs 03/18/24 03/18/24 Unknown Rx release (Protonix) Allergies Allergy/AdvReac Type Severity Reaction Status Date / Time gabapentin Allergy Intermediate diarrhea Verified 03/18/24 14:05 pregabalin [From Lyrica] Allergy Intermediate swelling Verified 03/18/24 14:05 metoprolol AdvReac Intermediate bitter Verified 03/18/24 14:05 taste promethazine [From Phenergan] AdvReac disoriented Verified 03/18/24 14:05 Sulfa (Sulfonamide AdvReac abdominal Verified 03/18/24 14:05 Antibiotics) pain PFSH Acute 2 PFSH: Medical History Atrial fibrillation Meningioma Meningioma identified during evaluation for chronic headaches-followed with neurology Dr. De Los Santos in [place] and states it was stable. She has been cleared and has not seen a neurologist in over 4 years. Elevated cholesterol Diagnosed in 2011 and has been on and off medication. Managed by PMD Paget's disease Status post excision surgery and radiation in 2020 done at [place]. No pertinent past medical history Denies diabetes, asthma, seizures, DVT/PE PCP: Dr. Person SVT (supraventricular tachycardia) HTN (hypertension) Surgical History S/P cardiac pacemaker procedure 2019 History of rectal surgery X 3 Patient had perianal excision of Paget's disease done by Dr. Adamson and Dr. Goss in [place] first in May 2017 and then again in July 2018, 2020 S/P hysterectomy Vaginal, done for prolapse in 1981. She was told there was no cancer. S/P tubal ligation Laparoscopic procedure performed in 1979 Family History Mother Heart disease Hypertension Father Heart disease Daughter Diabetes Sister Hyperlipidemia Other Colon cancer Denies family history of Ovarian cancer Breast cancer Uterine cancer Thyroid disease Stroke Social History Smoking and tobacco/nicotine status: never used tobacco/nicotine Alcohol intake: never Substance/Drug Use: never Vitals/I&O/Wt Last Vital Signs Temp 98.1 F 03/23/24 11:03 Pulse 62 03/23/24 13:00 Resp 16 03/23/24 13:00 BP 151/76 03/23/24 13:00 Pulse Ox 97 03/23/24 13:00 O2 Del Method Room Air 03/23/24 13:00 Weight last 48 hrs Weight 49.895 kg Physical Exam 2 Const: COMMON NORMALS: no acute distress and patient oriented x3 HENMT: COMMON NORMALS: normocephalic HEAD & SCALP: normocephalic Eye: COMMON NORMALS: Equal, round and reactive pupils present and EOMs intact bilaterally Neck/C-Spine: COMMON NORMALS: no JVD Lymph: LYMPHATIC: no lymphadenopathy noted Resp: COMMON NORMALS: normal respiratory effort, No retractions, No use of accessory muscles and clear to auscultation bilaterally AUSCULTATION: clear to auscultation bilaterally Cardio: COMMON NORMALS: no JVD, regular rate, regular rhythm, S1 normal heart sound present and S2 normal heart sound present RATE: regular rate RHYTHM: regular rhythm HEART SOUNDS: S1 normal heart sound present and S2 normal heart sound present GI: COMMON NORMALS: Normal to inspection, nondistended, normoactive bowel sounds present, Soft to palpation and non-tender : COMMON NORMALS: Yes no CVA tenderness Extremity: COMMON NORMALS: no calf tenderness and no pedal edema Neuro: COMMON NORMALS: patient oriented x3, CN's II-XII intact bilaterally and moves all extremities Psych: COMMON NORMALS: mental status grossly normal Data 03/23/24 10:43 03/23/24 10:43 Micro: Microbiology 03/23/24 13:33 Blood Culture - Preliminary Blood SPECIMEN COLLECTED 03/23/24 13:30 Blood Culture - Preliminary Blood SPECIMEN COLLECTED A&P Assessment and plan (1) Syncope: (2) Urinary tract infection: (3) Atrial fibrillation: (4) HTN (hypertension): Qualifiers: Hypertension type: essential hypertension Qualified Code(s): I10 - Essential (primary) hypertension (5) Coronary artery disease: Plan Syncope -Patient has a history of recurrent syncopal episodes in the past, her last syncopal episode resulted in a third metatarsal fracture -During last hospitalization, she had an extensive workup, cardiac echo within normal limits, carotid artery ultrasound within normal limits, -During this hospitalization her pacemaker was interrogated I was told that by the emergency room it was within normal limits -Her symptoms sound like orthostatic hypotension -Will hydrate with IV fluids for 24 hours, recheck orthostatic vitals tomorrow -Order head CT Urinary tract infection, UTI Recent history of left hip fracture status post surgical intervention, no hip pain complaints Recent history of CAD status post stenting, no chest pain complaints continue aspirin, statin, Plavix History of third-degree AV block History of atrial fibrillation not on anticoagulation, not on rate control therapy History of GI bleed, finding of gastritis, esophagitis continue Protonix, Carafate History of diverticulitis, no complaints of abdominal pain CODE STATUS, confirmed with the patient multiple times she is DNR/DNI ? Lovenox for DVT prophylaxis Attestations 2 Medical Necessity Statement*: Patient requires hospitalization, inpatient, greater than 2 midnights, for syncope, UTI Diagnoses Syncope R55 Urinary tract infection N39.0 Atrial fibrillation I48.91 Essential hypertension I10 Hypertension type: essential hypertension Coronary artery disease I25.10
--- NOTE | 2024-03-23 15:37 | CTR_ITS ---
PROCEDURE INFORMATION: Exam: CT Head Without Contrast Exam date and time: 03/23/2024 3:47 PM Age: 84 years old Clinical indication: Altered mental status/memory loss; Confusion or disorientation TECHNIQUE: Imaging protocol: Computed tomography of the head without contrast. Radiation optimization: All CT scans at this facility use at least one of these dose optimization techniques: automated exposure control; mA and/or kV adjustment per patient size (includes targeted exams where dose is matched to clinical indication); or iterative reconstruction. COMPARISON: CT head wo con* [id number] 11/20/2023 3:10 PM RADIATION DOSE METRICS: Total DLP (mGy-cm): 962.49 FINDINGS: Brain: No hemorrhage. No edema. Moderate diffuse cerebral atrophy and mild sequela of chronic small vessel ischemic disease. No mass effect. Cerebral ventricles: No ventriculomegaly. Paranasal sinuses: Visualized sinuses are unremarkable. No fluid levels. Mastoid air cells: Visualized mastoid air cells are well aerated. Bones: Unremarkable. No acute fracture. Soft tissues: Unremarkable. CT/CT head wo con* [id number] IMPRESSION: No acute intracranial abnormality.
[2024-03-23 15:58] LABS: NT Pro B Type Natriuretic Pept 1427 pg/mL (0-450)
--- NOTE | 2024-03-23 17:02 | ECG_ITS ---
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 Measurements Intervals [place] Rate: 72 P: 193 IA: 180 QRS: -75 QRSD: 143 T: 106 QT: 404 QTc: 444 Interpretive Statements ELECTRONIC ATRIAL PACEMAKER ELECTRONIC VENTRICULAR PACEMAKER ABNORMAL RHYTHM ECG Compared to ECG 03/23/2024 13:04:13 No significant changes Electronically Signed On 03-23-2024 18:54:06 CDT by Ricky Marshall M.D. [id number]
[2024-03-23 17:08] LABS: Troponin 5 6HR 13.23 ng/L (0-10)
[2024-03-23 17:13] LABS: Troponin 5 6HR Delta -4.77 ng/L (0-12)
[2024-03-23 18:53] LABS: Thyroid Stimulating Hormone 6.18 uIU/mL (0.27-4.20)
[2024-03-23] MEDS: HYDROcodone-acetaminophen 5-325 mg Tablet 1 TAB PO (19:59)
[2024-03-23] MEDS: atorvastatin 40 mg Tablet 80 MG PO (19:59)
[2024-03-23] MEDS: sucralfate 1 gm/10 mL Oral Liq UDC PO (20:00)
[2024-03-23] MEDS: enoxaparin 40 mg/0.4 mL Syringe SUBCUT (20:00)
[2024-03-23] MEDS: pantoprazole DR 40 mg Tablet PO (20:00)
[2024-03-23] MEDS: sodium chloride 0.9% 1,000 ML 75 ML IV (20:00)
[2024-03-23] MEDS: CLONazepam 0.5 mg Tablet PO (21:16)
[2024-03-24] VITALS (9 sets, daily range): BP systolic 124–186; BP diastolic 74–95; PULSE 62–87; RESP 15–17; TEMP 36.4–36.7; O2SAT 93–98
[2024-03-24 04:20] LABS: Basophils % 0.9 %; Eosinophils # 0.3 10^3/uL (0.0-0.8); Eosinophils % 6.1 %; Hematocrit 31.2 % (36-47); Lymphocytes # 1.5 10^3/uL (0.8-4.8); Lymphocytes % 33.4 %; Mean Corpuscular HGB Conc 32.1 g/dL (30-55); Mean Corpuscular Hemoglobin 31.1 pg (27-33); Mean Corpuscular Volume 96.9 fl (85-98); Mean Platelet Volume 9.2 fL (7.4-10.4); Monocytes # 0.6 10^3/uL (0.2-0.9); Monocytes % 13.2 %; Neutrophils # 2.03 10^3/uL (1.8-7.7); Neutrophils % 46.2 %; Nucleated Red Blood Cells % 0 %; Platelet Count 240 10^3/cmm (157-399); Red Blood Count 3.22 10^6/uL (3.85-5.65); Red Cell Distribution Width 13.4 % (12.1-15.1)
[2024-03-24 04:55] LABS: Anion Gap 14.1 (5-19); Blood Urea Nitrogen 13 mg/dL (8-23); Calcium 8.9 mg/dL (8.5-10.5); Carbon Dioxide 22 mmol/L (22-29); Chloride 106 mmol/L (98-107); Creatinine Clr Calc Pharmacy 40.7178; Glucose 84 mg/dL (65-115); Osmolality Calculated 285 mOsm/kg (285-295); Potassium 4.1 mmol/L (3.5-5.1); Sodium 138 mmol/L (136-145)
[2024-03-24] MEDS: sodium chloride 0.9% 1,000 ML 75 ML IV (06:28)
[2024-03-24] MEDS: sucralfate 1 gm/10 mL Oral Liq UDC PO ×2 (06:28→17:33)
[2024-03-24] MEDS: cefTRIAXone 1,000 mg SDV 1000 MG IVP (09:19)
[2024-03-24] MEDS: aspirin 81 mg EC Tablet PO (09:20)
[2024-03-24] MEDS: clopidogrel 75 mg Tablet PO (09:20)
[2024-03-24] MEDS: pantoprazole DR 40 mg Tablet PO ×2 (09:20→17:33)
[2024-03-24] MEDS: multivitamin therapeutic Tablet 1 TAB PO (09:20)
--- NOTE | 2024-03-24 10:26 | CTR_ITS ---
PROCEDURE INFORMATION: Exam: CT Abdomen And Pelvis Without Contrast Exam date and time: 03/24/2024 12:05 PM Age: 84 years old Clinical indication: Abdominal pain; Generalized TECHNIQUE: Imaging protocol: Computed tomography of the abdomen and pelvis without contrast. Radiation optimization: All CT scans at this facility use at least one of these dose optimization techniques: automated exposure control; mA and/or kV adjustment per patient size (includes targeted exams where dose is matched to clinical indication); or iterative reconstruction. COMPARISON: CT abdomen pelvis w con* [id number] 02/23/2024 2:43 PM RADIATION DOSE METRICS: Total DLP (mGy-cm): 592.8 FINDINGS: Lungs: [id number] bibasilar scarring and/or atelectasis. Heart: Coronary artery and valvular calcifications. Liver: The liver is unremarkable. Gallbladder and biliary ducts: Questionable moderate amount of gallbladder sludge versus retained vicarious excretion of prior contrast. No significant gallbladder wall thickening or pericholecystic fluid. No biliary ductal dilation. Pancreas: The pancreas is unremarkable. Spleen: Multiple punctate calcifications within the spleen, likely secondary to prior granulomatous disease. Adrenal glands: The adrenal glands are unremarkable. Kidneys and ureters: Kidneys are normal. No hydronephrosis or nephrolithiasis. Stomach and bowel: Prominent colonic diverticulosis involving the sigmoid and descending colons. Trace fluid and stranding along the styo-gffiyqj-ynwp-right paracolic gutters is stable to improved compared to 02/23/2024 and could potentially mask mild acute diverticulitis involving the descending colon. Appendix: No evidence of acute appendicitis. Intraperitoneal space: No significant free fluid in the abdomen or pelvis. No extraluminal free air. Vasculature: Mild scattered calcific disease of the abdominal aorta and its major branches. No abdominal aortic aneurysm. Lymph nodes: No distinct pathologically enlarged lymphadenopathy. Urinary bladder: Urinary bladder is normal in appearance. Reproductive: Uterus is absent. Bones/joints: Stable screw fixation of the proximal left femur. Moderate lumbar levoscoliosis. Multilevel spondylosis, most prominent at L2-L3. Soft tissues: Superficial soft tissues demonstrate mild diffuse anasarca. CT/CT abdomen pelvis wo con [id number] IMPRESSION: 1. Prominent colonic diverticulosis involving the sigmoid and descending colons. Trace fluid and stranding along the ueol-yskwbqo-nbpm-right paracolic gutters is stable to improved compared to 02/23/2024 and could potentially mask mild acute diverticulitis involving the descending colon. 2. Questionable moderate amount of gallbladder sludge versus retained vicarious excretion of prior contrast. No CT evidence of acute cholecystitis.
--- NOTE | 2024-03-24 10:43 | P.PN_ITS ---
Subjective 2 Subjective: Patient was seen this morning, she denies any fevers, chills, does report lower abdominal pain, no diarrhea, no lightheadedness, no dizziness, no recurrent syncopal episodes Vitals/I&O/Wt Last Vital Signs Temp 97.8 F 03/24/24 08:00 Pulse 71 03/24/24 08:00 Resp 16 03/24/24 04:00 BP 146/85 03/24/24 08:00 Pulse Ox 97 03/24/24 08:00 O2 Del Method Room Air 03/24/24 08:00 03/23/24 03/24/24 03/24/24 22:59 06:59 14:59 Intake Total 785 / 2335 Balance 785 / 2335 Weight last 48 hrs Weight 54.93 kg Weight 53.524 kg Weight 49.895 kg Physical Exam 2 Const: COMMON NORMALS: no acute distress and patient oriented x3 Resp: COMMON NORMALS: normal respiratory effort, No retractions, No use of accessory muscles and clear to auscultation bilaterally AUSCULTATION: clear to auscultation bilaterally Cardio: COMMON NORMALS: regular rate, regular rhythm, S1 normal heart sound present and S2 normal heart sound present RATE: regular rate RHYTHM: r egular rhythm HEART SOUNDS: S1 normal heart sound present and S2 normal heart sound present GI: OTHER: Abdomen soft, slightly distended, no guarding, no rebound, rigidity, good bowel sounds in all 4 quadrant does have left lower quadrant tenderness to palpation Extremity: COMMON NORMALS: no pedal edema Neuro: COMMON NORMALS: patient oriented x3 Psych: COMMON NORMALS: mental status grossly normal Data 03/24/24 03:41 03/24/24 03:41 Micro: Microbiology 03/23/24 13:33 Blood Culture - Preliminary Blood SPECIMEN COLLECTED 03/23/24 13:30 Blood Culture - Preliminary Blood SPECIMEN COLLECTED A&P Assessment and plan (1) Syncope: (2) Urinary tract infection: (3) Atrial fibrillation: (4) HTN (hypertension): Qualifiers: Hypertension type: essential hypertension Qualified Code(s): I10 - Essential (primary) hypertension (5) Coronary artery disease: Plan Syncope -Patient has a history of recurrent syncopal episodes in the past, her last syncopal episode resulted in a third metatarsal fracture -During last hospitalization, she had an extensive workup, cardiac echo within normal limits, carotid artery ultrasound within normal limits, -During this hospitalization her pacemaker was interrogated I was told that by the emergency room it was within normal limits -Her symptoms sound like orthostatic hypotension -Will hydrate with IV fluids for 24 hours, recheck orthostatic today -Head CT no acute findings Urinary tract infection, UTI Recent history of left hip fracture status post surgical intervention, no hip pain complaints Recent history of CAD status post stenting, no chest pain complaints continue aspirin, statin, Plavix History of third-degree AV block History of atrial fibrillation not on anticoagulation, not on rate control therapy History of GI bleed, finding of gastritis, esophagitis continue Protonix, Carafate History of diverticulitis, now with complaints of lower abdominal pain CODE STATUS, confirmed with the patient multiple times she is DNR/DNI ? Lovenox for DVT prophylaxis Today she has complaints of lower abdominal pain, she has a history of diverticulitis transition to clear liquid diet, broaden antibiotic coverage with Cipro and Flagyl to cover for possible diverticulitis CT scan abdomen pelvis, serial abdominal exams Attestations 2 Medical Necessity Statement*: Patient requires hospitalization for syncope, UTI, now with abdominal pain, inpatient, greater than 2 midnights Diagnoses Syncope R55 Urinary tract infection N39.0 Atrial fibrillation I48.91 Essential hypertension I10 Hypertension type: essential hypertension Coronary artery disease I25.10
[2024-03-24 11:37] LABS: Procalcitonin 1.57 ng/mL (0-0.5)
[2024-03-24] MEDS: ciprofloxacin 400 MG/200 ML PREMIX 200 MG IV ×2 (11:38→23:03)
[2024-03-24] MEDS: metroNIDAZOLE IV 500 MG/100 ML PREMIX 100 MG IV ×2 (11:39→17:34)
[2024-03-24] MEDS: acetaminophen 325 mg Tablet 650 MG PO (11:47)
[2024-03-24] MEDS: enoxaparin 40 mg/0.4 mL Syringe SUBCUT (17:33)
[2024-03-24] MEDS: HYDROcodone-acetaminophen 5-325 mg Tablet 1 TAB PO (21:50)
[2024-03-24] MEDS: atorvastatin 40 mg Tablet 80 MG PO (21:50)
[2024-03-24] MEDS: CLONazepam 0.5 mg Tablet PO (23:03)
[2024-03-25] VITALS (9 sets, daily range): BP systolic 107–171; BP diastolic 64–85; PULSE 62–86; RESP 16–19; TEMP 36.1–36.7; O2SAT 92–97
[2024-03-25] MEDS: metroNIDAZOLE IV 500 MG/100 ML PREMIX 100 MG IV ×3 (03:04→17:33)
[2024-03-25] MEDS: acetaminophen 325 mg Tablet 650 MG PO ×2 (03:07→21:13)
[2024-03-25 05:10] LABS: Basophils % 0.9 %; Eosinophils # 0.3 10^3/uL (0.0-0.8); Eosinophils % 7.2 %; Hematocrit 31.6 % (36-47); Lymphocytes # 1.4 10^3/uL (0.8-4.8); Lymphocytes % 32.2 %; Mean Corpuscular HGB Conc 32.6 g/dL (30-55); Mean Corpuscular Hemoglobin 30.7 pg (27-33); Mean Corpuscular Volume 94.3 fl (85-98); Mean Platelet Volume 9.6 fL (7.4-10.4); Monocytes # 0.6 10^3/uL (0.2-0.9); Neutrophils # 1.96 10^3/uL (1.8-7.7); Neutrophils % 45.7 %; Nucleated Red Blood Cells % 0 %; Platelet Count 233 10^3/cmm (157-399); Red Blood Count 3.35 10^6/uL (3.85-5.65); Red Cell Distribution Width 13.3 % (12.1-15.1); White Blood Count 4.29 10^3/uL (3.29-11.43)
[2024-03-25 05:35] LABS: Anion Gap 12.8 (5-19); Blood Urea Nitrogen 7 mg/dL (8-23); Calcium 8.9 mg/dL (8.5-10.5); Carbon Dioxide 25 mmol/L (22-29); Chloride 101 mmol/L (98-107); Creatinine Clr Calc Pharmacy 40.6279; Glucose 96 mg/dL (65-115); Osmolality Calculated 278 mOsm/kg (285-295); Potassium 3.8 mmol/L (3.5-5.1); Sodium 135 mmol/L (136-145)
[2024-03-25] MEDS: sucralfate 1 gm/10 mL Oral Liq UDC PO ×2 (06:02→17:33)
[2024-03-25] MEDS: sodium chloride 0.9% 1,000 ML 75 ML IV (06:02)
[2024-03-25] MEDS: multivitamin therapeutic Tablet 1 TAB PO (08:34)
[2024-03-25] MEDS: aspirin 81 mg EC Tablet PO (08:34)
[2024-03-25] MEDS: pantoprazole DR 40 mg Tablet PO ×2 (08:34→17:33)
[2024-03-25] MEDS: clopidogrel 75 mg Tablet PO (08:34)
--- NOTE | 2024-03-25 09:27 | PC.CHAP ---
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 [] Patient/Family/Request visit [] Outpatient visit [] Follow-up visit [] Physician referral [] Code/Alert [x] Routine visit [] Staff referral [] Actively dying [] Patient sleeping [] Family support [] [] Out of room [] Palliative care [] [] Receiving care in room [] Pre-surgical visit [] Trauma [] Long length of stay [] ICU visit [] Other: Relational/Emotional Strength [] Patient feels connected with others/family/visitors/staff [] Distress [] Loneliness/isolation [] Abandonment Spirituality of Patient [x] Person of Ida [] Attends Uatsdin of their Ida [x] Believes in Prayer [] Reads Bible or Zoroastrianism materials [] There are Spiritual issues to be addressed Manager User Interface Interventions [x] Prayer [x Active listening [] Non-anxious presence [] Spiritual/emotional support [] Crisis/trauma care [] Spiritual counseling [] Bereavement support [] Provided bereavement packet [x] Provided Bible/devotional materials [] Provided toy/stuffed animal, coloring book to patient or family member [] Provided Communion [] Anointing/[place] [] Salvation [x Completed spiritual assessment [] Other: Impact on Illness or Injury [] Angry [] Fearful [] Anxious [] Often cries [] Exhaustion [] Unable to work [] Unable to attend lutheran [] Unable to walk/stand [] Unable to read [] Unable to drive [] Unable to eat/drink [] Unable to sleep [] Unable to be with family [] Patient intubated [] Other: Summary Time spent with patient 10 min
[2024-03-25] MEDS: isosorbide mononitrate ER 30 mg Tablet PO (09:34)
[2024-03-25] MEDS: losartan 50 mg Tablet PO (09:34)
[2024-03-25] MEDS: ciprofloxacin 400 MG/200 ML PREMIX 200 MG IV ×2 (10:51→22:20)
[2024-03-25] MEDS: HYDROcodone-acetaminophen 5-325 mg Tablet 1 TAB PO ×3 (11:21→23:23)
--- NOTE | 2024-03-25 14:13 | P.PN_ITS ---
Subjective 2 Subjective: Patient was seen this morning, denies any fevers, no chills, no nausea, no vomiting, no bloody or black stools, does report lower abdominal pain, which persists, Vitals/I&O/Wt Last Vital Signs Temp 97.0 F L 03/25/24 11:51 Pulse 86 03/25/24 11:51 Resp 19 H 03/25/24 11:51 BP 127/80 03/25/24 11:51 Pulse Ox 97 03/25/24 11:51 O2 Del Method Room Air 03/25/24 11:51 03/24/24 03/25/24 03/25/24 22:59 06:59 14:59 Intake Total 1220 / 1760 300 / 0 2019 Balance 1220 / 1760 300 / 2059 Weight last 48 hrs Weight 54.658 kg Weight 54.93 kg Weight 53.524 kg Physical Exam 2 Const: COMMON NORMALS: no acute distress and patient oriented x3 Resp: COMMON NORMALS: normal respiratory effort, No retractions, No use of accessory muscles and clear to auscultation bilaterally AUSCULTATION: clear to auscultation bilaterally Cardio: COMMON NORMALS: regular rate, regular rhythm, S1 normal heart sound present and S2 normal heart sound present RATE: regular rate RHYTHM: r egular rhythm HEART SOUNDS: S1 normal heart sound present and S2 normal heart sound present GI: OTHER: Abdomen soft, slightly distended, no guarding, no rebound, rigidity, good bowel sounds in all 4 quadrants, does have left lower quadrant tenderness Extremity: COMMON NORMALS: no pedal edema Neuro: COMMON NORMALS: patient oriented x3 Psych: COMMON NORMALS: mental status grossly normal Data 03/25/24 04:34 03/25/24 04:34 Micro: Microbiology 03/23/24 13:33 Blood Culture - Preliminary Blood NEGATIVE TO DATE 03/23/24 13:30 Blood Culture - Preliminary Blood NEGATIVE TO DATE 03/23/24 11:52 Urine Culture - Final Urine,Clean Catch A&P Assessment and plan (1) Syncope: (2) Urinary tract infection: (3) Atrial fibrillation: (4) HTN (hypertension): Qualifiers: Hypertension type: essential hypertension Qualified Code(s): I10 - Essential (primary) hypertension (5) Coronary artery disease: Plan Syncope -Patient has a history of recurrent syncopal episodes in the past, her last syncopal episode resulted in a third metatarsal fracture -During last hospitalization, she had an extensive workup, cardiac echo within normal limits, carotid artery ultrasound within normal limits, -During this hospitalization her pacemaker was interrogated I was told that by the emergency room it was within normal limits -Her symptoms sound like orthostatic hypotension -Will hydrate with IV fluids for 24 hours, stop IV fluids, orthostatic vitals within normal limits -Head CT no acute findings Urinary tract infection, UTI on ciprofloxacin Recent history of left hip fracture status post surgical intervention, no hip pain complaints Recent history of CAD status post stenting, no chest pain complaints continue aspirin, statin, Plavix History of third-degree AV block History of atrial fibrillation not on anticoagulation, not on rate control therapy History of GI bleed, finding of gastritis, esophagitis continue Protonix, Carafate History of diverticulitis, now with complaints of lower abdominal pain CT scan CT/CT abdomen pelvis wo con [id number] IMPRESSION: 1. Prominent colonic diverticulosis involving the sigmoid and descending colons. Trace fluid and stranding along the ioyc-ljwmvdu-kque-right paracolic gutters is stable to improved compared to 02/23/2024 and could potentially mask mild acute diverticulitis involving the descending colon. 2. Questionable moderate amount of gallbladder sludge versus retained vicarious excretion of prior contrast. No CT evidence of acute cholecystitis. -Continue clear liquid diet -Continue Cipro, continue Flagyl CODE STATUS, confirmed with the patient multiple times she is DNR/DNI ? Lovenox for DVT prophylaxis Continue IV antibiotics, up out of bed, PT OT, monitor for syncope, treat UTI, diverticulitis Attestations 2 Medical Necessity Statement*: Patient requires hospitalization for syncope, UTI, diverticulitis Diagnoses Syncope R55 Urinary tract infection N39.0 Atrial fibrillation I48.91 Essential hypertension I10 Hypertension type: essential hypertension Coronary artery disease I25.10
[2024-03-25] MEDS: enoxaparin 40 mg/0.4 mL Syringe SUBCUT (17:33)
[2024-03-25] MEDS: CLONazepam 0.5 mg Tablet PO (21:13)
[2024-03-25] MEDS: atorvastatin 40 mg Tablet 80 MG PO (21:14)
[2024-03-26] VITALS (10 sets, daily range): BP systolic 108–157; BP diastolic 62–91; PULSE 65–105; RESP 17–18; TEMP 36.4–36.8; O2SAT 93–98
[2024-03-26] MEDS: metroNIDAZOLE IV 500 MG/100 ML PREMIX 100 MG IV ×3 (03:02→17:19)
[2024-03-26 05:00] LABS: Basophils % 0.8 %; Eosinophils # 0.3 10^3/uL (0.0-0.8); Eosinophils % 7.5 %; Hematocrit 32.1 % (36-47); Lymphocytes # 1.3 10^3/uL (0.8-4.8); Lymphocytes % 33.3 %; Mean Corpuscular HGB Conc 32.1 g/dL (30-55); Mean Corpuscular Hemoglobin 30.7 pg (27-33); Mean Corpuscular Volume 95.8 fl (85-98); Mean Platelet Volume 9.5 fL (7.4-10.4); Monocytes # 0.6 10^3/uL (0.2-0.9); Monocytes % 15.5 %; Neutrophils % 42.6 %; Nucleated Red Blood Cells % 0 %; Platelet Count 222 10^3/cmm (157-399); Red Blood Count 3.35 10^6/uL (3.85-5.65); Red Cell Distribution Width 13.3 % (12.1-15.1); White Blood Count 3.75 10^3/uL (3.29-11.43)
[2024-03-26 05:24] LABS: Anion Gap 12.7 (5-19); Blood Urea Nitrogen 4 mg/dL (8-23); Calcium 8.8 mg/dL (8.5-10.5); Carbon Dioxide 23 mmol/L (22-29); Chloride 101 mmol/L (98-107); Creatinine Clr Calc Pharmacy 40.7873; Glucose 107 mg/dL (65-115); Osmolality Calculated 273 mOsm/kg (285-295); Potassium 3.7 mmol/L (3.5-5.1); Sodium 133 mmol/L (136-145)
[2024-03-26] MEDS: multivitamin therapeutic Tablet 1 TAB PO (08:33)
[2024-03-26] MEDS: clopidogrel 75 mg Tablet PO (08:33)
[2024-03-26] MEDS: losartan 50 mg Tablet PO (08:33)
[2024-03-26] MEDS: isosorbide mononitrate ER 30 mg Tablet PO (08:33)
[2024-03-26] MEDS: aspirin 81 mg EC Tablet PO (08:33)
[2024-03-26] MEDS: pantoprazole DR 40 mg Tablet PO ×2 (08:33→17:18)
[2024-03-26] MEDS: HYDROcodone-acetaminophen 5-325 mg Tablet 1 TAB PO ×2 (08:34→20:12)
[2024-03-26] MEDS: sucralfate 1 gm/10 mL Oral Liq UDC PO ×2 (08:36→20:12)
[2024-03-26] MEDS: ciprofloxacin 400 MG/200 ML PREMIX 200 MG IV ×2 (11:26→20:13)
--- NOTE | 2024-03-26 14:58 | P.PN_ITS ---
Subjective 2 Subjective: Patient was seen this morning, she does report lower abdominal pain but significantly improved, no nausea, no vomiting, no lightheadedness, no dizziness, she is tolerating clears, would like to try something more substantial Vitals/I&O/Wt Last Vital Signs Temp 98 F 03/26/24 12:16 Pulse 105 H 03/26/24 12:16 Resp 18 03/26/24 12:16 BP 108/69 03/26/24 12:16 Pulse Ox 97 03/26/24 12:16 O2 Del Method Room Air 03/26/24 12:16 03/25/24 03/26/24 03/26/24 22:59 06:59 14:59 Intake Total 460 / 2480 300 / 2780 1260 / 1260 Balance 460 / 2480 300 / 2780 1260 / 1260 Weight last 48 hrs Weight 55.14 kg Weight 54.658 kg Physical Exam 2 Const: COMMON NORMALS: no acute distress and patient oriented x3 Resp: COMMON NORMALS: normal respiratory effort, No retractions, No use of accessory muscles and clear to auscultation bilaterally AUSCULTATION: clear to auscultation bilaterally Cardio: COMMON NORMALS: regular rate, regular rhythm, S1 normal heart sound present and S2 normal heart sound present RATE: regular rate RHYTHM: r egular rhythm HEART SOUNDS: S1 normal heart sound present and S2 normal heart sound present GI: COMMON NORMALS: Normal to inspection, nondistended, normoactive bowel sounds present and non-tender Extremity: COMMON NORMALS: no clubbing, cyanosis or edema and no pedal edema Neuro: COMMON NORMALS: patient oriented x3 Psych: COMMON NORMALS: mental status grossly normal Data 03/26/24 04:31 03/26/24 04:31 A&P Assessment and plan (1) Syncope: (2) Urinary tract infection: (3) Atrial fibrillation: (4) HTN (hypertension): Qualifiers: Hypertension type: essential hypertension Qualified Code(s): I10 - Essential (primary) hypertension (5) Coronary artery disease: Plan Syncope -Patient has a history of recurrent syncopal episodes in the past, her last syncopal episode resulted in a third metatarsal fracture -During last hospitalization, she had an extensive workup, cardiac echo within normal limits, carotid artery ultrasound within normal limits, -During this hospitalization her pacemaker was interrogated I was told that by the emergency room it was within normal limits -Her symptoms sound like orthostatic hypotension -Will hydrate with IV fluids for 24 hours, stop IV fluids, orthostatic vitals within normal limits -Head CT no acute findings Urinary tract infection, UTI on ciprofloxacin Recent history of left hip fracture status post surgical intervention, no hip pain complaints Recent history of CAD status post stenting, no chest pain complaints continue aspirin, statin, Plavix History of third-degree AV block History of atrial fibrillation not on anticoagulation, not on rate control therapy History of GI bleed, finding of gastritis, esophagitis continue Protonix, Carafate History of diverticulitis, now with complaints of lower abdominal pain CT scan CT/CT abdomen pelvis wo con [id number] IMPRESSION: 1. Prominent colonic diverticulosis involving the sigmoid and descending colons. Trace fluid and stranding along the [id number]-[id number]-zxvt-right paracolic gutters is stable to improved compared to 02/23/2024 and could potentially mask mild acute diverticulitis involving the descending colon. 2. Questionable moderate amount of gallbladder sludge versus retained vicarious excretion of prior contrast. No CT evidence of acute cholecystitis. -Continue clear liquid diet -Continue Cipro, continue Flagyl CODE STATUS, confirmed with the patient multiple times she is DNR/DNI ? Lovenox for DVT prophylaxis Continue IV antibiotics, up out of bed, PT OT, monitor for syncope, treat UTI, diverticulitis, will transition diet, plan on discharging in the next 24 hours based on clinical progress, continue abdominal exams Attestations 2 Medical Necessity Statement*: Patient requires hospitalization, for diverticulitis, UTI, Diagnoses Syncope R55 Urinary tract infection N39.0 Atrial fibrillation I48.91 Essential hypertension I10 Hypertension type: essential hypertension Coronary artery disease I25.10
[2024-03-26] MEDS: enoxaparin 40 mg/0.4 mL Syringe SUBCUT (17:18)
[2024-03-26] MEDS: atorvastatin 40 mg Tablet 80 MG PO (20:12)
[2024-03-26] MEDS: CLONazepam 0.5 mg Tablet PO (20:12)
[2024-03-27] VITALS (7 sets, daily range): BP systolic 101–143; BP diastolic 67–80; PULSE 65–107; RESP 16–18; TEMP 36.4–36.8; O2SAT 94–97
[2024-03-27] MEDS: metroNIDAZOLE IV 500 MG/100 ML PREMIX 100 MG IV ×2 (01:30→11:09)
[2024-03-27 05:42] LABS: Basophils % 0.7 %; Eosinophils # 0.3 10^3/uL (0.0-0.8); Eosinophils % 6.4 %; Hematocrit 32.4 % (36-47); Lymphocytes # 1.2 10^3/uL (0.8-4.8); Lymphocytes % 29.2 %; Mean Corpuscular HGB Conc 32.7 g/dL (30-55); Mean Corpuscular Hemoglobin 31.5 pg (27-33); Mean Corpuscular Volume 96.1 fl (85-98); Mean Platelet Volume 9.3 fL (7.4-10.4); Monocytes # 0.7 10^3/uL (0.2-0.9); Monocytes % 16.7 %; Neutrophils # 1.99 10^3/uL (1.8-7.7); Neutrophils % 46.8 %; Nucleated Red Blood Cells % 0 %; Platelet Count 225 10^3/cmm (157-399); Red Blood Count 3.37 10^6/uL (3.85-5.65); Red Cell Distribution Width 13.8 % (12.1-15.1); White Blood Count 4.25 10^3/uL (3.29-11.43)
[2024-03-27 06:10] LABS: Blood Urea Nitrogen 6 mg/dL (8-23); Calcium 8.8 mg/dL (8.5-10.5); Carbon Dioxide 23 mmol/L (22-29); Chloride 103 mmol/L (98-107); Creatinine Clr Calc Pharmacy 40.3281; Glucose 105 mg/dL (65-115); Osmolality Calculated 280 mOsm/kg (285-295); Sodium 136 mmol/L (136-145)
[2024-03-27] MEDS: sucralfate 1 gm/10 mL Oral Liq UDC PO (08:21)
[2024-03-27] MEDS: multivitamin therapeutic Tablet 1 TAB PO (08:21)
[2024-03-27] MEDS: pantoprazole DR 40 mg Tablet PO (08:21)
[2024-03-27] MEDS: aspirin 81 mg EC Tablet PO (08:21)
[2024-03-27] MEDS: isosorbide mononitrate ER 30 mg Tablet PO (08:22)
[2024-03-27] MEDS: clopidogrel 75 mg Tablet PO (08:22)
[2024-03-27] MEDS: losartan 50 mg Tablet PO (08:22)
[2024-03-27] MEDS: HYDROcodone-acetaminophen 5-325 mg Tablet 1 TAB PO (08:46)
--- NOTE | 2024-03-27 10:36 | P.DS_ITS ---
Discharge Providers Date of Admission: 03/24/24 08:01 Date of Discharge: March 27, 2024 Attending Provider at Admission: Bruce Cisneros MD Attending Provider at Discharge: Bruce Cisneros MD Primary Care Provider: Dedrick Person MD Diagnoses at Discharge Discharge Diagnosis (1) Syncope: Status: Acute (2) Urinary tract infection: Status: Acute (3) Atrial fibrillation: Status: Acute (4) HTN (hypertension): Status: Acute Qualifiers: Hypertension type: essential hypertension Qualified Code(s): I10 - Essential (primary) hypertension (5) Coronary artery disease: Status: Acute Reason for Visit Reason for Visit: syncope Hospital Course Hospital Course Millicent Angel is a 84 year old female with a past medical history of 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 Patient tells that since getting home from the hospital she has been overall doing well, but notices that intermittently she feels as if she gets confused more easily, she tells me that at times she feels that her mind is just not right, no facial droop, no slurring of her words, no focal weakness, no recurrent falls, no shortness of breath, no chest pain, she tells me that today she was having lunch, when she got up from the table and passed out, she does not remember the event well, but no reported seizure-like episodes, no preceding chest pain or palpitations, she currently denies any neck pain, no headache, no blurry vision, no nausea, no vomiting, no chest pain, no hip pain, no back pain Syncope -Patient has a history of recurrent syncopal episodes in the past, her last syncopal episode resulted in a third metatarsal fracture, hip fracture -During last hospitalization, she had an extensive workup, cardiac echo within normal limits, carotid artery ultrasound within normal limits, -During this hospitalization her pacemaker was interrogated I was told that by the emergency room it was within normal limits -Her symptoms sound like orthostatic hypotension -Head CT no acute findings -Received IV fluids, Coreg was held, resumed Imdur, losartan continues to have some degree of orthostatic hypotension, Coreg has been discontinued, monitor for orthostatic hypotension as outpatient During hospitalization patient evidence of UTI, discharged on Cipro History of diverticulitis, now with complaints of lower abdominal pain CT scan CT/CT abdomen pelvis wo con [id number] IMPRESSION: 1. Prominent colonic diverticulosis involving the sigmoid and descending colons. Trace fluid and stranding along the qcdr-xagbkmh-efjv-right paracolic gutters is stable to improved compared to 02/23/2024 and could potentially mask mild acute diverticulitis involving the descending colon. 2. Questionable moderate amount of gallbladder sludge versus retained vicarious excretion of prior contrast. No CT evidence of acute cholecystitis. -Continue clear liquid diet -Continue Cipro, continue Flagyl -Overall clinically proved diet was advanced, discharged on p.o. antibiotics follow-up with general surgery as outpatient Physical Exam Const: COMMON NORMALS: no acute distress and patient oriented x3 Resp: COMMON NORMALS: normal respiratory effort, No retractions, No use of accessory muscles and clear to auscultation bilaterally AUSCULTATION: clear to auscultation bilaterally Cardio: COMMON NORMALS: regular rate, regular rhythm, S1 normal heart sound present and S2 normal heart sound present RATE: regular rate RHYTHM: regular rhythm HEART SOUNDS: S1 normal heart sound present and S2 normal heart sound present GI: COMMON NORMALS: Normal to inspection, nondistended, normoactive bowel sounds present and non-tender Extremity: COMMON NORMALS: no pedal edema Neuro: COMMON NORMALS: patient oriented x3 Psych: COMMON NORMALS: mental status grossly normal Discharge Data Studies Completed and Pending Completed Studies During Hospitalization Category Date Time Status CT abdomen pelvis wo con [id number] Routine Cat Scan 03/24/24 10:[address] angio chest PE protcl [id number] Stat Cat Scan 03/23/24 11:[address] head wo con* [id number] Stat Cat Scan 03/23/24 15:37 Completed XR chest 1V portable [id number] Stat Exams 03/23/24 12:09 Completed XR hip LT 2-3V wo/w pel* [id number] Stat Exams 03/23/24 12:09 Completed Pending at discharge Category Date Time Status Blood Culture Stat Lab 03/23/24 13:33 Results COVID [SARS Covid-2 Antigen] Stat Lab 03/27/24 10:07 Uncollected Radiology Impressions Chest CTA 03/23/24 11:43 IMPRESSION: 1. No evidence of pulmonary embolism, aortic aneurysm or dissection. 2. Emphysematous changes. Nonspecific subpleural/peripheral minimal reticulations in bilateral lungs, minimal progression compared to previous study. Developing fibrosis possible. No focal infiltrate. 3. Apparent gastric mucosal thickening throughout. Gastritis suspected. Neoplasm not excluded. Endoscopic will be helpful. Chest X-Ray 03/23/24 12:09 IMPRESSION: No acute findings. Hip/Pelvis X-Ray 03/23/24 12:09 IMPRESSION: No acute fracture or dislocation identified. Fixation hardware in left femoral neck and head noted. Head CT 03/23/24 15:37 IMPRESSION: No acute intracranial abnormality. Abdomen/Pelvis CT 03/24/24 10:26 IMPRESSION: 1. Prominent colonic diverticulosis involving the sigmoid and descending colons. Trace fluid and stranding along the oqwz-cnzzabm-foig-right paracolic gutters is stable to improved compared to 02/23/2024 and could potentially mask mild acute diverticulitis involving the descending colon. 2. Questionable moderate amount of gallbladder sludge versus retained vicarious excretion of prior contrast. No CT evidence of acute cholecystitis. Laboratory Results WBC 4.25 10^3/uL (3.29-11.43) 03/27/24 05:18 RBC 3.37 10^6/uL (3.85-5.65) L 03/27/24 05:18 Hgb 10.60 g/dL (11.27-16.99) L 03/27/24 05:18 Hct 32.4 % (36-47) L 03/27/24 05:18 MCV 96.1 fl (85-98) 03/27/24 05:18 MCH 31.5 pg (27-33) 03/27/24 05:18 MCHC 32.7 g/dL (30-55) 03/27/24 05:18 RDW 13.8 % (12.1-15.1) 03/27/24 05:18 Plt Count 225 10^3/cmm (157-399) 03/27/24 05:18 MPV 9.3 fL (7.4-10.4) 03/27/24 05:18 Neut % (Auto) 46.8 % 03/27/24 05:18 Lymph % (Auto) 29.2 % 03/27/24 05:18 [place] % (Auto) 16.7 % 03/27/24 05:18 Eos % (Auto) 6.4 % 03/27/24 05:18 Baso % (Auto) 0.7 % 03/27/24 05:18 Neut # (Auto) 1.99 10^3/uL (1.8-7.7) 03/27/24 05:18 Lymph # (Auto) 1.2 10^3/uL (0.8-4.8) 03/27/24 05:18 [place] # (Auto) 0.7 10^3/uL (0.2-0.9) 03/27/24 05:18 Eos # (Auto) 0.3 10^3/uL (0.0-0.8) 03/27/24 05:18 Baso # (Auto) 0.0 10^3/uL (0.0-0.1) 03/27/24 05:18 Nucleated RBC % (auto) 0 % 03/27/24 05:18 Nucleated RBCs # 0.0 /100WBC 03/27/24 05:18 D-Dimer 2.47 ug/mLFEU (0-0.59) H 03/23/24 10:43 Sodium 136 mmol/L (136-145) 03/27/24 05:18 Potassium 4.0 mmol/L (3.5-5.1) 03/27/24 05:18 Chloride 103 mmol/L (98-107) 03/27/24 05:18 Carbon Dioxide 23 mmol/L (22-29) 03/27/24 05:18 Anion Gap 14.0 (5-19) 03/27/24 05:18 BUN 6 mg/dL (8-23) L 03/27/24 05:18 Creatinine 0.8 mg/dL (0.5-0.9) 03/27/24 05:18 GFR Calculation Not Reportable 03/27/24 05:18 Glucose 105 mg/dL (65-115) 03/27/24 05:18 Calculated Osmolality 280 mOsm/kg (285-295) L 03/27/24 05:18 Lactic Acid 1.8 mmol/L (0.5-2.2) 03/23/24 10:43 Calcium 8.8 mg/dL (8.5-10.5) 03/27/24 05:18 Total Bilirubin 0.5 mg/dL (0.15-1.2) 03/23/24 10:43 AST 23 U/L (0-32) 03/23/24 10:43 ALT 17 U/L (0-33) 03/23/24 10:43 Alkaline Phosphatase 117 U/L (35-105) H 03/23/24 10:43 Troponin T Baseline 18 ng/L (0-10) H 03/23/24 10:43 Troponin T 120 Minute 12.78 ng/L (0-10) H 03/23/24 12:42 Delta Troponin T -5.22 ABS# (0-10) L 03/23/24 12:42 Troponin T Hi Sens 6Hr 13.23 ng/L (0-10) H 03/23/24 16:43 Troponin T Hi Sens 6Hr Delta -4.77 ng/L (0-12) L 03/23/24 16:43 C-Reactive Protein 3.0 mg/L (0.0-4.9) 03/24/24 03:41 NT-Pro-B Natriuret Pep 1427 pg/mL (0-450) H 03/23/24 10:43 Total Protein 7.2 g/dL (6.6-8.7) 03/23/24 10:43 Albumin 4.2 g/dL (3.5-5.2) 03/23/24 10:43 Globulin 3.0 g/dL (1.3-4.6) 03/23/24 10:43 Procalcitonin 1.57 ng/mL (0-0.5) H 03/24/24 03:41 TSH 6.18 uIU/mL (0.27-4.20) H 03/23/24 10:43 Urine Color Yellow (Yellow) 03/23/24 11:52 Urine Appearance Clear (CLEAR) 03/23/24 11:52 Urine pH 6.5 (5-7) 03/23/24 11:52 Ur Specific [place] 1.010 (1.005-1.030) 03/23/24 11:52 Urine Protein Negative (Negative) 03/23/24 11:52 Urine Glucose (UA) Negative (Normal) 03/23/24 11:52 Urine Ketones Negative (Negative) 03/23/24 11:52 Urine Blood Trace (Negative) A 03/23/24 11:52 Urine Nitrate Negative (Negative) 03/23/24 11:52 Urine Bilirubin Negative (Negative) 03/23/24 11:52 Urine Urobilinogen 0.2 mg/dL (Negative) 03/23/24 11:52 Ur Leukocyte Esterase 2+ (Negative) A 03/23/24 11:52 Urine RBC 0-2 /hpf (0-2) 03/23/24 11:52 Urine WBC 51-100 /hpf (0-5) H 03/23/24 11:52 Ur Squamous Epith Cells 0-5 /hpf (0-5) 03/23/24 11:52 Amorphous Sediment Not Reportable 03/23/24 11:52 Urine Bacteria 4+ /hpf (NONE) H 03/23/24 11:52 Hyaline Casts 2.87 /lpf 03/23/24 11:52 SARS-CoV-2 Ag (Rapid) Negative (Negative) 03/23/24 11:29 Vitals Last Vital Signs Temp 98.2 F 03/27/24 07:49 Pulse 74 03/27/24 08:00 Resp 18 03/27/24 07:49 BP 131/80 03/27/24 08:00 Pulse Ox 97 03/27/24 07:49 O2 Del Method Room Air 03/27/24 07:49 Discharge Plan Discharge Patient Disposition: Xfer SNF Condition: Stable Prescriptions: New ciprofloxacin HCl 500 mg tablet 500 mg PO Q12H 10 Days Qty: 20 0RF metronidazole 500 mg tablet 500 mg PO Q8H 10 Days Qty: 30 0RF Continued magnesium oxide 250 mg magnesium tablet 250 mg PO BID cetirizine [Zyrtec] 10 mg tablet 10 mg PO DAILY nitroglycerin [Nitrostat] 0.4 mg tablet, sublingual 0.4 mg sublingual Q5M PRN (Reason: chest pain) Qty: 25 1RF Rx Instructions: do not exceed 3 doses per episode losartan 50 mg tablet 50 mg PO DAILY Qty: 90 3RF pantoprazole [Protonix] 40 mg tablet,delayed release (DR/EC) 40 mg PO BID 30 Days Qty: 60 2RF Linzess 72 mcg capsule 72 mcg PO DAILY Qty: 30 2RF isosorbide mononitrate 30 mg tablet extended release 24 hr 30 mg PO DAILY Qty: 90 11RF clonazepam 0.5 mg tablet 0.5 mg PO TID PRN (Reason: anxiety) Qty: 90 3RF aspirin 81 mg Tablet,Delayed Release (Dr/Ec) 81 mg PO DAILY 30 Days Qty: 30 0RF atorvastatin 40 mg Tablet 80 mg PO BEDTIME 30 Days Qty: 30 0RF clopidogrel 75 mg Tablet 75 mg PO DAILY 30 Days Qty: 60 0RF sucralfate 100 mg/mL Suspension 1 g PO Q12H 30 Days Qty: 600 0RF multivitamin with folic acid [Thera] 400 mcg Tablet 1 tab PO DAILY 30 Days Qty: 30 0RF hydrocodone-acetaminophen 5-325 mg tablet 1 tab PO Q6H PRN (Reason: pain) 7 Days Qty: 28 0RF famotidine 40 mg tablet 40 mg PO DAILY simvastatin 10 mg tablet 10 mg PO QPM fluoxetine 20 mg capsule 20 mg PO DAILY Discontinued carvedilol 3.125 mg Tablet 3.125 mg PO BID 30 Days Qty: 60 0RF indomethacin 25 mg capsule 25 mg PO BID PRN (Reason: Pain) valsartan 160 mg tablet 160 mg PO BID Discharge Orders: Discharge Order (Routine); Ordered 03/27/24 Ordered By: Bruce Cisneros Referrals: Anoop Adams DO [Physician] - 1 month (We have notified your physician's clinic of the need for a follow-up appointment to be scheduled. If you have not heard from them within the next 2 business days, please call them directly. ) Rakesh Tavares M.D [Physician] - 2 weeks Dedrick Person MD [Primary Care Provider] - 1-3 days Discharge Diet: Cardiac Discharge Activity: Resume usual activity Activity Restrictions/Additional Instructions: - Please take antibiotics as prescribed for UTI, and for diverticulitis, please adhere to a GI soft diet, then after 2 weeks, you can go to a high-fiber diet ? Please take blood pressure medications as prescribed, monitor for syncope if so please come back to the hospital ? Please follow-up with primary care provider in 1 week Discharge Attestations Time Spent in Discharge Care*: greater than 30 min Quality Metrics Clinical Quality Measures [ No reported AMI, CVA or VTE this stay] Coding Level of Care Code 18337 Total time (in minutes) for Discharge: 45 Diagnoses Syncope R55 Urinary tract infection N39.0 Atrial fibrillation I48.91 Essential hypertension I10 Hypertension type: essential hypertension Coronary artery disease I25.10
[2024-03-27] MEDS: ciprofloxacin 400 MG/200 ML PREMIX 200 MG IV (11:09)
--- NOTE | 2024-03-27 11:11 | PC.SOCIAL ---
IMM Updated Updated pt on IMM. No questions voiced. Provided pt a copy. Initialed, dated, & timed a copy & placed in chart.
[2024-03-27 11:15] LABS: SARS Covid-2 Antigen Negative (Negative)
== END 2024-03-27 13:30 | disposition skilled nursing facility (03) | DRG 312 ==
LOC: ER 13:02 → MEDSURG 17:21
PROVIDERS: Admitting Provider Family Medicine; Emergency Provider Emergency Medicine; PCP Family Medicine; Visit Provider Family Medicine
DX: I95.1 Orthostatic hypotension (principal); I44.2 Atrioventricular block, complete; K57.92 Diverticulitis of intestine, part unspecified, without perforation or abscess without bleeding; N39.0 Urinary tract infection, site not specified; I25.10 Atherosclerotic heart disease of native coronary artery without angina pectoris; Z95.5 Presence of coronary angioplasty implant and graft; I25.2 Old myocardial infarction; E78.00 Pure hypercholesterolemia, unspecified; I48.91 Unspecified atrial fibrillation; Z95.0 Presence of cardiac pacemaker; I10 Essential (primary) hypertension; Z66 Do not resuscitate
CPT/HCPCS: 36415; 70450; 71045; 71275; 73502; 74176; 80048; 80053; 81001; 83605; 83880; 84145; 84443; 84484; 85025; 85378; 86140; 87040; 87086; 87426; 93005; 94664; 96361; 96365; 96372; 97161; 97165; 99285; G0378; J0692; J0696; J0744; J1650; J3490; J7030; J7040; Q9967

== ENCOUNTER → 2024-04-02 13:56 | Outpatient (BNVA) | payer MEDICARE, OTHER, SELFPAY | PROVIDERS: PCP Family Medicine; Visit Provider Physician Assistant | DX: S72.002D Fracture of unspecified part of neck of left femur, subsequent encounter for closed fracture with routine healing (principal); X58.XXXD Exposure to other specified factors, subsequent encounter; Z98.890 Other specified postprocedural states | CPT/HCPCS: 73502; 99024 ==

== ENCOUNTER 2024-04-10 10:45 | Emergency (ER) | payer MEDICARE, OTHER, SELFPAY ==
[2024-04-10] VITALS (8 sets, daily range): BP systolic 101–140; BP diastolic 61–85; PULSE 66–95; RESP 18; TEMP 36.7; O2SAT 91–97; BMI 22.4
--- NOTE | 2024-04-10 10:50 | ECG_ITS ---
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
--- NOTE | 2024-04-10 11:01 | XRR_ITS ---
PROCEDURE INFORMATION: Exam: XR Chest Exam date and time: 04/10/2024 11:11 AM Age: 84 years old Clinical indication: Cough and dyspnea and shortness of breath; Prior surgery; Surgery date: 6+ months; Surgery type: Pacer; Patient HX: HX of rectal cancer; Additional info: Dyspnea/cough TECHNIQUE: Imaging protocol: Radiologic exam of the chest. Views: 1 view. COMPARISON: CT angio chest PE prot [id number] 03/23/2024 12:14 PM FINDINGS: Tubes, catheters and devices: Left sided cardiac pacemaker leads in satisfactory position. Lungs: No consolidation. Pleural spaces: No sizable pleural effusion or pneumothorax. Heart/Mediastinum: No cardiomegaly. Bones/joints: Unremarkable. XR/XR chest 1V portable [id number] IMPRESSION: No acute intrathoracic findings.
--- NOTE | 2024-04-10 11:01 | CT_ITS ---
WS: [id number] CT ABDOMEN PELVIS TECHNIQUE: Noncontrast CT of the abdomen and pelvis with coronal and sagittal reformatted images. CLINICAL INFORMATION: flank pain COMPARISON: CT 03/24/2024 DLP: 331.[address] scans at [facility] use at least one of these dose optimization techniques: automated e xposure control; mA and/or kV adjustment per patient size (includes targeted exams where dose is matc hed to clinical indication); or iterative reconstruction. FINDINGS: Normal noncontrast liver. Splenic granulomas. Moderate esophageal hiatal hernia. Adrenal glands are normal. Sigmoid diverticulosis. Noncontrast bran creas is normal. Prior screw fixation LEFT hip. Normal caliber abdominal aorta aortic calcification. Tiny fat-containing umbilical hernia. Prior hysterectomy. 4 mm noncalcified RIGHT middle lobe nodule. Few air-fluid levels in the transverse colon likely due to adynamic ileus. Constipation in the sigmo id colon. CT/CT kidney stone [id number] IMPRESSION: 1. No obstructing renal or ureteral calculi. No hydronephrosis. Few pelvic phl eboliths. 2. Prior hysterectomy. 3. Distended transverse colon with air-fluid levels likely due to adynamic ile us. Constipation in the sigmoid colon. Decompressed small bowel. Recommend foll ow-up colonoscopy if symptoms are unresolved. 4. Moderate esophageal hiatal hernia. 5. No other acute findings.
[2024-04-10 11:28] LABS: Basophils % 0.7 %; Eosinophils # 0.2 10^3/uL (0.0-0.8); Eosinophils % 2.6 %; Hematocrit 38.2 % (36-47); Lymphocytes # 1.9 10^3/uL (0.8-4.8); Lymphocytes % 32.1 %; Mean Corpuscular Hemoglobin 30.4 pg (27-33); Mean Corpuscular Volume 92.3 fl (85-98); Mean Platelet Volume 9.2 fL (7.4-10.4); Monocytes # 0.6 10^3/uL (0.2-0.9); Neutrophils # 3.14 10^3/uL (1.8-7.7); Neutrophils % 54.3 %; Nucleated Red Blood Cells % 0 %; Platelet Count 440 10^3/cmm (157-399); Red Blood Count 4.14 10^6/uL (3.85-5.65); Red Cell Distribution Width 13.3 % (12.1-15.1); White Blood Count 5.79 10^3/uL (3.29-11.43)
--- NOTE | 2024-04-10 11:28 | ED_ITS ---
HPI - Abdominal Pain 2 General: Chief Complaint: Abdominal Pain Stated Complaint: ABD Pain, SOB Time Seen by Provider: 04/10/24 10:52 History of Present Illness: 84-year-old female presents emergency ro om from last week. Main complaint at this time is abdominal pain is localized suprapubic she denies any chest pain. Denies any upper abdominal pain. She denies any hematuria no vomiting no hematochezia or melena. Associated Symptoms: Denies chills, dysuria and fever(s) Related Data Home Medications Medication Instructions Recorded Confirmed magnesium oxide 250 mg PO BID 12/27/22 04/11/24 fluoxetine 20 mg capsule 20 mg PO DAILY 03/25/24 04/11/24 acetaminophen 325 mg tablet 650 mg PO .Q4-6H PRN Pain 04/10/24 04/11/24 aspirin 81 mg tablet,delayed 81 mg PO BID 04/10/24 04/11/24 release atorvastatin 80 mg tablet 80 mg PO BEDTIME 04/10/24 04/11/24 bisacodyl 10 mg rectal suppository 10 mg GA DAILY PRN Constipation 04/10/24 04/11/24 (Dulcolax (bisacodyl)) cetirizine 5 mg tablet 5 mg PO DAILY 04/10/24 04/11/24 clopidogrel 75 mg tablet 75 mg PO DAILY 04/10/24 04/11/24 linezolid 600 mg tablet 600 mg PO BID 04/10/24 04/11/24 magnesium hydroxide 400 mg/5 mL 30 ml PO DAILY PRN Constipation 04/10/24 04/11/24 oral suspension (Milk of Magnesia) multivitamin,tx-minerals 1 tab PO DAILY 04/10/24 04/11/24 sucralfate 100 mg/mL oral 10 ml PO Q12H 04/10/24 04/11/24 suspension ondansetron HCl 4 mg tablet 4 mg PO Q4H PRN Nausea 04/11/24 04/11/24 Previous Rx's Medication Instructions Recorded nitroglycerin 0.4 mg sublingual 0.4 mg sublingual Q5M PRN chest 12/27/22 tablet (Nitrostat) pain #25 tabs isosorbide mononitrate 30 mg 30 mg PO DAILY #90 tabs 11/15/23 tablet,extended release 24 hr hydrocodone 5 mg-acetaminophen 325 1 tab PO Q6H PRN pain 7 days #28 02/23/24 mg tablet tabs losartan 50 mg tablet 50 mg PO DAILY #90 tabs 03/08/24 linaclotide 72 mcg capsule 72 mcg PO DAILY #30 caps 03/18/24 (Linzess) pantoprazole 40 mg tablet,delayed 40 mg PO BID 30 days #60 tabs 03/18/24 release (Protonix) Allergies Allergy/AdvReac Type Severity Reaction Status Date / Time gabapentin Allergy Intermediate diarrhea Verified 04/02/24 14:05 pregabalin [From Lyrica] Allergy Intermediate swelling Verified 04/02/24 14:05 metoprolol AdvReac Intermediate bitter Verified 04/02/24 14:05 taste promethazine [From Phenergan] AdvReac disoriented Verified 04/02/24 14:05 Sulfa (Sulfonamide AdvReac abdominal Verified 04/02/24 14:05 Antibiotics) pain Review of Systems 2 Const: Denies: fever(s) or chills Card: Denies: chest pain Resp: Denies: dyspnea GI: Denies: abdominal pain : Denies: dysuria, urinary frequency or urinary urgency Musc: Denies: neck pain or back pain Skin/Breast: Denies: rash PFSH ED 2 PFSH: Medical History Atrial fibrillation Meningioma Meningioma identified during evaluation for chronic headaches-followed with neurology Dr. De Los Santos in [place] and states it was stable. She has been cleared and has not seen a neurologist in over 4 years. Elevated cholesterol Diagnosed in 2011 and has been on and off medication. Managed by PMD Paget's disease Status post excision surgery and radiation in 2020 done at [facility]. No pertinent past medical history Denies diabetes, asthma, seizures, DVT/PE PCP: Dr. Person SVT (supraventricular tachycardia) HTN (hypertension) Surgical History S/P cardiac pacemaker procedure 2019 History of rectal surgery X 3 Patient had perianal excision of Paget's disease done by Dr. Adamson and Dr. Goss in [place] first in May 2017 and then again in July 2018, 2020 S/P hysterectomy Vaginal, done for prolapse in 1981. She was told there was no cancer. S/P tubal ligation Laparoscopic procedure performed in 1979 Family History Mother Heart disease Hypertension Father Heart disease Daughter Diabetes Sister Hyperlipidemia Other Colon cancer Denies family history of Ovarian cancer Breast cancer Uterine cancer Thyroid disease Stroke Social History Smoking and tobacco/nicotine status: never used tobacco/nicotine Alcohol intake: never Substance/Drug Use: never Physical Exam 2 Const: COMMON NORMALS: no acute distress GENERAL APPEARANCE: cooperative and comfortable ORIENTATION/CONSCIOUSNESS: Yes awake, Yes oriented to person, Yes oriented to place and Yes oriented to time HENMT: COMMON NORMALS: normocephalic, atraumatic and hearing grossly normal bilaterally HEAD & SCALP: normocephalic and atraumatic Resp: COMMON NORMALS: normal respiratory effort, No retractions, No use of accessory muscles and clear to auscultation bilaterally AUSCULTATION: clear to auscultation bilaterally Cardio: COMMON NORMALS: regular rate, regular rhythm and No murmurs present (Cardio) RATE: regular rate RHYTHM: regular rhythm GI: COMMON NORMALS: Soft to palpation and No hepatosplenomegaly present A USCULTATION: Yes normoactive bowel sounds PALPATION: Yes Soft to palpation, No Tenderness to palpation present (GI), No Guarding due to palpation present (GI) and Yes No hepatosplenomegaly present Extremity: COMMON NORMALS: normal to inspection, capillary refill normal, no clubbing, cyanosis or edema, no calf tenderness and no pedal edema Neuro: SENSORIUM/ORIENTATION: Yes oriented to person, Yes oriented to place and Yes oriented to time Skin: COMMON NORMALS: no rashes or lesions noted GENERAL SKIN EXAM: no rashes or lesions noted Course 2 Vital Signs: Vital signs: Vital Signs Temperature 98.1 F 04/10/24 10:48 Pulse Rate 91 04/10/24 15:31 Respiratory Rate 18 04/10/24 10:48 Blood Pressure 130/81 04/10/24 15:31 Pulse Oximetry 96 04/10/24 15:31 Oxygen Delivery Me thod Room Air 04/10/24 15:00 MDM - Abdominal Pain Medical Decision Making Patient has no leukocytosis. CT did not show significant abnormality. Exam shows mild suprapubic tenderness but otherwise unremarkable urine shows mild cystitis. Patient was discharged home on Cipro and Flagyl on 03/27. CT shows adynamic ileus but otherwise no significant abnormality. Medical Records I reviewed the patient's medical records. Lab Data I reviewed the patient's lab results. 04/10/24 10:56 04/10/24 10:56 Labs/Radiology: Radiology Impressions Abdomen/Pelvis CT 04/10/24 11:01 IMPRESSION: 1. No obstructing renal or ureteral calculi. No hydronephrosis. Few pelvic phleboliths. 2. Prior hysterectomy. 3. Distended transverse colon with air-fluid levels likely due to adynamic ileus. Constipation in the sigmoid colon. Decompressed small bowel. Recommend follow-up colonoscopy if symptoms are unresolved. 4. Moderate esophageal hiatal hernia. 5. No other acute findings. Chest X-Ray 04/10/24 11: IMPRESSION: No acute intrathoracic findings. Laboratory Results WBC 5.79 10^3/uL (3.29-11.43) 04/10/24 10:56 RBC 4.14 10^6/uL (3.85-5.65) 04/10/24 10:56 Hgb 12.60 g/dL (11.27-16.99) 04/10/24 10:56 Hct 38.2 % (36-47) 04/10/24 10:56 MCV 92.3 fl (85-98) 04/10/24 10:56 MCH 30.4 pg (27-33) 04/10/24 10:56 MCHC 33.0 g/dL (30-55) 04/10/24 10:56 RDW 13.3 % (12.1-15.1) 04/10/24 10:56 Plt Count 440 10^3/cmm (157-399) H 04/10/24 10:56 MPV 9.2 fL (7.4-10.4) 04/10/24 10:56 Neut % (Auto) 54.3 % 04/10/24 10:56 Lymph % (Auto) 32.1 % 04/10/24 10:56 [place] % (Auto) 10.0 % 04/10/24 10:56 Eos % (Auto) 2.6 % 04/10/24 10:56 Baso % (Auto) 0.7 % 04/10/24 10:56 Neut # (Auto) 3.14 10^3/uL (1.8-7.7) 04/10/24 10:56 Lymph # (Auto) 1.9 10^3/uL (0.8-4.8) 04/10/24 10:56 [place] # (Auto) 0.6 10^3/uL (0.2-0.9) 04/10/24 10:56 Eos # (Auto) 0.2 10^3/uL (0.0-0.8) 04/10/24 10:56 Baso # (Auto) 0.0 10^3/uL (0.0-0.1) 04/10/24 10:56 Nucleated RBC % (auto) 0 % 04/10/24 10:56 Nucleated RBCs # 0.0 /100WBC 04/10/24 10:56 Sodium 129 mmol/L (136-145) L 04/10/24 10:56 Potassium 4.5 mmol/L (3.5-5.1) 04/10/24 10:56 Chloride 92 mmol/L (98-107) L 04/10/24 10:56 Carbon Dioxide 23 mmol/L (22-29) 04/10/24 10:56 Anion Gap 18.5 (5-19) 04/10/24 10:56 BUN 6 mg/dL (8-23) L 04/10/24 10:56 Creatinine 0.8 mg/dL (0.5-0.9) 04/10/24 10:56 GFR Calculation Not Reportable 04/10/24 10:56 Glucose 103 mg/dL (65-115) 04/10/24 10:56 Calculated Osmolality 266 mOsm/kg (285-295) L 04/10/24 10:56 Calcium 9.7 mg/dL (8.5-10.5) 04/10/24 10:56 Total Bilirubin 0.5 mg/dL (0.15-1.2) 04/10/24 10:56 AST 48 U/L (0-32) H 04/10/24 10:56 ALT 35 U/L (0-33) H 04/10/24 10:56 Alkaline Phosphatase 112 U/L (35-105) H 04/10/24 10:56 Creatine Kinase 56 U/L (26-192) 04/10/24 10:56 Total Protein 7.3 g/dL (6.6-8.7) 04/10/24 10:56 Albumin 4.2 g/dL (3.5-5.2) 04/10/24 10:56 Globulin 3.1 g/dL (1.3-4.6) 04/10/24 10:56 Urine Color Dark yellow (Yellow) A 04/10/24 12:10 Urine Appearance Clear (CLEAR) 04/10/24 12:10 Urine pH 7.0 (5-7) 04/10/24 12:10 Ur Specific [place] 1.015 (1.005-1.030) 04/10/24 12:10 Urine Protein Negative (Negative) 04/10/24 12:10 Urine Glucose (UA) Negative (Normal) 04/10/24 12:10 Urine Ketones Negative (Negative) 04/10/24 12:10 Urine Blood Negative (Negative) 04/10/24 12:10 Urine Nitrate Negative (Negative) 04/10/24 12:10 Urine Bilirubin Negative (Negative) 04/10/24 12:10 Urine Urobilinogen 1.0 mg/dL (Negative) 04/10/24 12:10 Ur Leukocyte Esterase 1+ (Negative) A 04/10/24 12:10 Urine RBC 0-2 /hpf (0-2) 04/10/24 12:10 Urine WBC 6-10 /hpf (0-5) 04/10/24 12:10 Ur Squamous Epith Cells 0-5 /hpf (0-5) 04/10/24 12:10 Amorphous Sediment Not Reportable 04/10/24 12:10 Urine Bacteria None seen /hpf (NONE) 04/10/24 12:10 Hyaline Casts 0.81 /lpf 04/10/24 12:10 All radiology interpretation(s) finalized by discharge Discharge Plan Discharge Patient Disposition: Home Clinical Impression: Cystitis, Adynamic ileus Condition: Stable Prescriptions: No Action magnesium oxide 250 mg magnesium tablet 250 mg PO BID nitroglycerin [Nitrostat] 0.4 mg tablet, sublingual 0.4 mg sublingual Q5M PRN (Reason: chest pain) Qty: 25 1RF Rx Instructions: do not exceed 3 doses per episode losartan 50 mg tablet 50 mg PO DAILY Qty: 90 3RF pantoprazole [Protonix] 40 mg tablet,delayed release (DR/EC) 40 mg PO BID 30 Days Qty: 60 2RF Linzess 72 mcg capsule 72 mcg PO DAILY Qty: 30 2RF isosorbide mononitrate 30 mg tablet extended release 24 hr 30 mg PO DAILY Qty: 90 11RF atorvastatin 80 mg Tablet 80 mg PO BEDTIME acetaminophen 325 mg Tablet 650 mg PO .Q4-6H PRN (Reason: Pain) cetirizine 5 mg Tablet 5 mg PO DAILY sucralfate 100 mg/mL suspension 10 ml PO Q12H clopidogrel 75 mg tablet 75 mg PO DAILY aspirin [Aspir-81] 81 mg Tablet,Delayed Release (Dr/Ec) 81 mg PO BID magnesium hydroxide [Milk of Magnesia] 400 mg/5 mL Suspension 30 ml PO DAILY PRN (Reason: Constipation) linezolid 600 mg Tablet 600 mg PO BID bisacodyl [Dulcolax (bisacodyl)] 10 mg Suppository 10 mg GA DAILY PRN (Reason: Constipation) Thera M Tablet 1 tab PO DAILY Zofran 4 mg Tablet 4 mg PO Q4H PRN (Reason: Nausea) hydrocodone-acetaminophen 5-325 mg tablet 1 tab PO Q6H PRN (Reason: pain) 7 Days Qty: 28 0RF fluoxetine 20 mg capsule 20 mg PO DAILY Discharge Orders: Discharge ED (Routine); Ordered 04/10/24 Ordered By: Piotr Velasquez Referrals: Dedrick Person MD [Primary Care Provider] - Discharge Diet: Usual diet Patient Instructions: Opioid Safety, Pain Management Activity Restrictions/Additional Instructions: Thank you for choosing [facility] for your healthcare needs today. It is very important that you follow up as instructed or that you return to the Emergency Department should you have concerns or if your condition changes or worsens in any way. You are seen today for abdominal pain. CT did not show any acute abnormalities there is a slight elevation of liver enzymes that should be rechecked in about 1 to 2 weeks. There is signs of mild bladder infection you are currently on linezolid based on a urine culture that we reviewed from the long term it is the most appropriate antibiotic and you should complete it as prescribed. You were noted to have slightly low sodium in your blood however this has been chronically about the same level you have been in the past. There was also some mild constipation. Continue to follow with your primary care doctor. Coding Level of Care Code ED Educational Guidance Counselor for Nati Castillo
[2024-04-10 11:39] LABS: Alanine Aminotransferase 35 U/L (0-33); Albumin Level 4.2 g/dL (3.5-5.2); Alkaline Phosphatase 112 U/L (35-105); Anion Gap 18.5 (5-19); Aspartate Amino Transferase 48 U/L (0-32); Blood Urea Nitrogen 6 mg/dL (8-23); Calcium 9.7 mg/dL (8.5-10.5); Carbon Dioxide 23 mmol/L (22-29); Chloride 92 mmol/L (98-107); Creatine Phosphokinase 56 U/L (26-192); Creatinine Clr Calc Pharmacy 39.8032; Globulin 3.1 g/dL (1.3-4.6); Glucose 103 mg/dL (65-115); Osmolality Calculated 266 mOsm/kg (285-295); Potassium 4.5 mmol/L (3.5-5.1); Sodium 129 mmol/L (136-145); Total Bilirubin 0.5 mg/dL (0.15-1.2); Total Protein 7.3 g/dL (6.6-8.7)
[2024-04-10 12:35] LABS: Bilirubin Urine Negative (Negative); Blood Urine Negative (Negative); Glucose Urine UA Negative (Normal); Ketones Urine Negative (Negative); Leukocyte Esterase Urine 1+ (Negative); Nitrate Urine Negative (Negative); Protein Urine Negative (Negative); Specific Gravity, Urine 1.015 (1.005-1.030); Urine Appearance Clear (CLEAR); Urine Color Dark Yellow (Yellow)
[2024-04-10 12:40] LABS: Add Urine Microscopic? YES; Bacteria Urine None Seen /hpf; Hyaline Casts Urine 0.81 /lpf; RBC Urine 0-2 /hpf (0-2); Squamous Epithelial Cell Urine 0-5 /hpf (0-5)
[2024-04-10 12:41] LABS: Add Urine Culture? No
== END 2024-04-10 15:28 | disposition home or self-care (01) ==
PROVIDERS: Emergency Provider Family Medicine; PCP Family Medicine
DX: N30.90 Cystitis, unspecified without hematuria (principal); K56.0 Paralytic ileus; Z79.02 Long term (current) use of antithrombotics/antiplatelets; Z79.82 Long term (current) use of aspirin; I10 Essential (primary) hypertension
CPT/HCPCS: 36415; 71045; 74176; 80053; 81001; 82550; 85025; 87040; 93005; 99285

== ENCOUNTER 2024-04-10 19:31 | Inpatient (IN) | payer MEDICARE, OTHER, SELFPAY ==
[2024-04-10] VITALS (10 sets, daily range): BP systolic 121–160; BP diastolic 76–94; PULSE 75–89; RESP 17–18; TEMP 36.4–36.5; O2SAT 93–98; BMI 27.3; BMI 23.4
[2024-04-10 20:00] LABS: Basophils % 0.5 %; Eosinophils # 0.1 10^3/uL (0.0-0.8); Eosinophils % 1.6 %; Lymphocytes # 1.1 10^3/uL (0.8-4.8); Lymphocytes % 18.2 %; Mean Corpuscular HGB Conc 33.8 g/dL (30-55); Mean Corpuscular Hemoglobin 31.1 pg (27-33); Mean Corpuscular Volume 92.2 fl (85-98); Mean Platelet Volume 9.1 fL (7.4-10.4); Monocytes # 0.5 10^3/uL (0.2-0.9); Monocytes % 8.3 %; Neutrophils # 4.47 10^3/uL (1.8-7.7); Neutrophils % 71.2 %; Nucleated Red Blood Cells % 0 %; Platelet Count 358 10^3/cmm (157-399); Red Blood Count 3.47 10^6/uL (3.85-5.65); Red Cell Distribution Width 13.3 % (12.1-15.1); White Blood Count 6.27 10^3/uL (3.29-11.43)
[2024-04-10 20:25] LABS: Alanine Aminotransferase 30 U/L (0-33); Albumin Level 3.9 g/dL (3.5-5.2); Alkaline Phosphatase 96 U/L (35-105); Blood Urea Nitrogen 8 mg/dL (8-23); Carbon Dioxide 22 mmol/L (22-29); Chloride 92 mmol/L (98-107); Creatinine Clr Calc Pharmacy 38.7126; Globulin 2.4 g/dL (1.3-4.6); Glucose 119 mg/dL (65-115); Osmolality Calculated 263 mOsm/kg (285-295); Sodium 127 mmol/L (136-145); Total Bilirubin 0.3 mg/dL (0.15-1.2); Total Protein 6.3 g/dL (6.6-8.7)
[2024-04-10 20:26] LABS: Lactic Sepsis W/Reflex 1.3 mmol/L (0.5-2.2)
[2024-04-10 20:27] LABS: Anion Gap 17.4 (5-19); Aspartate Amino Transferase 41 U/L (0-32); Potassium 4.4 mmol/L (3.5-5.1)
[2024-04-10 20:32] LABS: Procalcitonin 0.06 ng/mL (0-0.5)
--- NOTE | 2024-04-10 20:52 | ED_ITS ---
HPI - Abdominal Pain 2 General: Chief Complaint: Abdominal Pain Stated Complaint: ZEPEDA/n/v Time Seen by Provider: 04/10/24 19:38 History of Present Illness: 84-year-old female who presents from [facility] for the second time today. He was seen earlier today after she had some suprapubic cramping and some vomiting. She was found to have a urinary tract infection and an adynamic ileus. She was sent back to half-way, but returns again after she had an episode of what sounds like rigors and abdominal pain and possibly another episode of vomiting. He says she did not vomit. She says she feels quite a bit better now still with some pain in her suprapubic area some burning. No altered mental status. No focal motor deficits. No known fevers. Apparently she recently completed Cipro and Flagyl. She was then started on Zyvox yesterday unassuming for urinary tract infection. She is receiving IV Zyvox there. Apparently her symptoms may be related to the administration of the Zyvox. Related Data Home Medications Medication Instructions Recorded Confirmed magnesium oxide 250 mg PO BID 12/27/22 04/10/24 fluoxetine 20 mg capsule 20 mg PO DAILY 03/25/24 04/10/24 acetaminophen 325 mg tablet 650 mg PO .Q4-6H PRN Pain 04/10/24 04/10/24 aspirin 81 mg tablet,delayed 81 mg PO BID 04/10/24 04/10/24 release atorvastatin 80 mg tablet 80 mg PO BEDTIME 04/10/24 04/10/24 bisacodyl 10 mg rectal suppository 10 mg GA DAILY PRN Constipation 04/10/24 04/10/24 (Dulcolax (bisacodyl)) cetirizine 5 mg tablet 5 mg PO DAILY 04/10/24 04/10/24 clopidogrel 75 mg tablet 75 mg PO DAILY 04/10/24 04/10/24 lactobacillus combination no.4 3 3,000 mmu cells PO DAILY PRN while 04/10/24 04/10/24 billion cell capsule (Probiotic) on antibiotics linezolid 600 mg tablet 600 mg PO BID 04/10/24 04/10/24 magnesium hydroxide 400 mg/5 mL 30 ml PO DAILY PRN Constipation 04/10/24 04/10/24 oral suspension (Milk of Magnesia) multivitamin,tx-minerals 1 tab PO DAILY 04/10/24 04/10/24 sucralfate 100 mg/mL oral 10 ml PO Q12H 04/10/24 04/10/24 suspension Previous Rx's Medication Instructions Recorded nitroglycerin 0.4 mg sublingual 0.4 mg sublingual Q5M PRN chest 12/27/22 tablet (Nitrostat) pain #25 tabs isosorbide mononitrate 30 mg 30 mg PO DAILY #90 tabs 11/15/23 tablet,extended release 24 hr hydrocodone 5 mg-acetaminophen 325 1 tab PO Q6H PRN pain 7 days #28 02/23/24 mg tablet tabs losartan 50 mg tablet 50 mg PO DAILY #90 tabs 03/08/24 linaclotide 72 mcg capsule 72 mcg PO DAILY #30 caps 03/18/24 (Linzess) pantoprazole 40 mg tablet,delayed 40 mg PO BID 30 days #60 tabs 03/18/24 release (Protonix) Allergies Allergy/AdvReac Type Severity Reaction Status Date / Time gabapentin Allergy Intermediate diarrhea Verified 04/02/24 14:05 pregabalin [From Lyrica] Allergy Intermediate swelling Verified 04/02/24 14:05 metoprolol AdvReac Intermediate bitter Verified 04/02/24 14:05 taste promethazine [From Phenergan] AdvReac disoriented Verified 04/02/24 14:05 Sulfa (Sulfonamide AdvReac abdominal Verified 04/02/24 14:05 Antibiotics) pain Review of Systems 2 Narrative: Constitutional symptoms: Negative except as documented in HPI. Skin symptoms: Negative except as documented in HPI. Eye symptoms: Negative except as documented in HPI. ENMT symptoms: Negative except as documented in HPI. Respiratory symptoms: Negative except as documented in HPI. Cardiovascular symptoms: Negative except as documented in HPI. Gastrointestinal symptoms: Negative except as documented in HPI. Genitourinary symptoms: Negative except as documented in HPI. Musculoskeletal symptoms: Negative except as documented in HPI. Neurologic symptoms: Negative except as documented in HPI. Psychiatric symptoms: Negative except as documented in HPI. Endocrine symptoms: Negative except as documented in HPI. PFSH ED 2 PFSH: Medical History Atrial fibrillation Meningioma Meningioma identified during evaluation for chronic headaches-followed with neurology Dr. De Los Santos in [place] and states it was stable. She has been cleared and has not seen a neurologist in over 4 years. Elevated cholesterol Diagnosed in 2011 and has been on and off medication. Managed by PMD Paget's disease Status post excision surgery and radiation in 2020 done at [place]. No pertinent past medical history Denies diabetes, asthma, seizures, DVT/PE PCP: Dr. Person SVT (supraventricular tachycardia) HTN (hypertension) Surgical History S/P cardiac pacemaker procedure 2019 History of rectal surgery X 3 Patient had perianal excision of Paget's disease done by Dr. Adamson and Dr. Goss in [place] first in May 2017 and then again in July 2018, 2020 S/P hysterectomy Vaginal, done for prolapse in 1981. She was told there was no cancer. S/P tubal ligation Laparoscopic procedure performed in 1979 Family History Mother Heart disease Hypertension Father Heart disease Daughter Diabetes Sister Hyperlipidemia Other Colon cancer Denies family history of Ovarian cancer Breast cancer Uterine cancer Thyroid disease Stroke Social History Smoking and tobacco/nicotine status: never used tobacco/nicotine Alcohol intake: never Substance/Drug Use: never Physical Exam 2 Narrative: EXAM NARRATIVE: General: Alert, no acute distress. Skin: Warm, dry. Head: Normocephalic, atraumatic. Neck: Supple, trachea midline. Eye: Extraocular movements are intact. Ears, nose, mouth and throat: mucosa moist. Cardiovascular: Regular, Normal peripheral perfusion. Respiratory: Lungs are clear to auscultation, respirations are non-labored, breath sounds are equal, Symmetrical chest wall expansion. Gastrointestinal: Soft, some mild suprapubic tenderness, Non distended Musculoskeletal: Normal ROM, no deformity. Neurological: Alert and oriented, No focal neurological deficit observed. Psychiatric: Cooperative, appropriate mood & affect. Course 2 Vital Signs: Vital signs: Vital Signs Temperature 97.6 F 04/10/24 19:32 Pulse Rate 87 04/10/24 21:30 Respiratory Rate 18 04/10/24 19:32 Blood Pressure 147/76 04/10/24 21:30 Pulse Oximetry 95 04/10/24 21:30 Oxygen Delivery Me thod Room Air 04/10/24 20:30 MDM - Abdominal Pain Medical Decision Making Medical decision making: Lab Review: Laboratory results were reviewed and interpreted by myself the emergency room physician. Sodium is little low at 127. Some fluids been given. Otherwise lab is not much change from earlier today. I reviewed the patient's medical record. Reexamination: Patient remained stable. No increased work of breathing. No altered mental status. No focal motor deficits. Consultation: I spoke with Dr. Pollard who has agreed to admit the patient for observation overnight. Assessment and plan: Abdominal pain UTI Hyponatremia -I discussed the patient with the hospitalist on-call who is admitting the patient. - Discussed findings and plan with patient. Answered any questions. - All laboratory values were reviewed and interpreted personally by myself, the ER physician - All imaging was reviewed and interpreted personally by myself, the ER physician. - Evaluation and treatment of this problem were appropriate in the emergency setting Lab Data 04/10/24 19:52 04/10/24 19:52 Labs/Radiology: Laboratory Results WBC 6.27 10^3/uL (3.29-11.43) 04/10/24 19:52 RBC 3.47 10^6/uL (3.85-5.65) L 04/10/24 19:52 Hgb 10.80 g/dL (11.27-16.99) L 04/10/24 19:52 Hct 32.0 % (36-47) L 04/10/24 19:52 MCV 92.2 fl (85-98) 04/10/24 19:52 MCH 31.1 pg (27-33) 04/10/24 19:52 MCHC 33.8 g/dL (30-55) 04/10/24 19:52 RDW 13.3 % (12.1-15.1) 04/10/24 19:52 Plt Count 358 10^3/cmm (157-399) 04/10/24 19:52 MPV 9.1 fL (7.4-10.4) 04/10/24 19:52 Neut % (Auto) 71.2 % 04/10/24 19:52 Lymph % (Auto) 18.2 % 04/10/24 19:52 [place] % (Auto) 8.3 % 04/10/24 19:52 Eos % (Auto) 1.6 % 04/10/24 19:52 Baso % (Auto) 0.5 % 04/10/24 19:52 Neut # (Auto) 4.47 10^3/uL (1.8-7.7) 04/10/24 19:52 Lymph # (Auto) 1.1 10^3/uL (0.8-4.8) 04/10/24 19:52 [place] # (Auto) 0.5 10^3/uL (0.2-0.9) 04/10/24 19:52 Eos # (Auto) 0.1 10^3/uL (0.0-0.8) 04/10/24 19:52 Baso # (Auto) 0.0 10^3/uL (0.0-0.1) 04/10/24 19:52 Nucleated RBC % (auto) 0 % 04/10/24 19:52 Nucleated RBCs # 0.0 /100WBC 04/10/24 19:52 Sodium 127 mmol/L (136-145) L 04/10/24 19:52 Potassium 4.4 mmol/L (3.5-5.1) 04/10/24 19:52 Chloride 92 mmol/L (98-107) L 04/10/24 19:52 Carbon Dioxide 22 mmol/L (22-29) 04/10/24 19:52 Anion Gap 17.4 (5-19) 04/10/24 19:52 BUN 8 mg/dL (8-23) 04/10/24 19:52 Creatinine 0.9 mg/dL (0.5-0.9) 04/10/24 19:52 GFR Calculation Not Reportable 04/10/24 19:52 Glucose 119 mg/dL (65-115) H 04/10/24 19:52 Calculated Osmolality 263 mOsm/kg (285-295) L 04/10/24 19:52 Lactic Acid 1.3 mmol/L (0.5-2.2) 04/10/24 19:52 Calcium 9.0 mg/dL (8.5-10.5) 04/10/24 19:52 Total Bilirubin 0.3 mg/dL (0.15-1.2) 04/10/24 19:52 AST 41 U/L (0-32) H 04/10/24 19:52 ALT 30 U/L (0-33) 04/10/24 19:52 Alkaline Phosphatase 96 U/L (35-105) 04/10/24 19:52 C-Reactive Protein 3.0 mg/L (0.0-4.9) 04/10/24 19:52 Total Protein 6.3 g/dL (6.6-8.7) L 04/10/24 19:52 Albumin 3.9 g/dL (3.5-5.2) 04/10/24 19:52 Globulin 2.4 g/dL (1.3-4.6) 04/10/24 19:52 Procalcitonin 0.06 ng/mL (0-0.5) 04/10/24 19:52 Coronavirus (PCR) Negative (Negative) 04/10/24 19:52 Influenza A (PCR) Negative (Negative) 04/10/24 19:52 Influenza Type B (PCR) Negative (Negative) 04/10/24 19:52 RSV (PCR) Negative (Negative) 04/10/24 19:52 No radiology studies performed this visit Discharge Plan Discharge Patient Disposition: Placed in Observation Clinical Impression: Adynamic ileus, Urinary tract infection, Hyponatremia Coding Level of Care Code ED Russian Language Instructor for Nati Castillo
[2024-04-10 20:55] LABS: Covid PCR NEGATIVE (Negative); Influenza A NEGATIVE (Negative); Influenza B NEGATIVE (Negative); Respiratory Syncytial Virus Ce NEGATIVE (Negative)
[2024-04-10] MEDS: sodium chloride 0.9% 1,000 ML 999 ML IV (21:00)
[2024-04-10] MEDS: cefTRIAXone 1,000 mg SDV 1000 MG IVP (21:41)
--- NOTE | 2024-04-10 22:10 | P.HP_ITS ---
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 Currently patient is alert oriented x 4, following all commands, her major complaint is lower pelvic pain, dysuria, no flank pain, no nausea, no vomiting, she tells me that she had a hamburger just before coming back to the hospital. She presented to the emergency room early this morning for abdominal pain, suprapubic pain, CT scan showed adynamic ileus, constipation sigmoid colon, moderate esophageal hiatal hernia, no obstructing renal or ureteral calculi Review of Systems 2 Card: Denies: chest pain Resp: Denies: dyspnea GI: Reports: abdominal pain; Denies: nausea, vomiting or diarrhea : Reports: dysuria and urinary frequency; Denies: flank pain Medications/Allergies Home Medications Medication Instructions Recorded Confirmed Last Taken Type magnesium oxide 250 mg PO BID 12/27/22 04/10/24 04/10/24 History nitroglycerin 0.4 mg sublingual 0.4 mg sublingual Q5M PRN chest 12/27/22 04/10/24 Unknown Rx tablet (Nitrostat) pain #25 tabs isosorbide mononitrate 30 mg 30 mg PO DAILY #90 tabs 11/15/23 04/10/24 04/10/24 Rx tablet,extended release 24 hr hydrocodone 5 mg-acetaminophen 325 1 tab PO Q6H PRN pain 7 days #28 02/23/24 04/10/24 Unknown Rx mg tablet tabs losartan 50 mg tablet 50 mg PO DAILY #90 tabs 03/08/24 04/10/24 04/10/24 Rx linaclotide 72 mcg capsule 72 mcg PO DAILY #30 caps 03/18/24 04/10/24 04/10/24 Rx (Linzess) pantoprazole 40 mg tablet,delayed 40 mg PO BID 30 days #60 tabs 03/18/24 04/10/24 04/10/24 Rx release (Protonix) fluoxetine 20 mg capsule 20 mg PO DAILY 03/25/24 04/10/24 04/10/24 History acetaminophen 325 mg tablet 650 mg PO .Q4-6H PRN Pain 04/10/24 04/10/24 Unknown History aspirin 81 mg tablet,delayed 81 mg PO BID 04/10/24 04/10/24 04/10/24 History release atorvastatin 80 mg tablet 80 mg PO BEDTIME 04/10/24 04/10/24 04/09/24 History bisacodyl 10 mg rectal suppository 10 mg VA DAILY PRN Constipation 04/10/24 04/10/24 Unknown History (Dulcolax (bisacodyl)) cetirizine 5 mg tablet 5 mg PO DAILY 04/10/24 04/10/24 04/10/24 History clopidogrel 75 mg tablet 75 mg PO DAILY 04/10/24 04/10/24 04/10/24 History lactobacillus combination no.4 3 3,000 mmu cells PO DAILY PRN while 04/10/24 04/10/24 Unknown History billion cell capsule (Probiotic) on antibiotics linezolid 600 mg tablet 600 mg PO BID 04/10/24 04/10/24 04/10/24 History magnesium hydroxide 400 mg/5 mL 30 ml PO DAILY PRN Constipation 04/10/24 04/10/24 Unknown History oral suspension (Milk of Magnesia) multivitamin,tx-minerals 1 tab PO DAILY 04/10/24 04/10/24 04/10/24 History sucralfate 100 mg/mL oral 10 ml PO Q12H 04/10/24 04/10/24 04/10/24 History suspension Allergies Allergy/AdvReac Type Severity Reaction Status Date / Time gabapentin Allergy Intermediate diarrhea Verified 04/02/24 14:05 pregabalin [From Lyrica] Allergy Intermediate swelling Verified 04/02/24 14:05 metoprolol AdvReac Intermediate bitter Verified 04/02/24 14:05 taste promethazine [From Phenergan] AdvReac disoriented Verified 04/02/24 14:05 Sulfa (Sulfonamide AdvReac abdominal Verified 04/02/24 14:05 Antibiotics) pain PFSH Acute 2 PFSH: Medical History Atrial fibrillation Meningioma Meningioma identified during evaluation for chronic headaches-followed with neurology Dr. De Los Santos in [place] and states it was stable. She has been cleared and has not seen a neurologist in over 4 years. Elevated cholesterol Diagnosed in 2011 and has been on and off medication. Managed by PMD Paget's disease Status post excision surgery and radiation in 2020 done at [place]. No pertinent past medical history Denies diabetes, asthma, seizures, DVT/PE PCP: Dr. Person SVT (supraventricular tachycardia) HTN (hypertension) Surgical History S/P cardiac pacemaker procedure 2019 History of rectal surgery X 3 Patient had perianal excision of Paget's disease done by Dr. Adamson and Dr. Goss in [place] first in May 2017 and then again in July 2018, 2020 S/P hysterectomy Vaginal, done for prolapse in 1981. She was told there was no cancer. S/P tubal ligation Laparoscopic procedure performed in 1979 Family History Mother Heart disease Hypertension Father Heart disease Daughter Diabetes Sister Hyperlipidemia Other Colon cancer Denies family history of Ovarian cancer Breast cancer Uterine cancer Thyroid disease Stroke Social History Smoking and tobacco/nicotine status: never used tobacco/nicotine Alcohol intake: never Substance/Drug Use: never Vitals/I&O/Wt Last Vital Signs Temp 97.6 F 04/10/24 19:32 Pulse 85 04/10/24 22:00 Resp 18 04/10/24 19:32 BP 153/94 04/10/24 22:00 Pulse Ox 94 04/10/24 22:00 O2 Del Method Room Air 04/10/24 20:30 Weight last 48 hrs Weight 63.503 kg Physical Exam 2 Const: COMMON NORMALS: no acute distress and patient oriented x3 HENMT: COMMON NORMALS: normocephalic HEAD & SCALP: normocephalic Neck/C-Spine: COMMON NORMALS: no JVD Resp: COMMON NORMALS: normal respiratory effort, No retractions, No use of accessory muscles and clear to auscultation bilaterally AUSCULTATION: clear to auscultation bilaterally Cardio: COMMON NORMALS: no JVD, regular rate, regular rhythm, S1 normal heart sound present and S2 normal heart sound present RATE: regular rate RHYTHM: regular rhythm HEART SOUNDS: S1 normal heart sound present and S2 normal heart sound present GI: COMMON NORMALS: Normal to inspection, nondistended, normoactive bowel sounds present, Soft to palpation and non-tender Extremity: COMMON NORMALS: no calf tenderness and no pedal edema Neuro: COMMON NORMALS: patient oriented x3 Psych: COMMON NORMALS: mental status grossly normal Data 04/10/24 19:52 04/10/24 19:52 Micro: Microbiology 04/10/24 20:44 Blood Culture - Preliminary Blood SPECIMEN COLLECTED 04/10/24 19:52 Blood Culture - Preliminary Blood SPECIMEN COLLECTED A&P Assessment and plan (1) HTN (hypertension): Qualifiers: Hypertension type: essential hypertension Qualified Code(s): I10 - Essential (primary) hypertension (2) Atrial fibrillation: (3) Adynamic ileus: (4) Cystitis: Plan Urinary tract infection ? With risk factors for ESBL -Start meropenem Complaints of lower pelvic pain, lower abdominal pain ? No significant abdominal tenderness, good bowel sounds, no guarding, no rebound, rigidity -A CT scan earlier on this morning CT/CT kidney stone [id number] IMPRESSION: 1. No obstructing renal or ureteral calculi. No hydronephrosis. Few pelvic phleboliths. 2. Prior hysterectomy. 3. Distended transverse colon with air-fluid levels likely due to adynamic ileus. Constipation in the sigmoid colon. Decompressed small bowel. Recommend follow-up colonoscopy if symptoms are unresolved. 4. Moderate esophageal hiatal hernia. 5. No other acute findings. ? Clear liquid diet ? Serial abdominal exams History of third-degree AV block History of CAD status post stenting, continue aspirin, Plavix History of recurrent syncope likely secondary orthostatic hypotension History of GI bleed, no complaints of bloody black stools continue Protonix, Carafate History of diverticulitis, no left lower quadrant tenderness to palpation, Lovenox for DVT prophylaxis DNR/DNI, confirmed with patient multiple times Attestations 2 Medical Necessity Statement*: Patient requires hospitalization, outpatient with observation, for UTI Diagnoses Essential hypertension I10 Hypertension type: essential hypertension Atrial fibrillation I48.91 Adynamic ileus K56.0 Cystitis N30.90
[2024-04-10 23:15] LABS: Thyroid Stimulating Hormone 8.07 uIU/mL (0.27-4.20)
[2024-04-10 23:47] LABS: Estmated Average Glucose 120; Hemoglobin A1C 5.8 % (4.0-6.0)
[2024-04-11] VITALS (11 sets, daily range): BP systolic 113–173; BP diastolic 67–87; PULSE 67–95; RESP 16–18; TEMP 36.4–37; O2SAT 93–97
[2024-04-11] MEDS: sucralfate 1 gm/10 mL Oral Liq UDC PO ×3 (00:14→23:52)
[2024-04-11] MEDS: HYDROcodone-acetaminophen 5-325 mg Tablet 1 TAB PO ×2 (00:14→15:06)
[2024-04-11] MEDS: meropenem 500 mg SDV IVP ×2 (00:15→06:54)
[2024-04-11] MEDS: enoxaparin 40 mg/0.4 mL Syringe SUBCUT ×2 (01:01→23:52)
[2024-04-11 02:06] LABS: Bilirubin Urine Negative (Negative); Blood Urine Negative (Negative); Glucose Urine UA Negative (Normal); Ketones Urine Negative (Negative); Leukocyte Esterase Urine Negative (Negative); Nitrate Urine Negative (Negative); Protein Urine Negative (Negative); Specific Gravity, Urine 1.005 (1.005-1.030); Urine Appearance Cloudy (CLEAR); Urine Color Yellow (Yellow); Urobilinogen Urine 0.2 mg/dL (Negative)
[2024-04-11 02:09] LABS: Bacteria Urine None Seen /hpf; Hyaline Casts Urine 0-4 /lpf; RBC Urine 0-2 /hpf (0-2); Squamous Epithelial Cell Urine 0-5 /hpf (0-5); WBC Urine 0-5 /hpf (0-5)
[2024-04-11 05:27] LABS: Basophils % 0.8 %; Eosinophils # 0.1 10^3/uL (0.0-0.8); Eosinophils % 2.1 %; Hematocrit 34.5 % (36-47); Lymphocytes # 2.2 10^3/uL (0.8-4.8); Lymphocytes % 42.2 %; Mean Corpuscular HGB Conc 32.8 g/dL (30-55); Mean Corpuscular Volume 94.5 fl (85-98); Monocytes # 0.7 10^3/uL (0.2-0.9); Monocytes % 12.4 %; Neutrophils # 2.22 10^3/uL (1.8-7.7); Neutrophils % 42.3 %; Nucleated Red Blood Cells % 0 %; Platelet Count 403 10^3/cmm (157-399); Red Blood Count 3.65 10^6/uL (3.85-5.65); Red Cell Distribution Width 13.2 % (12.1-15.1); White Blood Count 5.24 10^3/uL (3.29-11.43)
[2024-04-11 05:35] LABS: Blood Urea Nitrogen 6 mg/dL (8-23); Carbon Dioxide 25 mmol/L (22-29); Chloride 98 mmol/L (98-107); Creatinine Clr Calc Pharmacy 36.8068; Glucose 98 mg/dL (65-115); Osmolality Calculated 272 mOsm/kg (285-295); Sodium 132 mmol/L (136-145)
[2024-04-11] MEDS: isosorbide mononitrate ER 30 mg Tablet PO (09:36)
[2024-04-11] MEDS: fluoxetine 20 mg Capsule PO (09:36)
[2024-04-11] MEDS: pantoprazole DR 40 mg Tablet PO ×2 (09:36→18:05)
[2024-04-11] MEDS: clopidogrel 75 mg Tablet PO (09:36)
[2024-04-11] MEDS: aspirin 81 mg EC Tablet PO ×2 (09:36→18:05)
--- NOTE | 2024-04-11 10:02 | PC.PHAR ---
Pt medications verified 04/10/24 via [facility] med list prior to pt discharging and checking back in.
[2024-04-11] MEDS: losartan 50 mg Tablet PO (10:33)
--- NOTE | 2024-04-11 15:15 | P.PN_ITS ---
Subjective 2 Subjective: Seen this morning. Family at bedside. Patient's mental status is better. Vitals/I&O/Wt Last Vital Signs Temp 98.3 F 04/11/24 11:49 Pulse 94 04/11/24 14:00 Resp 16 04/11/24 11:49 BP 113/71 04/11/24 11:49 Pulse Ox 96 04/11/24 11:49 O2 Del Method Room Air 04/11/24 11:49 04/11/24 04/11/24 04/11/24 06:59 14:59 22:59 Intake Total 0 / 1000 640 / 640 Balance 0 / 1000 640 / 640 Weight last 48 hrs Weight 57.017 kg Weight 54.431 kg Weight 63.503 kg Physical Exam 2 Const: COMMON NORMALS: no acute distress and patient oriented x3 HENMT: COMMON NORMALS: normocephalic HEAD & SCALP: normocephalic Neck/C-Spine: COMMON NORMALS: no JVD Resp: COMMON NORMALS: normal respiratory effort, No retractions, No use of accessory muscles and clear to auscultation bilaterally AUSCULTATION: clear to auscultation bilaterally Cardio: COMMON NORMALS: no JVD, regular rate, regular rhythm, S1 normal heart sound present and S2 normal heart sound present RATE: regular rate RHYTHM: regular rhythm HEART SOUNDS: S1 normal heart sound present and S2 normal heart sound present GI: COMMON NORMALS: Normal to inspection, nondistended, normoactive bowel sounds present, Soft to palpation and non-tender PALPATION: Yes Soft to palpation Extremity: COMMON NORMALS: no calf tenderness and no pedal edema Neuro: COMMON NORMALS: patient oriented x3 Psych: COMMON NORMALS: mental status grossly normal Data 04/12/24 09:17 04/12/24 09:17 Micro: Microbiology 04/10/24 20:44 Blood Culture - Preliminary Blood SPECIMEN COLLECTED 04/10/24 19:52 Blood Culture - Preliminary Blood SPECIMEN COLLECTED A&P Assessment and plan (1) HTN (hypertension): Qualifiers: Hypertension type: essential hypertension Qualified Code(s): I10 - Essential (primary) hypertension (2) Atrial fibrillation: (3) Adynamic ileus: (4) Cystitis: Plan Urinary tract infection ? With risk factors for ESBL -Start meropenem Complaints of lower pelvic pain, lower abdominal pain ? No significant abdominal tenderness, good bowel sounds, no guarding, no rebound, rigidity -A CT scan earlier on this morning CT/CT kidney stone [id number] IMPRESSION: 1. No obstructing renal or ureteral calculi. No hydronephrosis. Few pelvic phleboliths. 2. Prior hysterectomy. 3. Distended transverse colon with air-fluid levels likely due to adynamic ileus. Constipation in the sigmoid colon. Decompressed small bowel. Recommend follow-up colonoscopy if symptoms are unresolved. 4. Moderate esophageal hiatal hernia. 5. No other acute findings. ? Clear liquid diet ? Serial abdominal exams History of third-degree AV block History of CAD status post stenting, continue aspirin, Plavix History of recurrent syncope likely secondary orthostatic hypotension History of GI bleed, no complaints of bloody black stools continue Protonix, Carafate History of diverticulitis, no left lower quadrant tenderness to palpation, Lovenox for DVT prophylaxis DNR/DNI, confirmed with patient multiple times 04/11 Continue management as per assessment and plan and history physical document. Urine cultures pending at this time. Attestations 2 Medical Necessity Statement*: Continue to hospitalize patient for UTI. Diagnoses Essential hypertension I10 Hypertension type: essential hypertension Atrial fibrillation I48.91 Adynamic ileus K56.0 Cystitis N30.90
[2024-04-11] MEDS: meropenem 1,000 mg SDV 1000 MG IVP (18:41)
[2024-04-11] MEDS: atorvastatin 40 mg Tablet 80 MG PO (20:03)
[2024-04-12] VITALS (8 sets, daily range): BP systolic 90–154; BP diastolic 65–81; PULSE 58–86; RESP 15–20; TEMP 36.4–37; O2SAT 94–97
[2024-04-12] MEDS: meropenem 1,000 mg SDV 1000 MG IVP ×2 (06:28→19:18)
[2024-04-12] MEDS: isosorbide mononitrate ER 30 mg Tablet PO (08:37)
[2024-04-12] MEDS: pantoprazole DR 40 mg Tablet PO ×2 (08:38→17:38)
[2024-04-12] MEDS: fluoxetine 20 mg Capsule PO (08:38)
[2024-04-12] MEDS: clopidogrel 75 mg Tablet PO (08:38)
[2024-04-12] MEDS: HYDROcodone-acetaminophen 5-325 mg Tablet 1 TAB PO (08:38)
[2024-04-12] MEDS: losartan 50 mg Tablet PO (08:38)
[2024-04-12] MEDS: aspirin 81 mg EC Tablet PO ×2 (08:38→17:38)
[2024-04-12 09:24] LABS: Eosinophils # 0.1 10^3/uL (0.0-0.8); Eosinophils % 2.8 %; Lymphocytes # 1.1 10^3/uL (0.8-4.8); Lymphocytes % 29.2 %; Mean Corpuscular HGB Conc 32.7 g/dL (30-55); Mean Corpuscular Hemoglobin 30.4 pg (27-33); Mean Platelet Volume 8.9 fL (7.4-10.4); Monocytes # 0.5 10^3/uL (0.2-0.9); Monocytes % 13.6 %; Neutrophils # 2.08 10^3/uL (1.8-7.7); Neutrophils % 53.1 %; Nucleated Red Blood Cells % 0 %; Platelet Count 351 10^3/cmm (157-399); Red Blood Count 3.55 10^6/uL (3.85-5.65); Red Cell Distribution Width 13.1 % (12.1-15.1); White Blood Count 3.91 10^3/uL (3.29-11.43)
[2024-04-12 09:51] LABS: Anion Gap 14.1 (5-19); Blood Urea Nitrogen 3 mg/dL (8-23); Calcium 9.1 mg/dL (8.5-10.5); Carbon Dioxide 24 mmol/L (22-29); Chloride 98 mmol/L (98-107); Creatinine Clr Calc Pharmacy 41.3175; Glucose 106 mg/dL (65-115); Osmolality Calculated 271 mOsm/kg (285-295); Potassium 4.1 mmol/L (3.5-5.1); Sodium 132 mmol/L (136-145)
[2024-04-12] MEDS: sucralfate 1 gm/10 mL Oral Liq UDC PO ×2 (10:36→23:58)
--- NOTE | 2024-04-12 12:26 | P.PN_ITS ---
Subjective 2 Subjective: Seen this morning. No acute events overnight. Urine culture pending this time. Patient states she was able to ambulate to bedside commode. She is still experiencing burning when she urinates. Also complains of pelvic pain. Vitals/I&O/Wt Last Vital Signs Temp 98.0 F 04/12/24 11:33 Pulse 67 04/12/24 11:33 Resp 16 04/12/24 11:33 BP 90/66 04/12/24 11:33 Pulse Ox 96 04/12/24 11:33 O2 Del Method Room Air 04/12/24 11:33 04/11/24 04/12/24 04/12/24 22:59 06:59 14:59 Intake Total 620 / 1260 240 / 1500 Output Total 400 / 400 500 / 900 Balance 220 / 860 -260 / 600 Weight last 48 hrs Weight 56.744 kg Weight 57.017 kg Weight 54.431 kg Weight 63.503 kg Physical Exam 2 Const: COMMON NORMALS: no acute distress and patient oriented x3 HENMT: COMMON NORMALS: normocephalic HEAD & SCALP: normocephalic Resp: COMMON NORMALS: normal respiratory effort, No retractions, No use of accessory muscles and clear to auscultation bilaterally AUSCULTATION: clear to auscultation bilaterally Cardio: COMMON NORMALS: regular rate, regular rhythm, S1 normal heart sound present and S2 normal heart sound present RATE: regular rate RHYTHM: r egular rhythm HEART SOUNDS: S1 normal heart sound present and S2 normal heart sound present GI: COMMON NORMALS: Normal to inspection, nondistended, normoactive bowel sounds present, Soft to palpation and non-tender PALPATION: Yes Soft to palpation : OTHER: Mild tenderness to palpation of suprapubic region. Extremity: COMMON NORMALS: no calf tenderness and no pedal edema Neuro: COMMON NORMALS: patient oriented x3 Psych: COMMON NORMALS: mental status grossly normal Data 04/12/24 09:17 04/12/24 09:17 Micro: Microbiology 04/10/24 20:44 Blood Culture - Preliminary Blood NEGATIVE TO DATE 04/10/24 19:52 Blood Culture - Preliminary Blood NEGATIVE TO DATE A&P Assessment and plan (1) HTN (hypertension): Qualifiers: Hypertension type: essential hypertension Qualified Code(s): I10 - Essential (primary) hypertension (2) Atrial fibrillation: (3) Adynamic ileus: (4) Cystitis: Plan Urinary tract infection ? With risk factors for ESBL -Start meropenem Complaints of lower pelvic pain, lower abdominal pain ? No significant abdominal tenderness, good bowel sounds, no guarding, no rebound, rigidity -A CT scan earlier on this morning CT/CT kidney stone [id number] IMPRESSION: 1. No obstructing renal or ureteral calculi. No hydronephrosis. Few pelvic phleboliths. 2. Prior hysterectomy. 3. Distended transverse colon with air-fluid levels likely due to adynamic ileus. Constipation in the sigmoid colon. Decompressed small bowel. Recommend follow-up colonoscopy if symptoms are unresolved. 4. Moderate esophageal hiatal hernia. 5. No other acute findings. ? Clear liquid diet ? Serial abdominal exams History of third-degree AV block History of CAD status post stenting, continue aspirin, Plavix History of recurrent syncope likely secondary orthostatic hypotension History of GI bleed, no complaints of bloody black stools continue Protonix, Carafate History of diverticulitis, no left lower quadrant tenderness to palpation, Lovenox for DVT prophylaxis DNR/DNI, confirmed with patient multiple times 04/12 Continue management as per assessment and plan and history physical document. Urine cultures pending at this time. Continues to complain of suprapubic tenderness and burning while urination. Will add Pyridium for short-term. Patient denies having any diarrhea. C. difficile is pending all stool studies are pending at this time. She had 1 bowel movement since hospitalization however sample has not been collected yet. Blood pressure soft. Will hold losartan. Continue meropenem. Attestations 2 Medical Necessity Statement*: Continue to hospitalize patient for UTI. Diagnoses Essential hypertension I10 Hypertension type: essential hypertension Atrial fibrillation I48.91 Adynamic ileus K56.0 Cystitis N30.90
[2024-04-12] MEDS: acetaminophen 325 mg Tablet 650 MG PO (17:38)
[2024-04-12] MEDS: atorvastatin 40 mg Tablet 80 MG PO (20:24)
[2024-04-12] MEDS: enoxaparin 40 mg/0.4 mL Syringe SUBCUT (23:58)
[2024-04-13] VITALS (8 sets, daily range): BP systolic 121–155; BP diastolic 62–88; PULSE 64–90; RESP 16–18; TEMP 36.5–36.8; O2SAT 90–98
[2024-04-13 03:18] LABS: Basophils % 0.9 %; Eosinophils # 0.1 10^3/uL (0.0-0.8); Eosinophils % 2.9 %; Lymphocytes # 1.4 10^3/uL (0.8-4.8); Lymphocytes % 30.5 %; Mean Corpuscular HGB Conc 32.7 g/dL (30-55); Mean Corpuscular Hemoglobin 30.9 pg (27-33); Mean Corpuscular Volume 94.6 fl (85-98); Mean Platelet Volume 9.1 fL (7.4-10.4); Monocytes # 0.7 10^3/uL (0.2-0.9); Monocytes % 15.8 %; Neutrophils # 2.19 10^3/uL (1.8-7.7); Neutrophils % 49.7 %; Nucleated Red Blood Cells % 0 %; Platelet Count 299 10^3/cmm (157-399); Red Blood Count 3.49 10^6/uL (3.85-5.65); Red Cell Distribution Width 13.2 % (12.1-15.1); White Blood Count 4.42 10^3/uL (3.29-11.43)
[2024-04-13 03:39] LABS: Anion Gap 14.8 (5-19); Blood Urea Nitrogen 4 mg/dL (8-23); Calcium 9.5 mg/dL (8.5-10.5); Carbon Dioxide 24 mmol/L (22-29); Chloride 101 mmol/L (98-107); Creatinine Clr Calc Pharmacy 41.3175; Glucose 107 mg/dL (65-115); Magnesium 1.7 mg/dL (1.7-2.3); Osmolality Calculated 279 mOsm/kg (285-295); Potassium 3.8 mmol/L (3.5-5.1); Sodium 136 mmol/L (136-145)
[2024-04-13] MEDS: phenazopyridine 100 mg Tablet PO (09:18)
[2024-04-13] MEDS: clopidogrel 75 mg Tablet PO (09:18)
[2024-04-13] MEDS: pantoprazole DR 40 mg Tablet PO ×2 (09:18→17:46)
[2024-04-13] MEDS: aspirin 81 mg EC Tablet PO ×2 (09:18→17:46)
[2024-04-13] MEDS: HYDROcodone-acetaminophen 5-325 mg Tablet 1 TAB PO (09:18)
[2024-04-13] MEDS: fluoxetine 20 mg Capsule PO (09:18)
[2024-04-13] MEDS: meropenem 1,000 mg SDV 1000 MG IVP ×2 (09:19→20:47)
[2024-04-13] MEDS: isosorbide mononitrate ER 30 mg Tablet PO (09:19)
[2024-04-13] MEDS: sucralfate 1 gm/10 mL Oral Liq UDC PO (10:38)
--- NOTE | 2024-04-13 14:52 | P.PN_ITS ---
Subjective 2 Subjective: Seen today. Patient requesting for Pyridium however she was unaware that it is already been ordered and she took a dose this morning. She still complains of burning urination. Investigated regarding her urine culture. UA from admission was never sent to the lab but not pleated for culture yet. Urine culture ordered this morning. Vitals/I&O/Wt Last Vital Signs Temp 98.0 F 04/13/24 11:45 Pulse 73 04/13/24 11:45 Resp 16 04/13/24 11:45 BP 121/80 04/13/24 11:45 Pulse Ox 95 04/13/24 11:45 O2 Del Method Room Air 04/13/24 11:45 04/12/24 04/13/24 04/13/24 22:59 06:59 14:59 Intake Total 450 / 926 0 / 926 480 / 480 Balance 450 / 426 0 / 426 480 / 480 Weight last 48 hrs Weight 55.973 kg Weight 56.744 kg Physical Exam 2 Const: COMMON NORMALS: no acute distress and patient oriented x3 HENMT: COMMON NORMALS: normocephalic HEAD & SCALP: normocephalic Resp: COMMON NORMALS: normal respiratory effort, No retractions, No use of accessory muscles and clear to auscultation bilaterally AUSCULTATION: clear to auscultation bilaterally Cardio: COMMON NORMALS: regular rate, regular rhythm, S1 normal heart sound present and S2 normal heart sound present RATE: regular rate RHYTHM: r egular rhythm HEART SOUNDS: S1 normal heart sound present and S2 normal heart sound present GI: COMMON NORMALS: Normal to inspection, nondistended, normoactive bowel sounds present, Soft to palpation and non-tender PALPATION: Yes Soft to palpation : OTHER: Mild tenderness to palpation of suprapubic region. Extremity: COMMON NORMALS: no calf tenderness and no pedal edema Neuro: COMMON NORMALS: patient oriented x3 Psych: COMMON NORMALS: mental status grossly normal Data 04/13/24 02:58 04/13/24 02:58 A&P Assessment and plan (1) HTN (hypertension): Qualifiers: Hypertension type: essential hypertension Qualified Code(s): I10 - Essential (primary) hypertension (2) Atrial fibrillation: (3) Adynamic ileus: (4) Cystitis: Plan Urinary tract infection ? With risk factors for ESBL -Start meropenem Complaints of lower pelvic pain, lower abdominal pain ? No significant abdominal tenderness, good bowel sounds, no guarding, no rebound, rigidity -A CT scan earlier on this morning CT/CT kidney stone [id number] IMPRESSION: 1. No obstructing renal or ureteral calculi. No hydronephrosis. Few pelvic phleboliths. 2. Prior hysterectomy. 3. Distended transverse colon with air-fluid levels likely due to adynamic ileus. Constipation in the sigmoid colon. Decompressed small bowel. Recommend follow-up colonoscopy if symptoms are unresolved. 4. Moderate esophageal hiatal hernia. 5. No other acute findings. ? Clear liquid diet ? Serial abdominal exams History of third-degree AV block History of CAD status post stenting, continue aspirin, Plavix History of recurrent syncope likely secondary orthostatic hypotension History of GI bleed, no complaints of bloody black stools continue Protonix, Carafate History of diverticulitis, no left lower quadrant tenderness to palpation, Lovenox for DVT prophylaxis DNR/DNI, confirmed with patient multiple times 04/13 Continue management as per assessment and plan and history physical document. Urine cultures pending at this time. We ordered a urine culture today. Continues to complain of suprapubic tenderness and burning while urination. Will add Pyridium for short-term. Patient denies having any diarrhea. C. difficile is pending all stool studies are pending at this time. She had 1 bowel movement since hospitalization however sample has not been collected yet. Blood pressure soft. Will hold losartan. Continue meropenem. I will treat for yeast infection as well with fluconazole. Attestations 2 Medical Necessity Statement*: Continue to hospitalize patient for UTI. Diagnoses Essential hypertension I10 Hypertension type: essential hypertension Atrial fibrillation I48.91 Adynamic ileus K56.0 Cystitis N30.90
[2024-04-13] MEDS: fluconazole 100 mg Tablet PO (16:13)
[2024-04-13] MEDS: atorvastatin 40 mg Tablet 80 MG PO (20:46)
[2024-04-14] VITALS (12 sets, daily range): BP systolic 108–189; BP diastolic 72–97; PULSE 58–111; RESP 16–17; TEMP 36.4–36.8; O2SAT 92–98
[2024-04-14] MEDS: enoxaparin 40 mg/0.4 mL Syringe SUBCUT ×2 (00:02→23:02)
[2024-04-14] MEDS: sucralfate 1 gm/10 mL Oral Liq UDC PO ×3 (00:02→23:02)
[2024-04-14 04:55] LABS: Eosinophils # 0.1 10^3/uL (0.0-0.8); Eosinophils % 3.4 %; Hematocrit 32.6 % (36-47); Lymphocytes # 1.5 10^3/uL (0.8-4.8); Lymphocytes % 37.6 %; Mean Corpuscular HGB Conc 33.1 g/dL (30-55); Mean Corpuscular Hemoglobin 31.4 pg (27-33); Mean Corpuscular Volume 94.8 fl (85-98); Monocytes # 0.7 10^3/uL (0.2-0.9); Monocytes % 16.8 %; Neutrophils # 1.59 10^3/uL (1.8-7.7); Neutrophils % 40.9 %; Nucleated Red Blood Cells % 0 %; Platelet Count 305 10^3/cmm (157-399); Red Blood Count 3.44 10^6/uL (3.85-5.65); Red Cell Distribution Width 13.2 % (12.1-15.1); White Blood Count 3.88 10^3/uL (3.29-11.43)
[2024-04-14 05:20] LABS: Blood Urea Nitrogen 4 mg/dL (8-23); Calcium 9.3 mg/dL (8.5-10.5); Carbon Dioxide 26 mmol/L (22-29); Chloride 100 mmol/L (98-107); Creatinine Clr Calc Pharmacy 41.0626; Glucose 101 mg/dL (65-115); Osmolality Calculated 277 mOsm/kg (285-295); Sodium 135 mmol/L (136-145)
[2024-04-14] MEDS: isosorbide mononitrate ER 30 mg Tablet PO (08:56)
[2024-04-14] MEDS: clopidogrel 75 mg Tablet PO (08:56)
[2024-04-14] MEDS: pantoprazole DR 40 mg Tablet PO ×2 (08:57→17:20)
[2024-04-14] MEDS: fluconazole 100 mg Tablet 150 MG PO (08:58)
[2024-04-14] MEDS: aspirin 81 mg EC Tablet PO ×2 (09:00→17:20)
[2024-04-14] MEDS: meropenem 1,000 mg SDV 1000 MG IVP ×2 (09:04→20:31)
[2024-04-14] MEDS: HYDROcodone-acetaminophen 5-325 mg Tablet 1 TAB PO (11:10)
[2024-04-14] MEDS: fluoxetine 20 mg Capsule PO (11:10)
--- NOTE | 2024-04-14 13:14 | CTR_ITS ---
PROCEDURE INFORMATION: Exam: CT Abdomen And Pelvis With Contrast Exam date and time: 04/14/2024 1:53 PM Age: 84 years old Clinical indication: Abdominal pain; Generalized; Prior surgery; Surgery date: 6+ months; Surgery type: Hysterectomy, tubal, rectal TECHNIQUE: Imaging protocol: Computed tomography of the abdomen and pelvis with contrast. Radiation optimization: All CT scans at this facility use at least one of these dose optimization techniques: automated exposure control; mA and/or kV adjustment per patient size (includes targeted exams where dose is matched to clinical indication); or iterative reconstruction. Contrast material: [id number]; Contrast volume: 80 ml; Contrast route: INTRAVENOUS (IV); COMPARISON: CT kidney stone [id number] 04/10/2024 12:21 PM RADIATION DOSE METRICS: Total DLP (mGy-cm): 346.06 FINDINGS: Tubes, catheters and devices: Cardiac pacemaker/ICD is in place. Lungs: Emphysema and peripheral interstitial reticulation are present in the lung bases. Traction bronchiectasis present at the right lung base. Diaphragm: Small hiatal hernia. Liver: No significant liver pathology. Gallbladder and biliary ducts: No significant gallbladder pathology. No biliary dilatation. Pancreas: No significant pancreatic pathology. Spleen: No significant splenic pathology. Adrenal glands: No significant adrenal pathology. Kidneys and ureters: No significant renal pathology. Stomach and bowel: Colonic diverticulosis without evidence of focal inflammatory change. Moderate amount of colonic stool. Appendix: No appendiceal pathology evident. Intraperitoneal space: No ascites. Vasculature: No abdominal aortic aneurysm. Lymph nodes: No evidence of lymphadenopathy. Urinary bladder: Unremarkable urinary bladder. Reproductive: Prior hysterectomy. No significant adnexal pathology. Bones/joints: Proximal left femoral fixation hardware. Levocurvature and degenerative change of the lumbar spine. Soft tissues: Small fat containing umbilical hernia. CT/CT abdomen pelvis w con* [id number] IMPRESSION: No acute pathology. Minor findings noted above including colonic diverticulosis.
--- NOTE | 2024-04-14 13:16 | P.PN_ITS ---
Subjective 2 Subjective: Patient did have a bowel movement overnight. However still continues to complain of dysuria. Urine culture is pending at this time. Abdomen is soft however complains of dysuria. No suprapubic tenderness. Pyridium has not helped either. Vitals/I&O/Wt Last Vital Signs Temp 98.3 F 04/14/24 07:56 Pulse 111 H 04/14/24 12:00 Resp 17 04/14/24 12:00 BP 108/82 04/14/24 12:00 Pulse Ox 92 04/14/24 12:00 O2 Del Method Room Air 04/14/24 12:00 04/13/24 04/14/24 04/14/24 22:59 06:59 14:59 Intake Total 240 / 720 240 / 240 Balance 240 / 720 240 / 240 Weight last 48 hrs Weight 56.756 kg Weight 55.973 kg Physical Exam 2 Const: COMMON NORMALS: no acute distress and patient oriented x3 HENMT: COMMON NORMALS: normocephalic HEAD & SCALP: normocephalic Resp: COMMON NORMALS: normal respiratory effort, No retractions, No use of accessory muscles and clear to auscultation bilaterally AUSCULTATION: clear to auscultation bilaterally Cardio: COMMON NORMALS: regular rate, regular rhythm, S1 normal heart sound present and S2 normal heart sound present RATE: regular rate RHYTHM: r egular rhythm HEART SOUNDS: S1 normal heart sound present and S2 normal heart sound present GI: COMMON NORMALS: Normal to inspection, nondistended, normoactive bowel sounds present, Soft to palpation and non-tender PALPATION: Yes Soft to palpation Extremity: COMMON NORMALS: no calf tenderness and no pedal edema Neuro: COMMON NORMALS: patient oriented x3 Psych: COMMON NORMALS: mental status grossly normal Data 04/14/24 04:50 04/14/24 04:39 A&P Assessment and plan (1) HTN (hypertension): Qualifiers: Hypertension type: essential hypertension Qualified Code(s): I10 - Essential (primary) hypertension (2) Atrial fibrillation: (3) Adynamic ileus: (4) Cystitis: Plan Urinary tract infection ? With risk factors for ESBL -Start meropenem Complaints of lower pelvic pain, lower abdominal pain ? No significant abdominal tenderness, good bowel sounds, no guarding, no rebound, rigidity -A CT scan earlier on this morning CT/CT kidney stone [id number] IMPRESSION: 1. No obstructing renal or ureteral calculi. No hydronephrosis. Few pelvic phleboliths. 2. Prior hysterectomy. 3. Distended transverse colon with air-fluid levels likely due to adynamic ileus. Constipation in the sigmoid colon. Decompressed small bowel. Recommend follow-up colonoscopy if symptoms are unresolved. 4. Moderate esophageal hiatal hernia. 5. No other acute findings. ? Clear liquid diet ? Serial abdominal exams History of third-degree AV block History of CAD status post stenting, continue aspirin, Plavix History of recurrent syncope likely secondary orthostatic hypotension History of GI bleed, no complaints of bloody black stools continue Protonix, Carafate History of diverticulitis, no left lower quadrant tenderness to palpation, Lovenox for DVT prophylaxis DNR/DNI, confirmed with patient multiple times 04/13 Continue management as per assessment and plan and history physical document. Urine cultures pending at this time. We ordered a urine culture today. Continues to complain of suprapubic tenderness and burning while urination. Will add Pyridium for short-term. Patient denies having any diarrhea. C. difficile is pending all stool studies are pending at this time. She had 1 bowel movement since hospitalization however sample has not been collected yet. Blood pressure soft. Will hold losartan. Continue meropenem. I will treat for yeast infection as well with fluconazole. 04/[address] scan abdomen pelvis with contrast today. Continue Pyridium however we will stop tomorrow morning if no further improvement in the dysuria Continue fluconazole at this time x 3 days total If there is continued symptoms patient may require a cystoscopy. Ileus seems to have resolved. She is having bowel movements and eating okay. Denies any abdominal pain. Bowel sounds are normal today. Abdomen is soft. Continue meropenem. Attestations 2 Medical Necessity Statement*: Requires continued hospitalization at this time for above issues Coding Level of Care Code Acute Code for Chg Fwd Diagnoses Essential hypertension I10 Hypertension type: essential hypertension Atrial fibrillation I48.91 Adynamic ileus K56.0 Cystitis N30.90
[2024-04-14] MEDS: acetaminophen 325 mg Tablet 650 MG PO (17:18)
[2024-04-14] MEDS: atorvastatin 40 mg Tablet 80 MG PO (20:31)
[2024-04-15] VITALS (11 sets, daily range): BP systolic 149–168; BP diastolic 79–91; PULSE 62–98; RESP 16–18; TEMP 36.5–37.1; O2SAT 94–98
[2024-04-15 05:20] LABS: Eosinophils # 0.1 10^3/uL (0.0-0.8); Eosinophils % 3.7 %; Hematocrit 32.9 % (36-47); Lymphocytes # 1.3 10^3/uL (0.8-4.8); Lymphocytes % 34.6 %; Mean Corpuscular HGB Conc 33.1 g/dL (30-55); Mean Corpuscular Hemoglobin 30.9 pg (27-33); Mean Corpuscular Volume 93.2 fl (85-98); Mean Platelet Volume 8.9 fL (7.4-10.4); Monocytes # 0.6 10^3/uL (0.2-0.9); Monocytes % 16.5 %; Neutrophils # 1.68 10^3/uL (1.8-7.7); Neutrophils % 43.9 %; Nucleated Red Blood Cells % 0 %; Platelet Count 308 10^3/cmm (157-399); Red Blood Count 3.53 10^6/uL (3.85-5.65); Red Cell Distribution Width 13.1 % (12.1-15.1); White Blood Count 3.82 10^3/uL (3.29-11.43)
[2024-04-15 05:48] LABS: Blood Urea Nitrogen 4 mg/dL (8-23); Calcium 9.3 mg/dL (8.5-10.5); Carbon Dioxide 26 mmol/L (22-29); Chloride 100 mmol/L (98-107); Creatinine Clr Calc Pharmacy 41.6401; Glucose 97 mg/dL (65-115); Magnesium 1.8 mg/dL (1.7-2.3); Osmolality Calculated 277 mOsm/kg (285-295); Sodium 135 mmol/L (136-145)
[2024-04-15 05:49] LABS: Anion Gap 13.2 (5-19); Potassium 4.2 mmol/L (3.5-5.1)
[2024-04-15] MEDS: phenazopyridine 100 mg Tablet PO ×2 (06:41→21:22)
[2024-04-15] MEDS: fluconazole 100 mg Tablet 150 MG PO (09:27)
[2024-04-15] MEDS: pantoprazole DR 40 mg Tablet PO ×2 (09:27→18:54)
[2024-04-15] MEDS: aspirin 81 mg EC Tablet PO (09:28)
[2024-04-15] MEDS: clopidogrel 75 mg Tablet PO (09:28)
[2024-04-15] MEDS: isosorbide mononitrate ER 30 mg Tablet PO (09:28)
[2024-04-15] MEDS: fluoxetine 20 mg Capsule PO (09:28)
[2024-04-15] MEDS: meropenem 1,000 mg SDV 1000 MG IVP ×2 (09:28→21:22)
--- NOTE | 2024-04-15 09:34 | PC.NURSE ---
Notified Dr. Torres patient was in pain and pain medication had stopped. Dr. Torres gave verbal order to restart [place] 5/325 mg Q6H PRN PO.
[2024-04-15] MEDS: HYDROcodone-acetaminophen 5-325 mg Tablet 1 TAB PO ×2 (09:43→18:53)
[2024-04-15] MEDS: sucralfate 1 gm/10 mL Oral Liq UDC PO ×2 (09:43→23:55)
--- NOTE | 2024-04-15 10:45 | PC.CHAP ---
Pastoral Care Encounter/Spiritual Assessment Type of Contact [] Declined bag inspector visit [] Patient/Family/Request visit [] Outpatient visit [] Follow-up visit [] Physician referral [] Code/Alert [x] Routine visit [] Staff referral [] Actively dying [] Patient sleeping [] Family support [] [] Out of room [] Palliative care [] [] Receiving care in room [] Pre-surgical visit [] Trauma [] Long length of stay [] ICU visit [] Other: Relational/Emotional Strength [] Patient feels connected with others/family/visitors/staff [] Distress [] Loneliness/isolation [] Abandonment Spirituality of Patient [x] Person of Ida [] Attends Orthodox of their Ida [x] Believes in Prayer [] Reads Bible or Oriental Orthodox materials [] There are Spiritual issues to be addressed Director Food And Beverage Interventions [x] Prayer [x] Active listening [] Non-anxious presence [] Spiritual/emotional support [] Crisis/trauma care [] Spiritual counseling [] Bereavement support [] Provided bereavement packet [] Provided Bible/devotional materials [] Provided toy/stuffed animal, coloring book to patient or family member [] Provided Communion [] Anointing/[place] [] Salvation [] Completed spiritual assessment [] Other: Impact on Illness or Injury [] Angry [] Fearful [] Anxious [] Often cries [] Exhaustion [] Unable to work [] Unable to attend episcopalian [] Unable to walk/stand [] Unable to read [] Unable to drive [] Unable to eat/drink [] Unable to sleep [] Unable to be with family [] Patient intubated [] Other: Summary Time spent with patient 5 min
--- NOTE | 2024-04-15 10:59 | XRR_ITS ---
PROCEDURE INFORMATION: Exam: XR Abdomen Exam date and time: 04/15/2024 11:27 AM Age: 84 years old Clinical indication: Abdominal pain; Generalized; Prior surgery; Surgery date: 6+ months; Surgery type: Pacer; Patient HX: HX of rectal cancer; Additional info: Ileus, abd pain TECHNIQUE: Imaging protocol: Radiologic exam of the abdomen. Views: 2 Views. Upright and supine views. Total images: 691 COMPARISON: CT abdomen pelvis w con* [id number] 04/14/2024 1:53 PM FINDINGS: Tubes, catheters and devices: A pacemaker device is present, its leads in appropriate position. Lungs: Mild coarse chronic interstitial markings. Gastrointestinal tract: Normal. No bowel dilation. Intraperitoneal space: Normal. No free air. Vasculature: Mild atherosclerotic disease burden is evident. Bones/joints: [place] left spinal scoliosis. Diffuse osteopenia noted. Osseous structures are unchanged from the prior exam. XR/XR acute abdomen series [id number] IMPRESSION: 1. No acute cardiopulmonary process. 2. Mild coarse chronic interstitial markings.
--- NOTE | 2024-04-15 12:47 | ECG_ITS ---
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 Measurements Intervals [place] Rate: 79 P: 51 GA: 172 QRS: -78 QRSD: 154 T: 87 QT: 443 QTc: 509 Interpretive Statements ELECTRONIC VENTRICULAR PACEMAKER Compared to ECG 04/10/2024 10:50:41 No significant changes Electronically Signed On 04-15-2024 16:05:13 CDT by Rakesh Tavares M.D. [id number]
[2024-04-15 12:59] LABS: Lactic Sepsis W/Reflex 2.4 mmol/L (0.5-2.2)
[2024-04-15 13:00] LABS: Troponin(5th) Baseline 18 ng/L (0-10)
[2024-04-15] MEDS: lidocaine 2% viscous 15 ML, aluminum-mag hydrox-simethicon 30 ML, sucralfate oral liq 1 GM PO (13:12)
[2024-04-15] MEDS: sodium chloride 0.9% 1,000 ML 50 ML IV (13:15)
[2024-04-15 14:22] LABS: Reflex Lactate Order REFLEX LACTIC ORDERD
[2024-04-15 15:06] LABS: Troponin 5 2HR 12.79 ng/L (0-10)
[2024-04-15 15:13] LABS: Troponin 5 2HR Delta -5.21 ABS# (0-10)
--- NOTE | 2024-04-15 15:13 | PC.SOCIAL ---
IMM Update Pg. 2 of IMM updated and reviewed with patient, who verbalized understanding. Copy provided at bedside.
[2024-04-15 16:17] LABS: Lactic Acid level (Lactate) 1.4 mmol/L (0.5-2.2)
--- NOTE | 2024-04-15 16:56 | P.PN_ITS ---
Subjective 2 Subjective: Hospital course, labs appreciated. Examination patient laying in bed in bed, complaining of heaviness in her chest, burning sensation in her belly and vagina. States chest discomfort and belly burning sensation is mildly relieved after taking pain medication. Otherwise has remained hemodynamically stable and afebrile. Patient slightly dehydrated. Vitals/I&O/Wt Last Vital Signs Temp 98.2 F 04/15/24 16:00 Pulse 62 04/15/24 16:00 Resp 16 04/15/24 16:00 BP 156/79 04/15/24 16:00 Pulse Ox 96 04/15/24 12:00 O2 Del Method Room Air 04/15/24 04:00 04/15/24 04/15/24 04/15/24 06:59 14:59 22:59 Intake Total 1740 / 1740 Balance 1740 / 1740 Weight last 48 hrs Weight 57.72 kg Weight 56.756 kg Physical Exam 2 Const: COMMON NORMALS: no acute distress and patient oriented x3 GENERAL APPEARANCE: in distress and anxious ORIENTATION/CONSCIOUSNESS: Yes confused HENMT: COMMON NORMALS: normocephalic HEAD & SCALP: normocephalic Neck/C-Spine: COMMON NORMALS: no JVD Resp: COMMON NORMALS: normal respiratory effort, No retractions, No use of accessory muscles and clear to auscultation bilaterally AUSCULTATION: clear to auscultation bilaterally Cardio: COMMON NORMALS: no JVD, regular rate, regular rhythm, S1 normal heart sound present and S2 normal heart sound present RATE: regular rate RHYTHM: regular rhythm HEART SOUNDS: S1 normal heart sound present and S2 normal heart sound present GI: COMMON NORMALS: Normal to inspection, nondistended, normoactive bowel sounds present, Soft to palpation and non-tender PALPATION: Yes Soft to palpation Extremity: COMMON NORMALS: no calf tenderness and no pedal edema Neuro: COMMON NORMALS: patient oriented x3 Psych: COMMON NORMALS: mental status grossly normal Data 04/15/24 05:04 04/15/24 05:04 Micro: Microbiology 04/13/24 11:57 Urine Culture - Final Urine,Voided A&P Assessment and plan (1) Adynamic ileus: Resolved. Appreciate CT scan done on 04/14. Patient continues to complain of abdominal pain and burning. Continue with Protonix 40 mg twice daily. Change Carafate to ACHS. Aggressive bowel regimen. Switch to GI soft diet. Will request Linzess from patient's [facility]. Repeat abdominal series. Check lactate. Patient slightly dehydrated. Normal saline at 50 cc/h. Patient has a history of CAD recently. Check cycle troponin (2) Cystitis: Blood culture and urine culture negative. Though urine culture was sent while being on IV antibiotics. Patient complaining of burning in vagina. Denies any dysuria. Symptoms of burning in vagina most likely in setting of atrophic vaginitis. Continue with IV meropenem to finish a 5-day course. Appreciate culture history in past. (3) HTN (hypertension): Goal blood pressure less than 140/90 mmHg. Blood pressures currently slightly elevated. For now continue with home dose of isosorbide mononitrate, add losartan at home dose. Qualifiers: Hypertension type: essential hypertension Qualified Code(s): I10 - Essential (primary) hypertension (4) Atrial fibrillation: Rate controlled. Plan Vaginal discomfort: Cannot rule out vaginitis. Patient would benefit with follow-up with soldering machine operator automatic as an outpatient. Recent history of CAD/non-ST elevation CA: Troponin as above. Continue with home dose of aspirin, Plavix, statin. Change aspirin to 81 mg daily from twice daily. CODE STATUS: Discussed in detail with the patient. Discussed in detail with patient's daughter Ms. Valles over the phone. DNR/DNI. GI soft diet Protonix for PUD prophylaxis Lovenox for DVT prophylaxis. Attestations 2 Medical Necessity Statement*: Requires further hospitalization for management of ileus, cystitis while safe discharge planning is sought Diagnoses Adynamic ileus K56.0 Cystitis N30.90 Essential hypertension I10 Hypertension type: essential hypertension Atrial fibrillation I48.91
--- NOTE | 2024-04-15 17:10 | ECG_ITS ---
[facility] Test Date: 2024-04-15 Pat Name: Millicent Angel Department: Room: 279 Gender: Female Campaign Developer: : 1940 Requested By: Marlon Torres Order Number: [id number] Nahun MD: Rakesh Tavares M.D. Measurements Intervals [place] Rate: 70 P: 28 TX: 178 QRS: 141 QRSD: 148 T: -26 QT: 431 QTc: 466 Interpretive Statements ELECTRONIC ATRIAL PACEMAKER ELECTRONIC VENTRICULAR PACEMAKER Compared to ECG 04/15/2024 14:28:32 No significant changes Electronically Signed On 04-16-2024 7:59:23 CDT by Rakesh Tavares M.D. [id number]
--- NOTE | 2024-04-15 17:35 | ECG_ITS ---
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 Measurements Intervals [place] Rate: 76 P: 41 HI: 192 QRS: -74 QRSD: 154 T: 89 QT: 422 QTc: 476 Interpretive Statements ELECTRONIC VENTRICULAR PACEMAKER Compared to ECG 04/15/2024 12:47:20 No significant changes Electronically Signed On 04-15-2024 16:08:12 CDT by Rakesh Tavares M.D. [id number]
[2024-04-15] MEDS: losartan 50 mg Tablet PO (18:53)
[2024-04-15] MEDS: atorvastatin 40 mg Tablet 80 MG PO (21:22)
[2024-04-15] MEDS: enoxaparin 40 mg/0.4 mL Syringe SUBCUT (23:55)
[2024-04-16] VITALS (7 sets, daily range): BP systolic 144–179; BP diastolic 79–90; PULSE 70–89; RESP 16–17; TEMP 36.7–36.9; O2SAT 94–97
[2024-04-16] MEDS: acetaminophen 325 mg Tablet 650 MG PO ×2 (00:42→07:30)
[2024-04-16 06:02] LABS: Basophils % 1.1 %; Eosinophils # 0.1 10^3/uL (0.0-0.8); Eosinophils % 2.1 %; Hematocrit 36.2 % (36-47); Lymphocytes # 1.4 10^3/uL (0.8-4.8); Lymphocytes % 36.6 %; Mean Corpuscular HGB Conc 32.6 g/dL (30-55); Mean Corpuscular Hemoglobin 30.3 pg (27-33); Mean Corpuscular Volume 92.8 fl (85-98); Mean Platelet Volume 8.8 fL (7.4-10.4); Monocytes # 0.5 10^3/uL (0.2-0.9); Monocytes % 13.5 %; Neutrophils # 1.74 10^3/uL (1.8-7.7); Neutrophils % 46.2 %; Nucleated Red Blood Cells % 0 %; Platelet Count 327 10^3/cmm (157-399); Red Cell Distribution Width 13.1 % (12.1-15.1); White Blood Count 3.77 10^3/uL (3.29-11.43)
[2024-04-16 06:24] LABS: Alanine Aminotransferase 22 U/L (0-33); Alkaline Phosphatase 92 U/L (35-105); Anion Gap 13.4 (5-19); Aspartate Amino Transferase 29 U/L (0-32); Blood Urea Nitrogen 4 mg/dL (8-23); Calcium 9.3 mg/dL (8.5-10.5); Carbon Dioxide 27 mmol/L (22-29); Chloride 100 mmol/L (98-107); Creatinine Clr Calc Pharmacy 40.4124; Globulin 2.6 g/dL (1.3-4.6); Glucose 100 mg/dL (65-115); Osmolality Calculated 279 mOsm/kg (285-295); Potassium 4.4 mmol/L (3.5-5.1); Sodium 136 mmol/L (136-145); Total Bilirubin 0.5 mg/dL (0.15-1.2); Total Protein 6.6 g/dL (6.6-8.7)
[2024-04-16] MEDS: phenazopyridine 100 mg Tablet PO (07:31)
[2024-04-16] MEDS: sodium chloride 0.9% 1,000 ML 50 ML IV (07:33)
[2024-04-16] MEDS: fluconazole 100 mg Tablet 150 MG PO (09:08)
[2024-04-16] MEDS: isosorbide mononitrate ER 30 mg Tablet PO (09:09)
[2024-04-16] MEDS: losartan 50 mg Tablet 100 MG PO (09:09)
[2024-04-16] MEDS: aspirin 81 mg EC Tablet PO (09:09)
[2024-04-16] MEDS: fluoxetine 20 mg Capsule PO (09:11)
[2024-04-16] MEDS: clopidogrel 75 mg Tablet PO (09:30)
[2024-04-16] MEDS: meropenem 1,000 mg SDV 1000 MG IVP (09:30)
[2024-04-16] MEDS: pantoprazole DR 40 mg Tablet PO (09:30)
--- NOTE | 2024-04-16 12:03 | P.DS_ITS ---
Discharge Providers Date of Admission: 04/12/24 10:34 Date of Discharge: April 16, 2024 Attending Provider at Admission: Bruce Cisneros MD Attending Provider at Discharge: Marlon Torres MD Primary Care Provider: Dedrick Person MD Diagnoses at Discharge Discharge Diagnosis (1) Adynamic ileus: Status: Acute (2) Cystitis: Status: Acute (3) HTN (hypertension): Status: Acute Qualifiers: Hypertension type: essential hypertension Qualified Code(s): I10 - Essential (primary) hypertension (4) Atrial fibrillation: Status: Acute Reason for Visit Reason for Visit: ZEPEDA/n/v Brief History: History as per HPI: Millicent Angel is a 84 year old female with a past medical history of 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 Currently patient is alert oriented x 4, following all commands, her major complaint is lower pelvic pain, dysuria, no flank pain, no nausea, no vomiting, she tells me that she had a hamburger just before coming back to the hospital. She presented to the emergency room early this morning for abdominal pain, suprapubic pain, CT scan showed adynamic ileus, constipation sigmoid colon, moderate esophageal hiatal hernia, no obstructing renal or ureteral calculi Hospital Course Hospital Course Patient was admitted to the hospital for further evaluation and management of symptoms consistent with a urinary tract infection. On admission she underwent CT abdomen pelvis which was concerning for ileus. She was started on broad- spectrum IV antibiotics and aggressive bowel regimen. Patient ileus resolved very soon though she continued to complain of abdominal and vaginal burning. Various etiologies including CAD was ruled out. During hospitalization her blood cultures and urine culture remain negative. She was continued on broad- spectrum IV antibiotics for a possible UTI. She is tolerating GI soft diet for last 24 hours. It is believed her symptoms of vaginal burning are most likely in setting of atrophic vaginitis for which she is supposed to follow-up with mail distribution scheme examiner as an outpatient. She has been discharged in hemodynamically stable condition on oral antibiotics with Levaquin for 7 more days as per her culture history. She is to continue with aggressive bowel regimen and renal patient and to continue her Linzess. She is to follow-up with gynecology as an outpatient for a possibility of management of atrophic vaginitis. Discharge plan were discussed in detail with patient and her daughter over the phone and all the questions were answered. Physical Exam Const: COMMON NORMALS: no acute distress and patient oriented x3 GENERAL APPEARANCE: in distress and anxious ORIENTATION/CONSCIOUSNESS: Yes confused HENMT: COMMON NORMALS: normocephalic HEAD & SCALP: normocephalic Neck/C-Spine: COMMON NORMALS: no JVD Resp: COMMON NORMALS: normal respiratory effort, No retractions, No use of accessory muscles and clear to auscultation bilaterally AUSCULTATION: clear to auscultation bilaterally Cardio: COMMON NORMALS: no JVD, regular rate, regular rhythm, S1 normal heart sound present and S2 normal heart sound present RATE: regular rate RHYTHM: regular rhythm HEART SOUNDS: S1 normal heart sound present and S2 normal heart sound present GI: COMMON NORMALS: Normal to inspection, nondistended, normoactive bowel sounds present, Soft to palpation and non-tender PALPATION: Yes Soft to palpation Extremity: COMMON NORMALS: no calf tenderness and no pedal edema Neuro: COMMON NORMALS: patient oriented x3 Psych: COMMON NORMALS: mental status grossly normal Discharge Data Studies Completed and Pending Completed Studies During Hospitalization Category Date Time Status CT abdomen pelvis w con* [id number] Stat Cat Scan 04/14/24 13:14 Completed XR acute abdomen series [id number] Routine Exams 04/15/24 10:59 Completed Pending at discharge Category Date Time Status C.Diff PCR (Lab) Routine Lab 04/10/24 22:26 Uncollected Immunochemical Fecal OCB Routine Lab 04/10/24 22:26 Uncollected Lactoferrin Routine Lab 04/10/24 22:26 Uncollected OVA and Parasites, Conc and PE Routine Lab 04/10/24 22:26 Uncollected SARS Covid-2 Antigen Routine Lab 04/16/24 11:46 Ordered Salmonella / Shigella / Campy Routine Lab 04/10/24 22:26 Uncollected Radiology Impressions Abdomen/Pelvis CT 04/14/24 13:14 IMPRESSION: No acute pathology. Minor findings noted above including colonic diverticulosis. Chest/Abdomen X-ray 04/15/24 10:59 IMPRESSION: 1. No acute cardiopulmonary process. 2. Mild coarse chronic interstitial markings. ADDENDUM: 04/15/24 1211 ADDENDUM: Incidental phleboliths noted. Bowel gas pattern is nondistended and nonobstructive. Normal bowel gas pattern Three cannulated screws demonstrated within the left femoral neck. Spinal degenerative changes are evident. Microbiology 04/10/24 20:44 Blood Blood Culture - Final NO GROWTH AFTER 5 DAYS 04/10/24 19:52 Blood Blood Culture - Final NO GROWTH AFTER 5 DAYS 04/13/24 11:57 Urine,Voided Urine Culture - Final Laboratory Results WBC 3.77 10^3/uL (3.29-11.43) 04/16/24 05:44 RBC 3.90 10^6/uL (3.85-5.65) 04/16/24 05:44 Hgb 11.80 g/dL (11.27-16.99) 04/16/24 05:44 Hct 36.2 % (36-47) 04/16/24 05:44 MCV 92.8 fl (85-98) 04/16/24 05:44 MCH 30.3 pg (27-33) 04/16/24 05:44 MCHC 32.6 g/dL (30-55) 04/16/24 05:44 RDW 13.1 % (12.1-15.1) 04/16/24 05:44 Plt Count 327 10^3/cmm (157-399) 04/16/24 05:44 MPV 8.8 fL (7.4-10.4) 04/16/24 05:44 Neut % (Auto) 46.2 % 04/16/24 05:44 Lymph % (Auto) 36.6 % 04/16/24 05:44 [place] % (Auto) 13.5 % 04/16/24 05:44 Eos % (Auto) 2.1 % 04/16/24 05:44 Baso % (Auto) 1.1 % 04/16/24 05:44 Neut # (Auto) 1.74 10^3/uL (1.8-7.7) L 04/16/24 05:44 Lymph # (Auto) 1.4 10^3/uL (0.8-4.8) 04/16/24 05:44 [place] # (Auto) 0.5 10^3/uL (0.2-0.9) 04/16/24 05:44 Eos # (Auto) 0.1 10^3/uL (0.0-0.8) 04/16/24 05:44 Baso # (Auto) 0.0 10^3/uL (0.0-0.1) 04/16/24 05:44 Nucleated RBC % (auto) 0 % 04/16/24 05:44 Nucleated RBCs # 0.0 /100WBC 04/16/24 05:44 Sodium 136 mmol/L (136-145) 04/16/24 05:44 Potassium 4.4 mmol/L (3.5-5.1) 04/16/24 05:44 Chloride 100 mmol/L (98-107) 04/16/24 05:44 Carbon Dioxide 27 mmol/L (22-29) 04/16/24 05:44 Anion Gap 13.4 (5-19) 04/16/24 05:44 BUN 4 mg/dL (8-23) L 04/16/24 05:44 Creatinine 0.7 mg/dL (0.5-0.9) 04/16/24 05:44 GFR Calculation Not Reportable 04/16/24 05:44 Glucose 100 mg/dL (65-115) 04/16/24 05:44 Estimat Average Glucose 120 04/10/24 19:52 Hemoglobin A1c 5.8 % (4.0-6.0) 04/10/24 19:52 Calculated Osmolality 279 mOsm/kg (285-295) L 04/16/24 05:44 Lactic Acid 2.0 mmol/L (0.5-2.2) 04/16/24 05:44 Lactic Acid (Sepsis) 1.4 mmol/L (0.5-2.2) 04/15/24 15:27 Calcium 9.3 mg/dL (8.5-10.5) 04/16/24 05:44 Magnesium 1.8 mg/dL (1.7-2.3) 04/15/24 05:04 Total Bilirubin 0.5 mg/dL (0.15-1.2) 04/16/24 05:44 AST 29 U/L (0-32) 04/16/24 05:44 ALT 22 U/L (0-33) 04/16/24 05:44 Alkaline Phosphatase 92 U/L (35-105) 04/16/24 05:44 Troponin T Baseline 18 ng/L (0-10) H 04/15/24 12:27 Troponin T 120 Minute 12.79 ng/L (0-10) H 04/15/24 14:33 Delta Troponin T -5.21 ABS# (0-10) L 04/15/24 14:33 Troponin T Hi Sens 6Hr 11.50 ng/L (0-10) H 04/15/24 18:25 Troponin T Hi Sens 6Hr Delta -6.50 ng/L (0-12) L 04/15/24 18:25 C-Reactive Protein 3.0 mg/L (0.0-4.9) 04/10/24 19:52 Total Protein 6.6 g/dL (6.6-8.7) 04/16/24 05:44 Albumin 4.0 g/dL (3.5-5.2) 04/16/24 05:44 Globulin 2.6 g/dL (1.3-4.6) 04/16/24 05:44 Procalcitonin 0.06 ng/mL (0-0.5) 04/10/24 19:52 TSH 8.07 uIU/mL (0.27-4.20) H 04/10/24 19:52 Urine Color Yellow (Yellow) 04/11/24 01:50 Urine Appearance Cloudy (CLEAR) A 04/11/24 01:50 Urine pH 7.0 (5-7) 04/11/24 01:50 Ur Specific [place] 1.005 (1.005-1.030) 04/11/24 01:50 Urine Protein Negative (Negative) 04/11/24 01:50 Urine Glucose (UA) Negative (Normal) 04/11/24 01:50 Urine Ketones Negative (Negative) 04/11/24 01:50 Urine Blood Negative (Negative) 04/11/24 01:50 Urine Nitrate Negative (Negative) 04/11/24 01:50 Urine Bilirubin Negative (Negative) 04/11/24 01:50 Urine Urobilinogen 0.2 mg/dL (Negative) 04/11/24 01:50 Ur Leukocyte Esterase Negative (Negative) 04/11/24 01:50 Urine RBC 0-2 /hpf (0-2) 04/11/24 01:50 Urine WBC 0-5 /hpf (0-5) 04/11/24 01:50 Ur Squamous Epith Cells 0-5 /hpf (0-5) 04/11/24 01:50 Amorphous Sediment Not Reportable 04/11/24 01:50 Urine Bacteria None seen /hpf (NONE) 04/11/24 01:50 Hyaline Casts 0-4 /lpf H 04/11/24 01:50 Coronavirus (PCR) Negative (Negative) 04/10/24 19:52 Influenza A (PCR) Negative (Negative) 04/10/24 19:52 Influenza Type B (PCR) Negative (Negative) 04/10/24 19:52 RSV (PCR) Negative (Negative) 04/10/24 19:52 Vitals Last Vital Signs Temp 98.3 F 04/16/24 08:00 Pulse 76 04/16/24 08:00 Resp 16 04/16/24 08:00 BP 179/90 04/16/24 08:00 Pulse Ox 97 04/16/24 07:06 O2 Del Method Room Air 04/16/24 07:06 Discharge Plan Discharge Patient Disposition: Xfer SNF Condition: Stable Prescriptions: New phenazopyridine 100 mg Tablet 100 mg PO TID PRN (Reason: Dysuria) Qty: 10 0RF Milk of Magnesia 400 mg/5 mL suspension 5 ml PO DAILY PRN (Reason: constipation) Qty: 3000 0RF levofloxacin 500 mg tablet 500 mg PO Q24H 7 Days Qty: 7 0RF Continued magnesium oxide 250 mg magnesium tablet 250 mg PO BID nitroglycerin [Nitrostat] 0.4 mg tablet, sublingual 0.4 mg sublingual Q5M PRN (Reason: chest pain) Qty: 25 1RF Rx Instructions: do not exceed 3 doses per episode pantoprazole [Protonix] 40 mg tablet,delayed release (DR/EC) 40 mg PO BID 30 Days Qty: 60 2RF Linzess 72 mcg capsule 72 mcg PO DAILY Qty: 30 2RF isosorbide mononitrate 30 mg tablet extended release 24 hr 30 mg PO DAILY Qty: 90 11RF atorvastatin 80 mg Tablet 80 mg PO BEDTIME acetaminophen 325 mg Tablet 650 mg PO .Q4-6H PRN (Reason: Pain) cetirizine 5 mg Tablet 5 mg PO DAILY sucralfate 100 mg/mL suspension 10 ml PO Q12H clopidogrel 75 mg tablet 75 mg PO DAILY aspirin 81 mg Tablet,Delayed Release (Dr/Ec) 81 mg PO BID magnesium hydroxide [Milk of Magnesia] 400 mg/5 mL Suspension 30 ml PO DAILY PRN (Reason: Constipation) bisacodyl [Dulcolax (bisacodyl)] 10 mg Suppository 10 mg [place] DAILY PRN (Reason: Constipation) multivitamin,tx-minerals Tablet 1 tab PO DAILY ondansetron HCl 4 mg Tablet 4 mg PO Q4H PRN (Reason: Nausea) hydrocodone-acetaminophen 5-325 mg tablet 1 tab PO Q6H PRN (Reason: pain) 7 Days Qty: 28 0RF fluoxetine 20 mg capsule 20 mg PO DAILY Changed losartan 50 mg tablet 100 mg PO DAILY Qty: 90 3RF Discontinued linezolid 600 mg Tablet 600 mg PO BID Discharge Orders: Discharge Order (Routine); Ordered 04/16/24 Ordered By: Marlon Torres Referrals: [facility] [Outside] Uche Sosa MD [Physician] - 7-10 days (We have notified your physician's clinic of the need for a follow-up appointment to be scheduled. If you have not heard from them within the next 2 business days, please call them directly. ) Dedrick Person MD [Primary Care Provider] - 7-10 days Discharge Diet: GI Soft Discharge Activity: Resume usual activity and Increase activity as tolerated Patient Instructions: Phenazopyridine (By mouth), Levofloxacin (By mouth) (Levaquin, Levaquin Leva-melvina), Magnesium Hydroxide (By mouth), Opioid Safety Activity Restrictions/Additional Instructions: Continue with daily stool softeners. Continue with GI soft diet for next 2 to 4 days and then advance to regular diet within next 1 week. Take Levaquin to the antibiotic for next 7 days. Follow-up with mail distribution scheme examiner as an outpatient on set appointment. Discharge Attestations Time Spent in Discharge Care*: greater than 30 min Quality Metrics Clinical Quality Measures [ No reported AMI, CVA or VTE this stay] Coding Level of Care Code Acute Code for Chg Fwd Diagnoses Adynamic ileus K56.0 Cystitis N30.90 Essential hypertension I10 Hypertension type: essential hypertension Atrial fibrillation I48.91
[2024-04-16] MEDS: sucralfate 1 gm/10 mL Oral Liq UDC PO (12:29)
[2024-04-16 13:53] LABS: SARS Covid-2 Antigen negative (Negative)
--- NOTE | 2024-04-16 16:03 | PC.NURSE ---
Called report to Deirdre Higgins LPN at [facility] at [phone].
== END 2024-04-16 14:45 | disposition skilled nursing facility (03) | DRG 690 ==
LOC: ER 21:46 → MEDSURG 23:59
PROVIDERS: Internal Medicine; Admitting Provider Family Medicine; Emergency Provider Emergency Medicine; PCP Family Medicine; Visit Provider Student in an Organized Health Care Education/Training Program
DX: N30.90 Cystitis, unspecified without hematuria (principal); I44.2 Atrioventricular block, complete; N20.1 Calculus of ureter; G72.3 Periodic paralysis; I48.91 Unspecified atrial fibrillation; I10 Essential (primary) hypertension; I25.10 Atherosclerotic heart disease of native coronary artery without angina pectoris; K59.00 Constipation, unspecified; K44.9 Diaphragmatic hernia without obstruction or gangrene; Z66 Do not resuscitate; E86.0 Dehydration; I25.2 Old myocardial infarction; Z79.82 Long term (current) use of aspirin; Z79.02 Long term (current) use of antithrombotics/antiplatelets; Z11.52 Encounter for screening for COVID-19; Z95.0 Presence of cardiac pacemaker; Z92.3 Personal history of irradiation; Z95.5 Presence of coronary angioplasty implant and graft; Z87.440 Personal history of urinary (tract) infections
CPT/HCPCS: 0241U; 36415; 71045; 74022; 74176; 74177; 80048; 80053; 81001; 82550; 83036; 83605; 83735; 84145; 84443; 84484; 85025; 86140; 87040; 87086; 87426; 93005; 94664; 96372; 96374; 96375; 99285; G0378; J0696; J1650; J2185; J7030; Q9967

== ENCOUNTER → 2024-04-22 09:00 | Outpatient (BNVA) | payer MEDICARE, OTHER, SELFPAY | PROVIDERS: PCP Family Medicine; Visit Provider Surgery | DX: K59.04 Chronic idiopathic constipation (principal) | CPT/HCPCS: 99214 ==

== ENCOUNTER → 2024-04-30 10:56 | Outpatient (BNVA) | payer MEDICARE, OTHER, SELFPAY | PROVIDERS: PCP Family Medicine; Visit Provider Internal Medicine Cardiovascular Disease | DX: I48.91 Unspecified atrial fibrillation (principal); I44.30 Unspecified atrioventricular block; I49.1 Atrial premature depolarization; I49.3 Ventricular premature depolarization; I47.19 Other supraventricular tachycardia | CPT/HCPCS: 93246 ==

== ENCOUNTER → 2024-05-14 13:25 | Outpatient (BNVA) | payer MEDICARE, OTHER, SELFPAY | PROVIDERS: PCP Family Medicine; Visit Provider Physician Assistant | DX: Z98.890 Other specified postprocedural states (principal); Z87.81 Personal history of (healed) traumatic fracture; S72.002D Fracture of unspecified part of neck of left femur, subsequent encounter for closed fracture with routine healing; X58.XXXD Exposure to other specified factors, subsequent encounter | CPT/HCPCS: 73502; 99213 ==

== ENCOUNTER → 2024-05-23 09:03 | Outpatient (BNVA) | payer MEDICARE, OTHER, SELFPAY | PROVIDERS: PCP Family Medicine; Visit Provider Surgery | DX: K59.04 Chronic idiopathic constipation (principal) | CPT/HCPCS: 99214 ==

== ENCOUNTER 2024-09-21 11:02 | Emergency (ER) | payer MEDICARE, OTHER, SELFPAY ==
[2024-09-21 11:03] VITALS: BP 170/86; PULSE 77; RESP 16; TEMP 36.5; O2SAT 99
--- NOTE | 2024-09-21 11:07 | XRR_ITS ---
PROCEDURE INFORMATION: Exam: XR Abdomen Exam date and time: 09/21/2024 11:50 AM Age: 84 years old Clinical indication: Abdominal pain; Prior surgery; Surgery date: 6+ months; Surgery type: Pacemaker, hysterectomy, tubal, left hip, rectal x3; Additional info: Abd pain TECHNIQUE: Imaging protocol: Radiologic exam of the abdomen. Views: Frontal supine view of the abdomen. 1 View. COMPARISON: CR XR acute abdomen series [id number] 04/15/2024 11:27 AM FINDINGS: Gastrointestinal tract: Nonspecific bowel gas pattern. Ileus or obstruction. . No bowel dilation. Bones/joints: Mild left curvature of the lumbar spine. Three Goodman pins in the proximal left femur. XR/XR abdomen 1V* [id number] IMPRESSION: Nonspecific.
--- NOTE | 2024-09-21 11:08 | W.ED.ABDPA2 ---
HPI - Abdominal Pain General: Chief Complaint: Abdominal Pain Stated Complaint: abd pain Time Seen by Provider: 09/21/24 11:04 History of Present Illness: 84-year-old female with a history of atrial fibrillation, hyperlipidemia, hypertension and chronic constipation who presents emergency room with lower abdominal pain. She presents by ambulance from the skilled nursing. EMS reports that skilled nursing reported that she had some confusion this morning. By the time they had arrived she has been alert and oriented. She is complaining of some suprapubic abdominal pain. No nausea vomiting or diarrhea. No fever. No focal motor deficits. Currently with no confusion. Related Data Home Medications ?Medication ?Instructions ?Recorded ?Confirmed magnesium oxide 250 mg PO BID 12/27/22 09/21/24 fluoxetine 20 mg capsule 20 mg PO DAILY 03/25/24 09/21/24 acetaminophen 325 mg tablet 650 mg PO .Q4-6H PRN Pain 04/10/24 09/21/24 aspirin 81 mg tablet,delayed 81 mg PO BID 04/10/24 09/21/24 release atorvastatin 80 mg tablet 80 mg PO BEDTIME 04/10/24 09/21/24 bisacodyl 10 mg rectal suppository 10 mg NE DAILY PRN Constipation 04/10/24 09/21/24 (Dulcolax (bisacodyl)) cetirizine 5 mg tablet 5 mg PO DAILY 04/10/24 09/21/24 clopidogrel 75 mg tablet 75 mg PO DAILY 04/10/24 09/21/24 magnesium hydroxide 400 mg/5 mL 30 ml PO DAILY PRN Constipation 04/10/24 09/21/24 oral suspension (Milk of Magnesia) chlorpheniramine maleate 4 mg 4 mg PO Q8H PRN allergies 05/22/24 09/21/24 tablet clonazepam 0.5 mg tablet 0.5 mg PO TID 05/22/24 09/21/24 metoprolol succinate 25 mg 25 mg PO DAILY 05/22/24 09/21/24 tablet,extended release 24 hr bisacodyl 5 mg tablet 5 mg PO DAILY PRN Constipation 09/21/24 09/21/24 losartan 25 mg tablet 25 mg PO DAILY 09/21/24 09/21/24 therapeutic multivitamin 1 tab PO QAM 09/21/24 09/21/24 Previous Rx's ?Medication ?Instructions ?Recorded nitroglycerin 0.4 mg sublingual 0.4 mg sublingual Q5M PRN chest 12/27/22 tablet (Nitrostat) pain #25 tabs isosorbide mononitrate 30 mg 30 mg PO DAILY #90 tabs 11/15/23 tablet,extended release 24 hr hydrocodone 5 mg-acetaminophen 325 1 tab PO Q6H PRN pain 7 days #28 02/23/24 mg tablet tabs pantoprazole 40 mg tablet,delayed 40 mg PO BID 30 days #60 tabs 03/18/24 release (Protonix) cefdinir 300 mg capsule 300 mg PO BID 5 days #10 caps 09/21/24 Allergies Allergy/AdvReac Type Severity Reaction Status Date / Time gabapentin Allergy Intermediate diarrhea Verified 05/23/24 09:18 pregabalin (From Lyrica) Allergy Intermediate swelling Verified 05/23/24 09:18 metoprolol AdvReac Intermediate bitter Verified 05/23/24 09:18 taste promethazine (From Phenergan) AdvReac disoriented Verified 05/23/24 09:18 Sulfa (Sulfonamide AdvReac abdominal Verified 05/23/24 09:18 Antibiotics) pain Review of Systems Narrative: Constitutional symptoms: Negative except as documented in HPI. Skin symptoms: Negative except as documented in HPI. Eye symptoms: Negative except as documented in HPI. ENMT symptoms: Negative except as documented in HPI. Respiratory symptoms: Negative except as documented in HPI. Cardiovascular symptoms: Negative except as documented in HPI. Gastrointestinal symptoms: Negative except as documented in HPI. Genitourinary symptoms: Negative except as documented in HPI. Musculoskeletal symptoms: Negative except as documented in HPI. Neurologic symptoms: Negative except as documented in HPI. Psychiatric symptoms: Negative except as documented in HPI. Endocrine symptoms: Negative except as documented in HPI. PFSH ED PFSH: Medical History Atrial fibrillation Meningioma Meningioma identified during evaluation for chronic headaches-followed with neurology Dr. De Los Santos in [place] and states it was stable. She has been cleared and has not seen a neurologist in over 4 years. Elevated cholesterol Diagnosed in 2011 and has been on and off medication. Managed by PMD Paget's disease Status post excision surgery and radiation in 2020 done at [facility]. No pertinent past medical history Denies diabetes, asthma, seizures, DVT/PE PCP: Dr. Person SVT (supraventricular tachycardia) HTN (hypertension) Surgical History S/P cardiac pacemaker procedure 2019 History of rectal surgery X 3 Patient had perianal excision of Paget's disease done by Dr. Adamson and Dr. Goss in [place] first in May 2017 and then again in July 2018, 2020 S/P hysterectomy Vaginal, done for prolapse in 1981. She was told there was no cancer. S/P tubal ligation Laparoscopic procedure performed in 1979 Family History Mother Heart disease Hypertension Father Heart disease Daughter Diabetes Sister Hyperlipidemia Other Colon cancer Denies family history of Ovarian cancer Breast cancer Uterine cancer Thyroid disease Stroke Social History Smoking and tobacco/nicotine status: never used tobacco/nicotine Alcohol intake: never Substance/Drug Use: never Physical Exam Narrative: EXAM NARRATIVE: General: Alert, no acute distress. Skin: Warm, dry. Head: Normocephalic, atraumatic. Neck: Supple, trachea midline. Eye: Extraocular movements are intact. Ears, nose, mouth and throat: mucosa moist. Cardiovascular: Regular, Normal peripheral perfusion. Respiratory: Lungs are clear to auscultation, respirations are non-labored, breath sounds are equal, Symmetrical chest wall expansion. Gastrointestinal: Soft, some suprapubic tenderness, Non distended Musculoskeletal: Normal ROM, no deformity. Neurological: Alert and oriented, No focal neurological deficit observed. Psychiatric: Cooperative, appropriate mood & affect. Course Vital Signs: Vital signs: Vital Signs Temperature 97.7 F 09/21/24 11:03 Pulse Rate 77 09/21/24 11:03 Respiratory Rate 16 09/21/24 11:03 Blood Pressure 170/86 09/21/24 11:03 Pulse Oximetry 99 09/21/24 11:03 Oxygen Delivery Me thod Room Air 09/21/24 11:03 MDM - Abdominal Pain Medical Decision Making Medical decision making: Differential diagnosis for patient with low central abdominal pain including but not limited to and based on the above HPI, review of systems and physical exam:-: Urinary retention. Urinary tract infection. concerns for systemic infection, renal dysfunction. Diverticulitis. Constipation. Orders placed to evaluate differential diagnosis based on the above differential, HPI and physical exam Lab Review: Laboratory results were reviewed and interpreted by myself the emergency room physician. Mild leukocytosis with a white count of 14,000. No anemia. No renal failure. Sodium is a little low and her urine is a bit concentrated so fluids were given for dehydration. Urinalysis does indicate some mild infection. Nitrite positive with white count. Flu COVID and RSV are negative. Liver enzymes are normal. CT of the abdomen pelvis with contrast: No acute process other than she does have some fecal impaction/constipation. This was reviewed and interpreted by myself the emergency room physician. I also reviewed the radiology report. I reviewed the patient's medical record. Reexamination: Patient is remained stable. No increased work of breathing. No altered mental status. No focal motor deficits. Assessment and plan: Constipation UTI Dehydration Hyponatremia ? Normal saline bolus, IV Zofran, IV Rocephin, enema. - Discharged home - Discussed plan with patient. Answered any questions. - Evaluation and treatment of this problem were appropriate in the emergency setting. Lab Data 09/21/24 11:45 09/21/24 11:45 Labs/Radiology: Radiology Impressions Abdomen X-Ray 09/21/24 11:07 IMPRESSION: Nonspecific. Abdomen/Pelvis CT 09/21/24 12:29 IMPRESSION: No acute subdiaphragmatic pathology. Laboratory Results WBC 13.68 10^3/uL (3.29-11.43) H 09/21/24 11:45 RBC 4.39 10^6/uL (3.85-5.65) 09/21/24 11:45 Hgb 13.50 g/dL (11.27-16.99) 09/21/24 11:45 Hct 40.5 % (36-47) 09/21/24 11:45 MCV 92.3 fl (85-98) 09/21/24 11:45 MCH 30.8 pg (27-33) 09/21/24 11:45 MCHC 33.3 g/dL (30-55) 09/21/24 11:45 RDW 12.9 % (12.1-15.1) 09/21/24 11:45 Plt Count 299 10^3/cmm (157-399) 09/21/24 11:45 MPV 8.9 fL (7.4-10.4) 09/21/24 11:45 Neut % (Auto) 87.2 % 09/21/24 11:45 Lymph % (Auto) 5.9 % 09/21/24 11:45 [place] % (Auto) 5.9 % 09/21/24 11:45 Eos % (Auto) 0.5 % 09/21/24 11:45 Baso % (Auto) 0.2 % 09/21/24 11:45 Neut # (Auto) 11.92 10^3/uL (1.8-7.7) H 09/21/24 11:45 Lymph # (Auto) 0.8 10^3/uL (0.8-4.8) 09/21/24 11:45 [place] # (Auto) 0.8 10^3/uL (0.2-0.9) 09/21/24 11:45 Eos # (Auto) 0.1 10^3/uL (0.0-0.8) 09/21/24 11:45 Baso # (Auto) 0.0 10^3/uL (0.0-0.1) 09/21/24 11:45 Nucleated RBC % (auto) 0 % 09/21/24 11:45 Nucleated RBCs # 0.0 /100WBC 09/21/24 11:45 Sodium 128 mmol/L (136-145) L 09/21/24 11:45 Potassium 4.6 mmol/L (3.5-5.1) 09/21/24 11:45 Chloride 93 mmol/L (98-107) L 09/21/24 11:45 Carbon Dioxide 23 mmol/L (22-29) 09/21/24 11:45 Anion Gap 16.6 (5-19) 09/21/24 11:45 BUN 12 mg/dL (8-23) 09/21/24 11:45 Creatinine 0.9 mg/dL (0.5-0.9) 09/21/24 11:45 GFR Calculation Not Reportable 09/21/24 11:45 Glucose 175 mg/dL (65-115) H 09/21/24 11:45 Calculated Osmolality 270 mOsm/kg (285-295) L 09/21/24 11:45 Lactic Acid 2.7 mmol/L (0.5-2.2) H 09/21/24 11:45 Calcium 9.4 mg/dL (8.5-10.5) 09/21/24 11:45 Total Bilirubin 0.7 mg/dL (0.15-1.2) 09/21/24 11:45 AST 31 U/L (0-32) 09/21/24 11:45 ALT 27 U/L (0-33) 09/21/24 11:45 Alkaline Phosphatase 143 U/L (35-105) H 09/21/24 11:45 C-Reactive Protein 8.7 mg/L (0.0-4.9) H 09/21/24 11:45 Total Protein 7.0 g/dL (6.6-8.7) 09/21/24 11:45 Albumin 4.1 g/dL (3.5-5.2) 09/21/24 11:45 Globulin 2.9 g/dL (1.3-4.6) 09/21/24 11:45 Urine Color Yellow (Yellow) 09/21/24 13:40 Urine Appearance Clear (CLEAR) 09/21/24 13:40 Urine pH 8.5 (5-7) A 09/21/24 13:40 Ur Specific [place] 1.044 (1.005-1.030) H 09/21/24 13:40 Urine Protein Negative (Negative) 09/21/24 13:40 Urine Glucose (UA) Negative (Normal) 09/21/24 13:40 Urine Ketones Negative (Negative) 09/21/24 13:40 Urine Blood Negative (Negative) 09/21/24 13:40 Urine Nitrate Positive (Negative) A 09/21/24 13:40 Urine Bilirubin Negative (Negative) 09/21/24 13:40 Urine Urobilinogen 0.2 mg/dL (Negative) 09/21/24 13:40 Ur Leukocyte Esterase Negative (Negative) 09/21/24 13:40 Urine RBC None /hpf (0-2) 09/21/24 13:40 Urine WBC 10-15 /hpf (0-5) H 09/21/24 13:40 Ur Squamous Epith Cells Rare /hpf (0-5) 09/21/24 13:40 Amorphous Sediment Not Reportable 09/21/24 13:40 Urine Bacteria 2+ /hpf (NONE) H 09/21/24 13:40 Influenza A (PCR) Negative (Negative) 09/21/24 11:29 Influenza Type B (PCR) Negative (Negative) 09/21/24 11:29 RSV (PCR) Negative (Negative) 09/21/24 11:29 SARS-CoV-2 (PCR) Negative (Negative) 09/21/24 11:29 All radiology interpretation(s) finalized by discharge Discharge Plan Discharge Patient Disposition: Home Clinical Impression: Urinary tract infection, Constipation, Dehydration Condition: Stable Prescriptions: New cefdinir 300 mg capsule 300 mg PO BID 5 Days Qty: 10 0RF No Action magnesium oxide 250 mg magnesium tablet 250 mg PO BID nitroglycerin [Nitrostat] 0.4 mg tablet, sublingual 0.4 mg sublingual Q5M PRN (Reason: chest pain) Qty: 25 1RF Rx Instructions: do not exceed 3 doses per episode pantoprazole [Protonix] 40 mg tablet,delayed release (DR/EC) 40 mg PO BID 30 Days Qty: 60 2RF metoprolol succinate 25 mg tablet extended release 24 hr 25 mg PO DAILY chlorpheniramine maleate 4 mg tablet 4 mg PO Q8H PRN (Reason: allergies) Rx Instructions: do not exceed 2 doses per 24 hrs clonazepam 0.5 mg tablet 0.5 mg PO TID isosorbide mononitrate 30 mg tablet extended release 24 hr 30 mg PO DAILY Qty: 90 11RF atorvastatin 80 mg Tablet 80 mg PO BEDTIME acetaminophen 325 mg Tablet 650 mg PO .Q4-6H PRN (Reason: Pain) cetirizine 5 mg Tablet 5 mg PO DAILY clopidogrel 75 mg tablet 75 mg PO DAILY aspirin 81 mg Tablet,Delayed Release (Dr/Ec) 81 mg PO BID magnesium hydroxide [Milk of Magnesia] 400 mg/5 mL Suspension 30 ml PO DAILY PRN (Reason: Constipation) bisacodyl [Dulcolax (bisacodyl)] 10 mg Suppository 10 mg NE DAILY PRN (Reason: Constipation) therapeutic multivitamin Tablet 1 tab PO QAM losartan 25 mg tablet 25 mg PO DAILY bisacodyl 5 mg Tablet 5 mg PO DAILY PRN (Reason: Constipation) hydrocodone-acetaminophen 5-325 mg tablet 1 tab PO Q6H PRN (Reason: pain) 7 Days Qty: 28 0RF fluoxetine 20 mg capsule 20 mg PO DAILY Discharge Orders: Discharge ED (Routine); Ordered 09/21/24 Ordered By: Keyla Hobbs Referrals: Dedrick Person MD [Primary Care Provider] - Discharge Diet: Usual diet Discharge Activity: Increase activity as tolerated Patient Instructions: Constipation (ED), Urinary Tract Infection in Older Adults (ED), Opioid Safety, Pain Management Activity Restrictions/Additional Instructions: Thank you for choosing [facility] for your healthcare needs today. Please realize this is an emergency room and that we are providing you with a medical screening exam and this may not be complete and all inclusive of all the testing and or work up that you may need to determine your ailment or severity of your illness. You have been screened and evaluated and felt safe for discharge. Health conditions do change or evolve sometimes and as such it is important that you follow up with your Primary Doctor to be re checked, 3-5 days is a general good time frame for follow up. You are always welcome to return to the ED for re assessment if your symptoms are worsening or you have new concerns Print Language: Urdu Coding Level of Care Code ED Rn Ambulatory for Nati Castillo
[2024-09-21 12:03] LABS: Basophils % 0.2 %; Eosinophils # 0.1 10^3/uL (0.0-0.8); Eosinophils % 0.5 %; Hematocrit 40.5 % (36-47); Lymphocytes # 0.8 10^3/uL (0.8-4.8); Lymphocytes % 5.9 %; Mean Corpuscular HGB Conc 33.3 g/dL (30-55); Mean Corpuscular Hemoglobin 30.8 pg (27-33); Mean Corpuscular Volume 92.3 fl (85-98); Mean Platelet Volume 8.9 fL (7.4-10.4); Monocytes # 0.8 10^3/uL (0.2-0.9); Monocytes % 5.9 %; Neutrophils # 11.92 10^3/uL (1.8-7.7); Neutrophils % 87.2 %; Nucleated Red Blood Cells % 0 %; Platelet Count 299 10^3/cmm (157-399); Red Blood Count 4.39 10^6/uL (3.85-5.65); Red Cell Distribution Width 12.9 % (12.1-15.1); White Blood Count 13.68 10^3/uL (3.29-11.43)
[2024-09-21] MEDS: ondansetron 2 mg/ML SDV 2 mL 4 MG IVP (12:20)
[2024-09-21 12:21] LABS: Alanine Aminotransferase 27 U/L (0-33); Albumin Level 4.1 g/dL (3.5-5.2); Alkaline Phosphatase 143 U/L (35-105); Anion Gap 16.6 (5-19); Aspartate Amino Transferase 31 U/L (0-32); Blood Urea Nitrogen 12 mg/dL (8-23); C Reactive Protein 8.7 mg/L (0.0-4.9); Calcium 9.4 mg/dL (8.5-10.5); Carbon Dioxide 23 mmol/L (22-29); Chloride 93 mmol/L (98-107); Globulin 2.9 g/dL (1.3-4.6); Glucose 175 mg/dL (65-115); Osmolality Calculated 270 mOsm/kg (285-295); Potassium 4.6 mmol/L (3.5-5.1); Sodium 128 mmol/L (136-145); Total Bilirubin 0.7 mg/dL (0.15-1.2)
[2024-09-21 12:22] LABS: Lactic Sepsis W/Reflex 2.7 mmol/L (0.5-2.2)
--- NOTE | 2024-09-21 12:29 | CTR_ITS ---
PROCEDURE INFORMATION: Exam: CT Abdomen And Pelvis With Contrast Exam date and time: 09/21/2024 12:41 PM Age: 84 years old Clinical indication: Abdominal pain TECHNIQUE: Imaging protocol: Computed tomography of the abdomen and pelvis with contrast. Radiation optimization: All CT scans at this facility use at least one of these dose optimization techniques: automated exposure control; mA and/or kV adjustment per patient size (includes targeted exams where dose is matched to clinical indication); or iterative reconstruction. Contrast material: OMNI 350; Contrast volume: 100 ml; Contrast route: INTRAVENOUS (IV); COMPARISON: CT abdomen pelvis w con* [id number] 04/14/2024 1:53 PM RADIATION DOSE METRICS: Total DLP (mGy-cm): 638.17 FINDINGS: Tubes, catheters and devices: Pacemaker/defibrillator. Coronary arteries: Coronary artery calcifications. Diaphragm: Hiatal hernia. Liver: Normal. No mass. Gallbladder and biliary ducts: Normal. No calcified stones. No ductal dilation. Pancreas: Normal. No ductal dilation. Spleen: Normal. No splenomegaly. Adrenal glands: Normal. No mass. Kidneys and ureters: Normal. No hydronephrosis. Stomach and bowel: Diverticulosis without evidence of diverticulitis. There is a large amount of colonic fecal material suggesting constipation. Appendix: No evidence of appendicitis. Intraperitoneal space: Unremarkable. No free air. No significant fluid collection. Vasculature: Unremarkable. No abdominal aortic aneurysm. Lymph nodes: Calcified central lymph nodes. Urinary bladder: Unremarkable as visualized. Reproductive: Unremarkable as visualized. Bones/joints: ORIF of the proximal left femur. Soft tissues: Unremarkable. CT/CT abdomen pelvis w con* [id number] IMPRESSION: No acute subdiaphragmatic pathology.
[2024-09-21 12:45] LABS: Influenza A NEGATIVE (Negative); Influenza B NEGATIVE (Negative); Respiratory Syncytial Virus Ce NEGATIVE (Negative); SARS-CoV-2 PCR NEGATIVE (Negative)
[2024-09-21] MEDS: sodium chloride 0.9% 1,000 ML 999 ML IV (13:25)
[2024-09-21 13:45] LABS: Reflex Lactate Order REFLEX LACTIC ORDERD
[2024-09-21 14:00] LABS: Bilirubin Urine Negative (Negative); Blood Urine Negative (Negative); Glucose Urine UA Negative (Normal); Ketones Urine Negative (Negative); Leukocyte Esterase Urine Negative (Negative); Nitrate Urine Positive (Negative); Protein Urine Negative (Negative); Urine Appearance Clear (CLEAR); Urine Color Yellow (Yellow); Urobilinogen Urine 0.2 mg/dL (Negative); pH Urine 8.5 (5-7)
[2024-09-21 14:26] LABS: Specific Gravity, Urine 1.044 (1.005-1.030)
[2024-09-21 14:27] LABS: Add Urine Culture? Yes; Bacteria Urine 2+ /hpf; Squamous Epithelial Cell Urine RARE /hpf (0-5); UA Manual Slide Review YES
[2024-09-21] MEDS: cefTRIAXone 1,000 mg SDV 1000 MG IVP (14:40)
[2024-09-21] MEDS: mineral oil ENEMA 133 mL PR (14:45)
[2024-09-21 15:10] LABS: Lactic Acid level (Lactate) 2.3 mmol/L (0.5-2.2)
== END 2024-09-21 17:47 | disposition home or self-care (01) ==
PROVIDERS: Emergency Provider Emergency Medicine; PCP Family Medicine
DX: N39.0 Urinary tract infection, site not specified (principal); K59.00 Constipation, unspecified; E86.0 Dehydration; Z79.02 Long term (current) use of antithrombotics/antiplatelets; Z79.82 Long term (current) use of aspirin; Z11.52 Encounter for screening for COVID-19; Z95.0 Presence of cardiac pacemaker; I10 Essential (primary) hypertension; E78.5 Hyperlipidemia, unspecified
CPT/HCPCS: 36415; 74018; 74177; 80053; 81001; 83605; 85025; 86140; 87040; 87077; 87086; 87186; 87637; 96374; 96375; 99285; J0696; J2405; J7030

== ENCOUNTER → 2025-01-07 07:36 | Outpatient (BNVA) | payer MEDICARE, OTHER, SELFPAY | PROVIDERS: PCP Family Medicine; Referring Provider Family Medicine; Visit Provider Psychiatry & Neurology Neurology | DX: R41.3 Other amnesia (principal); F03.90 Unspecified dementia, unspecified severity, without behavioral disturbance, psychotic disturbance, mood disturbance, and anxiety; E55.9 Vitamin D deficiency, unspecified; I10 Essential (primary) hypertension; R26.89 Other abnormalities of gait and mobility | CPT/HCPCS: 36415; 80051; 82233; 82234; 82306; 82542; 82607; 82746; 83090; 83520; 83735; 83921; 84439; 84443; 84481; 84520; 86592; 99203; 99214 ==

== ENCOUNTER → 2025-01-08 10:51 | Outpatient (BNVA) | payer MEDICARE, OTHER, SELFPAY | PROVIDERS: PCP Family Medicine; Visit Provider Internal Medicine Cardiovascular Disease | DX: Z45.018 Encounter for adjustment and management of other part of cardiac pacemaker (principal) | CPT/HCPCS: 93296 ==

== ENCOUNTER 2025-01-14 09:52 | Outpatient (CLI) | payer MEDICARE, OTHER, SELFPAY ==
--- NOTE | 2025-01-14 10:00 | USCV_ITS ---
Millicent Angel Age: 85 Gender: F : 1940 Exam Date: 01/14/2025 10:10 Ordering Phys: Josh Arteaga MD Technologist: [employer] Exam Location: [facility] – [place] Indication: dementia Risk Factors: Previous Vascular Surgery: Right Brachial BP: / Left Brachial BP: / Right Left Velocity (cm/s) Spectral Plaque Velocity (cm/s) Spectral Plaque Syst/Diast Broadening Syst/Diast Broadening 60.50/ 14.80 Prox CCA 59.60 / 15.70 53.70/ 13.20 Mid CCA 75.10 / 20.50 53.80/ 16.40 Distal CCA 60.50 / 17.10 55.30/ 19.00 Prox ICA 31.80 / 15.10 46.30/ 20.10 Mid ICA 38.50 / 15.70 54.80/ 20.20 Distal ICA 53.90 / 20.90 64.50 ECA 67.90 1.00 ICA/CCA 0.50 Antegrade Vertebral Antegrade 32.60/ 8.40 cm/s 41.50/ 12.40 cm/s Tri Subclavian Tri 57.60 161.6 0 CONCLUSIONS Right ICA stenosis <50%. Mild atheromatous plaque right carotid bulb/ICA. Left ICA stenosis <50%. Mild atheromatous plaque left carotid bulb/ICA. Intimal thickening in the common carotid arteries and internal carotid arteries bilaterally. Normal antegrade Doppler flow noted in the right vertebral artery. Normal antegrade Doppler flow noted in the left vertebral artery. Mike Valverde MD (Electronically Signed) Final Date: 14 January 2025 14:10 S
== END 2025-01-14 09:53 | disposition home or self-care (01) ==
PROVIDERS: PCP Family Medicine; Visit Provider Psychiatry & Neurology Neurology
DX: I67.2 Cerebral atherosclerosis (principal); R26.89 Other abnormalities of gait and mobility; F03.90 Unspecified dementia, unspecified severity, without behavioral disturbance, psychotic disturbance, mood disturbance, and anxiety
CPT/HCPCS: 93880

== ENCOUNTER 2025-01-16 09:52 | Outpatient (CLI) | payer MEDICARE, OTHER, SELFPAY ==
--- NOTE | 2025-01-16 10:00 | CT_ITS ---
WS: [id number] CT HEAD TECHNIQUE: Noncontrast CT of the head obtained from the skullbase to the vertex. CLINICAL INFORMATION: R41.3 - Other amnesia COMPARISON: 2023 DLP: 944.[address] scans at [facility] use at least one of these dose optimization techniques: automated exposure control; mA and/or kV adjustment per patient size (includes targeted exams where dose is matched to clinical indication); or iterative reconstruction. FINDINGS: No evidence of intracranial hemorrhage or mass effect. Ventricular system and basal cisterns are patent. Moderate small vessel changes with moderate parenchymal volume loss. Tiny chronic lacunar infarct RIGHT caudate. No extra- axial fluid collections. No evidence of mass or mass effect. Vascular calcif ication. Paranasal sinuses and mastoid air cells are well aerated. .Normal visualized soft tissues. CT/CT head wo con* [id number] IMPRESSION: 1. No evidence of intracranial hemorrhage or mass effect. 2. Moderate small vessel changes with moderate parenchymal volume loss. 3. Tiny chronic lacunar infarct RIGHT caudate. 4. Vascular calcification. 5. No acute intracranial findings.
== END 2025-01-16 09:53 | disposition home or self-care (01) ==
LOC: RAD 09:54
PROVIDERS: PCP Family Medicine; Visit Provider Psychiatry & Neurology Neurology
DX: R41.3 Other amnesia (principal); F03.90 Unspecified dementia, unspecified severity, without behavioral disturbance, psychotic disturbance, mood disturbance, and anxiety
CPT/HCPCS: 70450

== ENCOUNTER 2025-02-26 16:11 | Outpatient (CLI) | payer MEDICARE, OTHER, SELFPAY ==
--- NOTE | 2025-02-26 16:18 | CT_ITS ---
WS: [id number] CT ABDOMEN AND PELVIS NONCONTRAST HISTORY: URINARY TRACT INFECTION TECHNIQUE: Imaging performed through the abdomen and pelvis. Coronal and sagittal reformats are submitted. All CT scans at [facility] use at least one of these dose optimization techniques: automated exposure control; mA and/or kV adjustment per patient size (includes targeted exams where dose is matched to clinical indication); or iterative reconstruction. DLP: 276.17 mGy.cm COMPARISON: 09/21/2024 Lower thorax: Cardiac pacer lead wires noted in the heart. Lung bases are hyperinflated with changes of emphysema. RIGHT lower lobe bronchiectasis. Small hiatal hernia. Liver: Normal size liver. No mass or bile duct dilatation. Gallbladder: Normal gallbladder. No pericholecystic fluid or cholelithiasis. No gallbladder wall thickening. Pancreas: Mild diffuse pancreatic atrophy. Normal size duct. No mass or pancreatitis. Spleen: Normal size spleen with granulomata. Adrenal glands: Normal. No mass. Right kidney: 7.2 cm in length. No perinephric stranding or obstruction. No calcifications. Left kidney: 8.7 cm in length. No perinephric stranding or obstruction. No calcifications. Aorta: Mild atherosclerosis abdominal aorta with no aneurysm. No free fluid, intraperitoneal air or significant lymphadenopathy. GI tract: No GI tract obstruction. Appendix not identified. Moderate diverticular burden in the sigmoid colon without acute diverticulitis. Abdominal wall: Small umbilical hernia contains fat only. Pelvis: Well-distended urinary bladder. No bladder calcifications. Numerous calcifications in the pelvis are phleboliths. Osseous structures: Degenerative levoscoliosis with asymmetric narrowing of the disc spaces. More advanced degenerative changes of the disc at L2-3. L4 anterolisthesis by 3 mm. Prior ORIF LEFT hip. CT/CT kidney stone [id number] IMPRESSION: 1. No renal obstruction or perinephric stranding. 2. Kidneys are measuring low normal size. No calcifications. 3. Normally distended urinary bladder. 4. Sigmoid diverticulosis without acute diverticulitis. 5. Small hiatal hernia.
== END 2025-02-26 16:12 | disposition home or self-care (01) ==
LOC: RAD 16:13
PROVIDERS: PCP Family Medicine; Visit Provider Nurse Practitioner Family
DX: K57.30 Diverticulosis of large intestine without perforation or abscess without bleeding (principal); K44.9 Diaphragmatic hernia without obstruction or gangrene; M47.896 Other spondylosis, lumbar region; I70.0 Atherosclerosis of aorta; K42.9 Umbilical hernia without obstruction or gangrene
CPT/HCPCS: 74176

== ENCOUNTER → 2025-03-11 13:45 | Outpatient (BNVA) | payer MEDICARE, OTHER, SELFPAY | PROVIDERS: PCP Family Medicine; Visit Provider Student in an Organized Health Care Education/Training Program | DX: N39.0 Urinary tract infection, site not specified (principal) | CPT/HCPCS: 99205 ==

== ENCOUNTER 2025-03-15 12:01 | Emergency (ER) | payer MEDICARE, OTHER, SELFPAY ==
[2025-03-15 12:04] VITALS: BP 108/73; PULSE 66; RESP 17; TEMP 36.4; O2SAT 94; BMI 24.2
--- OUTSIDE RECORDS SUMMARY | 2025-03-15 12:07 | XMS_ITS | Encounter Summary ---
Author Organization [facility] Address [address] [place] [address] Care Team Providers Care Websphere Administrator Name Role Phone Unavailable Primary Care Provider Unavailabl e Encounter Details Date Type Department Care Team (Latest Contact Info) Description 09/08/2000 Outpatient Historical [facility] Catarina Norton MD Abdominal pain, other specified site (Primary Dx) Social History Tobacco Use Types Packs/Day Years Used Date Smoking Tobacco: Never Assessed Comments Unknown Sex and Gender Information Value Date Recorded Sex Assigned at Not on file 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
--- OUTSIDE RECORDS SUMMARY | 2025-03-15 12:07 | XMS_ITS | Encounter Summary ---
Author Organization [facility] Address [address] [place] [address] Care Team Providers Care Java Tech Name Role Phone Unavailable Primary Care Provider Unavailabl e Encounter Details Date Type Department Care Team (Latest Contact Info) Description 11/19/2001 Outpatient Historical [facility] Rheumatology- [facility] [place] [address] [place] [address] Wolf Fisher MD NO ADDRESS ON FILE GENERAL OSTEOARTHROSIS (Primary Dx) Social History Tobacco Use Types Packs/Day Years Used Date Smoking Tobacco: Never Assessed Comments Unknown Sex and Gender Information Value Date Recorded Sex Assigned at Not on file Legal Sex Female 5:05 AM MEDICATION AID Gender Identity Not on file Sexual Orientation Not on file documented as of this encounter Plan of Treatment Not on file documented as of this encounter Visit Diagnoses Diagnosis Generalized osteoarthrosis, involving multiple sites- Primary documented in this encounter
--- OUTSIDE RECORDS SUMMARY | 2025-03-15 12:07 | XMS_ITS | Encounter Summary ---
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
--- OUTSIDE RECORDS SUMMARY | 2025-03-15 12:07 | XMS_ITS | Clinical Summary ---
Author Organization [facility] Address [address] 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
--- OUTSIDE RECORDS SUMMARY | 2025-03-15 12:07 | XMS_ITS | Patient Health Record ---
Author Organization [facility] Address [address] [place] [address] Care Team Providers Care Podiatric Foot And Ankle Specialist Name Role Phone Kristopher HAHN, Terrance Primary Care Provider GARCIA Noriega Unavailable [phone] PAZ MARIE Unavailable [phone] Allergies Allergen (clinical drug ingredient) Drug/Non Drug Allergy documented on EMR Reaction Allergy Type Onset Date Status Substance with sulfonamide structure and antibacterial mechanism of action (substance) Sulfa Antibiotics Unknown Drug Allergy Active Results Component Value Reference Range Notes Urinalysis, Routine Reviewed date:02/12/2025 02:26:49 PM Interpretation: Performing Lab: Notes/Report: Urine-Color yellow Appearance cloudy Glucose - Bilirubin - Ketones - Specific Fults 1.015 Occult Blood trace pH 6.0 Urine Protein trace Urobilinogen,Semi-Qn - Nitrite, Urine - WBC Esterase 3+ UBASE - Urinary Tract Infect ion (HTRx) Reviewed date:02/17/2025 03:07:40 PM Interpretation: Performing Lab:, [facility] at [address], Phone - [phone], Director - [id number] Notes/Report: CTX-M1 (15), M2 (2), M9 (9), M8/25 Groups 20.898 23.000 - 32.658 ppm CTX-M1 (15), M2 (2), M9 (9), M8/25 Groups Detected 23.000 - 32.658 ppm dfr (A1, A5), sul (1,2) 22.474 23.000 - 27.000 p pm dfr (A1, A5), sul (1,2) Detected 23.000 - 27.000 p pm Acinetobacter baumannii 0 19.961 - 24.689 p pm Acinetobacter baumannii Not Detected 19.961 - 24.689 p pm Citrobacter freundii 0 23.000 - 32.015 ppm Citrobacter freundii Not Detected 23.000 - 32.015 ppm Enterobacter aerogenes, cloacae 0 23.000 - 32.290 ppm Enterobacter aerogenes, cloacae Not Detected 23.000 - 32.290 ppm Enterococcus faecalis, faecium 29.152 26.000 - 3 3.043 ppm Enterococcus faecalis, faecium Detected 26.000 - 3 3.043 ppm Escherichia coli 22.563 23.000 - 28.500 ppm Escherichia coli Detected 23.000 - 28.500 ppm Klebsiella pneumoniae, oxytoca 0 23.000 - 3 1.865 ppm Klebsiella pneumoniae, oxytoca Not Detected 23.000 - 3 1.865 ppm Morganella morganii 0 19.961 - 24.689 ppm Morganella morganii Not Detected 19.961 - 24.689 ppm Proteus mirabilis, vulgaris 0 23.000 - 28.5 00 ppm Proteus mirabilis, vulgaris Not Detected 23.000 - 28.5 00 ppm Pseudomonas aeruginosa 22.598 23.000 - 31.801 pp m Pseudomonas aeruginosa Detected 23.000 - 31.801 pp m Staphylococcus aureus 0 26.000 - 31.595 ppm Staphylococcus aureus Not Detected 26.000 - 31.595 ppm Streptococcus agalactiae (Group B Strep) 0 26.000 - 32.435 ppm Streptococcus agalactiae (Group B Strep) Not Detected 26.000 - 32.435 ppm Hamida albicans, parapsilosis, tropicalis 0 23.000 - 30.347 ppm Ahmida albicans, parapsilosis, tropicalis Not Detecte d 23.000 - 30.347 ppm Hamida glabrata (Nakaseomyces glabratus) 0 23.000 - 31.618 ppm Hamida glabrata (Nakaseomyces glabratus) Not Detected 23.000 - 31.618 ppm Hamida krusei (Pichia kudriavzevii) 0 23.0 00 - 30.873 ppm Hamida krusei (Pichia kudriavzevii) Not Detected 23.0 00 - 30.873 ppm Serratia marcescens 0 23.000 - 31.581 ppm Serratia marcescens Not Detected 23.000 - 31.581 ppm Streptococcus pyogenes (Group A strep) 0 19 .961 - 24.689 ppm Streptococcus pyogenes (Group A strep) Not Detected 19 .961 - 24.689 ppm Staphylococcus saprophyticus 0 19.961 - 24. 689 ppm Staphylococcus saprophyticus Not Detected 19.961 - 24. 689 ppm Staphylococcus epidermidis, haemolyticus, lugdunensis 0 19.961 - 24.689 ppm Staphylococcus epidermidis, haemolyticus, lugdunensis Not Detected 19.961 - 24.689 ppm Reason For Referral Reason Multidrug resistant UTI, please schedule WALDO. Recent CT negative, has cysto scheduled Diagnosis 1 Multiple drug resist ant organism (MDRO) culture positive (Z16.24) Diagnosis 2 Recurrent urinary tr act infection (N39.0) Referral Organization [employer] Referring Provider First Name GARCIA Referring Provider Last Name YAMINI Referring Provider Speciality [facility] Referred Provider Specialty Infectious D isease Referral Priority Routine Medications Medication SIG (Take, Route, Frequency, Duration) Notes Start Date End Date Status clonazePAM 0.5 MG 1 tablet Orally Once a day Active Cetirizine HCl 5 MG 1 tablet Orally Once a day Active Clopidogrel Bisulfate 75 MG 1 tablet Ora lly Once a day Active Cefdinir 300 MG as directed Orally Active Isosorbide Mononitrate ER 30 MG 1 tablet in the morning Orally Once a day Active Acetaminophen 325 MG 1 tablet as needed Orally every 6 hrs Active Diclofenac 1.25 % 1 patch Externally O nce a day Active Multivitamin Adult - 1 tablet Orally Onc e a day Active Losartan Potassium 25 MG 1 tablet Orally Once a day Active Metoprolol Succinate 25 MG 1 capsule Ora lly Once a day Active Milk of Magnesia 400 MG/5ML 5 mL as need ed Orally Once a day Active Atorvastatin Calcium 80 MG 1 tablet Oral ly Once a day Active Nitroglycerin 0.4 MG 1 tablet under the tongue and allow to dissolve as needed. Take every 5 minutes up to 3 times if chest pain persists Sublingual Three times a day Active Bisacodyl 10 MG 1 suppository as nee ded Rectal Once a day Active Bisacodyl 5 MG 1 tablet as needed O rally Once a day Active linaCLOtide 72 MCG 1 capsule at least 3 0 minutes before the first meal of the day on an empty stomach Orally Once a day Active FLUoxetine HCl 20 MG 1 capsule Orally On ce a day Active Social History Tobacco Use: Social History Observation Description Date Details (start date - stop date) Never Smoker NA - NA Tobacco Control (Standard) Question Answer Notes Tobacco use: Nonsmoker Problems Problem Type SNOMED Code ICD Code Onset Dates Problem Status W/U Status Risk Notes Problem Renal atrophy, 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 Vital Signs Heart Rate 73 /min 02/12/2025 Blood pressure diastolic 71 mm Hg 02/12/2025 Height-cm 154.94 cm 02/12/2025 Weight-kg 56.7 kg 02/12/2025 Height 61 in 02/12/2025 Blood pressure systolic 112 mm Hg 02/12/2025 Weight 125 lbs 02/12/2025 BMI 23.62 kg/m2 02/12/2025 Procedures Procedure Date Ordered Date Performed Result Body Sit e Bladder Scan 02/12/2025 02/12/2025 8 mL Encounters Encounter Location Date Provider Diagnosis [facility] [address] [address] 02/12/2025 GARCIA KC Recurrent urinary tract infection N39.0 ; Suprapubic pain R10.2 ; Low back pain M54.50 ; Renal atrophy, bilateral N26.1 and Loose bowel movements R19.5 [facility] [address] [place] [address] 01/16/2025 PAZ MARIE [facility] [address] [place] [address] 02/14/2025 GARCIA KC [facility] [address] [place] [address] 02/24/2025 GARCIA KC [facility] [address] [place] [address] 02/27/2025 GARCIA KC [facility] [address] [place] [address] 03/05/2025 GARCIA KC Recurrent UTI N39.0 and Multiple drug resistant organism (MDRO) culture positive Z16.24 [facility] [address] [place] [address] 03/07/2025 GARCIA KC Assessments Encounter Date Diagnosis (ICD Code) Assessment Notes Treatment Notes Treatment Clinical Notes Section Notes 03/05/2025 Multiple drug resistant organism (MDRO) culture positive (ICD-10 - Z16.24) 03/05/2025 Recurrent UTI (ICD-10 - N39.0) 02/12/2025 Recurrent urinary tract infection (ICD-10 - N39.0) 02/12/2025 Suprapubic pain (ICD-10 - R10.2) 02/12/2025 Low back pain (ICD-10 - M54.50) 02/12/2025 Renal atrophy, bilateral (ICD-10 - N26.1) 02/12/2025 Loose bowel movements (ICD-10 - R19.5) 02/12/2025 Other UA abnormal despite being on Cefdinir. She reports not feeling any better after almost completing course of antibiotics. She finishes treatment tomorrow. Send for PCR. Call with result and treat as indicated. We have discussed behavioral modifications for recurrent UTI including timed and double voiding, increased water intake, supplementation with Cranberry extract and probiotics, preventing/treating constipation, and vaginal estrogen as indicated. Handout given to patient. Start daily probiotic with cranberry. Obtain CT to rule out stones. RTC for follow up in 3 weeks with UA and CT review. All questions that were asked were answered. Patient is satisfied with plan of care. Plan Of Treatment Pending Test Test Name [place] [id number] 02/13/20 Next Appt Details Provider Name:PAZ Ehsan HUDSONLinda Wallace, 03/17/2025 11:05:00 AM, [address] [place], [address], Insurance Providers Payer Name Payer Address Payer Phone Subscriber Number Group Number Insured Name Patient Relationship to Insured Coverage Start Date Coverage End Date [place] [address] [place] [employer] [employer] [id number] [phone] [id number] Millicent Angel Self - patient is the insured [employer] [place] [address] [place] [address] [id number] [phone] [id number] Millicent Angel Self - patient is the insured Medical (General) History Medical History History ICD Code CAD Heart disease High blood pressure Recurrent urinary tract infections Surgical History Surgery Date(Month/Year) Stents Hip surgery
--- OUTSIDE RECORDS SUMMARY | 2025-03-15 12:07 | XMS_ITS | Encounter Summary ---
Author Organization [facility] Address [address] [place] [address] Care Team Providers Care Solution Advisor Name Role Phone Unavailable Primary Care Provider Unavailabl e Encounter Details Date Type Department Care Team (Latest Contact Info) Description 11/19/2001 Outpatient Historical [facility] [place] [address] [place] [address] Wolf Fisher MD NO ADDRESS ON FILE LOC PRIM OSTEOARTH-HAND (Primary Dx) Social History Tobacco Use Types Packs/Day Years Used Date Smoking Tobacco: Never Assessed Comments Unknown Sex and Gender Information Value Date Recorded Sex Assigned at Not on file 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
--- OUTSIDE RECORDS SUMMARY | 2025-03-15 12:07 | XMS_ITS | Encounter Summary ---
Author Organization [facility] Address [address] 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
--- OUTSIDE RECORDS SUMMARY | 2025-03-15 12:07 | XMS_ITS | Encounter Summary ---
Author Organization [facility] Address [address] [place] [address] Care Team Providers Care Exterior Door Installer Name Role Phone Unavailable Primary Care Provider Unavailabl e Encounter Details Date Type Department Care Team (Latest Contact Info) Description 09/13/2000 Outpatient Historical [facility] [address] [phone] Catarina Norton MD Constipation (Primary Dx) Social History Tobacco Use Types Packs/Day Years Used Date Smoking Tobacco: Never Assessed Comments Unknown Sex and Gender Information Value Date Recorded Sex Assigned at Not on file Legal Sex Female 5:05 AM PAINTER BOTTOM Gender Identity Not on file Sexual Orientation Not on file documented as of this encounter Plan of Treatment Not on file documented as of this encounter Visit Diagnoses Diagnosis Constipation- Primary documented in this encounter
--- OUTSIDE RECORDS SUMMARY | 2025-03-15 12:07 | XMS_ITS | Encounter Summary ---
Author Organization [facility] Address [address] [place] [address] Care Team Providers Care Forensic Document Examiner Name Role Phone Unavailable Primary Care Provider Unavailabl e Encounter Details Date Type Department Care Team (Latest Contact Info) Description 04/09/2001 Outpatient Historical [facility] [place] [address] [address] Karlee Roman MD NO ADDRESS ON FILE Other screening mammogram (Primary Dx) Social History Tobacco Use Types Packs/Day Years Used Date Smoking Tobacco: Never Assessed Comments Unknown Sex and Gender Information Value Date Recorded Sex Assigned at Not on file 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
[2025-03-15 12:25] VITALS: BP 108/73; PULSE 60; RESP 16; O2SAT 93
--- NOTE | 2025-03-15 12:25 | CTR_ITS ---
PROCEDURE INFORMATION: Exam: CT Cervical Spine Without Contrast Exam date and time: 03/15/2025 12:47 PM Age: 85 years old Clinical indication: Injury or trauma; Fall; Blunt trauma TECHNIQUE: Imaging protocol: Computed tomography of the cervical spine without contrast. Radiation optimization: All CT scans at this facility use at least one of these dose optimization techniques: automated exposure control; mA and/or kV adjustment per patient size (includes targeted exams where dose is matched to clinical indication); or iterative reconstruction. COMPARISON: CT head wo con* [id number] 01/16/2025 10:08 AM RADIATION DOSE METRICS: Total DLP (mGy-cm): 161 FINDINGS: Bones: There is reversal of the normal C-spine lordosis. No acute fracture is detected. There is 1.5 mm anterolisthesis C2 on C3. There is also 2 mm retrolisthesis C4 on C5. There is 2.2 mm anterolisthesis C7 on T1. These are favored to be degenerative in origin rather than related to the current trauma There is multilevel degenerative disc disease and spondylosis. There are degenerative changes anteriorly at C1-C2. At C2-C3, there is no significant central or significant foraminal stenosis. At C3-C4, the disc is severely degenerated. There is disc bulge and spondylosis. There is mild central canal stenosis. There is mild right foraminal stenosis. None on the left. At C4-C5, the disc is severely degenerated. There is retrolisthesis. There is diffuse disc bulge and spondylosis. There is [id number] central canal stenosis. There is mild right and moderate left foraminal stenosis. At C5-C6, the disc is degenerated. There is disc bulge and spondylosis without significant central canal stenosis. There is mild right and moderate left foraminal stenosis. At C6-C7, the disc is severely degenerated. There is disc bulge and spondylosis with mild central canal stenosis and mild bilateral foraminal stenosis. At C7-T1, there is no significant central or significant foraminal stenosis. Lungs: There are reticulonodular opacities in the anterior right upper lobe which may be postinflammatory fibrosis or could be atypical infection such as MAC. There is also a calcified granuloma in the right upper lobe. Thyroid: The thyroid gland is unremarkable. Vasculature: There atherosclerotic changes in the carotid systems bilaterally Soft tissues: Unremarkable. CT/CT cervical spin wo con* [id number] IMPRESSION: 1. Reversal of normal C-spine lordosis 2. Negative for fracture 3. Mild subluxations as above. These are favored to be degenerative in origin. 4. Multilevel degenerative disc disease and spondylosis. See individual levels above for more complete description 5. Reticulonodular opacities right upper lobe, see above.
--- NOTE | 2025-03-15 12:26 | CTR_ITS ---
PROCEDURE INFORMATION: Exam: CT Head Without Contrast Exam date and time: 03/15/2025 12:47 PM Age: 85 years old Clinical indication: Injury or trauma; Fall; Blunt trauma (contusions or hematomas) TECHNIQUE: Imaging protocol: Computed tomography of the head without contrast. Radiation optimization: All CT scans at this facility use at least one of these dose optimization techniques: automated exposure control; mA and/or kV adjustment per patient size (includes targeted exams where dose is matched to clinical indication); or iterative reconstruction. COMPARISON: CT head wo con* [id number] 01/16/2025 10:08 AM RADIATION DOSE METRICS: Total DLP (mGy-cm): 1000.9 FINDINGS: Brain: No acute infarction or hemorrhage is detected. Hathaway-white junction is normal. There is bilateral basal ganglia calcification. There is white matter low-density consistent with sequela of small-vessel disease. Cerebral ventricles: No ventriculomegaly. Paranasal sinuses: Visualized sinuses are unremarkable. No fluid levels. Mastoid air cells: Visualized mastoid air cells are well aerated. Bones: No acute skull fracture is detected. Soft tissues: Unremarkable. Other findings: There is mild diffuse atrophy. CT/CT head wo con* [id number] IMPRESSION: 1. Small-vessel disease 2. Atrophy 3. Negative for acute intracranial findings
[2025-03-15 12:34] LABS: Hematocrit 37.8 % (36-47); Hemoglobin 12.60 g/dL (11.27-16.99); Mean Corpuscular HGB Conc 33.3 g/dL (30-55); Mean Corpuscular Hemoglobin 30.8 pg (27-33); Mean Corpuscular Volume 92.4 fl (85-98); Nucleated Red Blood Cells % 0 %; Platelet Count 295 10^3/cmm (157-399); Red Blood Count 4.09 10^6/uL (3.85-5.65); White Blood Count 5.45 10^3/uL (3.29-11.43)
--- NOTE | 2025-03-15 12:39 | W.ED.SYNCOPE ---
HPI - Syncope General: Chief Complaint: Syncope Stated Complaint: syncope; lip lac Time Seen by Provider: 03/15/25 12:20 History of Present Illness: 85-year-old female who presents emergency room after syncopal episode she lives at an assisted living and single episode while sitting on the toilet and fell and has a laceration underneath her lower lip on the chin. Family reports that they were told by staff that after her initial syncopal episode she had another single episode or not sure of the circumstances if she was trying to stand up. There is report of severe hypotension while at the assisted living place. She had had problems with hypotension and it shift all her medications to bedtime, however family says they found that she is not getting them in the morning they think that is part of the problem. Patient denies any chest pain or abdominal pain. She had multiple episodes of syncope in the past ever since that she was a teenager. She does have a known history of heart disease. Associated symptoms: Deny abdominal pain, chest pain or fever(s) Related Data Home Medications ?Medication ?Instructions ?Recorded ?Confirmed fluoxetine 20 mg capsule 20 mg PO DAILY 03/25/24 03/11/25 acetaminophen 325 mg tablet 650 mg PO .Q4-6H PRN Pain 04/10/24 03/11/25 atorvastatin 80 mg tablet 80 mg PO BEDTIME 04/10/24 03/11/25 cetirizine 5 mg tablet 5 mg PO DAILY 04/10/24 03/11/25 clopidogrel 75 mg tablet 75 mg PO DAILY 04/10/24 03/11/25 magnesium hydroxide 400 mg/5 mL 30 ml PO DAILY PRN Constipation 04/10/24 03/11/25 oral suspension (Milk of Magnesia) chlorpheniramine maleate 4 mg 4 mg PO Q8H PRN allergies 05/22/24 03/11/25 tablet clonazepam 0.5 mg tablet 0.5 mg PO TID 05/22/24 03/11/25 metoprolol succinate 25 mg 25 mg PO DAILY 05/22/24 03/11/25 tablet,extended release 24 hr bisacodyl 5 mg tablet 5 mg PO DAILY PRN Constipation 09/21/24 03/11/25 losartan 25 mg tablet 25 mg PO DAILY 09/21/24 03/11/25 therapeutic multivitamin 1 tab PO QAM 09/21/24 03/11/25 aspirin 81 mg tablet,delayed 81 mg PO DAILY 01/07/25 03/11/25 release (Adult Aspirin Regimen) pantoprazole 40 mg tablet,delayed 40 mg PO DAILY 01/07/25 03/11/25 release Previous Rx's ?Medication ?Instructions ?Recorded nitroglycerin 0.4 mg sublingual 0.4 mg sublingual Q5M PRN chest 12/27/22 tablet (Nitrostat) pain #25 tabs isosorbide mononitrate 30 mg 30 mg PO DAILY #90 tabs 11/15/23 tablet,extended release 24 hr nitrofurantoin 100 mg PO BID 7 days #14 caps 03/12/25 monohydrate/macrocrystals 100 mg capsule (Macrobid) phenazopyridine 200 mg tablet 200 mg PO TID PRN pain #14 tabs 03/12/25 (Pyridium) Allergies Allergy/AdvReac Type Severity Reaction Status Date / Time gabapentin Allergy Intermediate diarrhea Verified 01/07/25 07:54 pregabalin (From Lyrica) Allergy Intermediate swelling Verified 01/07/25 07:54 metoprolol AdvReac Intermediate bitter Verified 01/07/25 07:54 taste promethazine (From Phenergan) AdvReac disoriented Verified 01/07/25 07:54 Sulfa (Sulfonamide AdvReac abdominal Verified 01/07/25 07:54 Antibiotics) pain Review of Systems Const: Denies: fever(s) or chills Card: Denies: chest pain Resp: Denies: dyspnea GI: Denies: abdominal pain : Denies: dysuria, urinary frequency or urinary urgency Musc: Denies: neck pain or back pain Skin/Breast: Denies: rash PFSH ED PFSH: Medical History Atrial fibrillation Meningioma Meningioma identified during evaluation for chronic headaches-followed with neurology Dr. De Los Santos in [place] and states it was stable. She has been cleared and has not seen a neurologist in over 4 years. Elevated cholesterol Diagnosed in 2011 and has been on and off medication. Managed by PMD Paget's disease Status post excision surgery and radiation in 2020 done at [place]. No pertinent past medical history Denies diabetes, asthma, seizures, DVT/PE PCP: Dr. Person SVT (supraventricular tachycardia) HTN (hypertension) Surgical History S/P cardiac pacemaker procedure 2019 History of rectal surgery X 3 Patient had perianal excision of Paget's disease done by Dr. Adamson and Dr. Goss in [place] first in May 2017 and then again in July 2018, 2020 S/P hysterectomy Vaginal, done for prolapse in 1981. She was told there was no cancer. S/P tubal ligation Laparoscopic procedure performed in 1979 Family History Mother Heart disease Hypertension Father Heart disease Daughter Diabetes Sister Hyperlipidemia Other Colon cancer Denies family history of Ovarian cancer Breast cancer Uterine cancer Thyroid disease Stroke Social History Smoking and tobacco/nicotine status: never used tobacco/nicotine Alcohol intake: never Substance/Drug Use: never Physical Exam Const: GENERAL APPEARANCE: cooperative ORIENTATION/CONSCIOUSNESS: Yes awake, Yes oriented to person, Yes oriented to place and Yes oriented to time HENMT: COMMON NORMALS: normocephalic, atraumatic and hearing grossly normal bilaterally HEAD & SCALP: normocephalic and atraumatic Resp: COMMON NORMALS: normal respiratory effort, No retractions, No use of accessory muscles and clear to auscultation bilaterally AUSCULTATION: clear to auscultation bilaterally Cardio: COMMON NORMALS: regular rate, regular rhythm and No murmurs present (Cardio) RATE: regular rate RHYTHM: regular rhythm GI: COMMON NORMALS: Soft to palpation and No hepatosplenomegaly present AUSCULTATION: Yes normoactive bowel sounds PALPATION: Yes Soft to palpation, No Tenderness to palpation present (GI), No Guarding due to palpation present (GI) and Yes No hepatosplenomegaly present Extremity: COMMON NORMALS: normal to inspection, capillary refill normal, no clubbing, cyanosis or edema, no calf tenderness and no pedal edema Neuro: SENSORIUM/ORIENTATION: Yes oriented to person, Yes oriented to place and Yes oriented to time Skin: COMMON NORMALS: no rashes or lesions noted GENERAL SKIN EXAM: no rashes or lesions noted Procedures Laceration Laceration 1: Site: face Size (cm): 1 Description: linear Depth: simple, single layer Pre-repair: irrigated extensively Skin layer closed with: nylon Size (cm): 6-0 Number of sutures: 1 Technique: simple, interrupted Course Vital Signs: Vital signs: Vital Signs Temperature 97.6 F 03/15/25 12:04 Pulse Rate 60 03/15/25 14:13 Respiratory Rate 16 03/15/25 14:13 Blood Pressure 113/74 03/15/25 14:13 Pulse Oximetry 95 03/15/25 14:13 Oxygen Delivery Me thod Room Air 03/15/25 12:04 MDM - Syncope Medical Decision Making Laceration closed with a single suture patient tolerated well wound care instructions given. Patient relates she has had several episodes of syncope in the past she says she has had for full evaluations she does not wish to be hospitalized at this time she has not found anything in the past the only thing Dr. Summers or attending and suggested taking blood pressure medicines at night they have been giving to her in the morning advised in discharge directions to switch that to night per his instructions. Have her follow-up with Dr. Summers. Nursing staff can remove the suture in 5 to 7 days Lab Data 03/15/25 11:46 03/15/25 11:46 Radiology Impressions Cervical Spine CT 03/15/25 12:25 IMPRESSION: 1. Reversal of normal C-spine lordosis 2. Negative for fracture 3. Mild subluxations as above. These are favored to be degenerative in origin. 4. Multilevel degenerative disc disease and spondylosis. See individual levels above for more complete description 5. Reticulonodular opacities right upper lobe, see above. Head CT 03/15/25 12:26 IMPRESSION: 1. Small-vessel disease 2. Atrophy 3. Negative for acute intracranial findings Laboratory Results WBC 5.45 10^3/uL (3.29-11.43) 03/15/25 11:46 RBC 4.09 10^6/uL (3.85-5.65) 03/15/25 11:46 Hgb 12.60 g/dL (11.27-16.99) 03/15/25 11:46 Hct 37.8 % (36-47) 03/15/25 11:46 MCV 92.4 fl (85-98) 03/15/25 11:46 MCH 30.8 pg (27-33) 03/15/25 11:46 MCHC 33.3 g/dL (30-55) 03/15/25 11:46 RDW 12.9 % (12.1-15.1) 03/15/25 11:46 Plt Count 295 10^3/cmm (157-399) 03/15/25 11:46 MPV 9.0 fL (7.4-10.4) 03/15/25 11:46 Neut % (Auto) 56.0 % 03/15/25 11:46 Lymph % (Auto) 28.6 % 03/15/25 11:46 [place] % (Auto) 9.0 % 03/15/25 11:46 Eos % (Auto) 5.1 % 03/15/25 11:46 Baso % (Auto) 0.9 % 03/15/25 11:46 Neut # (Auto) 3.05 10^3/uL (1.8-7.7) 03/15/25 11:46 Lymph # (Auto) 1.6 10^3/uL (0.8-4.8) 03/15/25 11:46 [place] # (Auto) 0.5 10^3/uL (0.2-0.9) 03/15/25 11:46 Eos # (Auto) 0.3 10^3/uL (0.0-0.8) 03/15/25 11:46 Baso # (Auto) 0.1 10^3/uL (0.0-0.1) 03/15/25 11:46 Nucleated RBC % (auto) 0 % 03/15/25 11:46 Nucleated RBCs # 0.0 /100WBC 03/15/25 11:46 Sodium 132 mmol/L (136-145) L 03/15/25 11:46 Potassium 4.6 mmol/L (3.5-5.1) 03/15/25 11:46 Chloride 96 mmol/L (98-107) L 03/15/25 11:46 Carbon Dioxide 23 mmol/L (22-29) 03/15/25 11:46 Anion Gap 17.6 (5-19) 03/15/25 11:46 BUN 12 mg/dL (8-23) 03/15/25 11:46 Creatinine 0.8 mg/dL (0.5-0.9) 03/15/25 11:46 GFR Calculation Not Reportable 03/15/25 11:46 Glucose 125 mg/dL (65-115) H 03/15/25 11:46 Calculated Osmolality 275 mOsm/kg (285-295) L 03/15/25 11:46 Calcium 9.9 mg/dL (8.5-10.5) 03/15/25 11:46 Total Bilirubin 0.9 mg/dL (0.15-1.2) 03/15/25 11:46 AST 27 U/L (0-32) 03/15/25 11:46 ALT 20 U/L (0-33) 03/15/25 11:46 Alkaline Phosphatase 149 U/L (35-105) H 03/15/25 11:46 Total Protein 7.1 g/dL (6.6-8.7) 03/15/25 11:46 Albumin 4.3 g/dL (3.5-5.2) 03/15/25 11:46 Globulin 2.8 g/dL (1.3-4.6) 03/15/25 11:46 All radiology interpretation(s) finalized by discharge Discharge Plan Discharge Patient Disposition: Home Clinical Impression: Syncope, Laceration of face Condition: Stable Prescriptions: No Action nitroglycerin [Nitrostat] 0.4 mg tablet, sublingual 0.4 mg sublingual Q5M PRN (Reason: chest pain) Qty: 25 1RF Rx Instructions: do not exceed 3 doses per episode aspirin [Adult Aspirin Regimen] 81 mg tablet,delayed release (DR/EC) 81 mg PO DAILY pantoprazole 40 mg tablet,delayed release (DR/EC) 40 mg PO DAILY metoprolol succinate 25 mg tablet extended release 24 hr 25 mg PO DAILY chlorpheniramine maleate 4 mg tablet 4 mg PO Q8H PRN (Reason: allergies) Rx Instructions: do not exceed 2 doses per 24 hrs clonazepam 0.5 mg tablet 0.5 mg PO TID phenazopyridine [Pyridium] 200 mg tablet 200 mg PO TID PRN (Reason: pain) Qty: 14 0RF isosorbide mononitrate 30 mg tablet extended release 24 hr 30 mg PO DAILY Qty: 90 11RF nitrofurantoin monohyd/m-cryst [Macrobid] 100 mg capsule 100 mg PO BID 7 Days Qty: 14 0RF Rx Instructions: must administer with a meal/food atorvastatin 80 mg Tablet 80 mg PO BEDTIME acetaminophen 325 mg Tablet 650 mg PO .Q4-6H PRN (Reason: Pain) cetirizine 5 mg Tablet 5 mg PO DAILY clopidogrel 75 mg tablet 75 mg PO DAILY magnesium hydroxide [Milk of Magnesia] 400 mg/5 mL Suspension 30 ml PO DAILY PRN (Reason: Constipation) therapeutic multivitamin Tablet 1 tab PO QAM losartan 25 mg tablet 25 mg PO DAILY bisacodyl 5 mg Tablet 5 mg PO DAILY PRN (Reason: Constipation) fluoxetine 20 mg capsule 20 mg PO DAILY Discharge Orders: Discharge ED (Routine); Ordered 03/15/25 Ordered By: Piotr Velasquez Referrals: Terrance Summers MD [Primary Care Provider, Family Practice] Patient Instructions: Opioid Safety, Pain Management, Patient Portal & [place] Instructions Activity Restrictions/Additional Instructions: [facility]. It is very important that you follow up as instructed or that you return to the Emergency Department should you have concerns or if your condition changes or worsens in any way. You were seen in the emergency room after a syncopal episode. Small laceration in the lower lip was repaired with a single suture that should be removed in 5 to 7 days. You informed us you have had several episodes like this in the past with workup and has not had a significant finding. Will discharge you home and have you follow-up with your primary care doctor. Recommend that you take your blood pressure medicines in the evening before bedtime. This would include your isosorbide mononitrate losartan and metoprolol Print Language: Solomon Islander Coding Level of Care Code ED Etl Lead for Nati Castillo
[2025-03-15 12:43] LABS: Alanine Aminotransferase 20 U/L (0-33); Albumin Level 4.3 g/dL (3.5-5.2); Alkaline Phosphatase 149 U/L (35-105); Anion Gap 17.6 (5-19); Aspartate Amino Transferase 27 U/L (0-32); Blood Urea Nitrogen 12 mg/dL (8-23); Calcium 9.9 mg/dL (8.5-10.5); Carbon Dioxide 23 mmol/L (22-29); Chloride 96 mmol/L (98-107); Creatinine Clr Calc Pharmacy 40.4176; Globulin 2.8 g/dL (1.3-4.6); Glucose 125 mg/dL (65-115); Osmolality Calculated 275 mOsm/kg (285-295); Potassium 4.6 mmol/L (3.5-5.1); Sodium 132 mmol/L (136-145); Total Protein 7.1 g/dL (6.6-8.7)
[2025-03-15] MEDS: tetanus-dipt-pertussis 0.5 mL SDV IM (13:06)
[2025-03-15 13:15] VITALS: BP 105/70; PULSE 60; RESP 16; O2SAT 95
[2025-03-15 13:45] VITALS: BP 133/71; PULSE 60; RESP 16; O2SAT 96
--- NOTE | 2025-03-15 14:00 | ECG_ITS ---
[facility] Message[employer] Test Date: 2025-03-15 Pat Name: Millicent Angel Department: Room: Gender: Female [employer]: : 1940 Requested By: Piotr Morgan Order Number: [id number] Nahun MD: Kin Louis M.D. Measurements Intervals [place] Rate: 60 P: 187 MT: 177 QRS: -78 QRSD: 142 T: 85 QT: 448 QTc: 448 Interpretive Statements ELECTRONIC ATRIAL PACEMAKER ELECTRONIC VENTRICULAR PACEMAKER ATRIAL-VENTRICULAR DUAL-PACED RHYTHM ABNORMAL RHYTHM ECG Compared to ECG 04/15/2024 17:10:16 No significant changes Electronically Signed On 03-15-2025 21:52:11 CDT by Kin Louis M.D. [email or web address]
[2025-03-15 14:13] VITALS: BP 113/74; PULSE 60; RESP 16; O2SAT 95
[2025-03-15 14:52] VITALS: BP 127/69; PULSE 61; RESP 16; O2SAT 96
== END 2025-03-15 14:53 | disposition home or self-care (01) ==
PROVIDERS: Emergency Provider Family Medicine; PCP Family Medicine
DX: S01.81XA Laceration without foreign body of other part of head, initial encounter (principal); W19.XXXA Unspecified fall, initial encounter; R55 Syncope and collapse; Z79.82 Long term (current) use of aspirin; Z79.02 Long term (current) use of antithrombotics/antiplatelets; I10 Essential (primary) hypertension
CPT/HCPCS: 12011; 70450; 72125; 80053; 85025; 90471; 90715; 93005; 99284

== ENCOUNTER 2025-05-29 09:11 | Emergency (ER) | payer MEDICARE, OTHER, SELFPAY ==
--- OUTSIDE RECORDS SUMMARY | 2025-02-05 12:00 | XMS_ITS ---
Author Organization [facility] Address [address] [place] [address] Care Team Providers Care Chisel Grinder Name Role Phone Kristopher HAHN, Terrance Primary Care Provider GARCIA Noriega [phone] REASON FOR VISIT Recurrent UTIs Encounters Encounter Location Date Provider Diagnosis [facility] [address] [place] [place] [address] 02/05/2025 GARCIA KC Plan Of Treatment Next Appt Details Provider Name:GARCIA KC, 0 10/07/2025 04:00:00 PM, [address] [place], [address], Progress Notes * Tung ANGELiDOB:1940 ( 85 yo F)Acc No.[id number]:02/05/2025 Progress Notes Patient: Millicent GIFFORD Provider: Abimbola Kc APRN-PSYCHIATRIC MENTAL HEALTH NURSE :1940 A ge:85 Y S ex:Female Date:02/05/2025 Address:[facility] [address], [place]-[address] Pcp:Terrance Summers MD Subjective: * Chief Complaints: * 1 . Recurrent UTIs. * Medical History: Objective: * Vitals: Assessment: Plan: * Treatment: * Billing Information: * Visit Code: * Procedure Codes: * Electronic signature of GARCIA KC APRN on 05/29/2025 at 09:32 AM CDT Sign off status: Pending * Provider: MALISSA Joseph Date: 0 02/05/2025 Generated for Sarita mason/Sal/Karen on: 1 09:32 AM CDT
[2025-05-29 09:14] VITALS: BP 119/68; PULSE 75; RESP 16; TEMP 36.5; O2SAT 97; BMI 20.5
--- NOTE | 2025-05-29 09:16 | XR_ITS ---
WS: [id number] Exam: XR knee RT 3V* [id number] Date/Time of Exam: 05/29/2025 9:16 AM Reason For Exam: Pain? Dislocation Comparison 01/07/2025. There is moderate degenerative change of the lateral joint compartment and the patellofemoral joint. No fractures identified. Large effusion in the suprapatellar bursa. Soft tissues are otherwise unremarkable. XR/XR knee RT 3V* [id number] IMPRESSION: 1. Moderate degenerative changes and large joint effusion.
--- OUTSIDE RECORDS SUMMARY | 2025-05-29 09:32 | XMS_ITS | Data Portability ---
Author Organization [facility]St[facility] CenterRen[facility], [facility] Address [address] [address] Care Team Providers Care Associate Justice Name Role Phone SUMMERSNATASHA EscalanteON Primary Care Provider Unavailabl e Assessment No assessment recorded. Plan of Treatment Reminders Order Date Submit Date Provider Last Modified By Organization Details Last Modified Time Details Appointments None recorded. Lab urinalysis, dipstick 2024 025 [email or web address] [facility] ([facility]), [address] [place] [address], [address], 5 16:45:47 culture, urine 2024 025 [email or web address] [facility] [place] [address], [facility] [address] [place], [address], 5 16:45:47 urinalysis, dipstick 2024 025 [email or web address] [facility] ([facility]), [address] [place] [address], [address], 5 15:24:35 culture, urine 2024 025 BALJEET [employer] [place] [address], [facility] [address] [place], [address], 5 03:13:53 Referral None recorded. Procedures None recorded. Surgeries None recorded. Imaging None recorded. Medication Orders levofloxaci n [address] tablet [address] [facility], [address], [place], [address], 05:02:21 cefdinir 300 mg capsule 2024 025 [facility] #[id number], [address], [address], [place], [address], 05:01:05 Patient TargetsNo targets recorded. Patient Instructions Encounter Date Encounter Id Patient Instructions Last Modified By Organization Details Last Modified Time 03/02/2025 [id number] Has been on Levaquin per urology for UTIs and had not been getting it correctly like they wanted at assisted living. Had three days and finished last dose yesterday and had a positive nitrite. Will Extend this out until culture is available. [email or web address] Not available 03/02/2025 14:05:19 Reason for Referral None Reported. Results Created Date Observation Date Name Description Value Unit Range Abnormal Flag Note LastModifiedBy Organization Detail LastModifiedTime 03/05/2003/05/2025 CULTU RE, URINE , ROUTI NE culture, urine, routine SEE NOTE abnormal CULTU RE, URINE , ROUTI NE Micro Numbe r: [id number] Test Statu s: Final Speci men Sourc e: Not given Speci men Quali ty: Adequ ate Resul t: 50,00 0-100 ,000 CFU/m L of Esche marsha a coli Comme nt: No colle ction date was provi ded. The speci men is gener ally defin ed as stabl e up to 48 hours . The resul t(s) need( s) to be inter prete d cauti ously . Clini copat holog ic corre latio n is requi red. Repea t testi ng is recom ubaldo d as clini carrington indic ated. [employer]usto edmundo Servi ce is avail able with quest ions or comme nts based on your area of inter est: [phone] ARNAUD T ([phone]) E.col i ----- ----- ----- - INT SHWETA AMOX/ CLAVU LANAT E R >=32 AMP/S ULBAC VALADEZ R >=32 CEFAZ JACQUIE R >=32 1 CEFEP PAT I 8 CEFTA ZIDIM E R >=32 CEFTR IAXON E R >=64 CIPRO FLOXA GRAYSON R >=4 GENTA MICIN S <=1 IMIPE NEM S <=0.2 5 LEVOF LOXAC IN R >=8 MEROP ENEM S <=0.2 5 NITRO FURAN TOIN S <=16 PIP/T AZOBA CTAM R 64 TRIME THOPR IM/MIXON LFA R >=320 S = Susce ptibl e I = Inter media te R = Resis tant NS = Not susce ptibl e SDD = Susce ptibl e Dose Depen dent * = Not Teste d NR = Not Repor gerardo NN = See Thera py Comme nts THERA PY COMME NTS Note 1: For uncom plica gerardo UTI cause d by E. coli, K. pneum oniae or P. mirab ilis: Cefaz jacquie is susce ptibl e if SHWETA <32 mcg/m L and predi cts susce ptibl e to the oral agent s cefac ronnie, cefdi tika, cefpo doxim e, cefpr ozil, cefur oxime , cepha lexin and lorac arbef . NO COLLE CTION DATE RECEI BADNAR. WE HAVE USED THE DATE THE SPECI MEN WAS RECEI BANDAR BY THIS LABOR ATORY THE COLLE CTION DATE. IF THIS IS INCOR RECT, PLEAS E CONTA CT CLIEN T SERVI BARBARA. PHONE NUMBE R: [phone] Not Available [facility] [address] [place], [address], 03/05/2025 13:10:40 01/08/20 25 01/07/2025 URINA LYSIS WITH MICRO color YELLOW Not Available [facility] [address] [facility] [address], [place], [address], 01/07/2025 16:38:32 01/08/20 25 01/07/2025 URINA LYSIS WITH MICRO clarity CLEAR Not Available [facility] [address], [place], [address], 01/07/2025 16:38:32 01/08/20 25 01/07/2025 URINA LYSIS WITH MICRO glu NEGATI VE Not Available [facility] [address], [place], [address], 01/07/2025 16:38:32 01/08/20 25 01/07/2025 URINA LYSIS WITH MICRO bili NEGATI VE Not Available [facility] [address], [place], [address], 01/07/2025 16:38:32 01/08/20 25 01/07/2025 URINA LYSIS WITH MICRO ket NEGATI VE Not Available [facility] [address] [facility] [address], [place], [address], 01/07/2025 16:38:32 01/08/20 25 01/07/2025 URINA LYSIS WITH MICRO S.g 1.020 1.005- 1.025 Not Available [facility] [address], [place], [address], 01/07/2025 16:38:32 01/08/20 25 01/07/2025 URINA LYSIS WITH MICRO pH 5.5 5.0-7. 0 Not Available [facility] [address] [facility] [address], [place], [address], 01/07/2025 16:38:32 01/08/20 25 01/07/2025 URINA LYSIS WITH MICRO pro NEGATI VE Not Available [facility] [address], [place], [address], 01/07/2025 16:38:32 01/08/20 25 01/07/2025 URINA LYSIS WITH MICRO uro 0.2 E.U./D L Not Available [facility] [address], [place], [address], 01/07/2025 16:38:32 01/08/20 25 01/07/2025 URINA LYSIS WITH MICRO nit NEGATI VE Not Available [facility] [address] [facility] [address], [place], [address], 01/07/2025 16:38:32 01/08/20 25 01/07/2025 URINA LYSIS WITH MICRO blo NEGATI VE Not Available [facility] [address] [facility] [address], [place], [address], 01/07/2025 16:38:32 01/08/20 25 01/07/2025 URINA LYSIS WITH MICRO karthik NEGATI VE Not Available [facility] [address] [facility] [address], [place], [address], 01/07/2025 16:38:32 01/08/20 25 01/07/2025 URINA LYSIS WITH MICRO WBC 2-3 abnormal Not Available [facility] [place] [facility] [address] [facility] [address], [place], [address], 01/07/2025 16:38:32 01/08/20 25 01/07/2025 URINA LYSIS WITH MICRO RBC 0-1 abnormal Not Available [facility] [address] [facility] [address], [place], [address], 01/07/2025 16:38:32 01/08/20 25 01/07/2025 URINA LYSIS WITH MICRO epi cells 1-2 abnormal Not Available [facility] [address] [facility] [address], [place], [address], 01/07/2025 16:38:32 01/08/20 25 01/07/2025 URINA LYSIS WITH MICRO bacteria TRACE OF MIXED SAMUEL abnormal Not Available [facility] [address] [facility] [address], [place], [address], 01/07/2025 16:38:32 01/08/20 25 01/07/2025 URINA LYSIS WITH MICRO other NEG Not Available [facility] [address] [facility] [address], [place], [address], 01/07/2025 16:38:32 01/08/20 25 01/08/2025 CULTU RE, URINE , ROUTI NE culture, urine, routine SEE NOTE CULTU RE, URINE , ROUTI NE Micro Numbe r: [id number] Test Statu s: Final Speci men Sourc e: Urine Speci men Quali ty: Adequ ate Resul t: Mixed genit al samuel isola gerardo. These super ficia l bacte britany are not indic ative of a urina ry tract infec tion. No furth er organ ism ident ifica tion is warra nted on this speci men. If clini carrington indic ated, recol lect clean -catc h, mid-s tream urine and trans bhupendra immed iatel y to Urine Cultu re Trans port Tube. Not Available [facility] [address] [place], [address], 01/09/2025 00:39:45 01/27/20 25 01/30/2025 CULTU RE, URINE , ROUTI NE culture, urine, routine SEE NOTE abnormal CULTU RE, URINE , ROUTI NE Micro Numbe r: [id number] Test Statu s: Final Speci men Sourc e: Not given Speci men Quali ty: Adequ ate Resul t: Great er than 100,0 00 CFU/m L of Esche marsha a coli 50,00 0-100 ,000 CFU/m L of Klebs iella pneum oniae E.col i K.pne umoni ae ----- ----- ----- - ----- ----- ----- - INT SHWETA INT SHWETA AMOX/ CLAVU LANAT E S 4 S <=2 AMP/S ULBAC VALADEZ S <=2 S 4 CEFAZ JACQUIE NR <=4 2 NR <=4 3 CEFEP PAT S <= 0.12 S <=0.1 2 CEFTA ZIDIM E S <=1 S <=1 CEFTR IAXON E S <=0.2 5 S <=0.2 5 CIPRO FLOXA GRAYSON S <=0.0 6 S <=0.0 6 GENTA MICIN S <=1 S <=1 IMIPE NEM S <=0.2 5 S <=0.2 5 LEVOF LOXAC IN S <=0.1 2 S <=0.1 2 MEROP ENEM S <=0.2 5 S <=0.2 5 NITRO FURAN TOIN S <=16 R 128 PIP/T AZOBA CTAM S <=4 S <=4 TRIME THOPR IM/MIXON LFA S <=20 S <=20 S = Susce ptibl e I = Inter media te R = Resis tant NS = Not susce ptibl e SDD = Susce ptibl e Dose Depen dent * = Not Teste d NR = Not Repor gerardo NN = See Thera py Comme nts THERA PY COMME NTS Note 1: For infec tions other than uncom plica gerardo UTI cause d by E. coli, K. pneum oniae or P. mirab ilis: Cefaz jacquie is resis tant if SHWETA > or = 8 mcg/m L. (Dist ingui shing susce ptibl e versu s inter media te for isola bel with SHWETA < or = 4 mcg/m L requi res addit ional testi ng.) Note 2: For uncom plica gerardo UTI cause d by E. coli, K. pneum oniae or P. mirab ilis: Cefaz jacquie is susce ptibl e if SHWETA <32 mcg/m L and predi cts susce ptibl e to the oral agent s cefac ronnie, cefdi tika, cefpo doxim e, cefpr ozil, cefur oxime , cepha lexin and lorac arbef . Note 3: For uncom plica gerardo UTI cause d by E. coli, K. pneum oniae or P. mirab ilis: Cefaz jacquie is susce ptibl e if SHWETA <32 mcg/m L and predi cts susce ptibl e to the oral agent s cefac ronnie, cefdi tika, cefpo doxim e, cefpr ozil, cefur oxime , cepha lexin and lorac arbef . [facility]. No other house es to any test resul ts have been made. Date Ashkan updat ed to: 01/26 House ed on: 01/[address] [facility] [address] [place], [address], 01/30/2025 15:38:13 01/27/2001/26/2025 urina lysis , dipst ick Color Dark Yellow Not Available [facility] ([facility]) [address] [place], [address], 01/26/2025 13:46:43 01/27/20 25 01/26/2025 urina lysis , dipst ick Appearance Slight ly Cloudy Not Available [facility] ([facility]) [address] [place], [address], 01/26/2025 13:46:43 01/27/20 25 01/26/2025 urina lysis , dipst ick Glucose Negati ve Not Available [facility] ([facility]) [address] [place], [address], 01/26/2025 13:46:43 01/27/2001/26/2025 urina lysis , dipst ick Bilirubin Negati ve Not Available [facility] ([facility]) [address] [place], [address], 01/26/2025 13:46:43 01/27/20 25 01/26/2025 urina lysis , dipst ick Ketone Negati ve Not Available [facility] ([facility]) [address] [place], [address], 01/26/2025 13:46:43 01/27/20 25 01/26/2025 urina lysis , dipst ick Specific [place] 1.020 Not Available [facility] ( [facility]) [address] [place], [address], 01/26/2025 13:46:43 01/27/20 25 01/26/2025 urina lysis , dipst ick Blood Hemoly zed: Trace Not Available [facility] ([facility]) [address] [place], [address], 01/26/2025 13:46:43 01/27/20 25 01/26/2025 urina lysis , dipst ick pH 7.0 Not Available [facility] ([facility]) [address] [place] [address], [address], 01/26/2025 13:46:43 01/27/20 25 01/26/2025 urina lysis , dipst ick Protein Negati ve Not Available [facility] ([facility]) [address] [place] [address], [address], 01/26/2025 13:46:43 01/27/20 25 01/26/2025 urina lysis , dipst ick Urobilinogen .2 Not Available [facility] ([facility]) [address] [place], [address], 01/26/2025 13:46:43 01/27/20 25 01/26/2025 urina lysis , dipst ick Nitrite negati ve Not Available [facility] ([facility]) [address] [place], [address], 01/26/2025 13:46:43 01/27/20 25 01/26/2025 urina lysis , dipst ick Leukocytes Modera te Not Available [facility] ([facility]) [address] [place], [address], 01/26/2025 13:46:43 02/08/20 25 02/09/2025 CULTU RE, URINE , ROUTI NE culture, urine, routine SEE NOTE abnormal CULTU RE, URINE , ROUTI NE Micro Numbe r: [id number] Test Statu s: Final Speci men Sourc e: Urine , clean catch Speci men Quali ty: Adequ ate Resul t: 10,00 0-49, 000 CFU/m L of Strep tococ cus virid ans group May repre sent colon izers from exter nal and inter nal genit ellyn. No furth er testi ng (incl uding susce ptibi lity) will be perfo rmed. Not Available [employer] [address] [place], [address], 02/09/2025 03:13:53 02/08/20 25 02/07/2025 urina lysis , dipst ick Leukocytes Trace Not Available [facility] ( [facility]) [address] [place] [address], [address], 02/07/2025 13:37:45 02/08/20 25 02/07/2025 urina lysis , dipst ick Nitrite negati ve Not Available [facility] ([facility]) [address] [place] [address], [address], 02/07/2025 13:37:45 02/08/20 25 02/07/2025 urina lysis , dipst ick Urobilinogen .2 Not Available [facility] ([facility]) [address] [place], [address], 02/07/2025 13:37:45 02/08/20 25 02/07/2025 urina lysis , dipst ick Protein Negati ve Not Available [facility] ([facility]) [address] [place], [address], 02/07/2025 13:37:45 02/08/20 25 02/07/2025 urina lysis , dipst ick pH 7.0 Not Available [facility] ([facility]) [address] [place], [address], 02/07/2025 13:37:45 02/08/20 25 02/07/2025 urina lysis , dipst ick Blood Negati ve Not Available [facility] ([facility]) [address] [place], [address], 02/07/2025 13:37:45 02/08/20 25 02/07/2025 urina lysis , dipst ick Specific [place] 1.015 Not Available [facility] ( [facility]) [address] [place], [address], 02/07/2025 13:37:45 02/08/20 25 02/07/2025 urina lysis , dipst ick Ketone Negati ve Not Available [facility] ([facility]) [address] [place], [address], 02/07/2025 13:37:45 02/08/20 25 02/07/2025 urina lysis , dipst ick Bilirubin Negati ve Not Available [facility] ([facility]) [address] [place], [address], 02/07/2025 13:37:45 02/08/2002/07/2025 urina lysis , dipst ick Glucose Negati ve Not Available [facility] ([facility]) [address] [place], [address], 02/07/2025 13:37:45 02/08/20 25 02/07/2025 urina lysis , dipst ick Appearance Clear Not Available [facility] ([facility]) [address] [place], [address], 02/07/2025 13:37:45 02/08/20 25 02/07/2025 urina lysis , dipst ick Color Yellow Not Available [facility] ([facility]) [address] [place], [address], 02/07/2025 13:37:45 03/02/20 25 03/02/2025 urina lysis , dipst ick Leukocytes Modera te Not Available [facility] ([facility]) [address] [place], [address], 03/02/2025 13:35:16 03/02/20 25 03/02/2025 urina lysis , dipst ick Nitrite positi ve Not Available [facility] ([facility]) [address] [place], [address], 03/02/2025 13:35:16 03/02/20 25 03/02/2025 urina lysis , dipst ick Urobilinogen .2 Not Available [facility] ([facility]) [address] [place], [address], 03/02/2025 13:35:16 03/02/20 25 03/02/2025 urina lysis , dipst ick Protein 30 Not Available [facility] ([facility]) [address] [place], [address], 03/02/2025 13:35:16 03/02/20 25 03/02/2025 urina lysis , dipst ick pH 5.5 Not Available [facility] ([facility]) [address] [place], [address], 03/02/2025 13:35:16 03/02/20 25 03/02/2025 urina lysis , dipst ick Blood Non-He molyze d: Trace Not Available [facility] ([facility]) [address] [place], [address], 03/02/2025 13:35:16 03/02/20 25 03/02/2025 urina lysis , dipst ick Specific [place] 1.025 Not Available [facility] ( [facility]) [address] [place], [address], 03/02/2025 13:35:16 03/02/20 25 03/02/2025 urina lysis , dipst ick Ketone Negati ve Not Available [facility] ([facility]) [address] [place], [address], 03/02/2025 13:35:16 03/02/20 25 03/02/2025 urina lysis , dipst ick Bilirubin Negati ve Not Available [facility] ([facility]) [address] [place], [address], 03/02/2025 13:35:16 03/02/20 25 03/02/2025 urina lysis , dipst ick Glucose Negati ve Not Available [facility] ([facility]) [address] [place], [address], 03/02/2025 13:35:16 03/02/20 25 03/02/2025 urina lysis , dipst ick Appearance Cloudy Not Available [facility] ([facility]) [address] [place], [address], 03/02/2025 13:35:16 03/02/20 25 03/02/2025 urina lysis , dipst ick Color Yellow Not Available [facility] ([facility]) [address] [place], [address], 03/02/2025 13:35:16 01/09/20 25 01/07/2025 XR, knee, 3 view No observ ation record ed. [email or web address] [place] [address] [address] [place], [address], 01/13/2025 16:31:18 01/23/20 25 01/14/2025 CT, head, w/o contr ast No observ ation record ed. [email or web address] [facility] [address] [place], [address], 01/27/2025 08:21:12 02/07/20 25 02/05/2025 US, renal No observ ation record ed. [email or web address] [facility] [address] [place], [address], 02/12/2025 13:35:15 Result Notes None recorded. 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 AILYN garcia [facility], LJarvisLJarvisCJarvis 21:21:39 Gastroes ophageal reflux disease 164583394 Active 2015 AILYN garcia [facility], L.L.CJarvis 21:18:58 Closed fracture of third metatars al bone of left foot 60109797847 701455 Completed 202309/25/2024 Removal Reason: resolved AILYN garcia [facility], LJarvisLJarvisCJarvis 21:16:48 Pain in left foot 63904421017 9107 Completed 202309/25/2024 Removal Reason: resolved AILYN garcia [facility], LJarvisLJarvisCJarvis 21:20:59 Acute non-ST segment elevatio n myocardi al infarcti on 453625517 Active 2023 FAM garcia [facility], L.L.CJarvis 10:01:32 Intertro chanteri c fracture 262115561 Completed 202309/25/2024 Removal Reason: resolved AILYN HAEFMATILDA null, [facility] 5 21:20:30 Divertic ulitis 472009854 Active 2023 AILYN JIMNEEZ null, [facility] 5 21:17:35 Benign essentia l hyperten darron 0791514 Active 2023 FAM LUCERO null, [facility] 4 10:01:46 Atrial fibrilla tion 57344102 Active 2023 FAM LUCERO null, [facility] 4 10:01:39 Hyperlip idemia 37515657 Active 2023 FAM LUCERO [facility], [facility] 4 10:01:59 Mixed anxiety and depressi ve disorder 311501514 Active 2023 FAM LUCERO null, [facility] 4 10:02:07 Generali zed anxiety disorder 81765967 Active 2023 AILYN JIMENEZ null, [facility] 5 21:18:31 Cardiac pacemake r in situ 220582878 Active 2023 3rd degree AV block AILYN JIMENEZ null, [facility] 5 21:16:16 History of meningio ma 38160025567 9101 Completed 202309/25/2024 Removal Reason: resolved AILYN JIMENEZ null, [facility] 5 21:19:18 Supraven tricular tachycar cr 9115586 Active 2023 AILYN JIMENEZ null, [facility] 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 74110911431 9100 Completed 202309/25/2024 Removal Reason: resolved AILYN garcia [facility], SuzetteLDeirdre 21:21:32 History of myocardi al infarcti on 249837206 Completed 202309/25/2024 Removal Reason: resolved AILYN garcia [facility], LJarvisLJarvisCJarvis 21:19:33 Drug coated 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 Active 2023 AILYN garcia [facility], LJarvisLJarvisCJarvis 21:17:49 Upper gastroin testinal bleeding 40400169 Completed 202309/25/2024 Removal Reason: resolved AILYN garcia [facility], LJarvisLJarvisCJarvis 21:21:20 Fracture of femur 61668635 Completed 202309/25/2024 Removal Reason: resolved AILYN garcia [facility], Renetta 21:18:09 Diarrhea 15951683 Active 2024 AILYN garcia [facility], LJavrisLDeirdre 5 21:17:29 History of Paget disease of vulva 63517226164 9102 Completed 202409/25/2024 AILYN garcia, [facility], Cathy.L.CJarvis 21:19:43 Dementia 33595304 Active 2024 AILYN JIMENEZ [facility], [facility], SuzetteL.CJarvis 5 21:17:06 Essentia l hyperten darron 46906618 Active 2024 AILYN JIMENEZ [facility], [facility], SuzetteL.CJarvis 5 21:17:52 Chronic constipa tion 774187094 Active 2024 AILYN JIMENEZ [facility], OpalCJarvis 21:16:25 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 Procedures Surgical History Date Name Laterality Status Provider Name and Address Organization Details Recorded Time 02/12/20 24 placement of 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 completed HORTENCIA SUMMERS PA-C [address] [place], [address], [facility], SuzetteLJarvisCJarvis 04/15/2024 10:40:29 02/09/20 24 closed reduction of fracture of hip completed HORTENCIA SUMMERS PA-C [address] [place], [address], [facility], SuzetteLDeirdre 04/15/2024 10:40:54 Pacemaker completed FAMMICHELLE LUCERO [facility], SuzetteLJarvisCJarvis 04/09/2024 12:13:47 operation on rectum completed FAMLinda LUCERO [facility], SuzetteLJarvisCJarvis 04/09/2024 15:01:36 hysterectomy completed [facility] LUCERO [facility], LJarvisLJarvisCJarvis 10/15/2024 13:12:51 Imaging Results None recorded. Procedure Notes None recorded. Medical Equipment None Reported. Allergies Allergen ID Allergen Name Allergen Category Reaction Reaction Severity Criticality Documentation Date Start Date Code Code System Note Provider Name and Address Organization Details Recorded Time 92792 Substance with sulfonami de structure and antibacte rial mechanism of action (substanc e) medicatio n anaphylax is severe high 12/18/2023 56816 8003 SNOMED child mantilla react ion Danitza Resendez [facility], L.L.CJarvis 4 10:21:08 99632 promethaz ine medicatio n hallucina tions severe high 12/18/2023 8745 RxNorm Danitza Resendez [facility], L.L.CJarvis 4 10:21:06 78470 pregabali n medicatio n Not available Not available Not available 01/26/2025 [id number] 2 RxNorm [place] [facility], L.L.CJarvis 5 14:01:19 [id number] gabapenti n medicatio n Not available Not available Not available 01/26/[id number] [facility] 5 14:01:29 Medications Name Sig Start Date Stop Date Status Note LastModified by Organization Details LastModified Time losartan 50 mg tablet TAKE 1 TABLET BY MOUTH ONCE DAILY 05/13 completed Not Available Not Available Not Available atorvasta tin 40 mg tablet TAKE 2 TABLETS BY MOUTH AT BEDTIME 12/18 completed Not Available Not Available Not Available atorvasta tin 80 mg tablet Take 1 tablet every day by oral route. active Not Available Not Available No t Available Tylenol 500 mg capsule as needed 12/17 completed 0; Recorded 07/13/20 16 9:11AM by Elsy Culp LPN, Office Visit; Not Available Not Available Not Available cetirizin e 10 mg tablet Take 1 tablet every day by oral route. 2023 active Not Available Not Available Not Avai lable hydrocodo ne 5 mg-acetam inophen 325 mg tablet Take 1 tablet every 6 hours by oral route as needed, for pain. 2024 active Not Available Not Available Not Avai lable sucralfat e 100 mg/mL oral suspensio n TAKE 10 ML BY MOUTH EVERY 12 HOURS 08/21 completed Not Available Not Available Not Available phenazopy ridine 200 mg tablet TAKE 1 TABLET BY MOUTH 3 TIMES A DAY NEEDED FOR PAIN active Not Available Not Available No t Available famotidin e 40 mg tablet Take 1 tablet every day by oral route. 04/09 completed Not Available Not Available Not Available prednison e 20 mg tablet TAKE 1 TABLET BY MOUTH ONCE DAILY WITH FOOD 04/09 completed Not Available Not Available Not Available isosorbid e mononitra te ER 30 mg tablet,ex tended release 24 hr Take 1 tablet by mouth once daily active Not Available Not Available No t Available clonazepa m 0.5 mg tablet Take 1 tablet 3 times a day by oral route as needed, for anxiety. 2024 active Not Available Not Available Not Avai lable simvastat in 10 mg tablet Take 1 tablet every day by oral route. 04/09 completed Not Available Not Available Not Available Tylenol Arthritis Pain 650 mg tablet,ex tended release Take 2 tablets every 12 hours by oral route. active Not Available Not Available No t Available clopidogr el 75 mg tablet TAKE 1 TABLET BY MOUTH ONCE DAILY active Not Available Not Available No t Available aspirin 81 mg tablet,de layed release Take 1 tablet every day by oral route. active Not Available Not Available No t Available carvedilo l 3.125 mg tablet TAKE 1 TABLET BY MOUTH TWICE DAILY 04/09 completed Not Available Not Available Not Available Thera 400 mcg tablet Take 1 tablet every day by oral route. active Not Available Not Available No t Available phenazopy ridine 100 mg tablet TAKE 2 TABLETS BY MOUTH AFTER MEALS ORALLY THREE TIMES A DAY active Not Available Not Available No t Available bisacodyl 10 mg rectal supposito ry Insert 1 supposit ory every day by rectal route. active Not Available Not Available No t Available cephalexi n 500 mg capsule 09/23 completed Not Available Not Available Not Available pantopraz ole 40 mg tablet,de layed release TAKE 1 TABLET BY MOUTH TWICE DAILY active Not Available Not Available No t Available losartan 25 mg tablet Take 1 tablet every day by oral route. active Not Available Not Available No t Available indometha grayson 25 mg capsule Take 1 capsule twice a day by oral route as needed. 04/09 completed Not Available Not Available Not Available nitroglyc elfego 0.4 mg sublingua l tablet active Not Available Not Available Not Available omeprazol e 20 mg capsule,d elayed release daily 12/17 completed 0; Recorded 07/13/20 16 8:32AM by Dulce Langley RN, Office Visit; Not Available Not Available Not Available metoprolo l succinate ER 25 mg tablet,ex tended release 24 hr Take 1 tablet every day by oral route. active Not Available Not Available No t Available Nasonex 50 mcg/actua tion [place] as needed 04/09 completed 0; Recorded 07/13/20 16 8:32AM by Dulce Langley RN, Office Visit; Not Available Not Available Not Available levofloxa grayson 500 mg tablet Take 1 tablet every 24 hours by oral route with meal(s) for 5 days. 03/14 completed Not Available Not Available Not Available ondansetr on 4 mg disintegr ating tablet 04/09 completed Not Available Not Available Not Available cefdinir 300 mg capsule Take 1 capsule every 12 hours by oral route for 7 days. 02/21 completed Not Available Not Available Not Available fluoxetin e 20 mg capsule TAKE 1 CAPSULE BY MOUTH ONCE DAILY active Not Available Not Available No t Available fluticaso ne propionat e 50 mcg/actua tion nasal spray,abdiel pension [place] 2 sprays every day by intranas al route. active Not Available Not Available No t Available amoxicill in 875 mg-potass ium clavulana te 125 mg tablet 04/09 completed Not Available Not Available Not Available magnesium 250 mg (as magnesium oxide) tablet Take 1 tablet twice a day by oral route. active Not Available Not Available No t Available valsartan 160 mg tablet Take 1 tablet twice a day by oral route. 04/09 completed Not Available Not Available Not Available nitrofura ntoin monohydra te/macroc rystals 100 mg capsule TAKE 1 CAPSULE BY MOUTH EVERY DAY WITH FOOD active Not Available Not Available No t Available atorvasta tin 80mg po qd 04/08 completed Not Available Not Available Not Available alprazola m QHS / HS 12/17 completed Recorded 07/13/20 16 8:32AM by Dulce Langley RN, Office Visit; Refill Quantity : 30; Tab; Not Available Not Available Not Available indometha grayson as needed 12/17 completed 0; Recorded 07/13/20 16 8:32AM by Dulce Langley RN, Office Visit; Not Available Not Available Not Available multivita min one daily active Not Available Not Available No t Available diclofena c 1 % topical gel APPLY 2 GRAMS TO THE AFFECTED AREA(S) BY TOPICAL ROUTE 4 TIMES PER DAY active Not Available Not Available No t Available Linzess 72 mcg capsule 1 daily active Not Available Not Available Not Available Vitals Date Recorded Body height Body mass index (BMI) Body weight Body temperature Oxygen saturation Oxygen saturation in Arterial blood by Pulse oximetry Heart rate Systolic And Diastolic Provider Name and Address Organization Details Last Updated DateTime 5 157.48 cm 23.7 kg/m2 48153.5 2 g 97.8 [degF] 97 % 97 % 72 /min 132/60 mm[Hg] Elaine Craig [facility], LJarvisLJarvisCJarvis 5 13:52:20 Date Recorded Body height Body mass index (BMI) Body weight Oxygen saturation Oxygen saturation in Arterial blood by Pulse oximetry Heart rate Body temperature Systolic And Diastolic Provider Name and Address Organization Details Last Updated DateTime 5 157.48 cm 23.6 kg/m2 78406.4 2 g 97 % 97 % 74 /min 98.4 [degF] 100/58 mm[Hg] Elaine Craig [facility] L[facility] 5 13:52:25 Date Recorded Body height Body mass index (BMI) Body weight Oxygen saturation Oxygen saturation in Arterial blood by Pulse oximetry Heart rate Respiratory rate Body temperature Systolic And Diastolic Provider Name and Address Organization Details Last Updated DateTime 5 157.48 cm 23 kg/m2 31213.6 4 g 91 % 91 % 71 /min 18 /min 98.1 [degF] 110/60 mm[Hg] AILYN JIMENEZ [facility] 5 11:59:40 Date Recorded Body height Body mass index (BMI) Body weight Oxygen saturation Oxygen saturation in Arterial blood by Pulse oximetry Heart rate Respiratory rate Body temperature Systolic And Diastolic Provider Name and Address Organization Details Last Updated DateTime 5 157.48 cm 23 kg/m2 90880.6 4 g 93 % 93 % 63 /min 18 /min 97.8 [degF] 114/64 mm[Hg] FAM LUCERO [facility] 5 11:40:47 Social History Question Answer Notes LastModified by The Personal Bee Details LastModified Time Tobacco Smoking Status Never Smoker FAMLinda LUCERO [facility] 04/09/2024 10:03:12 [facility] Information not available 10/15/2024 What Was The Date Of Your Most Recent Tobacco Screening? 03/02/2025 [email or web address] Information not available 03/02/2025 Sex: Unknown Functional Status Question Answer Note LastModified by The Personal [employer] Details LastModified Time Do you use any illicit or recreational drugs? No Information not available 04/09/2024 Do you or have you ever used any other forms of tobacco or nicotine? No Information not available 04/09/2024 What is your level of alcohol consumption? None [email or web address] Information not available 04/09/2024 Do you or have you ever used any nicotine-free cigarettes, vape, or chewing tobacco? No [email or web address] Information not available 04/09/2024 Mental Status None recorded. Family History Relationship Description Onset Age of this Age Resolved Age Notes LastModified by Organization Details LastModified Time Mother Bipolar [email or web address] [id number] Not available 04/09 10:03:01 Mother Heart disease [email or web address] Not available 04/09 15:02:43 Daughter Diabetes mellitus [email or web address] Not available 04/09 15:02:14 Father Heart disease [email or web address] Not available 04/09 15:02:42 Medical History No medical history recorded. Gynecological HistoryNo gynecological history recorded. Obstetrics History GPAL:G 0 P 0 0 0 0 Immunizations Vaccine Type Date Status Note Provider Nam e and Address Organization Details Recorded Time COVID-19, mRNA, LNP-S, PF, 100 mcg/0.5mL dose or 50 mcg/0.25mL dose 1 completed Danitza garcia [facility], L.LJarvisCJarvis 03/28/2024 10:21:24 COVID-19, mRNA, LNP-S, PF, 100 mcg/0.5mL dose or 50 mcg/0.25mL dose 1 completed Danitza garcia [facility], L.L.CJarvis 03/28/2024 10:21:24 pneumococcal polysaccharide PPV23 6 completed Danitza garcia [facility] 03/28/2024 10:21:24 Pneumococcal conjugate PCV 13 5 completed Danitza garcia [facility] 03/28/2024 10:21:24 Influenza, high-dose, trivalent, PF 5 completed Danitza garcia [facility], L.LJarvisCJarvis 03/28/2024 10:21:24 Influenza, high-dose, trivalent, PF 6 completed Danitza Pladonis null, [facility] 03/28/2024 10:21:24 Influenza, split virus, trivalent, preservative 4 completed Danitza Pliler null, [facility] 03/28/2024 10:21:25 Influenza, split virus, quadrivalent, PF 2 completed Danitza Pliler null, [facility] 03/28/2024 10:21:25 Influenza, split virus, quadrivalent, PF 3 completed Danitza Pliler null, [facility] 03/28/2024 10:21:25 Tdap 5 completed Not Available [facility] 04/08/2025 07:56:42 Past Encounters Encounter ID Performer Location Encounter Start Date Encounter Closed Date Diagnosis/Indication Diagnosis SNOMED-CT Code Diagnosis ICD10 Code Diagnosis IMO Codes Diagnosis Note [id number] Lele Carpenter DO [facility] ([facility]) [address] [place] [address] [id number] 5 12/18/2023 17:58:47 12/18/2023 19:07:53 Pain in left foot 5262758827 36537 M79.672 Closed fra cture of third metatarsal bone of left foot 3113412213 4765610 S92.332A Independen tly reviewed and interprete d x-ray of left foot which showed nondisplac ed left third metatarsal shaft fracture, acute . Discussed results with patient and daughter. We will start her in a cam boot today. This was fitted and placed with nursing. Nurses provided education and instructio ns on how to use boot and ambulate. We will send the patient to podiatry due to her advanced age and need for close follow-up. She will take calcium and vitamin D. She can take Tylenol for painReturn to office with no improvemen t or any problems. Go to ER with severe worsening or severe problems. [id number] Maynor Bradley DO [facility] ([facility]) [address] [place] [address] 02/22/2024 10:32:54 02/26/2024 12:40:33 [id number] Maynor Bradley DO [facility] ([facility]) [address] [place] [address] [id number] 5 02/27/2024 08:06:49 02/27/2024 16:18:55 Hospital inpatient stay within past 30 days 6948466005 106 Z76.89 Intertroch anteric fracture 880748097 S72.142S Acute non- ST segment elevation myocardial infarction 467459443 I21.4 Diverticulitis 073099259 K57.92 Benign ess ential hypertension 5943841 I10 Atrial fibrillation 4943 6004 I48.91 Hyperlipidemia 99273802 E78.5 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 [id number] Maynor Bradley DO [facility] ([facility]) [address] [place] [address] [id number] 5 03/05/2024 08:05:24 03/05/2024 16:07:55 Intertrochanteric fracture 329254692 S72.142S Benign ess ential hypertension 7284475 I10 Atrial fibrillation 4943 6004 I48.91 Acute non- ST segment elevation myocardial infarction 460223688 I21.4 [id number] Maynor Bradley DO [facility] ([facility]) [address] [place] [address] [id number] 5 03/19/2024 08:52:33 03/19/2024 16:45:42 Closed fracture of third metatarsal bone of left foot 0947190458 5095572 S92.332A Benign ess ential hypertension 8228151 I10 Intertroch anteric fracture 364649014 S72.142S [id number] HORTENCIA SUMMERS PA-C [facility] ([facility]) [address] [place] [address] [id number] 5 04/03/2024 11:58:27 04/19/2024 10:12:35 Diverticulitis 218589527 K57.92 medical records reviewed. continue with current meds. History of placement of stent for coronary artery disease 255649339 Z95.5 CBC/BMP/CR P/UA WITH C&S History of hip fracture 084841778 Z87.81 in January 2024 [id number] George Summers MD [facility] ([facility]) [address] [place] [address] [id number] 5 04/09/2024 08:48:41 04/11/2024 15:05:21 History of diverticulitis 5708893243 19860 Z87.19 Urinary tr act infection caused by Enterococcus 0925722269 60999 N39.0 cx pos for enterococc us. symptomati c low grade temp, mild chills. will get cbc, crp blood cultures. 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 she is compensate d currently. on arb, betablocke r was held due to orthostasi s and this is much better. Acute non- ST segment elevation myocardial infarction 671386943 I21.4 History of myocardial infarction 725695383 I25.2 Drug coate d 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 8568929926 8101840 Z95.5 Upper gastrointestinal bleeding 86017741 K92.89 appears stable repeat hgb with her cbc for uti. [id number] HORTENCIA SUMMERS PA-C [facility] ([facility]) [address] [place] [address] [id number] 5 04/10/2024 11:33:07 04/19/2024 06:51:07 Abdominal pain 64184314 R10.9 to erPt reports this is the worst pain she has had and worried she is not going to make it. [id number] HORTENCIA SUMMERS PA-C [facility] ([facility]) [address] [place] [address] [id number] 5 04/17/2024 11:56:08 04/30/2024 13:56:02 Acute urinary tract infection 338958906 N39.0 READMIT --makenzie ,She is to meet with gen surgeon to discuss having a colonoscop y. She has been anemic with heme + stools. Atrial fibrillation 4943 6004 I48.91 ekg, cardiology consult, metoprolol succinate 25mg qdHolter monitor x 3 dyasshe has been off her anticoag for >1 monthRepea t heme stools to see if still + [id number] HORTENCIA SUMMERS PA-C [facility] ([facility]) [address] [place] [address] [id number] 5 04/24/2024 13:28:20 06/03/2024 10:05:15 Atrial fibrillation 70710395 I48.91 WAITING ON HOLTER so far doing well ON METOPROLOL heart rates btwn 70 and 90 Advance care planning 71 1106037 Z71.89 We discussed what a DNR means no CPR no chest compressio n and no shocking. She states if she is gone let her to be. I signed her DNR today [id number] HORTENCIA SUMMERS PA-C [facility] ([facility]) [address] [place] [address] [id number] 5 05/01/2024 11:14:27 05/28/2024 08:00:40 Fracture of femur 44821170 S72.92XA dnr signed. I spoke with pt about how a DNR means that no CPR, no AED devices and no chest compressio n will be done if she is found unresponsi ve. She understand s this will mean the end of her life and she wishes to procede with a DNRd/c to pvm with current orders and meds. Atrial fibrillation 4943 6004 I48.91 WAITING ON HOLTER so far doing well ON METOPROLOL heart rates btwn 70 and 90 Benign ess ential hypertension 4181006 I10 Mixed anxi ety and depressive disorder 726396103 F41.8 [id number] George Summers MD [facility] ([facility]) [address] [place] [address] [id number] 5 07/09/2024 08:10:36 07/09/2024 14:53:59 Benign essential hypertension 9943497 I10 Atrial fibrillation 4943 6004 I48.91 Hyperlipidemia 69126004 E78.5 Mixed anxi ety and depressive disorder 517462346 F41.8 Dementia 37929741 F03.90 b-12 cbc cmp Coronary atherosclerosis 798213126 I25.10 lipid yearly [id number] HORTENCIA SUMMERS PA-C [facility] ([facility]) [address] [place] [address] [id number] 5 08/21/2024 12:13:02 08/23/2024 12:46:42 Diarrhea 59424812 R19.7 D/C LINZESS AND SUCRALFATE History of Paget disease of vulva 1747981670 96080 Z85.44 hx of surgical resection Dr. Adamson. Dementia 81048821 F01.B0 lives in assisted living Chronic at rial fibrillation 205843393 I48.20 CCA form filled out during today's office visit Hyperlipidemia 75364090 E78.5 statin History of myocardial infarction 008411741 I25.2 Stent placed 02/20 Essential hypertension 81415947 I10 [id number] HORTENCIA SUMMERS PA-C [facility] ([facility]) [address] [place] [address] [id number] 5 09/25/2024 12:24:00 10/05/2024 11:56:01 Chronic constipation 641384205 K59.09 will restart her LINZESS 72MG QDadd HYDROCORTI SONE 2.5% VT BID x 10 days for rectal irritation Dementia 93901273 F01.B0 nursing staff to perform another MOCA TEST and send a copy of current one and previous for comparison NEUROLOGY REFERRAL to 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 hinged knee bracept referral Benign ess ential hypertension 3897113 I10 [id number] GEOVANNY BARNEY [facility] ([facility]) [address] [place] [address] [id number] 5 12/18/2024 10:57:33 12/18/2024 11:26:48 Dysuria 01058768 R30.0 53972 Acute urin staci tract infection 008223122 N39.0 752744 Discussed to take antibiotic as prescribed until completedU rine culture ordered - will notify of any resultsEdu cated patient on increasing PO fluids of water, decreasing caffeine (coffee) and sugary drinks.Dis cussed importance of avoiding baths, scented soaps, douching, perfumes.M ay take OTC AZO for 1-2 days as box directs for burning sensation. Discussed if developmen t of abdominal pain, flank pain, fever, vomiting, worsening symptoms return to walk-in, PCP or ED for re-evaluat ion. Return to clinic if any changes, any worsening, any concernsPa tient verbalized understand ing of plan. [id number] George Summers MD [facility] ([facility]) [address] [place] [address] [id number] 5 01/07/2025 10:39:38 2025 17:17:32 Benign essential hypertension 0558496 I10 Dementia 31498091 F01.B0 b-12 cbc cmp Essential hypertension 82674369 I10 Hyperlipidemia 64106546 E78.5 Mixed anxi ety and depressive disorder 545848577 F41.8 Dysuria 05940711 R30.0 51224 Recurrent subluxation of the patella 504417101 M22.11 Recurrent urinary tract infection 953935521 N39.0 214250 Pain in female pelvis 42 9155811 R10.2 [id number] referral for pelvic exam with Hortencia Summers [id number] BELLA LAUREANO APRN [facility] ([facility]) [address] [place] [address] [id number] 5 01/26/2025 13:37:47 02/03/2025 09:00:15 Dysuria 04571233 R30.0 45156 Acute urin staci tract infection 546960085 N39.0 517847 [id number] George Summers MD [facility] ([facility]) [address] [place] [address] [id number] 5 02/05/2025 13:37:19 02/05/2025 16:15:01 [id number] GEOVANNY CAMPBELL [facility] ([facility]) [address] [place] [address] [id number] 5 02/07/2025 13:35:50 02/11/2025 12:07:51 Dysuria 36309028 R30.0 85591 Acute urin staci tract infection 161214785 N39.0 219291 UA results reviewed and discussed with pt. We will start antibiotic s. Pt will increase oral fluids and can use cranberry. Return to office with no improvemen t or any problems. Go to ER with severe worsening or severe problems.W e will obtain urine culture [id number] BELLA LAUREANO APRN [facility] ([facility]) [address] [place] [address] [id number] 5 03/02/2025 13:33:13 03/02/2025 18:15:26 Dysuria 35584582 R30.0 91253 Acute urin staci tract infection 730552189 N39.0 948115 [id number] HORTENCIA SUMMERS PA-C [facility] ([facility]) [address] [place] [address] [id number] 5 03/19/2025 11:58:54 04/29/2025 10:53:00 History of fall 738275390 Z91.81 [id number] Orthostati c hypotension 74746620 I95.1 3436 isosorbide 30mg qd, metoprolol 25mg qd, losartan 25m qdcontinue to monitor her BPS if continue to drop d/c the metoprolol then the losartan [id number] George Summers MD [facility] ([facility]) [address] [place] [address] [id number] 5 04/08/2025 07:56:30 04/29/2025 10:37:45 Generalized anxiety disorder 89659668 F41.1 Essential hypertension 97342099 I10 I reviewed the patient's recent labs, vital signs, medication s, and plan of care. I recommend no other change sat this time. Health Concerns Section Related Observation LastModified by Organization Detai ls LastModified Time None Recorded Concern Status LastModified by Organization Details LastModified Time None Recorded Advance Directives Directive None Recorded Payers Insurance Date Sequence Insurance Name Policy Number Policy Kinsey Covered Member ID Kinsey Member ID Guarantor Name 04/07/2025 1 [place]: [place] Mill[employer]ent Angel [id number] Mill[employer]ent Angel 04/07/2025 [place] - [place] A - [facility] (MEDICARE) Millicent Angel [id number] Millicent Cooper Angel 01/13/2025 1 [employer] (MEDICARE REPLACEMENT/A DVANTAGE - PPO) Millicent Cooper Angel [id number] Millicent Cooper [place] 04/29/2025 2 [employer] (MEDICARE SUPPLEMENT) Millicent Cooper [place] [id number] Millicent Cooper Angel Notes Date Note Type Note Provider Name and Address Organization Details Recorded Time 02/07/2025 text/html ROS as noted in the HPI walk inHere 01/26 for same, does not feel that cleared. Continues to have burning with urination. denies fever, weakness, or other symptoms. GEOVANNY CAMPBELL [address] [place], [address], [facility], LKyle. 02/09/2025 14:35:19 03/02/2025 text/html walk inhere 02/07 for UTI, week later saw Urology and placed on levofloxacin 500mg daily, last dose yesterday. Pt continues to c/o abd. pain, burning and hard starting stream. [facility] nurses were fired at [facility] for not giving meds so not sure she was given meds BELLA LAUREANO APRN [address] [place], [address], [facility], LJarvisLOlga Lidia. 03/02/2025 18:09:48 03/19/2025 text/html Fall UCReported by PatientHPIFor location of injury, patient reportsface. For severity of pain, patient reportsmoderate. For onset/timing, patient reports4 days ago. For context, patient reportsreports hitting head,sudden position change, andsurface of fall: ___. Pt had an orthostatic hypotension episodes 7 days ago and was taken to ER after fall. She had normal lab and imaging and was given one stich in her lip. This has since fallen out on its own George Summers MD [address] [place], [address], [facility], Apolinar. 04/29/2025 08:19:54 04/08/2025 text/html Hypertension IM/FMReported by PatientHPIFor duration, patient reportshtn present for ___ years. For onset/timing, patient reportsgradual onset. For alleviating factors, patient reportsmedication. For risk factors, patient reportsmyocardial infarction. DementiaReported by Patient Patient seen today by Dr. Summers at [facility] George Summers MD [address] [place] [address], [phone], [facility] 04/29/2025 08:29:10 OBGyn Episode No OBEpisode recorded.
--- OUTSIDE RECORDS SUMMARY | 2025-05-29 09:32 | XMS_ITS | Clinical Summary ---
Author Organization [facility] Address [address] 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
--- OUTSIDE RECORDS SUMMARY | 2025-05-29 09:32 | XMS_ITS | Encounter Summary ---
Author Organization [facility] Address [address] [place] [address] Care Team Providers Care Boning Room Worker Name Role Phone Unavailable Primary Care Provider Unavailabl e Encounter Details Date Type Department Care Team (Latest Contact Info) Description 09/08/2000 Outpatient Historical [facility] Catarina Norton MD Abdominal pain, other specified site (Primary Dx) Social History Tobacco Use Types Packs/Day Years Used Date Smoking Tobacco: Never Assessed Comments Unknown Sex and Gender Information Value Date Recorded Sex Assigned at Not on file 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
--- OUTSIDE RECORDS SUMMARY | 2025-05-29 09:32 | XMS_ITS | Encounter Summary ---
Author Organization [facility] Address [address] [place] [address] Care Team Providers Care Communication Coordinator Name Role Phone Unavailable Primary Care Provider Unavailabl e Encounter Details Date Type Department Care Team (Latest Contact Info) Description 11/19/2001 Outpatient Historical [facility] [place] [address] [place] [address] Wolf Fisher MD NO ADDRESS ON FILE LOC PRIM OSTEOARTH-HAND (Primary Dx) Social History Tobacco Use Types Packs/Day Years Used Date Smoking Tobacco: Never Assessed Comments Unknown Sex and Gender Information Value Date Recorded Sex Assigned at Not on file 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
--- OUTSIDE RECORDS SUMMARY | 2025-05-29 09:32 | XMS_ITS | Encounter Summary ---
Author Organization [facility] Address [address] [place] [address] Care Team Providers Care Aircraft Engineer Name Role Phone Unavailable Primary Care Provider Unavailabl e Encounter Details Date Type Department Care Team (Latest Contact Info) Description 11/19/2001 Outpatient Historical [facility] [place] [address] [place] [address] Wolf Fisher MD NO ADDRESS ON FILE GENERAL OSTEOARTHROSIS (Primary Dx) Social History Tobacco Use Types Packs/Day Years Used Date Smoking Tobacco: Never Assessed Comments Unknown Sex and Gender Information Value Date Recorded Sex Assigned at Not on file 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
--- OUTSIDE RECORDS SUMMARY | 2025-05-29 09:32 | XMS_ITS | Encounter Summary ---
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
--- OUTSIDE RECORDS SUMMARY | 2025-05-29 09:32 | XMS_ITS | Encounter Summary ---
Author Organization [facility] Address [address] [place] [address] Care Team Providers Care Embedded Hardware Engineer Name Role Phone Unavailable Primary Care Provider Unavailabl e Encounter Details Date Type Department Care Team (Latest Contact Info) Description 04/09/2001 Outpatient Historical [facility] [place] [address] [id number] Karlee Roman MD NO ADDRESS ON FILE Other screening mammogram (Primary Dx) Social History Tobacco Use Types Packs/Day Years Used Date Smoking Tobacco: Never Assessed Comments Unknown Sex and Gender Information Value Date Recorded Sex Assigned at Not on file 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
--- OUTSIDE RECORDS SUMMARY | 2025-05-29 09:32 | XMS_ITS | Patient Health Record ---
Author Organization [facility], [facility] Address [address] [place] [address] Care Team Providers Care Landscape Technician Name Role Phone Kristopher HANH, Terrance Primary Care Provider SABRA Noriega Unavailable [phone] PAZ MARIE Unavailable [phone] Allergies Allergen (clinical drug ingredient) Drug/Non Drug Allergy documented on EMR Reaction Allergy Type Onset Date Status Substance with sulfonamide structure and antibacterial mechanism of action (substance) Sulfa Antibiotics Unknown Drug Allergy Active Results Component Value Reference Range Notes Urinalysis, Routine Reviewed date:02/12/2025 02:26:49 PM Interpretation: Performing Lab: Notes/Report: Urine-Color yellow Appearance cloudy Glucose - Bilirubin - Ketones - Specific [place] 1.015 Occult Blood trace pH 6.0 Urine Protein trace Urobilinogen,Semi-Qn - Nitrite, Urine - WBC Esterase 3+ UBASE - Urinary Tract Infect ion (HTRx) Reviewed date:02/17/2025 03:07:40 PM Interpretation: Performing Lab:, [facility] at [address], Phone - [phone], Director - [id number] Notes/Report: CTX-M1 (15), M2 (2), M9 (9), [...] parapsilosis, tropicalis 0 23.000 - 30.347 ppm Hamida albicans, parapsilosis, tropicalis Not Detecte d 23.000 [...] lugdunensis Not Detected 19.961 - 24.689 ppm Urinalysis, Routine Reviewed date:03/17/2025 11:55:31 AM Interpretation: Performing Lab: Notes/Report: Urine-Color orange Appearance clear Glucose 1+ Bilirubin 3+ Ketones 1+ Specific [place] 1.015 Occult Blood - pH 5.5 Urine Protein +- Urobilinogen,Semi-Qn 3+ Nitrite, Urine + WBC Esterase 3+ Urinalysis, Routine Reviewed date:04/07/2025 01:45:28 PM Interpretation: Performing Lab: Notes/Report: Urine-Color yellow Appearance clear Glucose - Bilirubin - Ketones - Specific [place] 1.010 Occult Blood - pH - Urine Protein - Urobilinogen,Semi-Qn - Nitrite, Urine - WBC Esterase - UTI Pathogen Panel PCR Reviewed date:03/18/2025 01:45:31 PM Interpretation: Performing Lab: Notes/Report: Reason For Referral Reason Multidrug resistant UTI, please schedule WALDO. Recent CT negative, has cysto scheduled Diagnosis 1 Multiple drug resist ant organism (MDRO) culture positive (Z16.24) Diagnosis 2 Recurrent urinary tr act infection (N39.0) Referral Organization [facility] Referring Provider First Name SABRA Referring Provider Last Name YAMINI Referring Provider Speciality [facility] sammi Referred Provider Specialty Infectious D isease Referral Priority Routine Medications Medication SIG (Take, Route, Frequency, Duration) Notes Start Date End Date Status Nitrofurantoin Monohyd Macro 100 MG 1 capsule with food Orally daily; Duration: 90 days 04/16/2025 10/13/2025 Active Nitrofurantoin Monohyd Macro 100 MG 1 capsule with food Orally daily; Duration: 90 days 04/08/2025 10/04/2025 Active Nitrofurantoin Macrocrystal 100 MG 1 capsule at bedtime with food or milk Orally twice a day Active Cetirizine HCl 5 MG 1 tablet Orally Once a day Active Acetaminophen 325 MG 1 tablet as needed Orally every 6 hrs Active Clopidogrel Bisulfate 75 MG 1 tablet Orally Once a day Active Nitroglycerin 0.4 MG 1 tablet under the tongue and allow to dissolve as needed. Take every 5 minutes up to 3 times if chest pain persists Sublingual daily Active FLUoxetine HCl 20 MG 1 capsule Orally On ce a day Active Bisacodyl 10 MG 1 suppository as nee ded Rectal Once a day Active Aspirin Adult Low Dose 81 MG 1 tablet Orally Once a day Active Milk of Magnesia 400 MG/5ML 5 mL as needed Orally Once a day Active Magnesium 250 MG 1 tablet with a meal Orally Once a day Active Atorvastatin Calcium 80 MG 1 tablet Oral ly Once a day Active Pantoprazole Sodium 40 MG 1 tablet 1/2 t o 1 hour before morning meal Orally Once a day Active clonazePAM 0.5 MG 1 tablet Orally Once a day Active HYDROcodone-Acetaminophen 5-325 MG 1 tablet as needed Orally every 6 hrs Active Bisacodyl 5 MG 1 tablet as needed Orally Once a day Active linaCLOtide 72 MCG 1 capsule at least 3 0 minutes before the first meal of the day on an empty stomach Orally Once a day Active Diclofenac 1.25 % 1 patch Externally O nce a day Active Multivitamin Adult - 1 tablet Orally Onc e a day Unknown Losartan Potassium 25 MG 1 tablet Orally Once a day Active Metoprolol Succinate 25 MG 1 capsule Ora lly Once a day Active Isosorbide Mononitrate ER 30 MG 1 tablet in the morning Orally Once a day Active Social History Tobacco Use: Social History Observation Description Date Details (start date - stop date) Never Smoker NA - NA Tobacco Control (Standard) Question Answer Notes Tobacco use: Nonsmoker AUDIT-C (Standard) Question Answer Notes Did you have a drink containing alcohol in the p ast year? 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 Problem Acute cystitis (63048261) Acute cystitis (N30.00) Active confirmed Vital Signs Heart Rate 78 /min 04/07/2025 Blood pressure diastolic 69 mm Hg 04/07/2025 Height-cm 154.94 cm 04/07/2025 Weight-kg 55.34 kg 04/07/2025 Height 61 in 04/07/2025 Blood pressure systolic 112 mm Hg 04/07/2025 Weight 122 lbs 04/07/2025 BMI 23.05 kg/m2 04/07/2025 Procedures Procedure Date Ordered Date Performed Result Body Sit e Bladder Scan 02/12/2025 02/12/2025 8 mL Encounters Encounter Location Date Provider Diagnosis [facility] [address] [place] [address] 02/12/2025 SABRA KC Recurrent urinary tract infection N39.0 ; Suprapubic pain R10.2 ; Low back pain M54.50 ; Renal atrophy, bilateral N26.1 and Loose bowel movements R19.5 [facility] [address] [place] [address] 03/17/2025 PAZ HUDSONER Recurrent urinary tract infection N39.0 ; Suprapubic pain R10.2 ; Acute cystitis N30.00 ; Low back pain M54.50 ; Renal atrophy, bilateral N26.1 and Loose bowel movements R19.5 [facility] [address] [place] [address] 04/07/2025 PAZ HUDSONER Recurrent urinary tract infection N39.0 ; Suprapubic pain R10.2 ; Low back pain M54.50 ; Renal atrophy, bilateral N26.1 ; Loose bowel movements R19.5 and Recurrent UTI N39.0 [facility] [address] [place] [address] 01/16/2025 PAZ HUDSONER [facility] [address] [place] [address] 02/14/2025 SABRA DANIELANO [facility] [address] [place] [address] 02/24/2025 SABRA REANO [facility] [address] [place] [address] 02/27/2025 SABRA REANO [facility] [address] [place] [address] 03/05/2025 SABRA REANO Recurrent UTI N39.0 and Multiple drug resistant organism (MDRO) culture positive Z16.24 [facility] [address] [place] [address] 03/07/2025 SABRA KC [facility], [facility] [address] [place] [address] 04/16/2025 PAZ MARIE Assessments Encounter Date Diagnosis (ICD Code) Assessment Notes Treatment Notes Treatment Clinical Notes Section Notes 02/12/2025 Suprapubic pain (ICD-10 - R10.2) 03/05/2025 Multiple drug resistant organism (MDRO) culture positive (ICD-10 - Z16.24) 03/05/2025 Recurrent UTI (ICD-10 - N39.0) 03/17/2025 Recurrent urinary tract infection (ICD-10 - N39.0) This is an 85-year-old female with persistent, recurrent urinary tract infections for approximately 9-12 months despite multiple antibiotic treatments. CT scan shows normal upper urinary tract with no evidence of obstruction, stones, or anatomical abnormalities that would explain recurrent infections. N39.0 - Urinary tract infection, site not specified R82.90 - Unspecified abnormal findings in urine Z87.440 - Personal history of urinary tract infections N95.8 - Other specified menopausal and perimenopausal disorders (suspected atrophic vaginitis) 02/12/2025 Recurrent urinary tract infection (ICD-10 - N39.0) 03/17/2025 Acute cystitis (ICD-10 - N30.00) This is an 85-year-old female with persistent, recurrent urinary tract infections for approximately 9-12 months despite multiple antibiotic treatments. CT scan shows normal upper urinary tract with no evidence of obstruction, stones, or anatomical abnormalities that would explain recurrent infections. N39.0 - Urinary tract infection, site not specified R82.90 - Unspecified abnormal findings in urine Z87.440 - Personal history of urinary tract infections N95.8 - Other specified menopausal and perimenopausal disorders (suspected atrophic vaginitis) 03/17/2025 Suprapubic pain (ICD-10 - R10.2) This is an 85-year-old female with persistent, recurrent urinary tract infections for approximately 9-12 months despite multiple antibiotic treatments. CT scan shows normal upper urinary tract with no evidence of obstruction, stones, or anatomical abnormalities that would explain recurrent infections. N39.0 - Urinary tract infection, site not specified R82.90 - Unspecified abnormal findings in urine Z87.440 - Personal history of urinary tract infections N95.8 - Other specified menopausal and perimenopausal disorders (suspected atrophic vaginitis) 04/07/2025 Recurrent urinary tract infection (ICD-10 - N39.0) 85 yo female with rUTIs and constipation. Cysto shows rectal stool bulging into posterior wall. Cysto findings reviewed with patient and family. I recommend continuing macrobid 100mg daily for UTI ppx. Plan: RTC in 6 months with Sabra cK APRN with UA and PVR Rx for macrobid 100mg daily eprescribed all questions answered 04/07/2025 Suprapubic pain (ICD-10 - R10.2) 85 yo female with rUTIs and constipation. Cysto shows rectal stool bulging into posterior wall. Cysto findings reviewed with patient and family. I recommend continuing macrobid 100mg daily for UTI ppx. Plan: RTC in 6 months with Sabra Kc APRN with UA and PVR Rx for macrobid 100mg daily eprescribed all questions answered 04/07/2025 Low back pain (ICD-10 - M54.50) 85 yo female with rUTIs and constipation. Cysto shows rectal stool bulging into posterior wall. Cysto findings reviewed with patient and family. I recommend continuing macrobid 100mg daily for UTI ppx. Plan: RTC in 6 months with Sabra Kc APRN with UA and PVR Rx for macrobid 100mg daily eprescribed all questions answered 02/12/2025 Low back pain (ICD-10 - M54.50) 03/17/2025 Low back pain (ICD-10 - M54.50) This is an 85-year-old female with persistent, recurrent urinary tract infections for approximately 9-12 months despite multiple antibiotic treatments. CT scan shows normal upper urinary tract with no evidence of obstruction, stones, or anatomical abnormalities that would explain recurrent infections. N39.0 - Urinary tract infection, site not specified R82.90 - Unspecified abnormal findings in urine Z87.440 - Personal history of urinary tract infections N95.8 - Other specified menopausal and perimenopausal disorders (suspected atrophic vaginitis) 02/12/2025 Renal atrophy, bilateral (ICD-10 - N26.1) 03/17/2025 Renal atrophy, bilateral (ICD-10 - N26.1) This is an 85-year-old female with persistent, recurrent urinary tract infections for approximately 9-12 months despite multiple antibiotic treatments. CT scan shows normal upper urinary tract with no evidence of obstruction, stones, or anatomical abnormalities that would explain recurrent infections. N39.0 - Urinary tract infection, site not specified R82.90 - Unspecified abnormal findings in urine Z87.440 - Personal history of urinary tract infections N95.8 - Other specified menopausal and perimenopausal disorders (suspected atrophic vaginitis) 04/07/2025 Renal atrophy, bilateral (ICD-10 - N26.1) 85 yo female with rUTIs and constipation. Cysto shows rectal stool bulging into posterior wall. Cysto findings reviewed with patient and family. I recommend continuing macrobid 100mg daily for UTI ppx. Plan: RTC in 6 months with Sabra Kc APRN with UA and PVR Rx for macrobid 100mg daily eprescribed all questions answered 04/07/2025 Loose bowel movements (ICD-10 - R19.5) 85 yo female with rUTIs and constipation. Cysto shows rectal stool bulging into posterior wall. Cysto findings reviewed with patient and family. I recommend continuing macrobid 100mg daily for UTI ppx. Plan: RTC in 6 months with Sabra Kc APRN with UA and PVR Rx for macrobid 100mg daily eprescribed all questions answered 02/12/2025 Loose bowel movements (ICD-10 - R19.5) 03/17/2025 Loose bowel movements (ICD-10 - R19.5) This is an 85-year-old female with persistent, recurrent urinary tract infections for approximately 9-12 months despite multiple antibiotic treatments. CT scan shows normal upper urinary tract with no evidence of obstruction, stones, or anatomical abnormalities that would explain recurrent infections. N39.0 - Urinary tract infection, site not specified R82.90 - Unspecified abnormal findings in urine Z87.440 - Personal history of urinary tract infections N95.8 - Other specified menopausal and perimenopausal disorders (suspected atrophic vaginitis) 04/07/2025 Recurrent UTI (ICD-10 - N39.0) 85 yo female with rUTIs and constipation. Cysto shows rectal stool bulging into posterior wall. Cysto findings reviewed with patient and family. I recommend continuing macrobid 100mg daily for UTI ppx. Plan: RTC in 6 months with Sabra Kc APRN with UA and PVR Rx for macrobid 100mg daily eprescribed all questions answered 02/12/2025 Other UA abnormal despite being on Cefdinir. She reports not feeling any better after almost completing course of antibiotics. She finishes treatment tomorrow. Send for PCR. Call with result and treat as indicated. We have discussed behavioral modifications for recurrent UTI including timed and double voiding, increased water intake, supplementation with Cranberry extract and probiotics, preventing/treati ng constipation, and vaginal estrogen as indicated. Handout given to patient. Start daily probiotic with cranberry. Obtain CT to rule out stones. RTC for follow up in 3 weeks with UA and CT review. All questions that were asked were answered. Patient is satisfied with plan of care. 03/17/2025 Other # Recurrent UTI Sent urine for culture and PCR today to identify causative organism and sensitivities. Patient to start prescribed 7-day course of Macrobid as directed by infectious disease specialist. Will review culture results and contact patient if antibiotic change is needed based on sensitivities. Postponing cystoscopy today due to active UTI to avoid risk of sepsis. Schedule cystoscopy with pelvic exam in 2-3 weeks after completion of antibiotics to evaluate for bladder inflammation and assess for atrophic vaginitis. Will consider topical estrogen therapy if atrophic vaginitis is confirmed on examination. # Perineal Hygiene Discussed importance of proper wiping technique (front to back). Recommended consideration of bidet for improved perineal hygiene, especially during episodes of diarrhea. # Follow-up Return in 2-3 weeks for cystoscopy and pelvic examination. Call office if symptoms worsen or do not improve with current antibiotic therapy. You have a urinary tract infection (UTI) that keeps coming back. Your CT scan shows your kidneys are working well with no stones or blockages. Today we collected a urine sample to check what bacteria is causing your infection and what medicine will work best. Start taking the Macrobid that was prescribed for you right away. We need to postpone your bladder scope procedure until your infection clears. We will reschedule this for 2-3 weeks from now. When wiping after using the bathroom, always wipe from front to back to prevent bacteria from your bowel getting into your urinary tract. A bidet toilet attachment might help keep this manager area. Call our office if: - Your symptoms get worse - You develop fever, chills, or severe pain - You don't feel better after a few days on antibiotics Your follow-up appointment for the bladder scope will be scheduled for 2-3 weeks from today. Patient has been seeing infectious disease specialist in [place] for management of recurrent UTIs. Daughter reports patient's symptoms began after hospitalization for hip fracture approximately 9-12 months ago. This is an 85-year-old female with persistent, recurrent urinary tract infections for approximately 9-12 months despite multiple antibiotic treatments. CT scan shows normal upper urinary tract with no evidence of obstruction, stones, or anatomical abnormalities that would explain recurrent infections. N39.0 - Urinary tract infection, site not specified R82.90 - Unspecified abnormal findings in urine Z87.440 - Personal history of urinary tract infections N95.8 - Other specified menopausal and perimenopausal disorders (suspected atrophic vaginitis) Plan Of Treatment Pending Test Test Name [place] [id number] 02/13/20 Next Appt Details Provider Name:SABRA KC, 0 10/07/2025 04:00:00 PM, [address] [place], [address], Insurance Providers Payer Name Payer Address Payer Phone Subscriber Number Group Number Insured Name Patient Relationship to Insured Coverage Start Date Coverage End Date [place] [address] KINZA NAVAS [id number] Millicent Angel Self - patient is the insured [address] [id number] Millicent Angel Self - patient is the insured Medical (General) History Medical History History ICD Code CAD Heart disease High blood pressure Recurrent urinary tract infections Perianal Paget's disease Surgical History Surgery Date(Month/Year) Stents Hip surgery Hospitalization History Reason Date(Month/Year) er visit for fall
--- OUTSIDE RECORDS SUMMARY | 2025-05-29 09:32 | XMS_ITS | Encounter Summary ---
Author Organization [facility] Address [address] 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
--- OUTSIDE RECORDS SUMMARY | 2025-05-29 09:32 | XMS_ITS | Encounter Summary ---
Author Organization [facility] Address [address] [place] [address] Care Team Providers Care Gold Frame Assembler Name Role Phone Unavailable Primary Care Provider Unavailabl e Encounter Details Date Type Department Care Team (Latest Contact Info) Description 09/29/2000 Outpatient Historical [facility] Catarina Norton MD Irritable bowel syndrome (Primary Dx) Social History Tobacco Use Types Packs/Day Years Used Date Smoking Tobacco: Never Assessed Comments Unknown Sex and Gender Information Value Date Recorded Sex Assigned at Not on file 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
--- NOTE | 2025-05-29 09:51 | W.ED.EXTPRO ---
HPI - Extremity Problem General: Chief complaint: Extremity Injury, Lower Stated complaint: dislocated right knee Time Seen by Provider: 05/29/25 09:15 History of Present Illness: 85-year-old female presents with complaints of right knee pain. Patient states she was sitting in a recliner and felt her knee pop. She has not been able to put weight on her leg. It she was not active at the time she has not previously had surgery to this knee. No other injury or trauma no falls. Associated symptoms: Deny chest pain, fever(s) or rash Related Data Home Medications ?Medication ?Instructions ?Recorded ?Confirmed fluoxetine 20 mg capsule 20 mg PO DAILY 03/25/24 03/11/25 acetaminophen 325 mg tablet 650 mg PO .Q4-6H PRN Pain 04/10/24 03/11/25 atorvastatin 80 mg tablet 80 mg PO BEDTIME 04/10/24 03/11/25 cetirizine 5 mg tablet 5 mg PO DAILY 04/10/24 03/11/25 clopidogrel 75 mg tablet 75 mg PO DAILY 04/10/24 03/11/25 magnesium hydroxide 400 mg/5 mL 30 ml PO DAILY PRN Constipation 04/10/24 03/11/25 oral suspension (Milk of Magnesia) chlorpheniramine maleate 4 mg 4 mg PO Q8H PRN allergies 05/22/24 03/11/25 tablet clonazepam 0.5 mg tablet 0.5 mg PO TID 05/22/24 03/11/25 metoprolol succinate 25 mg 25 mg PO DAILY 05/22/24 03/11/25 tablet,extended release 24 hr bisacodyl 5 mg tablet 5 mg PO DAILY PRN Constipation 09/21/24 03/11/25 losartan 25 mg tablet 25 mg PO DAILY 09/21/24 03/11/25 therapeutic multivitamin 1 tab PO QAM 09/21/24 03/11/25 aspirin 81 mg tablet,delayed 81 mg PO DAILY 01/07/25 03/11/25 release (Adult Aspirin Regimen) pantoprazole 40 mg tablet,delayed 40 mg PO DAILY 01/07/25 03/11/25 release Previous Rx's ?Medication ?Instructions ?Recorded nitroglycerin 0.4 mg sublingual 0.4 mg sublingual Q5M PRN chest 12/27/22 tablet (Nitrostat) pain #25 tabs isosorbide mononitrate 30 mg 30 mg PO DAILY #90 tabs 11/15/23 tablet,extended release 24 hr phenazopyridine 200 mg tablet 200 mg PO TID PRN pain #14 tabs 03/12/25 (Pyridium) nitrofurantoin 100 mg PO BID 30 days #60 caps 03/28/25 monohydrate/macrocrystals 100 mg capsule (Macrobid) diclofenac sodium 75 mg 75 mg PO Q12H PRN pain #20 tabs 05/29/25 tablet,delayed release Allergies Allergy/AdvReac Type Severity Reaction Status Date / Time gabapentin Allergy Intermediate diarrhea Verified 01/07/25 07:54 pregabalin (From Lyrica) Allergy Intermediate swelling Verified 01/07/25 07:54 metoprolol AdvReac Intermediate bitter Verified 01/07/25 07:54 taste promethazine (From Phenergan) AdvReac disoriented Verified 01/07/25 07:54 Sulfa (Sulfonamide AdvReac abdominal Verified 01/07/25 07:54 Antibiotics) pain Review of Systems Const: Denies: fever(s) or chills Card: Denies: chest pain Resp: Denies: dyspnea GI: Denies: abdominal pain : Denies: dysuria, urinary frequency or urinary urgency Musc: Denies: neck pain or back pain Skin/Breast: Denies: rash PFSH ED PFSH: Medical History Atrial fibrillation Meningioma Meningioma identified during evaluation for chronic headaches-followed with neurology Dr. De Los Santos in [place] and states it was stable. She has been cleared and has not seen a neurologist in over 4 years. Elevated cholesterol Diagnosed in 2011 and has been on and off medication. Managed by PMD Paget's disease Status post excision surgery and radiation in 2020 done at [facility]. No pertinent past medical history Denies diabetes, asthma, seizures, DVT/PE PCP: Dr. Person SVT (supraventricular tachycardia) HTN (hypertension) Surgical History S/P cardiac pacemaker procedure 2020 History of rectal surgery X 3 Patient had perianal excision of Paget's disease done by Dr. Adamson and Dr. Goss in [place] first in May 2017 and then again in July 20182020 S/P hysterectomy Vaginal, done for prolapse in 1981. She was told there was no cancer. S/P tubal ligation Laparoscopic procedure performed in 1979 Family History Mother Heart disease Hypertension Father Heart disease Daughter Diabetes Sister Hyperlipidemia Other Colon cancer Denies family history of Ovarian cancer Breast cancer Uterine cancer Thyroid disease Stroke Social History Smoking and tobacco/nicotine status: never used tobacco/nicotine Alcohol intake: never Substance/Drug Use: never Physical Exam Const: GENERAL APPEARANCE: cooperative ORIENTATION/CONSCIOUSNESS: Yes awake, Yes oriented to person, Yes oriented to place and Yes oriented to time HENMT: COMMON NORMALS: normocephalic, atraumatic and hearing grossly normal bilaterally HEAD & SCALP: normocephalic and atraumatic Resp: COMMON NORMALS: normal respiratory effort, No retractions, No use of accessory muscles and clear to auscultation bilaterally AUSCULTATION: clear to auscultation bilaterally Cardio: COMMON NORMALS: regular rate, regular rhythm and No murmurs present (Cardio) RATE: regular rate RHYTHM: regular rhythm GI: COMMON NORMALS: Soft to palpation and No hepatosplenomegaly present AUSCULTATION: Yes normoactive bowel sounds PALPATION: Yes Soft to palpation, No Tenderness to palpation present (GI), No Guarding due to palpation present (GI) and Yes No hepatosplenomegaly present Extremity: COMMON NORMALS: normal to inspection, capillary refill normal, no clubbing, cyanosis or edema, no calf tenderness and no pedal edema OTHER: Examination of the right knee some mild suprapatellar bursitis no ligamentous instability or laxity no induration no redness not warm to the touch Neuro: SENSORIUM/ORIENTATION: Yes oriented to person, Yes oriented to place and Yes oriented to time Skin: COMMON NORMALS: no rashes or lesions noted GENERAL SKIN EXAM: no rashes or lesions noted Course Vital Signs: Vital signs: Vital Signs Temperature 97.7 F 05/29/25 09:14 Pulse Rate 72 05/29/25 11:32 Respiratory Rate 16 05/29/25 09:14 Blood Pressure 118/89 05/29/25 11:32 Pulse Oximetry 96 05/29/25 11:32 Oxygen Delivery Me thod Room Air 05/29/25 09:14 MDM - Extremity (Nontraumatic) Medical Decision Making Patient has a moderate effusion she has no dislocation she was not doing anything active at the time given her description of things we just spontaneously began to hurt I do not think it dislocated she was quite convinced that it dislocated but there is no real evidence of that she had been forcefully extending or flexing her knee at the time. Discharged home with anti-inflammatories she is able to ambulate on it well there is no sign of infection on physical exam follow-up with Ortho. Medical Records I reviewed the patient's medical records. Lab Data I reviewed the patient's lab results. Radiology Impressions Knee X-Ray 05/29/25 09:16 IMPRESSION: 1. Moderate degenerative changes and large joint effusion. All radiology interpretation(s) finalized by discharge Discharge Plan Discharge Patient Disposition: Home Clinical Impression: Knee pain, right Condition: Stable Prescriptions: New diclofenac sodium 75 mg tablet,delayed release (DR/EC) 75 mg PO Q12H PRN (Reason: pain) Qty: 20 0RF No Action nitroglycerin [Nitrostat] 0.4 mg tablet, sublingual 0.4 mg sublingual Q5M PRN (Reason: chest pain) Qty: 25 1RF Rx Instructions: do not exceed 3 doses per episode aspirin [Adult Aspirin Regimen] 81 mg tablet,delayed release (DR/EC) 81 mg PO DAILY pantoprazole 40 mg tablet,delayed release (DR/EC) 40 mg PO DAILY metoprolol succinate 25 mg tablet extended release 24 hr 25 mg PO DAILY chlorpheniramine maleate 4 mg tablet 4 mg PO Q8H PRN (Reason: allergies) Rx Instructions: do not exceed 2 doses per 24 hrs clonazepam 0.5 mg tablet 0.5 mg PO TID phenazopyridine [Pyridium] 200 mg tablet 200 mg PO TID PRN (Reason: pain) Qty: 14 0RF isosorbide mononitrate 30 mg tablet extended release 24 hr 30 mg PO DAILY Qty: 90 11RF nitrofurantoin monohyd/m-cryst [Macrobid] 100 mg capsule 100 mg PO BID 30 Days Qty: 60 0RF Rx Instructions: must administer with a meal/food atorvastatin 80 mg Tablet 80 mg PO BEDTIME acetaminophen 325 mg Tablet 650 mg PO .Q4-6H PRN (Reason: Pain) cetirizine 5 mg Tablet 5 mg PO DAILY clopidogrel 75 mg tablet 75 mg PO DAILY magnesium hydroxide [Milk of Magnesia] 400 mg/5 mL Suspension 30 ml PO DAILY PRN (Reason: Constipation) therapeutic multivitamin Tablet 1 tab PO QAM losartan 25 mg tablet 25 mg PO DAILY bisacodyl 5 mg Tablet 5 mg PO DAILY PRN (Reason: Constipation) fluoxetine 20 mg capsule 20 mg PO DAILY Discharge Orders: Discharge ED (Routine); Ordered 05/29/25 Ordered By: Piotr Velasquez Referrals: Terrance Summers MD [Primary Care Provider, Family Practice] Discharge Diet: Usual diet Discharge Activity: Increase activity as tolerated Patient Instructions: Opioid Safety, Pain Management, Patient Portal & Krunal Instructions Activity Restrictions/Additional Instructions: Thank you for choosing [facility] for your healthcare needs today. It is very important that you follow up as instructed or that you return to the Emergency Department should you have concerns or if your condition changes or worsens in any way. Emergency department visits are focused on emergent conditions, in some cases you may require further evaluation on an outpatient basis. You are seen in the emergency room with complaints of right knee pain. No history of trauma x-ray was unremarkable other than an effusion. On exam there is no signs of infection will discharge home with anti-inflammatories hide follow-up with orthopedics. (Please note that included in your discharge packet is information concerning opioid safety and pain management. This information is given to all patients were discharged from the ER regardless of their discharge diagnosis or the medicines they usually take or are prescribed.) Print Language: Ethiopian Coding Level of Care Code ED [employer] for Nati Castillo
[2025-05-29 11:32] VITALS: BP 118/89; PULSE 72; O2SAT 96
--- NOTE | 2025-05-30 08:45 | DCPLANNER ---
messaged ortho for er f/u
== END 2025-05-29 11:33 | disposition home or self-care (01) ==
PROVIDERS: Emergency Provider Family Medicine; PCP Family Medicine
DX: M25.561 Pain in right knee (principal); Z79.02 Long term (current) use of antithrombotics/antiplatelets; Z79.82 Long term (current) use of aspirin; I10 Essential (primary) hypertension
CPT/HCPCS: 73562; 96372; 99284; J1885

== ENCOUNTER → 2025-07-09 10:55 | Outpatient (BNVA) | payer MEDICARE, OTHER, SELFPAY | PROVIDERS: PCP Family Medicine; Visit Provider Nurse Practitioner Family | DX: I48.91 Unspecified atrial fibrillation (principal); I11.0 Hypertensive heart disease with heart failure; I50.20 Unspecified systolic (congestive) heart failure; I25.10 Atherosclerotic heart disease of native coronary artery without angina pectoris; Z95.0 Presence of cardiac pacemaker; Z87.891 Personal history of nicotine dependence; R68.89 Other general symptoms and signs | CPT/HCPCS: 99214 ==